=== PATIENT | male | born 1935 | race Caucasian/White ===

== ENCOUNTER → 2018-03-24 14:06 | Outpatient (CLI) | payer MEDICARE, SELFPAY ==
[2018-03-24 14:18] LABS: Bacteria 0 SEEN /hpf (None Seen); Red Blood Cells-Urine 0 SEEN /hpf (0-5); Squamous Epithelial Cells - UA 0 SEEN /hpf (0-5)
[2018-03-24 15:37] LABS: Hematocrit 42.3 % (40-54); Hemoglobin 13.9 g/dl (13.0-16.5); Mean Corp Hgb Conc 32.9 g/gl (32-36); Mean Corpuscular Hgb 31.2 pg (27.0-32.0); Mean Corpuscular Volume 94.8 fL (80-94); Mean Platelet Vol. 9.6 fl (6.2-12.0); Platelet Count 256 K/mm3 (150-450); RBC Distribution Width CV 13.7 % (11.6-14.6); RBC Distribution Width SD 47.1 fl (35.1-43.9); Red Blood Count 4.46 M/mm3 (4.6-6.2)
[2018-03-24 15:53] LABS: Scan Indicated on CBC? Y/N NO
[2018-03-24 16:08] LABS: Albumin, Serum 3.7 g/dL (3.2-5.0); BUN 32 mg/dL (7-18); BUN/Creat Ratio 21.9 RATIO (10-20); Calcium,Total 8.7 mg/dL (8.5-10.1); Chloride 107 mmol/L (98-107); Creatinine, Serum 1.46 mg/dL (0.70-1.30); EST Glomerular Filtration Rate 49 mL/min (>60); Est Glom Filt Rate - Afr Amer 60 mL/min (>60); Glucose 63 mg/dL (74-106); Phosphorus 3.5 mg/dL (2.5-4.9); Potassium 4.3 mmol/L (3.5-5.1); Sodium Level 141 mmol/L (136-145)
[2018-03-24 16:13] LABS: PTHIN 41.2 pg/mL (18.4-80.1); Vitamin D,25 Hydroxy 50.3 ng/mL (29.95-100.01)
[2018-03-24 16:14] LABS: Color, Urine Yellow (Yellow); Glucose, Dipstick Normal (Normal); Ketone-Dipstick 5 mg/dl (Negative); Leukocyte Esterase-Dipstick 100 /ul (Negative); Nitrite-Dipstick Negative (Negative); Occult Blood-Urine 10 /ul (Negative); Protein-Dipstick Negative (Negative); Urine Bilirubin Dipstick Negative (Negative); Urine Clarity Clear (Clear); Urine Urobilinogen Normal (Normal)
[2018-03-24 16:36] LABS: Microalbumin,Random Urine 10.1 mg/L (NO RANGE EST.); Microalbumin:Creatinine Ratio 5.7 mg/g CRE (<30 mg/g CRE); Protein, Urine (Random) 14.3 mg/dL (<11.9); Protein:Creat Ratio 81 mg/g CRE (0-200)
[2018-03-24 16:42] LABS: Mucous, Urine 2+ /hpf (<or=2+); White Blood Cells 0-5 SEEN /hpf (0-5)
== END ==
PROVIDERS: Family Provider Internal Medicine; PCP Family Medicine; Visit Provider Internal Medicine Nephrology
DX: N18.3 Chronic kidney disease, stage 3 (moderate) (principal)
CPT/HCPCS: 36415; 80069; 81001; 82043; 82306; 82570; 83970; 84156; 85027

== ENCOUNTER → 2018-04-02 10:07 | Outpatient (CLI) | payer MEDICARE, SELFPAY ==
--- NOTE | 2018-04-02 10:11 | US_ITS ---
STUDY: RENAL ULTRASOUND - COMPLETE REASON FOR EXAM: Male, 82 years old. Stage III chronic kidney disease. TECHNIQUE: Ultrasound evaluation of the kidneys was performed with real-time and static jaeger-scale imaging. COMPARISON: None. FINDINGS: RIGHT KIDNEY: Normal location of the right kidney, which is normal in size. The right kidney measures 9.6 cm. There is a normal cortex of the right kidney. The renal cortex measures 1.0 cm. There is no right renal mass or cyst. There are no right renal calculi. There is no right hydronephrosis. DISTAL RIGHT URETER: There is non-visualization of the distal right ureter. There is no demonstrated right ureterovesical junction calculus. There is a visualized right ureteral jet. LEFT KIDNEY: Normal location of the left kidney, which is normal in size. The left kidney measures 10.6 cm. There is a normal cortex of the left kidney. The renal cortex measures 1.1 cm. There is no left renal mass or cyst. There are no left renal calculi. There is no left hydronephrosis. DISTAL LEFT URETER: There is non-visualization of the distal left ureter. There is no demonstrated left ureterovesical junction calculus. There is a visualized left ureteral jet. BLADDER: The incompletely distended urinary bladder has a volume of 57 ml. There is a normal wall thickness of the distended urinary bladder. There is no demonstrated mass within the urinary bladder. There are no demonstrated bladder calculi. US/Kidney and Bladder IMPRESSION: Normal ultrasound of the kidneys and urinary bladder. Electronically Signed: Jovanny Mahmood DO at 12:49 EDT Tel [phone], Service support ,
== END ==
PROVIDERS: Family Provider Internal Medicine; PCP Family Medicine; Visit Provider Internal Medicine Nephrology
DX: N18.3 Chronic kidney disease, stage 3 (moderate) (principal)
CPT/HCPCS: 76770

== ENCOUNTER → 2018-10-02 09:23 | Outpatient (CLI) | payer MEDICARE, SELFPAY ==
[2018-10-02 09:28] LABS: Bacteria 0 SEEN /hpf (None Seen); Mucous, Urine 0 SEEN /hpf (<or=2+); Red Blood Cells-Urine 0 SEEN /hpf (0-5)
[2018-10-02 12:04] LABS: Color, Urine Yellow (Yellow); Glucose, Dipstick Normal (Normal); Ketone-Dipstick Negative (Negative); Leukocyte Esterase-Dipstick 25 /ul (Negative); Nitrite-Dipstick Negative (Negative); Occult Blood-Urine Negative /ul (Negative); Protein-Dipstick Negative (Negative); Specific Gravity, Urine 1.015 (1.002-1.030); Urine Bilirubin Dipstick Negative (Negative); Urine Clarity Clear (Clear); Urine Urobilinogen Normal (Normal)
[2018-10-02 12:15] LABS: Vitamin D,25 Hydroxy 38.5 ng/mL (29.95-100.01)
[2018-10-02 12:19] LABS: ALB/GLOB Ratio 0.8 RATIO (0.9-2.4); AST(SGOT) 22 U/L (15-37); Alanine Aminotransfer ALT/SGPT 37 U/L (16-61); Albumin, Serum 3.8 g/dL (3.2-5.0); Alkaline Phosphatase 49 U/L (45-117); Anion Gap 9 (5-15); BUN 31 mg/dL (7-18); BUN/Creat Ratio 19.4 RATIO (10-20); Calcium,Total 9.1 mg/dL (8.5-10.1); Chloride 105 mmol/L (98-107); Cholesterol 184 mg/dL (200); EST Glomerular Filtration Rate 44 mL/min (>60); Est Glom Filt Rate - Afr Amer 54 mL/min (>60); Globulin 4.6 g/dL (2.2-4.2); Glucose 74 mg/dL (74-106); High Density Lipoprotein 57 mg/dL; Phosphorus 2.8 mg/dL (2.5-4.9); Potassium 4.4 mmol/L (3.5-5.1); Protein, Total 8.4 g/dL (6.4-8.2); Sodium Level 139 mmol/L (136-145); Triglycerides 133 mg/dL; Very Low Density Lipoprotein 27 mg/dL (5-40)
[2018-10-02 12:22] LABS: Microalbumin,Random Urine 7.4 mg/L (NO RANGE EST.); Microalbumin:Creatinine Ratio 5.9 mg/g CRE (<30 mg/g CRE); Protein, Urine (Random) 6.6 mg/dL (<11.9); Protein:Creat Ratio 52 mg/g CRE (0-200)
[2018-10-02 12:30] LABS: Squamous Epithelial Cells - UA 0-5 SEEN /hpf (0-5); White Blood Cells 0-5 SEEN /hpf (0-5)
[2018-10-02 13:54] LABS: PTHIN 42.3 pg/mL (18.4-80.1)
[2018-10-06 14:07] LABS: Testosterone, Free 9.97 ng/dL (5.00-21.00)
[2018-10-06 15:47] LABS: Testosterone, % Free 2.63 % (1.50-4.20); Testosterone, Total 379 ng/dL (264-916)
== END ==
PROVIDERS: Family Provider Family Medicine; PCP Family Medicine; Visit Provider Family Medicine
DX: I12.9 Hypertensive 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 stage 4 chronic kidney disease, or unspecified chronic kidney disease (principal); N18.3 Chronic kidney disease, stage 3 (moderate); E78.5 Hyperlipidemia, unspecified; N52.9 Male erectile dysfunction, unspecified
CPT/HCPCS: 36415; 80053; 80061; 81001; 82043; 82306; 82570; 83970; 84100; 84156; 84402; 84403

== ENCOUNTER → 2019-03-31 14:21 | Outpatient (CLI) | payer MEDICARE, OTHER, SELFPAY ==
[2019-03-31 14:32] LABS: Bacteria 0 SEEN /hpf (None Seen); Mucous, Urine 0 SEEN /hpf (<or=2+); Red Blood Cells-Urine 0 SEEN /hpf (0-5); Squamous Epithelial Cells - UA 0 SEEN /hpf (0-5)
[2019-03-31 17:31] LABS: Color, Urine Yellow (Yellow); Glucose, Dipstick Normal (Normal); Ketone-Dipstick Negative (Negative); Leukocyte Esterase-Dipstick 25 /ul (Negative); Nitrite-Dipstick Negative (Negative); Occult Blood-Urine Negative /ul (Negative); Protein-Dipstick Negative (Negative); Urine Bilirubin Dipstick Negative (Negative); Urine Clarity Clear (Clear); Urine Urobilinogen Normal (Normal)
[2019-03-31 17:34] LABS: White Blood Cells 0-5 SEEN /hpf (0-5)
[2019-03-31 17:37] LABS: Absolute Lymphocyte Count 3.12 X10^3/ul (0.83-4.51); Absolute Neutrophil Count 5.8 X10^3/uL (2.0-7.7); Basophil# 0.03 X10^3/uL; Basophil% 0.3 % (0-1); Eosinophil# 0.15 X10^3/uL; Eosinophils% 1.6 % (0-5); Hematocrit 41.6 % (40-54); Hemoglobin 13.9 g/dl (13.0-16.5); Lymphocyte # 3.12 X10^3/ul (4.0); Lymphocyte % 32.6 % (19-41); Mean Corp Hgb Conc 33.4 g/gl (32-36); Mean Corpuscular Hgb 31.3 pg (27.0-32.0); Mean Corpuscular Volume 93.7 fL (80-94); Mean Platelet Vol. 9.7 fl (6.2-12.0); Monocyte% 5.2 % (0-10); Neutrophil # 5.75 X10^3/uL (2.7-7.7); Platelet Count 245 K/mm3 (150-450); RBC Distribution Width SD 48.2 fl (35.1-43.9); Red Blood Count 4.44 M/mm3 (4.6-6.2); White Blood Count 9.6 K/mm3 (4.4-11.0)
[2019-03-31 17:38] LABS: ALB/GLOB Ratio 0.9 RATIO (0.9-2.4); AST(SGOT) 22 U/L (15-37); Alanine Aminotransfer ALT/SGPT 33 U/L (16-61); Albumin, Serum 3.9 g/dL (3.2-5.0); Alkaline Phosphatase 49 U/L (45-117); Anion Gap 5 (5-15); BUN 32 mg/dL (7-18); BUN/Creat Ratio 21.1 RATIO (10-20); Calcium,Total 8.7 mg/dL (8.5-10.1); Chloride 107 mmol/L (98-107); Creatinine, Serum 1.52 mg/dL (0.70-1.30); EST Glomerular Filtration Rate 47 mL/min (>60); Est Glom Filt Rate - Afr Amer 57 mL/min (>60); Globulin 4.2 g/dL (2.2-4.2); Glucose 92 mg/dL (74-106); POSITIVE COUNT NO; POSITIVE DIFFERENTIAL NO; POSITIVE MORPHOLOGY NO; Potassium 3.7 mmol/L (3.5-5.1); Protein, Total 8.1 g/dL (6.4-8.2); Sodium Level 141 mmol/L (136-145)
[2019-03-31 17:44] LABS: Vitamin D,25 Hydroxy 28.4 ng/mL (29.95-100.01)
[2019-03-31 17:51] LABS: Microalbumin,Random Urine 7.8 mg/L (NO RANGE EST.); Microalbumin:Creatinine Ratio 6.6 mg/g CRE (<30 mg/g CRE); Protein, Urine (Random) 11.8 mg/dL (<11.9); Protein:Creat Ratio 100 mg/g CRE (0-200)
[2019-03-31 18:09] LABS: PTHIN 49.9 pg/mL (18.4-80.1)
== END ==
PROVIDERS: Family Provider Family Medicine; PCP Family Medicine; Visit Provider Family Medicine
DX: I12.9 Hypertensive 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 stage 4 chronic kidney disease, or unspecified chronic kidney disease (principal); N18.3 Chronic kidney disease, stage 3 (moderate); E78.5 Hyperlipidemia, unspecified
CPT/HCPCS: 36415; 80053; 81001; 82043; 82306; 82570; 83970; 84100; 84156; 85025

== ENCOUNTER → 2019-10-01 09:23 | Outpatient (CLI) | payer MEDICARE, OTHER, SELFPAY ==
[2019-10-01 12:18] LABS: Absolute Lymphocyte Count 3.17 X10^3/uL (0.83-4.51); Absolute Neutrophil Count 5.1 X10^3/uL (2.0-7.7); Basophil# 0.05 X10^3/uL; Basophil% 0.5 % (0-1); Eosinophil# 0.18 X10^3/uL; Hematocrit 46.4 % (40-54); Hemoglobin 15.3 g/dL (13.0-16.5); Lymphocyte # 3.17 X10^3/ul (4.0); Lymphocyte % 34.7 % (19-41); Mean Corpuscular Hgb 31.6 pg (27.0-32.0); Mean Corpuscular Volume 95.9 fL (80-94); Mean Platelet Vol. 10.1 fl (6.2-12.0); Monocyte# 0.63 X10^3/uL; Monocyte% 6.9 % (0-10); NRBC Flagged by Analyzer 0 % (0-5); Neutrophil # 5.05 X10^3/uL (2.7-7.7); Neutrophil % 55.4 % (47-70); Platelet Count 262 K/mm3 (150-450); RBC Distribution Width CV 13.6 % (11.6-14.6); RBC Distribution Width SD 48.4 fl (35.1-43.9); Red Blood Count 4.84 M/mm3 (4.6-6.2); White Blood Count 9.1 K/mm3 (4.4-11.0)
[2019-10-01 12:33] LABS: ALB/GLOB Ratio 0.8 RATIO (0.9-2.4); AST(SGOT) 21 U/L (15-37); Alanine Aminotransfer ALT/SGPT 35 U/L (16-61); Albumin, Serum 3.7 g/dL (3.2-5.0); Alkaline Phosphatase 48 U/L (45-117); Anion Gap 8 (5-15); BUN 29 mg/dL (7-18); BUN/Creat Ratio 17.8 RATIO (10-20); Calcium,Total 9.1 mg/dL (8.5-10.1); Chloride 104 mmol/L (98-107); Cholesterol 200 mg/dL (200); Creatinine, Serum 1.63 mg/dL (0.70-1.30); EST Glomerular Filtration Rate 43 mL/min (>60); Est Glom Filt Rate - Afr Amer 52 mL/min (>60); Globulin 4.4 g/dL (2.2-4.2); Glucose 79 mg/dL (74-106); High Density Lipoprotein 65 mg/dL; Phosphorus 3.2 mg/dL (2.5-4.9); Potassium 4.2 mmol/L (3.5-5.1); Protein, Total 8.1 g/dL (6.4-8.2); Sodium Level 141 mmol/L (136-145); Triglycerides 73 mg/dL; Very Low Density Lipoprotein 15 mg/dL (5-40)
[2019-10-01 12:34] LABS: Vitamin D,25 Hydroxy 38.9 ng/mL (29.95-100.01)
[2019-10-01 12:45] LABS: PTHIN 42.3 pg/mL (18.4-80.1)
[2019-10-01 12:55] LABS: Microalbumin,Random Urine 8.2 mg/L (NO RANGE EST.); Microalbumin:Creatinine Ratio 5.1 mg/g CRE (<30 mg/g CRE)
== END ==
PROVIDERS: Family Provider Family Medicine; PCP Family Medicine; Visit Provider Family Medicine
DX: I12.9 Hypertensive 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 stage 4 chronic kidney disease, or unspecified chronic kidney disease (principal); N18.3 Chronic kidney disease, stage 3 (moderate); E78.5 Hyperlipidemia, unspecified; E55.9 Vitamin D deficiency, unspecified
CPT/HCPCS: 36415; 80053; 80061; 82043; 82306; 82570; 83970; 84100; 85025

== ENCOUNTER → 2021-03-27 09:45 | Outpatient (CLI) | payer MEDICARE, OTHER, SELFPAY ==
[2021-03-27 12:26] LABS: Absolute Lymphocyte Count 3.48 X10^3/uL (0.83-4.51); Absolute Neutrophil Count 5.2 X10^3/uL (2.0-7.7); Basophil# 0.04 X10^3/uL; Basophil% 0.4 % (0-1); Eosinophil# 0.15 X10^3/uL; Eosinophils% 1.6 % (0-5); Hematocrit 43.2 % (40-54); Hemoglobin 14.1 g/dL (13.0-16.5); Lymphocyte # 3.48 X10^3/ul (0.83-4.51); Lymphocyte % 36.6 % (19-41); Mean Corp Hgb Conc 32.6 g/dL (32-36); Mean Corpuscular Hgb 31.2 pg (27.0-32.0); Mean Corpuscular Volume 95.6 fL (80-94); Monocyte# 0.65 X10^3/uL; Monocyte% 6.8 % (0-10); NRBC Flagged by Analyzer 0 % (0-5); Neutrophil # 5.15 X10^3/uL (2.7-7.7); Neutrophil % 54.1 % (47-70); Platelet Count 262 K/mm3 (150-450); RBC Distribution Width CV 13.6 % (11.6-14.6); RBC Distribution Width SD 48.3 fl (35.1-43.9); Red Blood Count 4.52 M/mm3 (4.6-6.2); White Blood Count 9.5 K/mm3 (4.4-11.0)
[2021-03-27 12:44] LABS: PTHIN 48.6 pg/mL (18.4-80.1)
[2021-03-27 12:46] LABS: Vitamin D,25 Hydroxy 43.4 ng/mL
[2021-03-27 13:06] LABS: ALB/GLOB Ratio 0.8 RATIO (0.9-2.4); AST(SGOT) 17 U/L (15-37); Alanine Aminotransfer ALT/SGPT 30 U/L (16-61); Albumin, Serum 3.7 g/dL (3.2-5.0); Alkaline Phosphatase 46 U/L (45-117); Anion Gap 9 (5-15); BUN 36 mg/dL (7-18); BUN/Creat Ratio 23.2 RATIO (10-20); Calcium,Total 9.1 mg/dL (8.5-10.1); Chloride 105 mmol/L (98-107); Cholesterol 196 mg/dL (200); Creatinine, Serum 1.55 mg/dL (0.70-1.30); EST Glomerular Filtration Rate 46 mL/min (>60); Est Glom Filt Rate - Afr Amer 55 mL/min (>60); Globulin 4.4 g/dL (2.2-4.2); Glucose 88 mg/dL (74-106); High Density Lipoprotein 67 mg/dL; Protein, Total 8.1 g/dL (6.4-8.2); Sodium Level 139 mmol/L (136-145); Triglycerides 78 mg/dL; Very Low Density Lipoprotein 16 mg/dL (5-40)
[2021-03-27 13:21] LABS: Microalbumin,Random Urine 11.9 mg/L (NO RANGE EST.); Microalbumin:Creatinine Ratio 12.2 mg/g CRE (<30 mg/g CRE)
== END ==
PROVIDERS: PCP Family Medicine; Referring Provider Family Medicine; Visit Provider Family Medicine
DX: I12.9 Hypertensive 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 stage 4 chronic kidney disease, or unspecified chronic kidney disease (principal); N18.30 Chronic kidney disease, stage 3 unspecified; E78.5 Hyperlipidemia, unspecified; E55.9 Vitamin D deficiency, unspecified; Z12.5 Encounter for screening for malignant neoplasm of prostate
CPT/HCPCS: 36415; 80053; 80061; 82043; 82306; 82570; 83970; 84153; 85025; G0103

== ENCOUNTER → 2021-11-13 | Outpatient (CLI) | payer MEDICARE, OTHER, SELFPAY ==
--- NOTE | 2021-11-13 | IMM_PTH ---
PATIENT: GRANT MCDONNELL V LOC: [facility] U#:[id number] AGE/SX: 86/M ROOM: RE11/13/[address]: Dr. Emil Isabel MD : 1935 BED: DIS: 11/13/2021 SPEC #: [id number] RECD: 11/15/21 11:54 STATUS: YUDI REQ #: [id number] SANDEEP: 11/13/21 00:[address]: Emil Isabel DEPT: IMMUNOHISTOCHEMISTRY RECD BY: Niru Frank ENTERED: 11/15/21 11:55 SP TYPE: IMMUNO OTHR DR: Dr. Johnny Wolff DO Tissues: B - PROSTATE RIGHT C - PROSTATE RIGHT Procedures: 34BE12 (add) P40 (add) 34BE12 (initial) PHYSICIAN & INSTITUTION [place] [address] SPECIMEN INFORMATION: Tissue Source: B - Right prostate, mid, core biopsy, C - Right prostate, base, core biopsy Clinical Info: Elevated PSA Specimen Number: [id number] B & C CPT code: 70618, 33581 x3 METHODOLOGY: Deparaffinized sections of prefer/formalin-fixed tissue or PAP/DQ stained slides are incubated with monoclonal/polyclonal antibodies/oligonucleotide probes. Localization is made via biotin free immunoperoxidase method. Appropriate controls are performed and reacted as expected. Results on target cell population are indicated in the following table: RESULTS: ANTIBODY / CLONE RESULT Block B P40 (BC28) positive 34BE12 (34BE12) positive Block C P40 (BC28) positive 34BE12 (34BE12) positive These tests were developed and their performance characteristics determined by [facility]. They may not have been cleared or approved by the U.S. Food and Drug Administration. The FDA has determined that such clearance or approval is not necessary. The above immunohistochemical/dualISH markers are ordered and reviewed by the Pathologist. INTERPRETATION: B. Right prostate, mid, core biopsy: Benign prostatic tissue. C. Right prostate, base, core biopsy: Benign prostatic tissue. AM:janna 11/16/2021
--- NOTE | 2021-11-13 | PROSBIL_PTH ---
PATIENT: GRANT MCDONNELL V LOC: [facility] U#:[id number] AGE/SX: 86/M ROOM: RE11/13/[address]: Dr. Emil Isabel MD : 1935 BED: DIS: 11/13/2021 SPEC #: [id number] RECD: 11/14/21 10:26 STATUS: YUDI REWilfrid #: [id number] SANDEEP: 11/13/21 00:[address]: Emil Isabel DEPT: SURGICAL PATHOLOGY RECD BY: Ezequiel Denson ENTERED: 11/14/21 10:27 SP TYPE: PROST BX MARRY DR: Dr. Johnny Wolff DO Tissues: A - PROSTATE RIGHT B - PROSTATE RIGHT C - PROSTATE RIGHT D - PROSTATE LEFT E - PROSTATE LEFT F - PROSTATE LEFT Procedures: PROSTATE BX HEADER OPERATION: Prostate biopsy PRE-OP DIAGNOSIS: Elevated PSA R97.20 TISSUE SUBMITTED: A - Right apex, B - Right mid, C - Right base, D - Left apex, E - Left mid, F - Left base MICROSCOPIC DIAGNOSIS A. Right prostate, apex, core biopsy: Chronic prostatitis with focal acute prostatitis. B. Right prostate, mid, core biopsy: Focal high-grade prostatic intraepithelial neoplasia (HGPIN). See comment. C. Right prostate, base, core biopsy: Focal high-grade prostatic intraepithelial neoplasia (HGPIN). See comment. D. Left prostate, apex, core biopsy: Adenocarcinoma. Alfie grade: 7 (3+4) Cores involved: 1 out of 1 core Tissue involved: 25% Greatest tumor length: 2.2 millimeters Other findings: Focal high-grade prostatic intraepithelial neoplasia (HGPIN). E. Left prostate, mid, core biopsy: Adenocarcinoma. Sayre grade: 7 (4+3) Cores involved: 1 out of 1 core Tissue involved: 25% Greatest tumor length: 2.5 millimeters F. Left prostate, base, core biopsy: Adenocarcinoma. Sayre grade: 8 (5+3) Cores involved: 1 out of 2 core Tissue involved: 65% Greatest tumor length: 6.5 millimeters AM:janna 11/15/2021 COMMENT B & C. Immunohistochemistry ([id number]) supports the above diagnosis. MICROSCOPIC DESCRIPTION Slides are reviewed. GROSS DESCRIPTION A - Received is one container designated prostate, right apex. The specimen consists of two elongated fragments of light -white soft tissue each measuring 0.8 cm in length and 0.1 cm in diameter. The specimen is totally submitted in one cassette. B - Received is one container designated prostate, right mid. The specimen consists of two elongated fragments of light -white soft tissue each measuring 0.8 cm in length and 0.1 cm in diameter. The specimen is totally submitted in one cassette. C - Received is one container designated prostate, right base. The specimen consists of two elongated fragments of light -white soft tissue each measuring 0.8 cm in length and 0.1 cm in diameter. The specimen is totally submitted in one cassette. D - Received is one container designated prostate, left apex. The specimen consists of one elongated fragment of light -white soft tissue measuring 1.5 cm in length and 0.1 cm in diameter. The specimen is totally submitted in one cassette. E - Received is one container designated prostate, left mid. The specimen consists of one elongated fragment of light -white soft tissue measuring 1.5 cm in length and 0.1 cm in diameter. The specimen is totally submitted in one cassette. F - Received is one container designated prostate, left base. The specimen consists of two elongated fragments of light -white soft tissue each measuring 0.8 cm in length and 0.1 cm in diameter. The specimen is totally submitted in one cassette. / AM:janna 11/14/21 TC:0 [facility]: [id number]
== END | disposition home or self-care (01) ==
LOC: LABSPEC 16:31
PROVIDERS: PCP Family Medicine; Visit Provider Urology
DX: C61 Malignant neoplasm of prostate (principal); N42.31 Prostatic intraepithelial neoplasia; N41.1 Chronic prostatitis; R97.20 Elevated prostate specific antigen [PSA]
CPT/HCPCS: 88305; 88341; 88342; G0416

== ENCOUNTER → 2021-11-20 | Outpatient (CLI) | payer MEDICARE, OTHER, SELFPAY | END | disposition home or self-care (01) | LOC: LABSPEC 11-21 11:24 | PROVIDERS: PCP Family Medicine; Referring Provider Family Medicine; Visit Provider Family Medicine | DX: Z20.822 Contact with and (suspected) exposure to COVID-19 (principal) | CPT/HCPCS: 87633; 87635; U0005; U0003 ==

== ENCOUNTER → 2021-11-23 08:59 | Outpatient (CLI) | payer MEDICARE, OTHER, SELFPAY ==
--- NOTE | 2021-11-23 09:01 | NM_ITS ---
CLINICAL: 86-year-old male with history of carcinoma of the prostate. WHOLE BODY 99m Tc MDP RADIONUCLIDE BONE SCINTIGRAPHY COMPARISON: None available FINDINGS: Following the intravenous administration of 25.0 mCi of 99m Tc MDP, whole body bone images reveal: 1. Increased radiopharmaceutical concentration is identified in the eighth thoracic vertebra posteriorly on the right, lower cervical spine posteriorly on the left, the acromioclavicular and sternoclavicular compartments of both shoulders, medial tibial compartment of the left knee. 2. The remaining skeletal structures are scintigraphically unremarkable with normal-appearing renal images and urinary bladder activity identified. NM/Bone Scan Whole Body IMPRESSION: 1. The increase in radiopharmaceutical concentration identified in the cervical and thoracic spine, bilateral shoulders and left knee articulation is most consistent with degenerative arthritis. 2. There is no definitive typical scintigraphic evidence of diffuse axial skeletal metastatic disease on the current examination. Electronically Signed: Peter Wiley DO at 22:40 EST Tel , Service support ,
== END ==
PROVIDERS: PCP Family Medicine; Referring Provider Urology; Visit Provider Urology
DX: C61 Malignant neoplasm of prostate (principal)
CPT/HCPCS: 78306; A9503

== ENCOUNTER → 2021-11-28 14:58 | Outpatient (CLI) | payer MEDICARE, OTHER, SELFPAY ==
--- NOTE | 2021-11-28 15:02 | CT_ITS ---
INDICATION: PROSTATE CA EXAMINATION: CT Abdomen And Pelvis W/ Contrast Injection TECHNIQUE: Helically acquired images were obtained of the abdomen and pelvis after IV contrast. A radiation dose optimization technique was used for this scan. IV Contrast dosage and agent: IV 100mL Isovue-370 Oral contrast: None. COMPARISON: None. FINDINGS: Visualized lung bases: Unremarkable Liver: Unremarkable Gallbladder: Unremarkable Spleen: Unremarkable Pancreas: Unremarkable Adrenal Glands: Unremarkable Kidneys: Multiple parapelvic cysts in the left kidney. Vasculature: Moderate aortoiliac atherosclerotic disease. GI Tract: Scattered diverticula throughout the colon without evidence of inflammation. Lymphadenopathy: None Peritoneum: No ascites. Bladder: Unremarkable Reproductive organs: The prostate gland is enlarged and heterogeneous. Bones/Soft tissues: There are diffuse degenerative changes of the spine. CT/Abdomen/Pelvis W IV Cont ONLY IMPRESSION: Enlarged and heterogeneous prostate consistent with known prostate cancer. No evidence of lymphadenopathy. No evidence of local or distant metastatic disease. Diverticulosis. Electronically Signed: Raimundo Olivo MD at 0:11 EST Tel , Service support ,
[2021-11-28 15:21] LABS: EGFR FINGERSTICK > 60.0000 mL/min (>60)
== END ==
PROVIDERS: PCP Family Medicine; Referring Provider Urology; Visit Provider Urology
DX: C61 Malignant neoplasm of prostate (principal)
CPT/HCPCS: 74177; Q9967

== ENCOUNTER 2022-01-03 11:44 | Day surgery (SDC) | payer MEDICARE, OTHER, SELFPAY ==
[2022-01-03 12:14] VITALS: BP 164/90; PULSE 73; RESP 18; TEMP 36; O2SAT 100; BMI 24.1
[2022-01-03] MEDS: Lactated Ringers 1,000 ML 15 ML IV (12:23)
[2022-01-03] MEDS: Cefazolin 2 GM in 0.9% Normal Saline 100 ML IV (14:27)
--- NOTE | 2022-01-03 14:49 | PCM.HP.STD ---
HPI - General HPI Narrative GRANT MCDONNELL, is a 86 M who presents for placement of gold markers and spacer gel matrix PFSH Medical History (Updated 12/29/21 @ 11:[address] Xavier Johnson, DO) Back pain Cancer Depression High cholesterol History of cardiac murmur History of diverticulitis History of stress test Hypertension Injury of back Non-smoker Prostate disease Syncope Wears glasses Wears hearing aid Home Medications cholecalciferol (vitamin D3) 50 mcg (2,000 unit) capsule 50 mcg PO DAILY 12/08/21 [History Last Taken Unknown] amlodipine-benazepril 1 cap PO DAILY 12/27/21 [History Last Taken Unknown] aspirin 81 mg PO DAILY 12/27/21 [History Last Taken 12/21/21] calcium carbonate-vitamin D3 [Calcium 500 With D] 1 tab PO TID 12/27/21 [History Last Taken Unknown] lovastatin 20 mg PO QHS 12/27/21 [History Last Taken Unknown] multivitamin 1 cap PO DAILY 12/27/21 [History Last Taken Unknown] ciprofloxacin HCl [Cipro] 500 mg PO BID #14 tab 01/03/22 [Rx Last Taken Unknown] Allergy/AdvReac Type Severity Reaction Status Date / Time No Known Allergies Allergy Verified 01/03/22 12:23 Family History (Updated 12/08/21 @ 10:13 by Lucia Martinez RN) Brother Cancer PROSTATE Mother Diabetes Surgical History (Updated 12/27/21 @ 09:12 by Dory Wisdom) History of hand surgery Hx of colonoscopy Hx of eye surgery Hx of tonsillectomy Social History (Updated 12/08/21 @ 10:13 by Lucia Martinez RN) adopted: No household members: spouse current occupational exposures/hazards: No Smoking Status: Never smoker second hand exposure: No alcohol intake: never substance use type: does not use Vital Signs Vital Signs Vital Signs: 01/03/22 12:14 Temperature 96.8 F L Temperature Source Temporal Pulse Rate 73 Respiratory Rate 18 Respiratory Pattern Normal Blood Pressure 164/90 H Blood Pressure Mean 114 Blood Pressure Source Monitor Blood Pressure Position Sitting Blood Pressure Location Left Arm Pulse Ox 100 Oxygen Delivery Method Room Air Weight Weight: 72 kg Body Mass Index (BMI) 24.1
--- NOTE | 2022-01-03 14:49 | PCM.DC ---
Discharge Instructions Diet Discharge Diet: No restrictions Activity Discharge Activity: Return to Normal Activity and May Not Drive (while taking narcotic pain medications.) Dressing / Incision Call your doctor if you observe: Fever of 101 or Higher Follow Up Care Please Follow Up With: Emil Isabel MD When: Call [phone] for an appointment Test Results: Test results from this visit will be discussed in further detail at your follow-up appointment, if applicable. Discharge Plan Admission Primary Reason for Your Visit: markers and spacer gel Attending Provider: Emil Isabel Primary Care Provider: Johnny Wolff Discharge Orders/Prescriptions Prescriptions: New ciprofloxacin HCl [Cipro] 500 mg tablet 500 mg PO BID Qty: 14 RF: 0 Continued cholecalciferol (vitamin D3) 50 mcg (2,000 unit) capsule 50 mcg PO DAILY RF: 0 aspirin 81 mg Tablet,Delayed Release (Dr/Ec) 81 mg PO DAILY RF: 0 amlodipine-benazepril 5-10 mg Capsule 1 cap PO DAILY RF: 0 multivitamin Capsule 1 cap PO DAILY RF: 0 lovastatin 20 mg Tablet Extended Release 24 Hr 20 mg PO QHS RF: 0 calcium carbonate-vitamin D3 [Calcium 500 With D] 500 mg-10 mcg (400 unit) Tablet 1 tab PO TID RF: 0 Referrals / Follow Up: Johnny Wolff DO [Primary Care Provider] - Disposition Disposition (needs filled in before D/C Order can be placed): Home, Self Care
--- NOTE | 2022-01-03 14:49 | PCM.OPRPT ---
Report of Operation Date of Procedure: 01/03/22 Pre-Operative Diagnosis: prostate cancer Post-Operative Diagnosis: same Surgery/Procedure Performed:: Placement of gold markers and placement of spacer organ at risk gel matrix Description of Surgical Findings:: Patient was taken back to the operating room after smooth induction of anesthesia he was placed supine on the table. The genitals and perineum were prepped and draped in usual sterile fashion The penis and testicles were prepped and draped in usual sterile fashion, ultrasound probe was placed into the rectum and biplanar ultrasound was performed on the prostate. Identified the base mid and apex of the prostate identified the transition zone prostate. Then using a needle the first marker machine was placed into the right base of the prostate, the second marker machine was placed in the left base of the prostate, and the third core marker was placed in the right apex of the prostate after all 3 markers were placed the placement of the markers were confirmed by ultrasonography. I then introduced a biplanar ultrasound probe into the rectum and performed ultrasonography and identified the Denonvilliers' fascia the prostate mid base and apex and seminal vesicles. The spacer gel mix was then prepared on the back table per manufactures instruction. Under ultrasound guidance in the midline perineum a bevel needle down we advanced through the perineum below the prostate into the space of Denonvilliers' fascia. This space which could be identified by ultrasound with a bright white layer between the prostate and the rectum. I then injected a puff of normal saline to identify the space further. After I confirmed that the needle was in the correct space in the mid prostate and the space of Denonvilliers' fascia between the rectum and the prostate. Then over the course of 15 seconds the gel matrix was injected slowly there was nice separation between the prostate and the rectum at the gel matrix was injected. The position of the gel matrix was confirmed by ultrasound. Then the injection needle was removed intact. Patient's perineum was cleaned patient was taken out of stirrups and then taken back to the PACU in good condition. Surgeon: pastora Type of Anesthesia: General Admit VTE Documentation VTE Present on Admission: No VTE Mechan Device Prophylaxis: SCD's VTE Pharm Prophylaxis ordered?: No
[2022-01-03 14:54] VITALS: BP 104/78; BP 164/90; PULSE 62; RESP 16; TEMP 36.3; O2SAT 93
[2022-01-03 15:00] VITALS: BP 113/71; BP 164/90; PULSE 61; RESP 16; O2SAT 95
[2022-01-03 15:15] VITALS: BP 114/79; BP 164/90; PULSE 59; RESP 16; TEMP 36.1; O2SAT 97
[2022-01-03 15:52] VITALS: BP 128/92; BP 164/90; PULSE 52; RESP 16; TEMP 36.2; O2SAT 100
== END 2022-01-03 23:59 | disposition home or self-care (01) ==
LOC: SDC 11:46 → AC 11:48
PROVIDERS: PCP Family Medicine; Referring Provider Urology; Visit Provider Urology
PROC: (CPT 55874; principal; 2022-01-03 13:45)
DX: C61 Malignant neoplasm of prostate (principal); I10 Essential (primary) hypertension; E78.00 Pure hypercholesterolemia, unspecified; Z79.82 Long term (current) use of aspirin; Z79.899 Other long term (current) drug therapy
CPT/HCPCS: 55876; 55874; 00400; J2405

== ENCOUNTER 2022-01-09 11:01 | Outpatient (CLI) | payer MEDICARE, OTHER, SELFPAY | END 2022-01-09 23:59 | disposition home or self-care (01) | LOC: MRI 11:03 | PROVIDERS: PCP Family Medicine; Referring Provider Student in an Organized Health Care Education/Training Program; Visit Provider Student in an Organized Health Care Education/Training Program | DX: R69 Illness, unspecified (principal) ==

== ENCOUNTER → 2022-06-12 | Outpatient (CLI) | payer MEDICARE, OTHER, SELFPAY ==
[2022-06-12 12:00] LABS: PSA,Total- Diagnostic < 0.01 ng/mL (0.0-4.0)
== END | disposition home or self-care (01) ==
PROVIDERS: PCP Family Medicine; Visit Provider Urology
DX: C61 Malignant neoplasm of prostate (principal)
CPT/HCPCS: 36415; 84153

== ENCOUNTER → 2022-08-07 | Outpatient (CLI) | payer MEDICARE, OTHER, SELFPAY ==
--- NOTE | 2022-08-07 16:20 | RAD_ITS ---
STUDY: X-RAY - PELVIS REASON FOR EXAM: Male, 87 years old. Pelvic pain TECHNIQUE: One view of the pelvis was obtained. COMPARISON: None. FINDINGS: Moderate amount of fecal material is seen in the colon. Surgical clips are seen in the prostate bed. There is narrowing with cortical sclerosis and osteophyte formation of the sacroiliac joint consistent with degenerative osteoarthritic changes. Normal visualized bilateral superior and inferior pubic rami. There are degenerative changes of the pubic symphysis with articular narrowing and sclerosis. Normal ischial tuberosities. Normal visualized right femoral head. Normal right acetabulum. There is mild articular joint space narrowing of the right hip. Normal visualized left femoral head. Normal left acetabulum. There is mild articular joint space narrowing of the left hip. RAD/Pelvis 1 or 2 Views IMPRESSION: Degenerative changes of the bony pelvis. Moderate amount of fecal material is seen in the colon. Electronically Signed: Gasper Navarrete MD at 12:30 EDT ,
== END | disposition home or self-care (01) ==
LOC: RAD 16:15
PROVIDERS: PCP Family Medicine; Referring Provider Radiology Radiation Oncology; Visit Provider Radiology Radiation Oncology
DX: R10.2 Pelvic and perineal pain (principal)
CPT/HCPCS: 72170

== ENCOUNTER → 2022-09-10 | Outpatient (CLI) | payer MEDICARE, OTHER, SELFPAY ==
[2022-09-10 12:09] LABS: Absolute Neutrophil Count 5.3 X10^3/uL (2.0-7.7); Basophil# 0.03 X10^3/uL; Basophil% 0.4 % (0-1); Eosinophil# 0.12 X10^3/uL; Eosinophils% 1.5 % (0-5); Hematocrit 36.5 % (40-54); Hemoglobin 12.1 g/dL (13.0-16.5); Lymphocyte % 21.3 % (19-41); Mean Corp Hgb Conc 33.2 g/dL (32-36); Mean Corpuscular Hgb 31.8 pg (27.0-32.0); Mean Corpuscular Volume 95.8 fL (80-94); Mean Platelet Vol. 9.4 fl (6.2-12.0); Monocyte# 0.75 X10^3/uL; Monocyte% 9.4 % (0-10); NRBC Flagged by Analyzer 0 % (0-5); Neutrophil # 5.31 X10^3/uL (2.7-7.7); Neutrophil % 66.6 % (47-70); Platelet Count 293 K/mm3 (150-450); RBC Distribution Width CV 13.7 % (11.6-14.6); RBC Distribution Width SD 48.3 fl (35.1-43.9); Red Blood Count 3.81 M/mm3 (4.6-6.2)
[2022-09-10 12:24] LABS: ALB/GLOB Ratio 0.7 RATIO (0.9-2.4); AST(SGOT) 19 U/L (15-37); Alanine Aminotransfer ALT/SGPT 23 U/L (16-61); Albumin, Serum 3.3 g/dL (3.2-5.0); Alkaline Phosphatase 57 U/L (45-117); Anion Gap 8 (5-15); BUN 25 mg/dL (7-18); BUN/Creat Ratio 17.1 RATIO (10-20); Calcium,Total 9.3 mg/dL (8.5-10.1); Chloride 105 mmol/L (98-107); Cholesterol 192 mg/dL (200); Creatinine, Serum 1.46 mg/dL (0.70-1.30); EST Glomerular Filtration Rate 49 mL/min (>60); Est Glom Filt Rate - Afr Amer 59 mL/min (>60); Globulin 4.7 g/dL (2.2-4.2); Glucose 70 mg/dL (74-106); High Density Lipoprotein 62 mg/dL; Potassium 4.3 mmol/L (3.5-5.1); Sodium Level 140 mmol/L (136-145); Triglycerides 126 mg/dL; Very Low Density Lipoprotein 25 mg/dL (5-40)
== END | disposition home or self-care (01) ==
LOC: BFHLAB 09:53
PROVIDERS: PCP Family Medicine; Visit Provider Family Medicine
DX: I12.9 Hypertensive 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 stage 4 chronic kidney disease, or unspecified chronic kidney disease (principal); N18.31 Chronic kidney disease, stage 3a; E78.5 Hyperlipidemia, unspecified
CPT/HCPCS: 36415; 80053; 80061; 85025

== ENCOUNTER → 2022-09-29 | Outpatient (CLI) | payer MEDICARE, OTHER, SELFPAY ==
[2022-09-29 16:16] LABS: Anion Gap 6 (5-15); BUN 33 mg/dL (7-18); BUN/Creat Ratio 22.1 RATIO (10-20); Calcium,Total 8.6 mg/dL (8.5-10.1); Chloride 108 mmol/L (98-107); Creatinine, Serum 1.49 mg/dL (0.70-1.30); EST Glomerular Filtration Rate 48 mL/min (>60); Est Glom Filt Rate - Afr Amer 58 mL/min (>60); Glucose 81 mg/dL (74-106); Potassium 4.3 mmol/L (3.5-5.1); Sodium Level 138 mmol/L (136-145)
== END | disposition home or self-care (01) ==
LOC: LAB 10:09
PROVIDERS: PCP Family Medicine
DX: N17.9 Acute kidney failure, unspecified (principal)
CPT/HCPCS: 36415; 80048

== ENCOUNTER → 2023-04-08 | Outpatient (CLI) | payer MEDICARE, OTHER, SELFPAY ==
[2023-04-08 12:01] LABS: Absolute Lymphocyte Count 1.68 X10^3/uL (0.83-4.51); Absolute Neutrophil Count 4.7 X10^3/uL (2.0-7.7); Basophil# 0.04 X10^3/uL; Basophil% 0.5 % (0-1); Eosinophil# 0.19 X10^3/uL; Eosinophils% 2.6 % (0-5); Hematocrit 35.7 % (40-54); Hemoglobin 11.8 g/dL (13.0-16.5); Lymphocyte # 1.68 X10^3/ul (0.83-4.51); Lymphocyte % 22.9 % (19-41); Mean Corp Hgb Conc 33.1 g/dL (32-36); Mean Corpuscular Hgb 31.3 pg (27.0-32.0); Mean Corpuscular Volume 94.7 fL (80-94); Mean Platelet Vol. 9.5 fl (6.2-12.0); Monocyte# 0.65 X10^3/uL; Monocyte% 8.9 % (0-10); NRBC Flagged by Analyzer 0 % (0-5); Neutrophil # 4.72 X10^3/uL (2.7-7.7); Neutrophil % 64.3 % (47-70); Platelet Count 247 K/mm3 (150-450); RBC Distribution Width CV 14.1 % (11.6-14.6); RBC Distribution Width SD 48.9 fl (35.1-43.9); Red Blood Count 3.77 M/mm3 (4.6-6.2); White Blood Count 7.3 K/mm3 (4.4-11.0)
[2023-04-08 12:20] LABS: ALB/GLOB Ratio 0.9 RATIO (0.9-2.4); AST(SGOT) 25 U/L (15-37); Alanine Aminotransfer ALT/SGPT 29 U/L (16-61); Albumin, Serum 3.5 g/dL (3.2-5.0); Alkaline Phosphatase 53 U/L (45-117); Anion Gap 4 (5-15); BUN 36 mg/dL (7-18); BUN/Creat Ratio 23.7 RATIO (10-20); Calcium,Total 8.9 mg/dL (8.5-10.1); Chloride 109 mmol/L (98-107); Creatinine, Serum 1.52 mg/dL (0.70-1.30); EST Glomerular Filtration Rate 46 mL/min (>60); Est Glom Filt Rate - Afr Amer 56 mL/min (>60); Globulin 4.1 g/dL (2.2-4.2); Glucose 87 mg/dL (74-106); Potassium 4.1 mmol/L (3.5-5.1); Protein, Total 7.6 g/dL (6.4-8.2); Sodium Level 139 mmol/L (136-145)
== END | disposition home or self-care (01) ==
LOC: BFHLAB 09:52
PROVIDERS: PCP Family Medicine; Referring Provider Family Medicine; Visit Provider Family Medicine
DX: I12.9 Hypertensive 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 stage 4 chronic kidney disease, or unspecified chronic kidney disease (principal); N18.31 Chronic kidney disease, stage 3a
CPT/HCPCS: 36415; 80053; 85025

== ENCOUNTER 2023-08-30 10:30 | Outpatient (RCR) | payer MEDICARE, OTHER, SELFPAY ==
--- NOTE | 2023-07-08 16:17 | HP.SP.EVAL ---
History History Date of Eval: 07/08/23 Attending Doctor: Referring Doctor: Reason for Referral: MEMORY Medical Diagnosis (from RX): Cognitive impairment Previous speech therapy: No Other Relevant Medical History/Diagnoses/Surgery: Patient has significant hearing impairment which is impacting his ability to communicate. He has a hearing aid through an object oriented developer and the other was through [employer]. Recommend a current hearing evaluation to determine how much of this is impacting his ability to communicate and understand oral information. Back pain Cancer Depression High cholesterol History of cardiac murmur History of diverticulitis History of stress test Hypertension Injury of back Prostate disease Syncope Wears glasses Wears hearing aid Medications related to this diagnosis: cholecalciferol (vitamin D3) 50 mcg (2,000 unit) capsule 50 mcg PO DAILY 12/08/21 [History Confirmed 07/01/23] amlodipine 5 mg-benazepril 10 mg capsule 1 cap PO DAILY 12/27/21 [History Confirmed 07/01/23] aspirin 81 mg tablet,delayed release 81 mg PO DAILY 12/27/21 [History Confirmed 07/01/23] calcium carbonate 500 mg-vitamin D3 10 mcg (400 unit) tablet (Calcium 500 With D) 1 tab PO TID 12/27/21 [History Confirmed 07/01/23] lovastatin 20 mg tablet,extended release 24 hr 20 mg PO QHS 12/27/21 [History Confirmed 07/01/23] multivitamin 1 cap PO DAILY 12/27/21 [History Confirmed 07/01/23] ciprofloxacin HCl 500 mg tablet (Cipro) 500 mg PO BID #14 tabs 01/03/22 [Rx Confirmed 12/31/22] hydrocortisone acetate 25 mg rectal suppository 25 mg CO BID #24 ea 08/21/22 [Rx Confirmed 07/01/23] Smoking Status: Never smoker Hx Tobacco Use: No Pain Is pain an issue with your current prescribed condition?: No Personal Preferred language: [place] Patient Allergies Allergies Allergies: Allergies No Known Allergies Allergy (Verified 07/01/23 09:05) * Pediatric & Adult patients Adult CLQT CLQT CLQT Administered: Yes CLQT: Cognitive Linguistic Quick Test (CLQT) is a criterion - referenced assessment designed for adults between the ages of 18 and 89 with known or suspected neurological dysfuntions. The CLQT is to assess strength and weaknesses in five cognitive domains. Severity ratings are within normal limits, mild, moderate, severe deficits. The subtests are as follows: Date: 07/08/23 Attention Attention: Severe Memory Memory: Mild Executive Functions Executive Functions: Moderate Language Language: WNL Visuospatial Skills Visuospatial Skills: Severe CLQT Comments Comments: -: Patient did well with language tasks of personal facts, confrontational naming, story retelling as well as generative naming. He had a difficult time wiht symbol cancellation as he crossed off anything that was of similar shape even when the correct one was present. As a non scoring task he was asked to complete it a second time with the model shown again and he would have gotten a score of 6 rather than 0. He appeared to forget the directions or lost attention as the second half of the paper had many more errors. He was unable to complete the symbol trail with the divided attention. He did complete the trial of alternating [place] to triangle but not able to follow increasing size of circles. He only got 3/6 design memory items. The mazes were completed correctly but he did not follow the directions to not cross lines. Reference: Neuro-QoL instrument In past 7 days I had to read something several times to understand it: Sometimes (2-3 times) My thinking was slow: Sometimes (2-3 times) I had to work really hard to pay attention or i would make a mistake: Sometimes (2-3 times) I had trouble concentrating: Sometimes (2-3 times) How much DIFFICULTY do you currently reading & following complex instructions (e.g. directions for new medication: A lot planning for & keeping appts that are not part of weekly routine: Somewhat managing your time to do most of your daily activities: Somewhat learning new tasks or instructions: A lot Neuro-QOL Score Raw Score: 22 T - Score: 37.0 Radiation Oncology Patient Plan Plan Plan: Speech therapy is recommended for recall and cognitive skills as the patient is demonstrating errors on both aspects. Recommendations Treatment Warranted: Yes Treatment Warranted: Cognition Progress Prognosis: Good Frequency Frequency: 1x/Week Duration: 2 Months Visits in this POC: 8 Patient/Family Goal Patient/Family Goal: Patient stated that he would like to address his memory skills. Goals that are Established Determination:: Goals will be added/modified as deemed necessary and appropriate. Therapy will be discontinued when results of re-evaluation indicate therapy is no longer needed or lack of progress has been documented. Goal #1-5 Goal #1: Willie will complete recall tasks of simple information provided either oral or in written form on 4/5 trials on 2/3 consecutive sessions. Goal #2: Willie will complete problem solving, logic, judgement and reasoning tasks for safety awareness, home activities such as medication and driving on 4/5 trials on 2/3 consecutive sessions. Education Patient has Indicated that the Following Identified Educational Needs: Cognitively Impaired and Hearing/Vision/Speech Impaired Patient Instruction Patient Education: Diagnosis, Treatment Plan and Goals Person Taught: Patient and Family Teaching Method: Discussion Response to teaching: Verbalize understanding
--- NOTE | 2023-10-22 10:39 | HP.SP.DC ---
ST Discharge Summary Discharged: Discharge: Willie Fernandez is discharged from [facility] as of October 22, 2023 as he did not attend his last session and did not reschedule it. His initial evaluation was on 07/08/23 and his last attended session was 08/30/23. His therapy sessions were one time per week. Goals focused on recalling information provided either oral or in written form as well as complete problem solving, logic, judgement and reasoning tasks for safety awareness, home activities such as medication and driving. During his last therapy session his recall of information in short stories was 80% with minimal cues. Word deduction was 98% and he was able to answer all driving safety scenarios without difficulty. During the sessions he was able to problem solve medication questions, household problems as well as safety awareness questions. No further therapy is necessary at this time. Thank you for allowing me to participate in the care of this patient.
== END 2023-08-30 19:00 | disposition home or self-care (01) ==
LOC: SP 10:30
PROVIDERS: PCP Family Medicine; Referring Provider Student in an Organized Health Care Education/Training Program; Visit Provider Student in an Organized Health Care Education/Training Program
DX: R41.3 Other amnesia (principal)
CPT/HCPCS: 92507

== ENCOUNTER → 2024-04-23 | Outpatient (CLI) | payer MEDICARE, OTHER, SELFPAY ==
[2024-04-23 17:12] LABS: PSA,Total- Diagnostic < 0.01 ng/mL (0.0-4.0)
== END | disposition home or self-care (01) ==
PROVIDERS: PCP Family Medicine; Referring Provider Urology; Visit Provider Urology
DX: R97.20 Elevated prostate specific antigen [PSA] (principal)
CPT/HCPCS: 36415; 84153

== ENCOUNTER → 2024-07-15 | Outpatient (CLI) | payer MEDICARE, OTHER, SELFPAY ==
[2024-07-15 15:28] LABS: PSA,Total- Diagnostic < 0.01 ng/mL (0.0-4.0)
== END | disposition home or self-care (01) ==
LOC: MTLAB 12:39
PROVIDERS: PCP Family Medicine; Referring Provider Urology; Visit Provider Urology
DX: C61 Malignant neoplasm of prostate (principal)
CPT/HCPCS: 36415; 84153

== ENCOUNTER → 2024-08-14 | Outpatient (CLI) | payer MEDICARE, OTHER, SELFPAY ==
[2024-08-14 12:45] LABS: Absolute Lymphocyte Count 2.08 X10^3/uL (0.83-4.51); Absolute Neutrophil Count 7.6 X10^3/uL (2.0-7.7); Basophil# 0.04 X10^3/uL; Basophil% 0.4 % (0-1); Eosinophil# 0.12 X10^3/uL; Eosinophils% 1.1 % (0-5); Hematocrit 38.6 % (40-54); Hemoglobin 12.5 g/dL (13.0-16.5); Lymphocyte # 2.08 X10^3/ul (0.83-4.51); Lymphocyte % 19.4 % (19-41); Mean Corp Hgb Conc 32.4 g/dL (32-36); Mean Corpuscular Volume 95.8 fL (80-94); Mean Platelet Vol. 9.6 fl (6.2-12.0); Monocyte# 0.85 X10^3/uL; Monocyte% 7.9 % (0-10); NRBC Flagged by Analyzer 0 % (0-5); Neutrophil # 7.56 X10^3/uL (2.7-7.7); Neutrophil % 70.4 % (47-70); Platelet Count 254 K/mm3 (150-450); RBC Distribution Width CV 13.8 % (11.6-14.6); Red Blood Count 4.03 M/mm3 (4.6-6.2); White Blood Count 10.7 K/mm3 (4.4-11.0)
[2024-08-14 13:06] LABS: ALB/GLOB Ratio 0.8 RATIO (0.9-2.4); AST(SGOT) 20 U/L (15-37); Alanine Aminotransfer ALT/SGPT 22 U/L (16-61); Albumin, Serum 3.5 g/dL (3.2-5.0); Alkaline Phosphatase 61 U/L (45-117); Anion Gap 6 (5-15); BUN 35 mg/dL (7-18); BUN/Creat Ratio 23.3 RATIO (10-20); Calcium,Total 9.3 mg/dL (8.5-10.1); Chloride 107 mmol/L (98-107); Cholesterol 245 mg/dL (200); EST Glomerular Filtration Rate 47 mL/min (>60); Est Glom Filt Rate - Afr Amer 57 mL/min (>60); Ferritin 106 ng/mL (26-388); Globulin 4.2 g/dL (2.2-4.2); Glucose 94 mg/dL (74-106); High Density Lipoprotein 66 mg/dL; Potassium 3.7 mmol/L (3.5-5.1); Protein, Total 7.7 g/dL (6.4-8.2); Sodium Level 139 mmol/L (136-145); Triglycerides 110 mg/dL; Very Low Density Lipoprotein 22 mg/dL (5-40)
[2024-08-14 15:22] LABS: Vitamin B12 614 pg/mL (211-911)
== END | disposition home or self-care (01) ==
LOC: BFHLAB 10:53
PROVIDERS: PCP Family Medicine; Referring Provider Family Medicine; Visit Provider Family Medicine
DX: I12.9 Hypertensive 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 stage 4 chronic kidney disease, or unspecified chronic kidney disease (principal); N18.31 Chronic kidney disease, stage 3a; D63.1 Anemia in chronic kidney disease
CPT/HCPCS: 36415; 80053; 80061; 82607; 82728; 85025

== ENCOUNTER → 2024-11-11 | Outpatient (CLI) | payer MEDICARE, OTHER, SELFPAY ==
[2024-11-11 15:26] LABS: Absolute Lymphocyte Count 2.35 X10^3/uL (0.83-4.51); Absolute Neutrophil Count 5.8 X10^3/uL (2.0-7.7); Basophil# 0.04 X10^3/uL; Basophil% 0.4 % (0-1); Eosinophil# 0.17 X10^3/uL; Eosinophils% 1.8 % (0-5); Hematocrit 39.6 % (40-54); Hemoglobin 12.5 g/dL (13.0-16.5); Lymphocyte # 2.35 X10^3/ul (0.83-4.51); Lymphocyte % 25.3 % (19-41); Mean Corp Hgb Conc 31.6 g/dL (32-36); Mean Corpuscular Hgb 30.1 pg (27.0-32.0); Mean Corpuscular Volume 95.4 fL (80-94); Mean Platelet Vol. 9.6 fl (6.2-12.0); Monocyte# 0.82 X10^3/uL; Monocyte% 8.8 % (0-10); NRBC Flagged by Analyzer 0 % (0-5); Neutrophil # 5.83 X10^3/uL (2.7-7.7); Neutrophil % 62.8 % (47-70); Platelet Count 249 K/mm3 (150-450); RBC Distribution Width CV 14.2 % (11.6-14.6); RBC Distribution Width SD 49.8 fl (35.1-43.9); Red Blood Count 4.15 M/mm3 (4.6-6.2); White Blood Count 9.3 K/mm3 (4.4-11.0)
[2024-11-11 15:47] LABS: Anion Gap 4 (5-15); BUN 33 mg/dL (7-18); BUN/Creat Ratio 22.4 RATIO (10-20); Calcium,Total 9.6 mg/dL (8.5-10.1); Chloride 106 mmol/L (98-107); Creatinine, Serum 1.47 mg/dL (0.70-1.30); EST Glomerular Filtration Rate 48 mL/min (>60); Est Glom Filt Rate - Afr Amer 58 mL/min (>60); Glucose 72 mg/dL (74-106); Potassium 4.4 mmol/L (3.5-5.1); Sodium Level 138 mmol/L (136-145)
== END | disposition home or self-care (01) ==
LOC: BFHLAB 11:54
PROVIDERS: PCP Family Medicine; Visit Provider Family Medicine
DX: R42 Dizziness and giddiness (principal)
CPT/HCPCS: 36415; 80048; 85025

== ENCOUNTER → 2025-03-25 | Outpatient (CLI) | payer MEDICARE, OTHER, SELFPAY ==
--- NOTE | 2025-03-25 13:50 | CT_ITS ---
PROCEDURE: BRAIN/HEAD W/WO CONTRAST 03/25/2025 REASON FOR EXAM: HEADACHES, DIZINESS, UNDERLYING DEMENTIA TECHNIQUE: Head CT before and following intravenous contrast. Coronal and Sagittal reconstruction series were provided. CONTRAST: Isovue 300 VOLUME: 48 mL One or more dose reduction techniques were used (e.g., Automated exposure control, adjustment of the mA and/or kV according to patient size, use of iterative reconstruction technique). RADIATION DOSE SUMMARY: CTDlvol: 44.99 mGy DLP: 1648.46 mGycm COMPARISON: None FINDINGS: Acute findings: None Brain: Low density in the periventricular white matter suggests mild chronic small vessel ischemic changes. Atherosclerotic calcification of the cavernous portions of the internal carotid arteries bilaterally. Mild cerebellar atrophy. Postcontrast images: Unchanged CSF Spaces: Moderate generalized cerebral atrophy Sinuses/Mastoids: Mucosal thickening at the base of the left maxillary sinus. Bones: Unremarkable CT/Brain/Head W/WO Contrast IMPRESSION: CHRONIC CHANGES. NO ACUTE FINDINGS. Reading Location: [place] [id number]
== END | disposition home or self-care (01) ==
PROVIDERS: PCP Family Medicine; Referring Provider Family Medicine; Visit Provider Family Medicine
DX: R51.9 Headache, unspecified (principal); R42 Dizziness and giddiness
CPT/HCPCS: 70470; Q9967

== ENCOUNTER 2025-06-28 13:37 | Emergency (ER) | payer MEDICARE, OTHER, SELFPAY ==
[2025-06-28 13:38] VITALS: BP 159/104; PULSE 59; RESP 18; TEMP 36.6; O2SAT 99
--- OUTSIDE RECORDS SUMMARY | 2025-06-28 23:07 | XMS RPT_ITS | CCD ---
Author Organization [facility] CliniSyil Care Team Providers Care Devops Name Role Phone Dr. Shayy Wolff Primary Care Provider Dr. Shayy Wolff Referring Provider Dr. Xavier Johnson Attending Provider Dr. Jhon Santos Attending Provider Dr. Xavier Johnson Referring Provider Dr. Jhon Santos Attending Provider Shayy Wolff Unavailable Primo Navarro Unavailable EDE, DO CORTEZ NEGRON Admitting Hyacinth vailable DO CORTEZ GIBSON Referring Hyacinth vailable Dr. Shayy Wolff Primary Care Dr. Primo Perez Attending Dr. Shayy Boykin Primary Care Provider Dr. Shayy Wolff Referring Provider Dr. Xavier Johnson Attending Provider Dr. Shayy Wolff Primary Care Provider Dr. Shayy Wolff Referring Provider Dr. Xavier Johnson Attending Provider [phone] SHAYY WOLFF Primary Care Unavailable Dr. Shayy Wolff DO Primary Care Provider Dr. Shayy Wolff DO Attending Provider Dr. Shayy Wolff DO Referring Provider Dr. Xavier Johnson DO Attending Provider Shayy Wolff Attending Unavailable Igor, Shayy Referring Unavailable Igor, Shayy Primary Care Unavailable Igor, Shayy Attending Unavailable Igor, Shayy Primary Care Unavailable Igor, Shayy Attending Unavailable Igor, Shayy Referring Unavailable Igor, Shayy Primary Care Unavailable Igor, Shayy Primary Care Unavailable MaameEmil soler Referring Unavailable Xavier Johnson Attending Unavailable Xavier Johnson Attending Unavailable Igor, Shayy Referring Unavailable Igor, Shayy Primary Care Unavailable Igor, Shayy Primary Care Unavailable Xavier Johnson Attending Unavailable Igor, Shayy Referring Unavailable Igor, Shayy Primary Care Unavailable Emil Isabel Attending Unavailable MaameEmil Referring Unavailable Provider, Ed Physician Emergency Provider Tushar abebe Allergies Allergy Classification Reported Allergen(s) Allergy Type Date of Onset Reaction(s) Facility (1 source) traZODone; Translations: [TRAZODONE] Drug Allergy 08-28-2016 [facility] Medications Current Medications Medication Drug Class(es) Dates Sig (Normalized) Sig (Original) amLODIPine 5 mg oral tablet (1 source) Dihydropyridine Calcium Channel Margareth Start: 09-22-2022 End: 10-21-2022 take 1 tablet by mouth once daily amLODIPine 5 mg oral tablet ; 1 tab(s) orally once a day Quantity: 30 Refills: 0 Ordered: 22-Sep-2022 Primo Navarro Start: 22-Sep-2022 End: 21-Oct-2022 Generic Substitution Allowed amLODIPine 5 mg / benazepril hydrochloride 10 mg oral capsule (8 sources) Dihydropyridine Calcium Channel Margareth, Angiotensin Converting Enzyme Inhibitor Start: 12-27-2021 Amlodipine-Benaze pril 5-10 mg Capsule Active 1 NMA PO DAILY December 27, 2021 1:00am Start: 12-27-2021 take 1 capsule by [facility] once daily Amlodipine-Benazepril Active 1 CAP PO DAILY December 27, 2021 12:00am aspirin 81 mg delayed release oral tablet (8 sources) Platelet Aggregation Inhibitor, Nonsteroidal Anti-inflammatory Drug Start: 12-27-2021 take 1 tablet by mouth once daily Aspirin 81 mg Tablet,Delayed Release (Dr/Ec) Active 81 mg PO DAILY December 27, 2021 1:00am aspirin 162 mg o ral delayed release tablet Quantity: 0 Refills: 0 Ordered: 19-Sep-2022 Loan Monteiro Generic Substitution Allowed calcium carbonate 1250 mg / cholecalciferol 0.01 mg oral tablet (7 sources) Vitamin D Start: 12-27-2021 Calcium Carbonate-Vitamin D3 (Calcium 500 With D) 500 mg-10 mcg (400 unit) Tablet Active 1 {tbl} PO THREE TIMES A DAY December 27, 2021 1:00am cholecalciferol 0.05 mg oral capsule (7 sources) Vitamin D Start: 12-08-2021 take 1 capsule by mouth once daily Cholecalciferol (Vitamin D3) 50 mcg (2,000 unit) capsule Active 50 ug PO DAILY December 08, 2021 1:00am donepezil hydrochloride 5 mg oral tablet (2 sources) Start: 12-31-2023 take 1 tablet by mouth once daily Donepezil 5 mg tablet Active 5 mg PO DAILY December 31, 2023 1:00am levoFLOXacin 750 mg oral tablet (1 source) Quinolone Antimicrobial Start: 09-22-2022 End: 09-29-2022 levoFLOXacin 750 mg oral tablet ; 1 tab(s) orally every 48 hours Quantity: 4 Refills: 0 Ordered: 22-Sep-2022 Primo Navarro Start: 22-Sep-2022 End: 29-Sep-2022 Generic Substitution Allowed Comments: Avoid prolonged or excessive exposure to direct and/or artificial sunlight while taking this medication.Do not take dairy products, antacids, or iron preparations within one hour of this medication.Finish all this medication unless otherwise directed by prescriber.May cause drowsiness or dizziness.Medication should be taken with plenty of water. Comment on above: Avoid prolonged or e xcessive exposure to direct and/or artificial sunlight while taking this medication.Do not take dairy products, antacids, or iron preparations within one hour of this medication.Finish all this medication unless otherwise directed by prescriber.May cause drowsiness or dizziness.Medication should be taken with plenty of water. 24 hr lovastatin 20 mg extended release oral tablet (8 sources) HMG-CoA Reductase Inhibitor Start: 12-27-2021 take 1 tablet by mouth every twenty-four hours at bedtime Lovastatin 20 mg Tablet Extended Release 24 Hr Active 20 mg PO AT BEDTIME December 27, 2021 1:00am take 1 tablet by mouth once [place] lovastatin 20 mg oral tablet ; 1 tab(s) orally once a day Quantity: 0 Refills: 0 Ordered: 19-Sep-2022 Juan Monteiroaine Generic Substitution Allowed Multivitamin Capsule (2 sources) Start: 12-27-2021 Multivitamin C apsule Active 1 NMA PO DAILY December 27, 2021 1:00am Multivitamin preparation (5 sources) Start: 12-27-2021 take 1 capsule by mouth once daily Multivitamin Active 1 CAP PO DAILY December 27, 2021 12:00am Start: 12-27-2021 take 1 capsule by mo uth once daily Multivitamin Active 1 CAP PO DAILY December 27, 2021 1:00am sertraline 100 mg oral tablet (2 sources) Serotonin Reuptake Inhibitor Start: 12-31-2023 take 1 tablet by mouth once daily Sertraline 100 mg tablet Active 100 mg PO DAILY December 31, 2023 1:00am Completed/Discontinued Medications Medication Drug Class(es) Dates Sig (Normalized) Sig (Original) ciprofloxacin 500 mg oral tablet (7 sources) Quinolone Antimicrobial Start: 01-03-2022 End: 12-31-2023 take 1 tablet by mouth twice daily Ciprofloxacin Hcl (Cipro) 500 mg tablet Discontinued 500 mg PO TWICE A DAY 14 0 January 03, 2022 1:00am December 31, 2023 11:04am hydrocortisone acetate 25 mg rectal suppository (6 sources) Corticosteroid Start: 08-21-2022 End: 12-31-2023 Hydrocortisone Acetate 25 mg suppository Discontinued 25 mg RC TWICE A DAY 24 0 August 21, 2022 12:00am December 31, 2023 11:07am Proctitis Other specified diseases of anus and rectum take one suppository as directed twice daily for one week Problems Active Problems Problem Classification Problem Date Documented Da te Episodic/Chronic Anal and rectal conditions (13 sources) Proctitis; Translations: [Other specified diseases of anus and rectum] Onset: 05-18-2025 Episodic Cancer of prostate (16 sources) Primary malignant neoplasm of prostate; Translations: [Malignant neoplasm of prostate] Onset: 11-27-2023 Chronic Chronic kidney disease (1 source) Chronic kidney disease, unspecified; Translations: [Chronic kidney disease, unspecified] Onset: 09-22-2022 Chronic Disorders of lipid metabolism (1 source) Pure hypercholesterolemi a, unspecified; Translations: [Pure hypercholesterolemi a, unspecified] Onset: 09-22-2022 Chronic E Codes: Fall (1 source) Fall in home; Translations: [Unspecified fall] 09-20-2022 Episodic E Codes: Fall (1 source) Fall in home 09-20-2022 Headache; including migraine (1 source) Headache; including migraine; Translations: [Headache, unspecified] Onset: 03-29-2025 Hypertension with complications and secondary hypertension (2 sources) Hypertensive 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 stage 4 chronic kidney disease, or unspecified chronic kidney disease; Translations: [Hypertensive chronic kidney disease w stg 1-4/unsp chr kdny] Onset: 09-22-2022 Chronic Malaise and fatigue (3 sources) Asthenia; Translations: [Other malaise and fatigue] 09-19-2022 Episodic Comment on above: WEAKNESS Other upper respiratory infections (1 source) Acute upper respiratory infections of unspecified site 09-20-2022 Episodic Pneumonia (except that caused by tuberculosis or sexually transmitted disease) (1 source) Pneumonia due to other virus not elsewhere classified 09-20-2022 Episodic Pneumonia (except that caused by tuberculosis or sexually transmitted disease) (2 sources) Pneumonia (except that caused by tuberculosis or sexually transmitted disease); Translations: [Pneumonia due to coronavirus disease 2018] Onset: 09-22-2022 09-20-2022 Residual codes; unclassified (3 sources) Memory impairment; Translations: [Other amnesia] 07-01-2023 Episodic Unclassified (2 sources) Primary hypertension 09-20-2022 Unclassified (1 source) Acute respiratory disease due to COVID-19 virus 09-20-2022 Unclassified (1 source) Weakness generalized 09-20-2022 Viral infection (3 sources) COVID-19; Translations: [COVID-19] Onset: 09-20-2022 Past or Other Problems Problem Classification Problem Date Documented Da te Episodic/Chronic Cancer of prostate (1 source) Personal history of malignant neoplasm of prostate; Translations: [Personal history of malignant neoplasm of prostate] Onset: 09-22-2022 Episodic Conditions associated with dizziness or vertigo (1 source) Dizziness and giddiness; Translations: [Dizziness and giddiness] Onset: 12-13-2024 Episodic Fluid and electrolyte disorders (1 source) Dehydration; Translations: [Dehydration] Onset: 09-22-2022 Episodic Other aftercare (1 source) prison (current) use of aspirin; Translations: [prison (current) use of aspirin] Onset: 09-22-2022 Episodic Other injuries and conditions due to external causes (1 source) History of falling; Translations: [History of falling] Onset: 09-22-2022 Episodic Residual codes; unclassified (1 source) Personal history of irradiation; Translations: [Personal history of irradiation] Onset: 09-22-2022 Episodic Residual codes; unclassified (1 source) Do not resuscitate; Translations: [Do not resuscitate] Onset: 09-22-2022 Episodic Screening and history of mental health and substance abuse codes (1 source) Personal history of nicotine dependence; Translations: [Personal history of nicotine dependence] Onset: 09-22-2022 Episodic Results Test Name Value Interpretation Reference Range Facility Radiation Oncology Visiton 0 05-18-2025 Radiation Oncology Visit [facility] [address] [place] [address] OFFICE VISIT Date of Service: 05/18/25 1302 MR#: [id number] Acct: [id number] Name: MANJULAMONSEGRANT Fransico Rep #: [id number] : 1935 From: Xavier Elizabeth SALMERON Age/Sex: 89/M Location[place] [facility] [place] Status: Signed Intake Vital Signs 07/28/24 11:04 05/18/25 13:06 Height 5 ft 8 in 5 ft 8 in Weight: 150 lb BMI 22.8 BP 165/90 H Blood Pressure Location Lt brachial Position Sitting Respiration 18 Pulse 65 Pulse Source Monitor Temp 97.0 F L Temperature Source Temporal Artery Pulse Oximetry (%) 97 Oxygen Delivery Method room air Intake Visit Reasons: 10 MONTH F/U PROSTATE Is patient in pain?: No Allergies No Known Allergies Allergy (Verified 05/18/25 13:06) Medications ???Medication ???Instructions ???Recorded ???Confirmed ???Type cholecalciferol (vitamin D3) 50 50 mcg PO DAILY 12/08/21 05/18/25 History mcg (2,000 unit) capsule amlodipine 5 mg-benazepril 10 mg 1 cap PO DAILY 12/27/21 05/18/25 H istory capsule aspirin 81 mg tablet,delayed 81 mg PO DAILY 12/27/21 05/18/25 H istory release calcium 500 mg (as 1 tab PO TID 12/27/21 05/18/25 His tory carbonate)-vitamin D3 10 mcg (400 unit) tablet (Calcium 500 With D) lovastatin 20 mg tablet,extended 20 mg PO QHS 12/27/21 05/18/25 His tory release 24 hr multivitamin 1 cap PO DAILY 12/27/21 05/18/25 H istory donepezil 5 mg tablet 5 mg PO DAILY 12/31/23 05/18/25 Hi story sertraline 100 mg tablet 100 mg PO DAILY 12/31/23 05/18/25 History Have you fallen in the past year?: No PFSH PFSH Medical History Wears hearing aid Wears glasses Depression Cancer Prostate disease High cholesterol Injury of back Back pain Syncope History of diverticulitis Non-smoker History of stress test History of cardiac murmur Hypertension Home Medications ???Medication ???Instructions ???Recorded ???Last Taken ???Type cholecalciferol (vitamin D3) 50 50 mcg PO DAILY 12/08/21 Unknown H istory mcg (2,000 unit) capsule amlodipine 5 mg-benazepril 10 mg 1 cap PO DAILY 12/27/21 Unknown Hi story capsule aspirin 81 mg tablet,delayed 81 mg PO DAILY 12/27/21 12/21/21 H istory release calcium 500 mg (as 1 tab PO TID 12/27/21 Unknown Hist ory carbonate)-vitamin D3 10 mcg (400 unit) tablet (Calcium 500 With D) lovastatin 20 mg tablet,extended 20 mg PO QHS 12/27/21 Unknown Hist ory release 24 hr multivitamin 1 cap PO DAILY 12/27/21 Unknown Hi story donepezil 5 mg tablet 5 mg PO DAILY 12/31/23 Unknown His tory sertraline 100 mg tablet 100 mg PO DAILY 12/31/23 Unknown H istory Allergy/AdvReac Type Severity Reaction Status Date / Time No Known Allergies Allergy Verified 05/18/25 13:06 Family History Brother Cancer PROSTATE Mother Diabetes Surgical History Hx of colonoscopy History of hand surgery Hx of tonsillectomy Hx of eye surgery Social History adopted: No household members: spouse current occupational exposures/hazards: No Smoking Status: Never smoker second hand exposure: No alcohol intake: never substance use type: does not use Diagnosis:??? 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 From 01/22/2022 ??? 02/28/2022 he received definitive radiation therapy concurrent with ADT. History of Present Illness:??? 11/14/2021: Patient underwent TRUS guided prostate biopsy.??? Pathology demonstrated [place] score 5+3 adenocarcinoma involving 65% of 1/2 cores at the left prostate base, [place] score 4+3 adenocarc inoma involving 1/1 core of the left prostate mid, and Alfie score 3+4 adenocarcinoma involving 25% of 1/1 core of the left prostate apex.??? There was focal high-grade prostatic intraepithelial neoplasia demonstrated in the right prostate base and right prostate mid. 11/23/2021: Bone scan was performed.??? This demonstrated increase in radiopharmaceutical concentration identified in the cervical and thoracic spine, bilateral shoulders and knee articulation most consistent with degenerative arthritis.??? There is no evidence of metastatic disease. 11/28/2021: CT abdomen/pelvis with contrast was performed.??? This demonstrated an enlarged and heterogeneous prostate consistent with known prostate cancer.??? No evidence of lymphadenopathy and no evidence of distant metastatic disease. (more content not included)... Normal [facility] Brain/Head W/WO Contraston 0 03-25-2025 Brain/Head W/WO Contrast [facility] Imaging Services [address] [place], [place] [address] Brain/Head W/WO Contrast MR#: [id number] Acct: [id number] Name: GRANT ISLAS V Rep #: [id number] : 1935 M 89 From: Gasper naylor MD PCP: Dr. Shayy Wolff DO Status: REG CLI Study: Brain/Head W/WO Contrast Date of Exam: 5 Exam# [id number] Ordering Dr: Shayy Wolff DO PROCEDURE: BRAIN/HEAD W/WO CONTRAST 03/25/2025 REASON FOR EXAM: HEADACHES, DIZINESS, UNDERLYING DEMENTIA TECHNIQUE: Head CT before and following intravenous contrast. Coronal and Sagittal reconstruction series were provided. CONTRAST: Isovue 300 VOLUME: 48 mL One or more dose reduction techniques were used (e.g., Automated exposure control, adjustment of the mA and/or kV according to patient size, use of iterative reconstruction technique). RADIATION DOSE SUMMARY: CTDlvol: 44.99 mGy DLP: 1648.46 mGycm COMPARISON: None FINDINGS: Acute findings: None Brain: Low density in the periventricular white matter suggests mild chronic small vessel ischemic changes. Atherosclerotic calcification of the cavernous portions of the internal carotid arteries bilaterally. Mild cerebellar atrophy. Postcontrast images: Unchanged CSF Spaces: Moderate generalized cerebral atrophy Sinuses/Mastoids: Mucosal thickening at the base of the left maxillary sinus. Bones: Unremarkable CT/Brain/Head W/WO Contrast IMPRESSION: CHRONIC CHANGES. NO ACUTE FINDINGS. Reading Location: [place] [address] CC: Dr. Shayy Wolff DO Vegetable Thinner: Signed Normal [facility] Basic Metabolic Profile (BMP )on 11-11-2024 BUN/CRE 22.4 RATIO High 10-20 [facility] Comment on above: Performed By: #### L 500.2500, L100.0100 ####[facility] [address] [place], [place], [id number] CA,Total 9.6 mg/dL Normal 8.5-10.1 [facility] Comment on above: Performed By: #### L 500.2500, L100.0100 ####[facility] [address] [place], [address] Chloride [Moles/Vol] 106 mmol/L Normal 98-107 [facility] Comment on above: Performed By: #### L 500.2500, L100.0100 ####[facility] [address] [place], [address] CO2 [Moles/Vol] 28.0 mmol/L Normal 21.0-32.0 [facility] Comment on above: Performed By: #### L 500.2500, L100.0100 ####[facility] [address] [place], [address] Creatinine [Mass/Vol] 1.47 mg/dL High 0.70-1.30 [facility] Comment on above: Result Comment: The validity of the calculated GFR GFRAA in patients over 70 years has not been determined. Clinical correlation is essential. Performed By: #### L 500.2500, L100.0100 ####[facility] [address] [place], [address] EST GFR - AA 58 mL/min Low >60 [facility] Comment on above: Result Comment: Afri can [facility] GFR Calc Performed By: #### L 500.2500, L100.0100 ####[facility] [address] [place], [address] GAP 4 Low 5-15 [facility] Comment on above: Performed By: #### L 500.2500, L100.0100 ####[facility] [address] [place], [address] GFR/1.73 sq M.predicted among non-blacks MDRD (S/P/Bld) [Vol rate/Area] 48 mL/min/{1.73_m2} Low >60 [facility] Comment on above: Result Comment: Non- GFR Calc Performed By: #### L 500.2500, L100.0100 ####[facility] [address] [place], [address] Glucose [Mass/Vol] 72 mg/dL Low 74-106 [facility] Comment on above: Performed By: #### L 500.2500, L100.0100 ####[facility] [address] [place], [address] Potassium [Moles/Vol] 4.4 mmol/L Normal 3.5-5.1 [facility] Comment on above: Performed By: #### L 500.2500, L100.0100 ####[facility] [address] [place], [address] Sodium [Moles/Vol] 138 mmol/L Normal 136-145 [facility] Comment on above: Performed By: #### L 500.2500, L100.0100 ####[facility] [address] [place], [address] Urea nitrogen [Mass/Vol] 33 mg/dL High 7-18 [facility] Comment on above: Performed By: #### L 500.2500, L100.0100 ####[facility] [address] [place], [address] CBC W/Diff, Automatedon 12- Absolute Lymph 2.35 X10 3/uL Normal 0.83-4.51 [facility] Comment on above: Performed By: #### L 500.2500, L100.0100 #### [facility] [address] [place], [address] Absolute Neut 5.8 X10 3/uL Normal 2.0-7.7 [facility] Comment on above: Performed By: #### L 500.2500, L100.0100 #### [facility] [address] [place], [address] Basophils/100 WBC (Bld) 0.4 % Normal 0-1 [facility] Comment on above: Performed By: #### L 500.2500, L100.0100 #### [facility] [address] [place], [address] Eosinophils/100 WBC (Bld) 1.8 % Normal 0-5 [facility] Comment on above: Performed By: #### L 500.2500, L100.0100 #### [facility] [address] [place], [address] Erythrocyte distribution width (RBC) [Ratio] 14.2 % Normal 11.6-14.6 [facility] Comment on above: Performed By: #### L 500.2500, L100.0100 #### [facility] [address] [place], [address] Hematocrit (Bld) [Volume fraction] 39.6 % Low 40-54 [facility] Comment on above: Performed By: #### L 500.2500, L100.0100 #### [facility] [address] [place], [address] Hemoglobin (Bld) [Mass/Vol] 12.5 g/dL Low 13.0-16.5 [facility] Comment on above: Performed By: #### L 500.2500, L100.0100 #### [facility] [address] [place], [address] IG% 0.900 Normal 0.0-0.9 [facility] Comment on above: Result Comment: IG% - Immature Granulocytes (promyelocytes, myelocytes and metamyelocytes) > 1% indicates that a LEFT SHIFT is Present. Performed By: #### L 500.2500, L100.0100 #### [facility] [address] [place], [address] Lymphocytes/100 WBC (Bld) 25.3 % Normal 19-41 [facility] Comment on above: Performed By: #### L 500.2500, L100.0100 #### [facility] [address] [place], [address] MCH (RBC) [Entitic mass] 30.1 pg Normal 27.0-32.0 [facility] Comment on above: Performed By: #### L 500.2500, L100.0100 #### [facility] [address] [place], [address] MCHC (RBC) [Mass/Vol] 31.6 g/dL Low 32-36 [facility] Comment on above: Performed By: #### L 500.2500, L100.0100 #### [facility] [address] [place], [address] MCV (RBC) [Entitic vol] 95.4 fL High 80-94 [facility] Comment on above: Performed By: #### L 500.2500, L100.0100 #### [facility] [address] [place], [address] Monocytes/100 WBC (Bld) 8.8 % Normal 0-10 [facility] Comment on above: Performed By: #### L 500.2500, L100.0100 #### [facility] [address] [place], [address] Neutrophils/100 WBC (Bld) 62.8 % Normal 47-70 [facility] Comment on above: Performed By: #### L 500.2500, L100.0100 #### [facility] [address] [place], [address] Nucleated RBC (Bld) [#/Vol] 0 10*3/uL Normal 0-5 [facility] Comment on above: Performed By: #### L 500.2500, L100.0100 #### [facility] [address] [place], [address] Platelet mean volume (Bld) [Entitic vol] 9.6 fL Normal 6.2-12.0 [facility] Comment on above: Performed By: #### L 500.2500, L100.0100 #### [facility] [address] [place], [address] Platelets (Bld) [#/Vol] 249 10*3/uL Normal 150-450 [facility] Comment on above: Performed By: #### L 500.2500, L100.0100 #### [facility] [address] [place], [address] RBC (Bld) [#/Vol] 4.15 10*6/uL Low 4.6-6.2 [facility] Comment on above: Performed By: #### L 500.2500, L100.0100 #### [facility] [address] [place], [address] RDW SD 49.8 fl High 35.1-43.9 [facility] Comment on above: Performed By: #### L 500.2500, L100.0100 #### [facility] [address] [place], [address] WBC (Bld) [#/Vol] 9.3 10*3/uL Normal 4.4-11.0 [facility] Comment on above: Performed By: #### L 500.2500, L100.0100 #### [facility] [address] [place], [address] CBC W/Diff, Automatedon -12 04-2023 Absolute Lymph 2.08 X10 3/uL Normal 0.83-4.51 [facility] Comment on above: Performed By: #### L 100.0100, L503.0105, L500.4050, L500.4100, L503.6550 #### [facility] [address] [place], [address] Absolute Neut 7.6 X10 3/uL Normal 2.0-7.7 [facility] Comment on above: Performed By: #### L 100.0100, L503.0105, L500.4050, L500.4100, L503.6550 #### [facility] [address] [place], [address] Basophils/100 WBC (Bld) 0.4 % Normal 0-1 [facility] Comment on above: Performed By: #### L 100.0100, L503.0105, L500.4050, L500.4100, L503.6550 #### [facility] [address] [place], [address] Eosinophils/100 WBC (Bld) 1.1 % Normal 0-5 [facility] Comment on above: Performed By: #### L 100.0100, L503.0105, L500.4050, L500.4100, L503.6550 #### [facility] [address] [place], [address] Erythrocyte distribution width (RBC) [Ratio] 13.8 % Normal 11.6-14.6 [facility] Comment on above: Performed By: #### L 100.0100, L503.0105, L500.4050, L500.4100, L503.6550 #### [facility] [address] [place], [address] Hematocrit (Bld) [Volume fraction] 38.6 % Low 40-54 [facility] Comment on above: Performed By: #### L 100.0100, L503.0105, L500.4050, L500.4100, L503.6550 #### [facility] [address] [place], [address] Hemoglobin (Bld) [Mass/Vol] 12.5 g/dL Low 13.0-16.5 [facility] Comment on above: Performed By: #### L 100.0100, L503.0105, L500.4050, L500.4100, L503.6550 #### [facility] [address] [place], [address] IG% 0.800 Normal 0.0-0.9 [facility] Comment on above: Result Comment: IG% - Immature Granulocytes (promyelocytes, myelocytes and metamyelocytes) > 1% indicates that a LEFT SHIFT is Present. Performed By: #### L 100.0100, L503.0105, L500.4050, L500.4100, L503.6550 #### [facility] [address] [place], [address] Lymphocytes/100 WBC (Bld) 19.4 % Normal 19-41 [facility] Comment on above: Performed By: #### L 100.0100, L503.0105, L500.4050, L500.4100, L503.6550 #### [facility] [address] [place], [address] MCH (RBC) [Entitic mass] 31.0 pg Normal 27.0-32.0 [facility] Comment on above: Performed By: #### L 100.0100, L503.0105, L500.4050, L500.4100, L503.6550 #### [facility] [address] [place], [address] MCHC (RBC) [Mass/Vol] 32.4 g/dL Normal 32-36 [facility] Comment on above: Performed By: #### L 100.0100, L503.0105, L500.4050, L500.4100, L503.6550 #### [facility] [address] [place], [address] MCV (RBC) [Entitic vol] 95.8 fL High 80-94 [facility] Comment on above: Performed By: #### L 100.0100, L503.0105, L500.4050, L500.4100, L503.6550 #### [facility] [address] [place], [address] Monocytes/100 WBC (Bld) 7.9 % Normal 0-10 [facility] Comment on above: Performed By: #### L 100.0100, L503.0105, L500.4050, L500.4100, L503.6550 #### [facility] [address] [place], [address] Neutrophils/100 WBC (Bld) 70.4 % High 47-70 [facility] Comment on above: Performed By: #### L 100.0100, L503.0105, L500.4050, L500.4100, L503.6550 #### [facility] [address] [place], [address] Nucleated RBC (Bld) [#/Vol] 0 10*3/uL Normal 0-5 [facility] Comment on above: Performed By: #### L 100.0100, L503.0105, L500.4050, L500.4100, L503.6550 #### [facility] [address] [place], [address] Platelet mean volume (Bld) [Entitic vol] 9.6 fL Normal 6.2-12.0 [facility] Comment on above: Performed By: #### L 100.0100, L503.0105, L500.4050, L500.4100, L503.6550 #### [facility] [address] [place], [address] Platelets (Bld) [#/Vol] 254 10*3/uL Normal 150-450 [facility] Comment on above: Performed By: #### L 100.0100, L503.0105, L500.4050, L500.4100, L503.6550 #### [facility] [address] [place], [address] RBC (Bld) [#/Vol] 4.03 10*6/uL Low 4.6-6.2 [facility] Comment on above: Performed By: #### L 100.0100, L503.0105, L500.4050, L500.4100, L503.6550 #### [facility] [address] [place], [address] RDW SD 49.0 fl High 35.1-43.9 [facility] Comment on above: Performed By: #### L 100.0100, L503.0105, L500.4050, L500.4100, L503.6550 #### [facility] [address] [place], [address] WBC (Bld) [#/Vol] 10.7 10*3/uL Normal 4.4-11.0 [facility] Comment on above: Performed By: #### L 100.0100, L503.0105, L500.4050, L500.4100, L503.6550 #### [facility] [address] [place], [address] Comprehensive Metabolic Prof [facility] 08-14-2024 Albumin [Mass/Vol] 3.5 g/dL Normal 3.2-5.0 [facility] Comment on above: Performed By: #### L 100.0100, L503.0105, L500.4050, L500.4100, L503.6550 #### [facility] [address] [place], [address] Albumin/Globulin [Mass ratio] 0.8 {ratio} Low 0.9-2.4 [facility] Comment on above: Performed By: #### L 100.0100, L503.0105, L500.4050, L500.4100, L503.6550 #### [facility] [address] [place], [address] ALK P 61 U/L Normal 45-117 [facility] Comment on above: Performed By: #### L 100.0100, L503.0105, L500.4050, L500.4100, L503.6550 #### [facility] [address] [place], [address] ALT [Catalytic activity/Vol] 22 U/L Normal 16-61 [facility] Comment on above: Performed By: #### L 100.0100, L503.0105, L500.4050, L500.4100, L503.6550 #### [facility] [address] [place], [address] AST [Catalytic activity/Vol] 20 U/L Normal 15-37 [facility] Comment on above: Performed By: #### L 100.0100, L503.0105, L500.4050, L500.4100, L503.6550 #### [facility] [address] [place], [address] Bilirubin [Mass/Vol] 0.40 mg/dL Normal 0.20-1.00 [facility] Comment on above: Result Comment: For patients on eltrombopag therapy, use of Dimension [place] TBIL is not recommended. Performed By: #### L 100.0100, L503.0105, L500.4050, L500.4100, L503.6550 #### [facility] [address] [place], [address] BUN/CRE 23.3 RATIO High 10-20 [facility] Comment on above: Performed By: #### L 100.0100, L503.0105, L500.4050, L500.4100, L503.6550 #### [facility] [address] [place], [address] CA,Total 9.3 mg/dL Normal 8.5-10.1 [facility] Comment on above: Performed By: #### L 100.0100, L503.0105, L500.4050, L500.4100, L503.6550 #### [facility] [address] [place], [address] Chloride [Moles/Vol] 107 mmol/L Normal 98-107 [facility] Comment on above: Performed By: #### L 100.0100, L503.0105, L500.4050, L500.4100, L503.6550 #### [facility] [address] [place], [address] CO2 [Moles/Vol] 26.0 mmol/L Normal 21.0-32.0 [facility] Comment on above: Performed By: #### L 100.0100, L503.0105, L500.4050, L500.4100, L503.6550 #### [facility] [address] [place], [address] Creatinine [Mass/Vol] 1.50 mg/dL High 0.70-1.30 [facility] Comment on above: Result Comment: The validity of the calculated GFR GFRAA in patients over 70 years has not been determined. Clinical correlation is essential. Performed By: #### L 100.0100, L503.0105, L500.4050, L500.4100, L503.6550 #### [facility] [address] [place], [address] EST GFR - AA 57 mL/min Low >60 [facility] Comment on above: Result Comment: Afri can [facility] GFR Calc Performed By: #### L 100.0100, L503.0105, L500.4050, L500.4100, L503.6550 #### [facility] [address] [place], [address] GAP 6 Normal 5-15 [facility] Comment on above: Performed By: #### L 100.0100, L503.0105, L500.4050, L500.4100, L503.6550 #### [facility] [address] [place], [address] GFR/1.73 sq M.predicted among non-blacks MDRD (S/P/Bld) [Vol rate/Area] 47 mL/min/{1.73_m2} Low >60 [facility] Comment on above: Result Comment: Non- GFR Calc Performed By: #### L 100.0100, L503.0105, L500.4050, L500.4100, L503.6550 #### [facility] [address] [place], [address] Globulin (S) [Mass/Vol] 4.2 g/dL Normal 2.2-4.2 [facility] Comment on above: Performed By: #### L 100.0100, L503.0105, L500.4050, L500.4100, L503.6550 #### [facility] [address] [place], [address] Glucose [Mass/Vol] 94 mg/dL Normal 74-106 [facility] Comment on above: Performed By: #### L 100.0100, L503.0105, L500.4050, L500.4100, L503.6550 #### [facility] [address] [place], [address] Potassium [Moles/Vol] 3.7 mmol/L Normal 3.5-5.1 [facility] Comment on above: Performed By: #### L 100.0100, L503.0105, L500.4050, L500.4100, L503.6550 #### [facility] [address] [place], [address] Sodium [Moles/Vol] 139 mmol/L Normal 136-145 [facility] Comment on above: Performed By: #### L 100.0100, L503.0105, L500.4050, L500.4100, L503.6550 #### [facility] [address] [place], [address] T PROT 7.7 g/dL Normal 6.4-8.2 [facility] Comment on above: Performed By: #### L 100.0100, L503.0105, L500.4050, L500.4100, L503.6550 #### [facility] [address] [place], [address] Urea nitrogen [Mass/Vol] 35 mg/dL High 7-18 [facility] Comment on above: Performed By: #### L 100.0100, L503.0105, L500.4050, L500.4100, L503.6550 #### [facility] [address] [place], [address] Ferritinon 08-14-2024 Ferritin [Mass/Vol] 106 ng/mL Normal 26-388 [facility] Comment on above: Performed By: #### L 100.0100, L503.0105, L500.4050, L500.4100, L503.6550 #### [facility] [address] [place], [address] Lipid Profileon 08-14-2024 Cholesterol [Mass/Vol] 245 mg/dL High 200 [facility] Comment on above: Result Comment: <200 mg/dL Desirable 200-240 mg/dL Borderline >240 mg/dL High Risk Performed By: #### L 100.0100, L503.0105, L500.4050, L500.4100, L503.6550 #### [facility] [address] [place], [address] Cholesterol in HDL [Mass/Vol] 66 mg/dL Normal [facility] Comment on above: Result Comment: The drugs N-Acetylcysteine and Metamizole may falsely depress this assay. Reference Range HDL <40 mg/dL Low HDL Cholesterol HDL >or= 60 mg/dL High HDL Cholesterol Performed By: #### L 100.0100, L503.0105, L500.4050, L500.4100, L503.6550 #### [facility] [address] [place], [address] Cholesterol in LDL [Mass/Vol] 157 mg/dL High 0-130 [facility] Comment on above: Performed By: #### L 100.0100, L503.0105, L500.4050, L500.4100, L503.6550 #### [facility] [address] [place], [address] Cholesterol in VLDL [Mass/Vol] 22 mg/dL Normal 5-40 [facility] Comment on above: Performed By: #### L 100.0100, L503.0105, L500.4050, L500.4100, L503.6550 #### [facility] [address] [place], [address] Triglyceride [Mass/Vol] 110 mg/dL Normal [facility] Comment on above: Result Comment: The drugs N-Acetylcysteine and Metamizole may falsely depress this assay. Serum Triglycerides Reference Interval Normal <150 mg/dL Borderline high 150 - 199 mg/dL High 200 - 499 mg/dL Very High > or = 500 mg/dL Performed By: #### L 100.0100, L503.0105, L500.4050, L500.4100, L503.6550 #### [facility] [address] [place], [address] Vitamin B12on 08-14-2024 Cobalamin (Vitamin B12) [Mass/Vol] 614 pg/mL Normal 211-911 [facility] Comment on above: Performed By: #### L 100.0100, L503.0105, L500.4050, L500.4100, L503.6550 #### [facility] [address] [place], [place], [address] PSA,Total- Diagnosticon 07-03 PSA, DIAGNOSTIC < 0.01 Normal 0.0-4.0 [facility] Comment on above: Result Comment: This test was performed using the TPSA assay method for the [employer] chemistry system. Values obtained with different assay methods cannot be used interchangably. When changing PSA assays in the course of monitoring a patient, additional sequential testing should be carried out to confirm baseline values. Performed By: #### L 501.9940 #### [facility] [address] [place], [address] Radiation Oncology Visiton 0 07-28-2024 Radiation Oncology Visit [facility] [address] [place] [address] OFFICE VISIT Date of Service: 07/28/24 1057 MR#: [id number] Acct: [id number] Name: GRANT ISLAS V Rep #: [id number] : 1935 From: Xavier Johnson DO Age/Sex: 89/M Location: [facility] Status: Signed Intake Vital Signs 12/31/23 10:07 07/28/24 11:04 Height 5 ft 8 in 5 ft 8 in Weight: 154 lb 9 oz BMI 23.5 BP 167/90 H Blood Pressure Location Rt brachial Position Sitting Respiration 18 Pulse 55 L Pulse Source Monitor Temp 97.1 F L Temperature Source Temporal Artery Pulse Oximetry (%) 97 Oxygen Delivery Method room air Intake Visit Reasons: 6 month follow up-Prostate Is patient in pain?: No Allergies No Known Allergies Allergy (Verified 07/28/24 11:02) Medications ???Medication ???Instructions ???Recorded ???Confirmed ???Type cholecalciferol (vitamin D3) 50 50 mcg PO DAILY 12/08/21 07/28/24 History mcg (2,000 unit) capsule amlodipine 5 mg-benazepril 10 mg 1 cap PO DAILY 12/27/21 07/28/24 History capsule aspirin 81 mg tablet,delayed 81 mg PO DAILY 12/27/21 07/28/24 History release calcium carbonate 500 mg-vitamin 1 tab PO TID 12/27/21 07/28/24 History D3 10 mcg (400 unit) tablet (Calcium 500 With D) lovastatin 20 mg tablet,extended 20 mg PO QHS 12/27/21 07/28/24 History release 24 hr multivitamin 1 cap PO DAILY 12/27/21 07/28/24 History donepezil 5 mg tablet 5 mg PO DAILY 12/31/23 07/28/24 History sertraline 100 mg tablet 100 mg PO DAILY 12/31/23 07/28/24 History Have you fallen in the past year?: No PFSH PFSH Medical History Wears hearing aid Wears glasses Depression Cancer Prostate disease High cholesterol Injury of back Back pain Syncope History of diverticulitis Non-smoker History of stress test History of cardiac murmur Hypertension Home Medications ???Medication ???Instructions ???Recorded ???Last Taken ???Type cholecalciferol (vitamin D3) 50 50 mcg PO DAILY 12/08/21 Unknown History mcg (2,000 unit) capsule amlodipine 5 mg-benazepril 10 mg 1 cap PO DAILY 12/27/21 Unknown History capsule aspirin 81 mg tablet,delayed 81 mg PO DAILY 12/27/21 12/21/21 History release calcium carbonate 500 mg-vitamin 1 tab PO TID 12/27/21 Unknown History D3 10 mcg (400 unit) tablet (Calcium 500 With D) lovastatin 20 mg tablet,extended 20 mg PO QHS 12/27/21 Unknown History release 24 hr multivitamin 1 cap PO DAILY 12/27/21 Unknown History donepezil 5 mg tablet 5 mg PO DAILY 12/31/23 Unknown History sertraline 100 mg tablet 100 mg PO DAILY 12/31/23 Unknown History Allergy/AdvReac Type Severity Reaction Status Date / Time No Known Allergies Allergy Verified 07/28/24 11:02 Family History Brother Cancer PROSTATE Mother Diabetes Surgical History Hx of colonoscopy History of hand surgery Hx of tonsillectomy Hx of eye surgery Social History adopted: No household members: spouse current occupational exposures/hazards: No Smoking Status: Never smoker second hand exposure: No alcohol intake: never substance use type: does not use Diagnosis:??? 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 From 01/22/2022 ??? 02/28/2022 he received definitive radiation therapy concurrent with ADT. History of Present Illness:??? 11/14/2021: Patient underwent TRUS guided prostate biopsy.??? Pathology demonstrated Alfie score 5+3 adenocarcinoma involving 65% of 1/2 cores at the left prostate base, Alfie score 4+3 adenocarcinoma involving 1/1 core of the left prostate mid, and [place] score 3+4 adenocarcinoma involving 25% of 1/1 core of the left prostate apex.??? There was focal high-grade prostatic intraepithelial neoplasia demonstrated in the right prostate base and right prostate mid. 11/23/2021: Bone scan was performed.??? This demonstrated increase in radiopharmaceutical concentration identified in the cervical and thoracic spine, bilateral shoulders and knee articulation most consistent with degenerative arthritis.??? There is no evidence of metastatic disease. 11/28/2021: CT abdomen/pelvis with contrast was performed.??? This demonstrated an enlarged and heterogeneous prostate consistent with known prostate cancer.??? No evidence of lymphadenopathy and no evidence of distant metastatic disease. 12/04/2021: Patient was evaluated by urology i (more content not included)... Normal [facility] PSA,Total- Diagnosticon 07-02 PSA, DIAGNOSTIC < 0.01 Normal 0.0-4.0 [facility] Comment on above: Result Comment: This test was performed using the TPSA assay method for the [employer] [facility] chemistry system. Values obtained with different assay methods cannot be used interchangably. When changing PSA assays in the course of monitoring a patient, additional sequential testing should be carried out to confirm baseline values. Performed By: #### L 501.9940 ####[facility] [id number] [place], [address] [facility] Prostate specific Ag [Mass/Vol] ng/mL Normal <2.60 [facility] Comment on above: Order Comment: Speci men Type: BLOOD SPECIMEN Ordering Facility: [facility] Address: [address] [place] [address], [place] [address] Result Comment: Tota l PSA test methodology used is the Electrochemiluminescence Immunoassay by [employer]. Total PSA values by differing methodologies cannot be interchanged. Performed By: #### 2 857-1 #### [facility] CLIA [id number] [address] [place] [address] [place] No Panel InformationOrdered By: Xavier Johnson on 07-01-2023 Prostate Specific Antigen Total < 0.01 ng/mL 0.0-4.0 [facility] Comment on above: This test was perfor med using the TPSA assay method for the[facility] chemistry system. Values obtained with differentassay methods cannot be used interchangably.When changing PSA assays in the course of monitoring apatient, additional sequential testing should be carriedout to confirm baseline values. Absolute lymphocyte countOrd ered By: Dr. Wolff on 04-08-2023 Lymphocytes Auto (Unsp spec) [#/Vol] 1.68 10*3/uL 0.83-4.51 [facility] Basophil percentageOrdered B y: Dr. Wolff on 04-08-2023 Basophils/100 WBC (Bld) 0.5 % 0-1 [facility] Bilirubin [Mass/Vol] 0.40 mg/dL 0.20-1.00 [facility] Comment on above: For patients on eltr ombopag therapy, use of Dimension [place] TBIL is not recommended. Chloride [Moles/Vol] 109 mmol/L 98-107 [facility] Eosinophils/100 WBC (Bld) 2.6 % 0-5 [facility] Glucose [Mass/Vol] 87 mg/dL 74-106 [facility] Neutrophils (Bld) [#/Vol] 4.7 10*3/uL 2.0-7.7 [facility] Neutrophils/100 WBC (Bld) 64.3 % 47-70 [facility] Potassium [Moles/Vol] 4.1 mmol/L 3.5-5.1 [facility] Protein [Mass/Vol] 7.6 g/dL 6.4-8.2 [facility] Sodium [Moles/Vol] 139 mmol/L 136-145 [facility] WBC (Bld) [#/Vol] 7.3 10*3/uL 4.4-11.0 [facility] Blood erythrocytes count (nu mber/volume)Ordered By: Dr. Wolff on 04-08-2023 RBC (Bld) [#/Vol] 3.77 10*6/uL 4.6-6.2 [facility] Blood hemoglobin measurement (mass/volume)Ordered By: Dr. Wolff on 04-08-2023 Hemoglobin (Bld) [Mass/Vol] 11.8 g/dL 13.0-16.5 [facility] Blood lymphocytes/100 leukoc ytesOrdered By: Dr. Wolff on 04-08-2023 Lymphocytes/100 WBC (Bld) 22.9 % 19-41 [facility] Blood monocytes/100 leukocyt esOrdered By: Dr. Wolff on 04-08-2023 Monocytes/100 WBC (Bld) 8.9 % 0-10 [facility] Blood platelet mean volumeOr dered By: Dr. Wolff on 04-08-2023 Platelet mean volume (Bld) [Entitic vol] 9.5 fL 6.2-12.0 [facility] Determination of erythrocyte mean corpuscular volume (MCV)Ordered By: Dr. Wolff on 04-08-2023 MCV (RBC) [Entitic vol] 94.7 fL 80-94 [facility] Hematocrit Auto (Bld) [Volum e fraction]Ordered By: Dr. Wolff on 04-08-2023 Hematocrit (Bld) [Volume fraction] 35.7 % 40-54 [facility] - Chemistry and C hemistry - challengeOrdered By: Dr. Wolff on 04-08-2023 ALP [Catalytic activity/Vol] 53 U/L 45-117 [facility] ALT [Catalytic activity/Vol] 29 U/L 16-61 [facility] CO2 [Moles/Vol] 26.0 mmol/L 21.0-32.0 [facility] Globulin (S) [Mass/Vol] 4.1 g/dL 2.2-4.2 [facility] Urea nitrogen/Creatinine [Mass ratio] 23.7 mg/mg 10-20 [facility] - Hematology and Cell countsOrdered By: Dr. Wolff on 04-08-2023 Erythrocyte distribution width (RBC) [Entitic vol] 48.9 fL 35.1-43.9 [facility] Erythrocyte distribution width (RBC) [Ratio] 14.1 % 11.6-14.6 [facility] Immature granulocytes/100 WBC (Bld) 0.800 % 0.0-0.9 [facility] Comment on above: IG% - Immature Granu locytes (promyelocytes, myelocytes and metamyelocytes) > 1% indicates that a LEFT SHIFT is Present. MCH (RBC) [Entitic mass] 31.3 pg 27.0-32.0 [facility] Nucleated RBC/100 WBC (Bld) [Ratio] 0 % 0-5 [facility] MCHC Auto (RBC) [Mass/Vol]Or dered By: Dr. Wolff on 04-08-2023 MCHC (RBC) [Mass/Vol] 33.1 g/dL 32-36 [facility] No Panel InformationOrdered By: Dr. Wolff on 04-08-2023 Estimated GFR (MDRD) Amer 56 mL/min >60 [facility] Comment on above: GFR Calc Estimated GFR (MDRD) Non-Af Amer 46 mL/min >60 [facility] Comment on above: Non- GFR Calc Platelets bldOrdered By: Dr. Wolff on 04-08-2023 Platelets (Bld) [#/Vol] 247 10*3/uL 150-450 [facility] Serum or plasma albumin kaylah urement (mass/volume)Ordered By: Dr. Wolff on 04-08-2023 Albumin [Mass/Vol] 3.5 g/dL 3.2-5.0 [facility] Serum or plasma albumin/glob ulin mass ratioOrdered By: Dr. Wolff on 04-08-2023 Albumin/Globulin [Mass ratio] 0.9 {ratio} 0.9-2.4 [facility] Serum or plasma calcium kaylah urement (mass/volume)Ordered By: Dr. Wolff on 04-08-2023 Calcium [Mass/Vol] 8.9 mg/dL 8.5-10.1 [facility] Serum or plasma creatinine m easurement (mass/volume)Ordered By: Dr. Wolff on 04-08-2023 Creatinine [Mass/Vol] 1.52 mg/dL 0.70-1.30 [facility] [facility] Comment on above: The validity of the calculated GFR & GFRAA in patients over 70 years has not been determined. Clinical correlation is essential. Serum or plasma urea nitroge n measurement (mass/volume)Ordered By: Dr. Wolff on 04-08-2023 Urea nitrogen [Mass/Vol] 36 mg/dL 7-18 [facility] Thin prep Papanicolaou smear with manual screeningOrdered By: Dr. Wolff on 04-08-2023 Thin prep Papanicolaou smear with manual screening 25 U/L 15-37 [facility] Thin prep Papanicolaou smear with manual screening 4 5-15 [facility] No Panel InformationOrdered By: Dr. Johnson on 12-31-2022 Prostate Specific Antigen Total < 0.01 ng/mL 0.0-4.0 [facility] Comment on above: This test was perfor med using the TPSA assay method [facility]. Values obtained with differentassay methods cannot be used interchangably.When changing PSA assays in the course of monitoring apatient, additional sequential testing should be carriedout to confirm baseline values. Basophil percentageon 2021 Chloride [Moles/Vol] 108 mmol/L 98-107 [facility] Work Phone: [phone] Glucose [Mass/Vol] 81 mg/dL 74-106 [facility] Work Phone: Potassium [Moles/Vol] 4.3 mmol/L 3.5-5.1 [facility] Work Phone: Sodium [Moles/Vol] 138 mmol/L 136-145 [facility] Work Phone: Laboratory - Chemistry and C hemistry - challengeon 09-29-2022 CO2 [Moles/Vol] 24.0 mmol/L 21.0-32.0 [facility] Work Phone: Urea nitrogen/Creatinine [Mass ratio] 22.1 mg/mg 09-20 [facility] Work Phone: No Panel Informationon 09-29 Estimated GFR (MDRD) Amer 58 mL/min >60 [facility] Work Phone: Comment on above: GFR Calc Estimated GFR (MDRD) Non-Af Amer 48 mL/min >60 [facility] Work Phone: Comment on above: Non- GFR Calc Serum or plasma calcium kaylah urement (mass/volume)on 09-29-2022 Calcium [Mass/Vol] 8.6 mg/dL 8.5-10.1 [facility] Work Phone: Serum or plasma creatinine m easurement (mass/volume)on 09-29-2022 Creatinine [Mass/Vol] 1.49 mg/dL 0.70-1.30 [facility] Work Phone: Comment on above: The validity of the calculated GFR & GFRAA in patients over 70 years has not been determined. Clinical correlation is essential. Serum or plasma urea nitroge n measurement (mass/volume)on 09-29-2022 Urea nitrogen [Mass/Vol] 33 mg/dL 7-18 [facility] Work Phone: Thin prep Papanicolaou smear with manual screeningon 09-29-2022 Thin prep Papanicolaou smear with manual screening 6 5-15 [facility] Work Phone: BASIC METABOLIC PANELon 09-02 Anion gap [Moles/Vol] 16 mmol/L Normal [facility] Comment on above: Performed By: #### B MP #### [place] [address] Calcium [Mass/Vol] 9.0 mg/dL Normal 8.6 - 10.3 [facility] Comment on above: Performed By: #### B MP #### [address] [address] Chloride [Moles/Vol] 99 mmol/L Normal 98 - 107 [facility] Comment on above: Performed By: #### B MP #### [address] [address] Creatinine [Mass/Vol] 1.99 mg/dL High 0.50 - 1.30 [facility] Comment on above: Performed By: #### B MP #### [address] [address] GFR/1.73 sq M.predicted among non-blacks MDRD (S/P/Bld) [Vol rate/Area] 32 mL/min/{1.73_m2} Abnormal >90 [facility] Comment on above: Result Comment: CALC ULATIONS OF ESTIMATED GFR ARE PERFORMED USING THE 2020 CKD-EPI STUDY REFIT EQUATION WITHOUT THE RACE VARIABLE FOR THE IDMS-TRACEABLE CREATININE METHODS. https://jasn.asnjournals.org/content/early//ASN.096019 9488 Performed By: #### B MP #### [address] [address] Glucose [Mass/Vol] 124 mg/dL High 74 - 99 [facility] Comment on above: Performed By: #### B MP #### [address] [address] HCO3 (Bld) [Moles/Vol] 21 mmol/L Normal 21 - 32 [facility] Comment on above: Performed By: #### B MP #### [address] [address] Potassium [Moles/Vol] 3.5 mmol/L Normal 3.5 - 5.3 [facility] Comment on above: Performed By: #### B MP #### [address] [address] Sodium [Moles/Vol] 132 mmol/L Low 136 - 145 [facility] Comment on above: Performed By: #### B MP #### [address] [address] Urea nitrogen [Mass/Vol] 76 mg/dL High 6 - 23 [facility] Comment on above: Performed By: #### B MP #### [address] [address] CBCon 09-22-2022 Erythrocyte distribution width (RBC) [Ratio] 14.5 % Normal 11.5 - 14.5 [facility] Comment on above: Performed By: #### C BC ####[address] [address] Hematocrit (Bld) [Volume fraction] 32.6 % Low 41.0 - 52.0 [facility] Comment on above: Performed By: #### C BC ####[address] [address] Hemoglobin (Bld) [Mass/Vol] 10.9 g/dL Low 13.5 - 17.5 [facility] Comment on above: Performed By: #### C BC ####[address] [address] MCHC (RBC) [Mass/Vol] 33.5 g/dL Normal 32.0 - 36.0 [facility] Comment on above: Performed By: #### C BC ####[address] [address] MCV (RBC) [Entitic vol] 93 fL Normal 80 - 100 [facility] Comment on above: Performed By: #### C BC ####[address] [address] Platelets (Bld) [#/Vol] 233 10*3/uL Normal 150 - 450 [facility] Comment on above: Performed By: #### C BC ####[address] [address] RBC 3.53 x10E12/L Low 4.50 - 5.90 [facility] Comment on above: Performed By: #### C BC ####[address] [address] WBC (Bld) [#/Vol] 14.8 10*3/uL High 4.4 - 11.3 [facility] Comment on above: Performed By: #### C ####[address] [place] [address] Discharge [id number] Discharge Profile2 Discharge Orders: Anticipated Discharge Date: Anticipated Discharge [id number] DNAR: Code Status at Discharge: DNAR Was Extending the DNAR Status Following Discharge Discussed w/ Patient/Family: n/a- patient already has a completed DNR State Form [place] DNR State Form Status: DNR Comfort Care Arrest Activity: activity as tolerated. May shower. Diet: Dietresume normal diet Additional Orders: Additional Instructions Please observe quarantine till September 29 Repeat BMP on September 24 prescription provided Lisinopril stopped due to low blood pressure and elevated creatinine Provider FINAL REVIEW of Orders: Final Review: Final Review of Medication Reconciliation and Orders Completedby Physician Reviewing ProviderPrimo Navarro MD at 22-Sep-2022 12:23:38 Appointments: Follow-Up Appointment 01: Physician/Dept/[facility] Reason for ReferralHospital Follow-up Call to Schedule in2 weeks [place] [address] Phone [phone] CommentsPlease call and schedule a follow-up appointment within 2 weeks of your Hospital Discharge Electronic Signatures: Debbie Iraheta (UNIT SECT) (Signed 22-Sep-2022 13:01) Authored: Discharge Orders, Appointments Primo Navarro) (Signed 22-Sep-2022 12:23) Authored: Discharge Orders, Provider FINAL REVIEW of Orders, Appointments, Gold Form - Television Installer Summary Last Updated: 22-Sep-2022 13:01 by Debbie Iraheta (UNIT SECT) [facility] Order Reconciliationon 09-22 Order Reconciliation Page 1 Discharge Reconciliation Document Reconciliation Type: Discharge requested on behalf of Primo Navarro (Physician) done by Primo Navarro) Discharge - Reconciliation: 22-Sep-2022 12:21 by: Primo Navarro) Home Medications EnteredHOME MEDICATIONS AT DISCHARGE DateReconciliation Comment/ Additional Information amlodipine-benazepril 5 mg-10 mg oral capsule 1 cap(s) orally once a day 19-Sep-2022 20:43 Discontinued; Discontinue from ORM amlodipine-benazepril 5 mg-10 mg oral capsule is not required aspirin 162 mg oral delayed release tablet 19-Sep-2022 20:44 aspirin 162 mg oral delayed release tablet 19-Sep-2022 20:44 aspirin 162 mg oral delayed release tablet is continued as aspirin 162 mg oral delayed release tablet lovastatin 20 mg oral tablet 1 tab(s) orally once a day 19-Sep-2022 20:43 lovastatin 20 mg oral tablet 1 tab(s) orally once a day 19-Sep-2022 20:43 lovastatin 20 mg oral tablet is continued as lovastatin 20 mg oral tablet Paxlovid 300 mg-100 mg Dose Pack oral tablet 19-Sep-2022 20:45 Paxlovid 300 mg-100 mg Dose Pack oral tablet 19-Sep-2022 20:45 Paxlovid 300 mg-100 mg Dose Pack oral tablet is continued as Paxlovid 300 mg-100 mg Dose Pack oral tablet Current OrdersDateRIDGELAND MEDICATIONS AT DISCHARGE DateReconciliation Comment/ Additional Information Acetaminophen Tablet (TYLENOL)DOSE = 650 mg Oral Every 4 Hours, PRN Pain - Mild (1-3) 20-Sep-2022 01:27 Acetaminophen is not required Acetaminophen Tablet (TYLENOL)DOSE = 650 mg Oral Every 4 Hours, PRN Temp Greater Than or Equal to 38.0 C 20-Sep-2022 01:27 Acetaminophen is not required Albuterol 2.5 mg - Ipratropium 0.5 mg/ 3 mL Neb Soln (DUONEB)DOSE = 3 mL Inhalation Every 6 Hours via Nebulizer 20-Sep-2022 01:27 Albuterol 2.5 mg - Ipratropium 0.5 mg/ 3 mL Neb Soln is not required amLODIPine (NORVASC) TabletDOSE = 5 mg Oral Daily 20-Sep-2022 01:27 amLODIPine 5 mg oral tablet 1 tab(s) orally once a day 22-Sep-2022 12:20 Prescription is created for amLODIPine 5 mg oral tablet Ascorbic Acid Tablet (VITAMIN C)DOSE = 500 mg Oral 2 Times a Day 20-Sep-2022 01:27 Ascorbic Acid is not required Aspirin Enteric Coated Enteric Coated Tablet (ECOTRIN)DOSE = 162 mg Oral Daily 20-Sep-2022 01:16 Aspirin Enteric Coated is not required Budesonide 0.5 mg/ 2 mL Nebulizer Soln (PULMICORT)DOSE = 2 mL Inhalation Every 12 Hours via Nebulizer 20-Sep-2022 01:27 Budesonide 0.5 mg/ 2 mL Nebulizer Soln is not required Cholecalciferol (Vitamin D3) TabletDOSE = 1,000 International Unit(s Oral DailyNotes from Pharmacy: 1,000 units equivalent to 25 micrograms 20-Sep-2022 01:27 Cholecalciferol (Vitamin D3) is not required Docusate Capsule (COLACE)DOSE = 100 mg Oral 2 Times a Day, PRN Constipation 20-Sep-2022 01:27 Docusate is not required Enoxaparin SubCutaneous (LOVENOX)DOSE = 30 mg SubCutaneous Every 24 Hours 22-Sep-2022 10:49 Enoxaparin SubCutaneous is not required guaiFENesin Extended Release Tablet, Extended Release (MUCINEX)DOSE = 600 mg Oral Every 12 Hours, PRN Congestion 20-Sep-2022 01:27 guaiFENesin Extended Release is not required levoFLOXacin (LEVAQUIN) 750 mg IVPB/ Premix 150 mL Every 48 HoursRecommended Infusion Time: 90 minute(s) 21-Sep-2022 13:26 levoFLOXacin (LEVAQUIN) 750 mg IVPB/ Premix 150 mL is not required Lisinopril Tablet (PRINIVIL, ZESTRIL)DOSE = 10 mg Oral DailyNotes from Pharmacy: Substitution for Benazepril 10 mg Tab Once Daily 20-Sep-2022 01:27 Lisinopril is not required Magnesium Hydroxide -Al Hydrox -Simethicone Oral Liquid (MAALOX)DOSE = 30 mL Oral Every 6 Hours, PRN Dyspepsia 20-Sep-2022 01:27 Magnesium Hydroxide -Al Hydrox -Simethicone Oral Liquid is not required Ondansetron Injectable (ZOFRAN)DOSE = 4 mg IntraVenous Push Every 4 Hours, PRN Nausea and/or Vomiting 20-Sep-2022 01:27 Ondansetron Injectable is not required Pravastatin Tablet (PRAVACHOL)DOSE = 20 mg Oral DailyNotes from Pharmacy: Substitution for Lovastatin (MEVACOR) 20mg Oral At Bedtime 20-Sep-2022 01:16 Pravastatin is not required traMADol Tablet (ULTRAM)DOSE = 50 mg Oral Every 6 Hours, PRN Pain - Mod (4-6) 20-Sep-2022 01:27 traMADol is not required Zinc Sulfate CapsuleDOSE = 220 mg Oral Daily 20-Sep-2022 01:27 Zinc Sulfate is not required Home Medications Added During Discharge Reconciliation levoFLOXacin 750 mg oral tablet 1 tab(s) orally every 48 hours All Active Home Medications at time of Discharge Reconciliation: 22-Sep-2022 12:21 amLODIPine 5 mg oral tablet 1 tab(s) orally once a day aspirin 162 mg oral delayed release tablet levoFLOXacin 750 mg oral tablet 1 tab(s) orally every 48 hours lovastatin 20 mg oral tablet 1 tab(s) orally once a day Paxlovid 300 mg-100 mg Dose Pack oral tablet Normal [facility] Rehab Note-individual therap yon 09-22-2022 Rehab Note-individual therapy Rehab: Info: Disciplinephysical licensed occupational therapy assistant Mode of Treatmentindividual therapy; physical therapy Time IN10:40 Time OUT09:10 Total Treatment Minutes-90 Patient in ... at end of sessionchair; alarm on Patient Effortexcellent Symptoms Noted During/After Treatmentnone Pre Treatment Patient Positionsitting Pre Treatment Heart Rate (beats/min)75 Pre Treatment SpO2 (%)96 % Pre Treatment Oxygen Deliveryroom air Vision/Cognition: Affect/Mental Status (Cognitive)WNL Orientation Status (Cognition)oriented x 3 Mobility/Tone: Comment, Bed MobilityNo bed mobility performed Comment, TransfersPatient performed sit to stand transfer with CGA. Good tech/safety. Comment, Gait/Stairs TrainingPatient ambulating with no AD, CGA, equal step length, good posture, with good hip/knee flexion. 130 ft x 1. Motor: Lower Extremity (Therapeutic Exercise)Patient performed B LE standing ther-ex x 15 reps each with B UE support. Heel Raises, squats, hip flexion/extension, hip abd/add. Sensory: Pre-Treatment Pain Rating0/10 - no pain Post-Treatment Pain Rating0/10 - no pain Outcomes Tools: Turning from your back to your side while in a flat bed without using bedrails none Moving from lying on your back to sitting on the side of a flat bed without using bedrailsnone Moving to and from bed to chair (including a wheelchair)none Standing up from a chair using your arms (e.g. wheelchair or bedside chair) none To walk in hospital roomnone Climbing 3-5 steps with raricki herrera AM-PAC (PT) Total Score23 Outcome Summary: Progress: Physical Therapyprogress toward functional goals as expected Outcome Summary: Physical TherapyPatient tolerated treatment without pain/difficulty. Skilled therapy needed for ambulation, standing balance, ther-ex to build strength, improve balance and ambulation to decrease fall risk and improve ADL. Electronic Signatures: Justine Carmen (PT) (Signed 25-Sep-2022 11:19) Co-Signer: Info, Vision/Cognition, Mobility/Tone, Motor, Sensory, Outcomes Tools, Outcome Summary Ara Rose (PATTERN DESIGNER) (Signed 22-Sep-2022 10:48) Authored: Info, Vision/Cognition, Mobility/Tone, Motor, Sensory, Outcomes Tools, Outcome Summary Last Updated: 25-Sep-2022 11:19 by Justine Carmen (PT) [facility] CBC AND DIFFERENTIALon 09-21 DIFFERENTIAL SEE MANUAL DIFF Normal [facility] Comment on above: Performed By: #### C BCDF ####[place] [address] Erythrocyte distribution width (RBC) [Ratio] 14.4 % Normal 11.5 - 14.5 [facility] Comment on above: Performed By: #### C BCDF ####[place] [id number] Hematocrit (Bld) [Volume fraction] 35.0 % Low 41.0 - 52.0 [facility] Comment on above: Performed By: #### C BCDF ####[address] [address] Hemoglobin (Bld) [Mass/Vol] 11.7 g/dL Low 13.5 - 17.5 [facility] Comment on above: Performed By: #### C BCDF ####[place] [id number] MCHC (RBC) [Mass/Vol] 33.5 g/dL Normal 32.0 - 36.0 [facility] Comment on above: Performed By: #### C BCDF ####[address] [address] MCV (RBC) [Entitic vol] 93 fL Normal 80 - 100 [facility] Comment on above: Performed By: #### C BCDF ####[place] [id number] Platelets (Bld) [#/Vol] 221 10*3/uL Normal 150 - 450 [facility] Comment on above: Performed By: #### C BCDF ####[place] [id number] RBC 3.78 x10E12/L Low 4.50 - 5.90 [facility] Comment on above: Performed By: #### C BCDF ####[place] [id number] WBC (Bld) [#/Vol] 13.4 10*3/uL High 4.4 - 11.3 [facility] Comment on above: Performed By: #### C BCDF ####[place] [address] COMPREHENSIVE PANELon 2021 Albumin [Mass/Vol] 3.5 g/dL Normal 3.4 - 5.0 [facility] Comment on above: Performed By: #### B MP #### [address] [address] ALP [Catalytic activity/Vol] 42 U/L Normal 33 - 136 [facility] Comment on above: Performed By: #### B MP #### [address] [address] ALT [Catalytic activity/Vol] 33 U/L Normal 10 - 52 [facility] Comment on above: Result Comment: Julia ents treated with Sulfasalazine may generate falsely decreased results for ALT. Performed By: #### B MP #### [place] [address] Anion gap [Moles/Vol] 15 mmol/L Normal 10 - 20 [facility] Comment on above: Performed By: #### B MP #### [address] [address] AST [Catalytic activity/Vol] 63 U/L High 9 - 39 [facility] Comment on above: Performed By: #### B MP #### [address] [address] Bilirubin [Mass/Vol] 0.6 mg/dL Normal 0.0 - 1.2 [facility] Comment on above: Performed By: #### B MP #### [address] [address] Calcium [Mass/Vol] 9.2 mg/dL Normal 8.6 - 10.3 [facility] Comment on above: Performed By: #### B MP #### [address] [address] Chloride [Moles/Vol] 102 mmol/L Normal 98 - 107 [facility] Comment on above: Performed By: #### B MP #### [address] [address] Creatinine [Mass/Vol] 1.60 mg/dL High 0.50 - 1.30 [facility] Comment on above: Performed By: #### B MP #### [address] [address] GFR/1.73 sq M.predicted among non-blacks MDRD (S/P/Bld) [Vol rate/Area] 42 mL/min/{1.73_m2} Abnormal >90 [facility] Comment on above: Result Comment: CALC ULATIONS OF ESTIMATED GFR ARE PERFORMED USING THE 2020 CKD-EPI STUDY REFIT EQUATION WITHOUT THE RACE VARIABLE FOR THE IDMS-TRACEABLE CREATININE METHODS. https://jasn.asnjournals.org/content//ASN.635108 1892 Performed By: #### B MP #### [address] [address] Glucose [Mass/Vol] 132 mg/dL High 74 - 99 [facility] Comment on above: Performed By: #### B MP #### [address] [address] HCO3 (Bld) [Moles/Vol] 23 mmol/L Normal 21 - 32 [facility] Comment on above: Performed By: #### B MP #### [address] [address] Potassium [Moles/Vol] 3.5 mmol/L Normal 3.5 - 5.3 [facility] Comment on above: Performed By: #### B MP #### [address] [address] Protein [Mass/Vol] 7.0 g/dL Normal 6.4 - 8.2 [facility] Comment on above: Performed By: #### B MP #### [address] [address] Sodium [Moles/Vol] 136 mmol/L Normal 136 - 145 [facility] Comment on above: Performed By: #### B MP #### [address] [address] Urea nitrogen [Mass/Vol] 47 mg/dL High 6 - 23 [facility] Comment on above: Performed By: #### B MP #### [address] [address] Daily Progress Note-General Internal Medicineon 09-21-2022 Daily Progress Note-General Internal Medicine Service: General Internal Medicine Subjective Data: GRANT ISLAS V. is a 87 year old Male who is Hospital Day # 3. Patient seen and examined. He denies any shortness of breath, cough, nausea, vomiting, chest pain, diarrhea does complain of some weakness. Objective Data: Objective Information: T PRBPMAPSpO2 [id number]% Date/Time09/21 7: 7: 7: 7: 7: 7:33 Range(36C - 36.9C ) (65 - 99 ) (16 - 27 ) (88 - 140 )/ (54 - 77 ) (62 - 85 ) (90% - 94% ) As of 20-Sep-2022 09:00:00, patient is on 2 L/min of oxygen via nasal cannula. Highest temp of 36.9 C was recorded at 09/20 8:00 Pain reported at 09/21 4:00: sleeping Physical Exam Narrative: Physical Exam: Eyes: PERRL, EOMI, clear sclera ENMT: mucous membranes moist, oropharynx clear Head/Neck: Normocephalic with bitemporal wasting; neck supple, no apparent injury, thyroid without mass or tenderness, No JVD, trachea midline, no bruits Respiratory/Thorax: Coarse scattered rhonchi bilaterally with no wheezes Cardiovascular: Distant heart sounds; regular rate and rhythm; normal S1-S2 with no murmur appreciated; no edema and 1+ pulses bilaterally Gastrointestinal: Soft, nontender, nondistended, positive bowel sounds Neurological: Nonfocal, intact Medication: Medications: Continuous Medications ----- 1. Sodium Chloride 0.9% Infusion: 1000 mL IntraVenous Scheduled Medications ----- 1. Albuterol 2.5 mg - Ipratropium 0.5 mg/ 3 mL Neb Soln: 3 mL Inhalation Every 6 Hours 2. amLODIPine (NORVASC): 5 mg Oral Daily 3. Ascorbic Acid: 500 mg Oral 2 Times a Day 4. Aspirin Enteric Coated: 162 mg Oral Daily 5. Budesonide 0.5 mg/ 2 mL Nebulizer Soln: 2 mL Inhalation Every 12 Hours 6. Cholecalciferol (Vitamin D3): 1000 International Unit(s) Oral Daily 7. dexAMETHasone: 6 mg Oral Every 24 Hours 8. Enoxaparin SubCutaneous: 40 mg SubCutaneous Every 24 Hours 9. Pneumococcal 23-Valent (PNEUMOVAX) Vaccine: 0.5 mL IntraMuscular Once 10. Pravastatin: 20 mg Oral Daily 11. Zinc Sulfate: 220 mg Oral Daily PRN Medications ----- 1. Acetaminophen: 650 mg Oral Every 4 Hours 2. Acetaminophen: 650 mg Oral Every 4 Hours 3. Docusate: 100 mg Oral 2 Times a Day 4. guaiFENesin Extended Release: 600 mg Oral Every 12 Hours 5. Magnesium Hydroxide -Al Hydrox -Simethicone Oral Liquid: 30 mL Oral Every 6 Hours 6. Ondansetron Injectable: 4 mg IntraVenous Push Every 4 Hours 7. traMADol: 50 mg Oral Every 6 Hours Currently Suspended Medications ----- 1. Lisinopril: 10 mg Oral Daily Recent Lab Results: Results: CBC: 09/21/2022 05:47 \ Hgb / \ 11.7 L / WBC Plt 13.4 H 221 / Hct \ / 35.0 L \ RBC: 3.78 L MCV: 93 CMP: 09/21/2022 05:47 NA+ Cl- BUN / 136 102 47 H / ----- Glucose 132 H K+ HCO3- Creat \ 3.5 23 1.60 H \ \ T Bili / \ 0.6 / AST x ---- x ALT 63 Hx ---- x 33 / Alk P \ / 42 \ Calcium : 9.2 Anion Gap : 15 Albumin : 3.5 T Protein : 7.0 Assessment and Plan: Comorbidities: ComorbidityOther Code Status: Code StatusDNAR Assessment: 87-year-old male admitted for acute respiratory disease secondary to COVID-19. He tested positive either on the or 19 September and was started on Paxlovid yesterday September 19. He has generalized weakness and had a fall at home. He has a leukocytosis with a left shift and a mild bandemia and elevated D-dimer but CT of the chest is unremarkable except for mild opacity left lower lobe and bibasilar atelectasis. Comorbidities include hypertension and hypercholesterolemia. He reports being vaccinated twice against COVID-19. Procalcitonin came back elevated, he most likely has underlying bacterial infection, will start him on Levaquin renally dosed Leukocytosis most likely secondary to steroids but could be due to infection patient is on room air, will DC Decadron His creatinine went up slightly Will give gentle IV fluids till tomorrow Not a candidate for antiretroviral therapy Continue duo nebs, budesonide Supportive care, symptomatic treatment, incentive spirometry Started on vitamin C D and zinc supplementation I will continue Will suspend lisinopril for now due to elevated creatinine, continue rest of his regular home meds Lovenox per protocol CODE STATUS is full Planning to discharge to a rehab facility when ready PT on board Electronic Signatures: Primo Navarro) (Signed 21-Sep-2022 13:27) Authored: Service, Subjective Data, Objective Data, Assessment and Plan, Note Completion Last Updated: 21-Sep-2022 13:27 by Primo Navarro) Normal [facility] MANUAL DIFFERENTIALon 2021 % BAND NEUTROPHIL 13.0 % Abnormal 0.0 - 5.0 [facility] Comment on above: Performed By: #### B MP #### [address] [address] % BASOPHIL 0.0 % Normal 0.0 - 2.0 [facility] Comment on above: Performed By: #### B MP #### [address] [address] % EOSINOPHIL 0.0 % Normal 0.0 - 6.0 [facility] Comment on above: Performed By: #### B MP #### [address] [address] % LYMPHOCYTE 8.0 % Normal 13.0 - 44.0 [facility] Comment on above: Performed By: #### B MP #### [address] [address] % MONOCYTE 5.0 % Normal 2.0 - 10.0 [facility] Comment on above: Performed By: #### B MP #### [address] [address] % SEG NEUTROPHIL 74.0 % Normal 40.0 - 80.0 [facility] Comment on above: Result Comment: Perc ent differential counts (%) should be interpreted in the context of the absolute cell counts (cells/L). Performed By: #### B MP #### [place] [address] ANC 11.66 x10E9/L High 1.60 - 5.50 [facility] Comment on above: Performed By: #### B MP #### [place] [address] BAND NEUTROPHIL 1.74 x10E9/L High 0.00 - 0.50 [facility] Comment on above: Performed By: #### B MP #### [place] [address] BASOPHIL 0.00 x10E9/L Normal 0.00 - 0.10 [facility] Comment on above: Performed By: #### B MP #### [place] [address] EOSINOPHIL 0.00 x10E9/L Normal 0.00 - 0.40 [facility] Comment on above: Performed By: #### B MP #### [place] [address] LYMPHOCYTE 1.07 x10E9/L Normal 0.80 - 3.00 [facility] Comment on above: Performed By: #### B MP #### [place] [address] MONOCYTE 0.67 x10E9/L Normal 0.05 - 0.80 [facility] Comment on above: Performed By: #### B MP #### [place] [address] SEG NEUTROPHIL 9.92 x10E9/L High 1.60 - 5.00 [facility] Comment on above: Performed By: #### B MP #### [place] [address] Nutrition Therapy-Assessment on 09-21-2022 Nutrition Therapy-Assessment Assessment Subjective/Objective: Note Type: Assessment Note Authored by: Registered Dietitian Erector Operator Pager Number: [phone] Nutrition Note: The patient is a 87 year old Male admitted with COVID 19. MST weight loss and decreased by mouth score 2 Called patient room and spoke to patient's . Obtained minimal nutritional information as was difficult to communicate with her via phone . Medical Surgical History: Hypertension 2. Hypercholesterolemia Objective Information: T PRBPMAPSpO2 [id number]% Date/Time09/21 7: 7: 7: 7: 7: 7:33 Range(36C - 36.9C ) (65 - 99 ) (16 - 27 ) (88 - 140 )/ (54 - 77 ) (62 - 85 ) (90% - 94% ) As of 20-Sep-2022 09:00:00, patient is on 2 L/min of oxygen via nasal cannula. Highest temp of 36.9 C was recorded at 09/20 8:00 Pain reported at 09/21 4:00: sleeping Height/Weight: Height in cm: 170.1 centimeter(s) Weight (kg): 67.7 BMI (kg/m2): 23.398 square meter DBW (kg): 67.3 %DBW: 101 Weight history/ % weight change: unsure of usual weight Recent Lab Results: Results: I have reviewed these laboratory results: Complete Blood Count + Differential 21-Sep-2022 05:47:00 ResultValue White Blood Cell Count 13.4 H Red Blood Cell Count 3.78 L HGB 11.7 L HCT 35.0 L MCV 93 MCHC 33.5 PLT 221 RDW-CV 14.4 Differential Comment SEE MANUAL DIFF Comprehensive Metabolic Panel 21-Sep-2022 05:47:00 ResultValue Glucose, Serum 132 H NA 136 K 3.5 CL 102 Bicarbonate, Serum 23 Anion Gap, Serum 15 BUN 47 H CREAT 1.60 H GFR Male 42 A Calcium, Serum 9.2 ALB 3.5 ALKP 42 T Pro 7.0 T Bili 0.6 Alanine Aminotransferase, Serum 33 Aspartate Transaminase, Serum 63 H Current Active Medications/PN: Pravastatin, Tablet (PRAVACHOL) DOSE = 20 mg Oral Daily Notes from Pharmacy: Substitution for Lovastatin (MEVACOR) 20mg Oral At Bedtime, 20-Sep-2022 amLODIPine (NORVASC), Tablet DOSE = 5 mg Oral Daily, 20-Sep-2022 Lisinopril, Tablet (PRINIVIL, ZESTRIL) DOSE = 10 mg Oral Daily Notes from Pharmacy: Substitution for Benazepril 10 mg Tab Once Daily, 20-Sep-2022 Budesonide 0.5 mg/ 2 mL Nebulizer Soln, (PULMICORT) DOSE = 2 mL Inhalation Every 12 Hours via Nebulizer, 20-Sep-2022 dexAMETHasone, Tablet (DECADRON, HEXADROL) DOSE = 6 mg Oral Every 24 Hours, 20-Sep-2022 Ascorbic Acid, Tablet (VITAMIN C) DOSE = 500 mg Oral 2 Times a Day, 20-Sep-2022 Cholecalciferol (Vitamin D3), Tablet DOSE = 1,000 International Unit(s Oral Daily Notes from Pharmacy: 1,000 units equivalent to 25 micrograms, 20-Sep-2022 Zinc Sulfate, Capsule DOSE = 220 mg Oral Daily, 20-Sep-2022 Sodium Chloride 0.9% Infusion, IV Bag Volume = 1,000 mL Run at: 75 mL/hr IntraVenous , 21-Sep-2022 Nutrition Orders: Diet, Cardiac, 20-Sep-2022 Food/Nutrition Related History: Energy Intake: fair 50-75% Food/Nutrition Related History: stated patient ate well for lunch, was eating well at home prior to illness GI Symptoms: none Time Frame for GI Symptoms Greater Than 2 Weeks: not applicable Oral Problems: denies Mobility: normal activity Food Allergies Comment: NKFA Nutrition Focused Physical Findings: Physical Findings: COVID19 Estimated Needs: kcals/day: 8512-8182 Predictive Equation Used: kcals/kg; 25-30 gms protein/day: 54-68 Weight Used: actual body wt; 0.8-1 mL fluid/day: 1693 Nutrition Diagnosis: No Nutritional Diagnosis at this time. Nutrition Interventions: Individualized Nutrition Prescription Provided for: diet Coordination of Care with: Nutrition Education: Diet Education: not applicable Nutrition Goals: Goals: Nutrition Therapy: oral intake greater than 75%, maintain stable weight NUTRITION RECOMMENDATIONS: Recommendation: Currently, no nutrition interventions are indicated at this time. Please, re-consult if there is a change in patients status. Recommendations: Reassess 5-7 days Nutrition Therapy Recommendations: Nutrition Therapy Recommendations: No nutrition interventions Dietitian Monitoring and Evaluation Plan: Monitoring and Evaluation Plan: po intake and tolerance Time Spent (minutes): 30 Nutrition Support: no Electronic Signatures: Simran Larsen (LISA) (Signed 21-Sep-2022 13:16) Authored: Assessment Subjective/Objective, Nutrition Focused Physical Findings, Estimated Needs, Nutrition Diagnosis, Nutrition Interventions, Nutrition Goals, Nutrition Recommendations, Dietitian Monitoring and Evaluation Plan, Time Spent/Nutrition Support Last Updated: 21-Sep-2022 13:16 by Simran Larsen (RD) Normal [facility] RED CELL MORPHOLOGYon 2021 RBC morphology finding Nom (Bld) NORMAL Normal [facility] Comment on above: Performed By: #### B MP #### [place] [id number] [place] [id number] Rehab Note-individual therap yon 09-21-2022 Rehab Note-individual therapy Rehab: Info: Disciplinephysical licensed occupational therapy assistant Mode of Treatmentindividual therapy Time IN14:35 Time OUT14:51 Total Treatment [id number] Patient in ... at end of sessionbed, 3 railings up; alarm on Communicated with ... at end of sessionbedside nurse Patient Effortgood Symptoms Noted During/After Treatmentfatigue Patient Response to TreatmentPatient demo's fatigue at end of session. Line and Tubestelemetry Pre Treatment Patient Positionsupine Pre Treatment Heart Rate (beats/min)76 Pre Treatment SpO2 (%)95 % Pre Treatment Oxygen Deliveryroom air Vision/Cognition: Affect/Mental Status (Cognitive)WFL Orientation Status (Cognition)oriented x 3 Mobility/Tone: Bed Mobility Assessment/Interventionssup ine to sit Krzvih-xy-Nuw Leon (Bed Mobility)contact guard Assistive Device (Bed Mobility)bed rails Comment, Bed MobilityHOB elevated Transfer Assessment/Interventionssit to stand transfer Sit-Stand Leon (Transfers)contact guard Sit-Stand Assistive Device (Transfers)gait belt Comment, Gait/Stairs TrainingPatient ambulated 40' with no AD and gait belt. Patient demo's ER of toes during ambulation, and good foot clearance during ambulation. Safety Issues Impacting Function (Mobility)ability to follow commands Motor: Lower Extremity (Therapeutic Exercise)Patient performed seated Bilat LE exercises x15: ankle pumps, LAQ's, marches, hip abduction Sensory: Pre-Treatment Pain Rating0/10 - no pain Post-Treatment Pain Rating0/10 - no pain Comment, Pre/Post Treatment PainPatient reports feeling better than he has been. Outcomes Tools: Turning from your back to your side while in a flat bed without using bedrails a little Moving from lying on your back to sitting on the side of a flat bed without using bedrailsa little Moving to and from bed to chair (including a wheelchair)a little Standing up from a chair using your arms (e.g. wheelchair or bedside chair)a little To walk in hospital rooma little Climbing 3-5 steps with railinga little AM-PAC (PT) Total Score18 Outcome Summary: Progress: Physical Therapyprogress toward functional goals as expected Outcome Summary: Physical TherapyPatient ANVIK. Patient pat's unsteadiness on feet during first initial stand. Performed seated exercises and patient was able to improve in standing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 of Evaluation (PT Eval)CGa sit to stand, ambulation with FWW 26' Patient/Family Goals Statement (PT Eval)improve mobility and strength, return home System Pathology/Pathophysiology Noted (PT Eval)musculoskeletal Impairments Found (PT Eval)aerobic capacity/endurance; gait, locomotion, and balance; muscle performance; ventilation and respiration/gas exchange Functional Limitations in Following Categoriesself-care; home management; mobility/gait Assessment (PT Eval)Skilled PT intervention is indicated due to patient presents with deficits in bed mobility, transfers, gait, stair negotiation, strength, activity tolerance, and safety awareness. Patient would benefit from skilled PT to improve strength, moblity and activity tolerance. He is weakened from his acute illness. Recommend continued use of FWW for moblity Rehab Potential (PT Eval)good, to achieve stated thera (more content not included)... Normal [facility] Patient Profile - Adult v2on 09-20-2022 Patient Profile - Adult v2 Profile: Initial Info: How to be AddressedJohn Spoken Language PreferredEnglish Source of Informationpatient; family Stated Reason for Admissioncovid Primary Contact Name and NumberSteve: [phone] Wants Family/Rep Notified of Admissionyes, primary contact Notify PCPnotify PCP Informed of Patient Visiting Rightsyes [place] Patient Belongingsremains with patient Patient Belongings Remaining with Patientclothing; hearing aids; vision aids Medications Brought to Hospitalno History of MDROno General Health: Weight in kg67.7 kilogram(s) Weight in qzb598.2 pound(s) Weight Methodactual (measured) Scale Typebed Height in cm170.1 centimeter(s) Height in feet5 feet Height in inches6.97 inch(es) Height Methodstated BMI (kg/m2)23.398 square meter RSP Based Care: How would you like to participate in your carebe informed What is the number one concern for you during this hospitalizationbe stronger What is the most important thing we can do to support you during this hospitalizationtell me what is going on Is there anything we need to know to best care for youno Substance: Smoking Statusformer smoker Alcohol Usedenies Health Mgmt: Symptoms/Conditions Managed at Homecardiovascular Cardiovascular Symptoms/Conditionshyperten marge Cardiovascular Managementmanaged Relationship/Environ: Resource/Environmental Concernsnone Primary Source of Support/Comfortchild(nick); spouse Lives Withspouse Living Arrangementshouse Services [facility]tic[facility] Significant IndicatorsComplete Information Review: Allergies, Home Meds and Significant Events have been Reviewed and Verified with Patient/Familyyes ALLERGY, INTOLERANCE, ADVERSE EVENT: Allergies: No Known Allergies: Active Electronic Signatures: Alyssa Melendez (NASEEM) (Signed 20-Sep-2022 00:51) Authored: Initial Info, General Health, RSP Based Care, Substance, Health Mgmt, Relationship/Environ, Additional Information Reji Spangler) (Signed 22-Sep-2022 11:34) Authored: Initial Info Last Updated: 22-Sep-2022 11:34 by Reji Spangler (NASEEM) [facility] RED CELL MORPHOLOGYon 2021 GIANT PLATELETS FEW [facility] Comment on above: Performed By: #### M ORP2 #### [place] [address] HYPOCHROMASIA MILD Normal [facility] Comment on above: Performed By: #### M ORP2 #### [place] [address] RBC morphology finding Nom (Bld) SEE BELOW Normal [facility] Comment on above: Performed By: #### M ORP2 #### [address] [address] CBC AND DIFFERENTIALon 09-19 DIFFERENTIAL SEE MANUAL DIFF Normal [facility] Comment on above: Performed By: #### C BCDF ####[address] [address] Erythrocyte distribution width (RBC) [Ratio] 14.3 % Normal 11.5 - 14.5 [facility] Comment on above: Performed By: #### C BCDF ####[address] [address] Hematocrit (Bld) [Volume fraction] 39.1 % Low 41.0 - 52.0 [facility] Comment on above: Performed By: #### C BCDF ####[address] [address] Hemoglobin (Bld) [Mass/Vol] 12.6 g/dL Low 13.5 - 17.5 [facility] Comment on above: Performed By: #### C BCDF ####[address] [address] MCHC (RBC) [Mass/Vol] 32.4 g/dL Normal 32.0 - 36.0 [facility] Comment on above: Performed By: #### C BCDF ####[address] [address] MCV (RBC) [Entitic vol] 93 fL Normal 80 - 100 [facility] Comment on above: Performed By: #### C BCDF ####[address] [address] Platelets (Bld) [#/Vol] 246 10*3/uL Normal 150 - 450 [facility] Comment on above: Performed By: #### C BCDF ####[address] [address] RBC 4.18 x10E12/L Low 4.50 - 5.90 [facility] Comment on above: Performed By: #### C BCDF ####[address] [address] WBC (Bld) [#/Vol] 14.1 10*3/uL High 4.4 - 11.3 [facility] Comment on above: Performed By: #### C BCDF ####[address] [address] CHEST 1 VIEWon 09-19-2022 CHEST 1 VIEW Patient Name: GRANT ISLAS STUDY: CHEST 1 VIEW; 09/19/2022 8:19 pm INDICATION: weakness . COMPARISON: None. ACCESSION NUMBER(S): [id number] ORDERING CLINICIAN: CHELA WONG FINDINGS: The cardiac silhouette is normal in size. Atherosclerotic calcification of the thoracic aorta. Mild left basilar atelectasis. Otherwise no airspace consolidation or pleural effusion. No pneumothorax. IMPRESSION: No airspace consolidation or pleural effusion. Electronically signed by: [place] CRAWLEY MD Normal [facility] COMPREHENSIVE PANELon 2021 Albumin [Mass/Vol] 4.1 g/dL Normal 3.4 - 5.0 [facility] Comment on above: Performed By: #### C MP #### [address] [address] ALP [Catalytic activity/Vol] 54 U/L Normal 33 - 136 [facility] Comment on above: Performed By: #### C MP #### [address] [address] ALT [Catalytic activity/Vol] 22 U/L Normal 10 - 52 [facility] Comment on above: Result Comment: Julia ents treated with Sulfasalazine may generate falsely decreased results for ALT. Performed By: #### C MP #### [address] [address] Anion gap [Moles/Vol] 14 mmol/L Normal 10 - 20 [facility] Comment on above: Performed By: #### C MP #### [address] [address] AST [Catalytic activity/Vol] 40 U/L High 9 - 39 [facility] Comment on above: Performed By: #### C MP #### [address] [address] Bilirubin [Mass/Vol] 0.5 mg/dL Normal 0.0 - 1.2 [facility] Comment on above: Performed By: #### C MP #### [address] [address] Calcium [Mass/Vol] 9.5 mg/dL Normal 8.6 - 10.3 [facility] Comment on above: Performed By: #### C MP #### [address] [address] Chloride [Moles/Vol] 99 mmol/L Normal 98 - 107 [facility] Comment on above: Performed By: #### C MP #### [address] [address] Creatinine [Mass/Vol] 1.51 mg/dL High 0.50 - 1.30 [facility] Comment on above: Performed By: #### C MP #### [address] [address] GFR/1.73 sq M.predicted among non-blacks MDRD (S/P/Bld) [Vol rate/Area] 45 mL/min/{1.73_m2} Abnormal >90 [facility] Comment on above: Result Comment: CALC ULATIONS OF ESTIMATED GFR ARE PERFORMED USING THE 2020 CKD-EPI STUDY REFIT EQUATION WITHOUT THE RACE VARIABLE FOR THE IDMS-TRACEABLE CREATININE METHODS. https://jasn.asnjournals.org/content//ASN.663777 0909 Performed By: #### C MP #### [address] [address] Glucose [Mass/Vol] 117 mg/dL High 74 - 99 [facility] Comment on above: Performed By: #### C MP #### [address] [address] HCO3 (Bld) [Moles/Vol] 25 mmol/L Normal 21 - 32 [facility] Comment on above: Performed By: #### C MP #### [address] [address] Potassium [Moles/Vol] 4.4 mmol/L Normal 3.5 - 5.3 [facility] Comment on above: Performed By: #### C MP #### [address] [address] Protein [Mass/Vol] 7.9 g/dL Normal 6.4 - 8.2 [facility] Comment on above: Performed By: #### C MP #### [address] [address] Sodium [Moles/Vol] 134 mmol/L Low 136 - 145 [facility] Comment on above: Performed By: #### C MP #### [address] [address] Urea nitrogen [Mass/Vol] 32 mg/dL High 6 - 23 [facility] Comment on above: Performed By: #### C MP #### [address] [address] CT C-SPINE WO CONTRASTon CT C-SPINE WO CONTRAST Patient Name: GRANT ISLAS STUDY: CT C-SPINE WO CONTRAST; 09/19/2022 8:04 pm INDICATION: weakness, fall . COMPARISON: None. ACCESSION NUMBER(S): [id number] ORDERING CLINICIAN: CHELA WONG TECHNIQUE: Contiguous axial images of the cervical spine were obtained without intravenous contrast. Coronal and sagittal reformatted images were obtained from the axial images. FINDINGS: No evidence acute fracture of the cervical spine. There is multilevel degenerative change of the cervical spine. There is mild grade 1 retrolisthesis of C4 on C5. There is multilevel intervertebral disc space narrowing and degenerative disc disease. There is multilevel anterior osseous spurring. There is limited evaluation of the soft tissues of the spinal canal. There is multilevel posterior osseous spurring resulting in multilevel spinal canal stenosis. There is mild degenerative facet and uncovertebral arthropathy resulting in multilevel neural foramina stenosis. No significant prevertebral soft tissue edema. IMPRESSION: No evidence of acute fracture of the cervical spine. Multilevel degenerative change of the cervical spine. Electronically signed by: [place] CRAWLEY MD Normal [facility] CT HEAD WO CONTRASTon 2021 CT HEAD WO CONTRAST Patient Name: GRANT ISLAS STUDY: CT HEAD WO CONTRAST; 09/19/2022 8:04 pm INDICATION: weakness, fall . COMPARISON: None ACCESSION NUMBER(S): [id number] ORDERING CLINICIAN: CHELA WONG TECHNIQUE: Contiguous axial images of the head were obtained without intravenous contrast. FINDINGS: BRAIN PARENCHYMA: There is cerebral atrophy and chronic periventricular white matter small vessel ischemic change. The booth white matter differentiation is preserved. No mass effect or midline shift. HEMORRHAGE: No evidence of acute intracranial hemorrhage. VENTRICLES AND EXTRA-AXIAL SPACES: The ventricles are within normal limits in size for brain volume. No evidence of abnormal extraaxial fluid collection. EXTRACRANIAL SOFT TISSUES: Within normal limits. PARANASAL SINUSES/MASTOIDS: Mild mucosal thickening of partially imaged left maxillary sinus. CALVARIUM: No evidence of depressed calvarial fracture. OTHER FINDINGS: None IMPRESSION: No evidence of acute intracranial hemorrhage or depressed calvarial fracture. Cerebral atrophy and chronic periventricular white matter small vessel ischemic change. Electronically signed by: [place] CRAWLEY MD [facility] Covid 19 Resultson 2 SARS-CoV-2 (COVID-19) RNA TREVON+probe Ql (Unsp spec) POSITIVE COVID-19 Test Coronaviruses are common world-wide and are the cause of many common colds. SARS-COV2 is a new coronavirus that began circulating worldwide in 2019 so we are calling it COVID-19. It has been estimated that four out of five patients with COVID-19 will recover at home without the need for medical attention. Symptoms of COVID-19 may include cough, fever, shortness of breath, loss of taste or smell and other flu-like symptoms including chills, sore muscles, sore throat, and headache. Severe illness is more common in older people and people with other health problems such as high blood pressure, obesity, and immune system problems. If the test is positive, you have COVID-19. You will be contacted by the ordering physicians office and instructed to remain on home isolation, in accordance with CDC guidelines. You may also be contacted by the [facility] to see if any of your close contacts may have been exposed to the virus and need to quarantine. If the test is negative, you likely do not have COVID-19 at this time, but you still may have a different illness that can spread to other people (like Influenza, or the Flu) and could still be at risk for getting COVID-19. We recommend that you stay away from other people to limit the spread of illness until your symptoms are improving and you are fever-free for 24 hours without the use of fever lowering medications such as acetaminophen or ibuprofen. No test is 100% accurate so if you are still concerned you may have COVID-19, talk to your doctor about the need to continue to stay away from others. Medicines Unless your provider told you not to use the following: Acetaminophen (Tylenol and others) is generally safe. Anti-inflammatory medications, such as Ibuprofen (Advil or Motrin) or Naproxen (Aleve) can also be used. Zgwt-kyi-eptilrh cough and cold medicines can be used according to the instructions on the package. Some unob-rhi-zaeajxv medicines also contain acetaminophen. Make sure you are not taking more than your recommended dose. For those not hospitalized, there is no specific treatment available for this illness. Antibiotics do not treat Coronaviruses. Follow-Up Follow up with your doctor by scheduling a virtual visit or consider follow-up at one of our urgent care fever clinics. If you are having difficulty breathing, or are very weak and having difficulty standing, this is a medical emergency. Call 911 or have someone take you to the nearest emergency room immediately. If possible, wear a facemask. Additional guidance from the CDC for patients who tested POSITIVE for COVID-19 How to isolate: Isolate yourself in a specific room at home and limit your contact with others. Use a separate bathroom from other members of the household, when possible. Leave home only to get essential medical care. Do not go to work, school or public areas. Avoid using public transportation, ride-sharing, or taxis. Restrict contact with pets and other animals. If you must care for your pet or be around animals while you are sick, wash your hands before and after your interaction and wear a facemask. Make sure that shared spaces in the home have good airflow, such as by an air conditioner or an opened window, weather permitting. Personal Hygiene Procedures: Wear a face mask when in the same room as other people or pets. If a face mask interferes with your breathing, others should wear a mask when sharing space with you. Frequent hand-washing: wash your hands with soap and water for at least 20 seconds. If soap and water are not available, use alcohol-based hand palliative senior np. Avoid touching your eyes, nose, and mouth with unwashed hands. Household Hygiene Procedures: Avoid sharing personal household items such as dishes, glassware, cups, eating utensils, towels or bedding with other people or pets in your home. After use, these items should be washed with soap and hot water. Disinfect all high-touch surfaces every day with antibacterial cleaning solutions such as Lysol wipes, bleach, cleansers, etc. High-touch surfaces include tabletops, doorknobs, bathroom fixtures, toilets, phones, keyboards, tablets and bedside tables. Immediately clean any surfaces that may have blood, poop or body fluids on them, using antibacterial cleaning solutions such as Lysol wipes, bleach, cleansers, etc. If clothing or bedding come into contact with blood, poop or body fluids, they should be washed immediately. Follow the directions on the laundry detergent and clothing labels but hot water is recommended when possible. Stopping home isolation precautions: If possible, consult your doctor before stopping home isolation precautions. According to the CDC, you can discontinue home isolation precautions when you have met both of these criteria: Your fever and respiratory symptoms have been gone for 24 ruth (more content not included)... Normal [facility] D-DIMER, NON VTEon D-DIMER, NON VTE 1712 ng/mL FEU Abnormal = 500 [facility] Comment on above: Result Comment: THE D-DIMER ASSAY IS REPORTED IN NG/ML FIBRINOGEN EQUIVALENT UNITS (FEU). THE RESULTS OF THIS ASSAY SHOULD NOT BE USED FOR THE EXCLUSION OF DEEP VEIN THROMBOSIS AND/OR PULMONARY EMBOLISM. Performed By: #### D JAVIER #### [address] [place] [address] HIP, UNILATERAL W/PELVIS WHE N PERFORMED 2-3 VIEWSon 09-19-2022 HIP, UNILATERAL W/PELVIS WHEN PERFORMED 2-3 VIEWS Patient Name: GRANT ISLAS STUDY: HIP, UNILATERAL W/PELVIS WHEN PERFORMED 2-3 VIEWS; Right; 09/19/2022 8:19 pm INDICATION: pain . COMPARISON: None. ACCESSION NUMBER(S): [id number] ORDERING CLINICIAN: CHELA WONG FINDINGS: No evidence of acute displaced pelvic or right hip fracture the sacroiliac joints are symmetric. Mild degenerative change of the imaged lower lumbar spine. There is osteopenia. IMPRESSION: No evidence of acute displaced pelvic or right hip fracture. If the patient is acutely unable to bear weight or pain increases, cross-sectional imaging is recommended to exclude radiographically occult fracture. Electronically signed by: OH CRAWLEY MD Normal [facility] INFLUENZA A/B, COVID 2019 PC R,SYMPTOMATICon 09-19-2022 INFLUENZA A, PCR Not detected Normal Not Detected [facility] Comment on above: Result Comment: Resp iratory virus testing is performed routinely by PCR for Influenza A/B and RSV. Not Detected results do not preclude Influenza A/B or RSV infections since the adequacy of sample collection or low viral burden may impact the clinical sensitivity of this test method. Performed By: #### C OINP #### [place] [address] INFLUENZA B, PCR Not detected Normal Not Detected [facility] Comment on above: Result Comment: Resp iratory virus testing is performed routinely by PCR for Influenza A/B and RSV. Not Detected results do not preclude Influenza A/B or RSV infections since the adequacy of sample collection or low viral burden may impact the clinical sensitivity of this test method. Performed By: #### C OINP #### [place] [address] SARS-CoV-2 (COVID-19) RNA TREVON+probe Ql (Unsp spec) Detected Abnormal Not Detected [facility] Comment on above: Result Comment: . This test has received FDA Emergency Use Authorization (EUA) and has been verified by [facility]. This test is only authorized for the duration of time that circumstances exist to justify the authorization of the emergency use of in vitro diagnostic tests for the detection of SARS-CoV-2 virus and/or diagnosis of COVID-19 infection under section 564(b)(1) of the Act, 21 U.S.C. 360bbb-3(b)(1), unless the authorization is terminated or revoked sooner. [facility] is certified under CLIA-88 as qualified to perform high complexity testing. Testing is performed in the [facility] laboratory located at [address] [place] [address]. SARS-CoV-2/Flu/RSV Multiplex Test: Fact sheet for providers: https://www.fda.gov/media/304112/download Fact sheet for patients: https://www.fda.gov/media/813427/download Performed By: #### C OINP #### [place] [address] Lab Specimen Source Nasal, Nasopharyngeal Normal [facility] Comment on above: Performed By: #### C OINP #### [place] [address] LACTATEon 09-19-2022 Lactate [Moles/Vol] 1.0 mmol/L Normal 0.4 - 2.0 [facility] Comment on above: Result Comment: Tracie puncture immediately after or during the administration of Metamizole may lead to falsely low results. Testing should be performed immediately prior to Metamizole dosing. Performed By: #### L ACT ####[place] [address] MANUAL DIFFERENTIALon 2021 % BAND NEUTROPHIL 3.0 % Normal 0.0 - 5.0 [facility] Comment on above: Performed By: #### M DIFF ####[address] [address] % BASOPHIL 0.0 % Normal 0.0 - 2.0 [facility] Comment on above: Performed By: #### M DIFF ####[address] [address] % EOSINOPHIL 0.0 % Normal 0.0 - 6.0 [facility] Comment on above: Performed By: #### M DIFF ####[address] [address] % LYMPHOCYTE 5.0 % Normal 13.0 - 44.0 [facility] Comment on above: Performed By: #### M DIFF ####[address] [address] % MONOCYTE 4.0 % Normal 2.0 - 10.0 [facility] Comment on above: Performed By: #### M DIFF ####[id number] % SEG NEUTROPHIL 88.0 % Normal 40.0 - 80.0 [facility] Comment on above: Result Comment: Perc ent differential counts (%) should be interpreted in the context of the absolute cell counts (cells/L). Performed By: #### M DIFF ####[place] [address] ANC 12.83 x10E9/L High 1.60 - 5.50 [facility] Comment on above: Performed By: #### M DIFF ####[place] [address] BAND NEUTROPHIL 0.42 x10E9/L Normal 0.00 - 0.50 [facility] Comment on above: Performed By: #### M DIFF ####[place] [address] BASOPHIL 0.00 x10E9/L Normal 0.00 - 0.10 [facility] Comment on above: Performed By: #### M DIFF ####[id number] EOSINOPHIL 0.00 x10E9/L Normal 0.00 - 0.40 [facility] Comment on above: Performed By: #### M DIFF ####[place] [address] LYMPHOCYTE 0.71 x10E9/L Low 0.80 - 3.00 [facility] Comment on above: Performed By: #### M DIFF ####[id number] MONOCYTE 0.56 x10E9/L Normal 0.05 - 0.80 [facility] Comment on above: Performed By: #### M DIFF ####[place] [address] SEG NEUTROPHIL 12.41 x10E9/L High 1.60 - 5.00 [facility] Comment on above: Performed By: #### M DIFF ####[facility] [place] [address] Provider Note - ED v3on 09-01 Provider Note - ED v3 Provider Note: Chart Review: HISTORY OF PRESENTING ILLNESS GRANT is a 87 year old Male and was seen by me at 19-Sep-2022 18:44 for a chief complaint of weakness (To ED per wheelchair after helping pt out of car. Pt was diagnosed with COVID-19 yesterday. He had a fall early this am. heard the fall and found him sitting in BR. She did not think he hit his head. Denies LOC. Son reports that started PO Paxlovid today and seems somewhat dehydrated. Pt denies any injuries from the fall. C/o R hip pain because he has been laying around a lot. Pt denies any SOB or CP.)(1). Triage Information: Most recent Vital Sign Value Date Temp (F): 98.2 09-19-2022 18:21 Temp (C): 36.7 09-19-2022 18:21 Heart Rate (beats/min): 92 09-19-2022 18:21 Respirations (breaths/min): 18 09-19-2022 18:21 SpO2 (%): 95 09-19-2022 18:21 BP Systolic (mm Hg): 160 09-19-2022 18:21 BP Diastolic (mm Hg): 92 09-19-2022 18:21 PAST MEDICAL HISTORY ALLERGIES/INTOLERANCES: No Known Allergies HEALTH HISTORY: No documented data. OUTPATIENT MEDICATIONS: Home Medications Review Status for Reconciliation: Complete Med Status: Patient Currently Takes Medications Drug Name: lovastatin 20 mg oral tablet Instructions: 1 tab(s) orally once a day Drug Name: amlodipine-benazepril 5 mg-10 mg oral capsule Instructions: 1 cap(s) orally once a day Drug Name: aspirin 162 mg oral delayed release tablet Instructions: null Drug Name: Paxlovid 300 mg-100 mg Dose Pack oral tablet Instructions: null SIGNIFICANT EVENTS: No documented data. CRITICAL CARE RESULTS: Recent Lab Results: I have reviewed these laboratory results: Urinalysis with Culture if Indicated 19-Sep-2022 20:50:00 ResultValue Color, Urine Yellow Reference Range: STRAW,YELLOW Appearance, Urine HAZY Specific [place], Urine 1.019 pH, Urine 5.0 Protein, Urine 100(2+) A Glucose, Urine NEGATIVE Blood, Urine LARGE(3+) A Ketones, Urine 5(TRACE) A Bilirubin, Urine NEGATIVE Urobilinogen, Urine <2.0 Nitrite, Urine Negative Leukocyte Esterase, Urine NEGATIVE Urinalysis, Microscopic 19-Sep-2022 20:50:00 ResultValue White Cells 1 Red Blood Cells 5 Epithelial Cells, Squamous <1 Mucous 1+ Influenza A/B,Covid 2019 PCR,Symptomatic 19-Sep-2022 19:47:00 ResultValue Fluid Source Nasal, Nasopharyngeal Influenza A PCR NOT DETECTED Reference Range: Not Detected Respiratory virus testing is performed routinely by PCR for Influenza A/B and RSV. Not Detected results do not preclude Influenza A/B or RSV infections since the adequacy of sample collection or lo Influenza B PCR NOT DETECTED Reference Range: Not Detected Respiratory virus testing is performed routinely by PCR for Influenza A/B and RSV. Not Detected results do not preclude Influenza A/B or RSV infections since the adequacy of sample collection or lo Coronavirus 2019,PCR DETECTED Reference Range: Not Detected .This test has received FDA Emergency Use Authorization (EUA) and has been verified by [facility]. This test is only authorized for the duration of time that circumstan A Complete Blood Count + Differential 19-Sep-2022 19:30:00 ResultValue White Blood Cell Count 14.1 H Red Blood Cell Count 4.18 L HGB 12.6 L HCT 39.1 L MCV 93 MCHC 32.4 PLT 246 RDW-CV 14.3 Differential Comment SEE MANUAL DIFF Comprehensive Metabolic Panel 19-Sep-2022 19:30:00 ResultValue Glucose, Serum 117 H NA 134 L K 4.4 CL 99 Bicarbonate, Serum 25 Anion Gap, Serum 14 BUN 32 H CREAT 1.51 H GFR Male 45 A Calcium, Serum 9.5 ALB 4.1 ALKP 54 T Pro 7.9 T Bili 0.5 Alanine Aminotransferase, Serum 22 Aspartate Transaminase, Serum 40 H RBC Morphology 19-Sep-2022 19:30:00 ResultValue Red Blood Cell Morphology NORMAL Manual Differential Panel 19-Sep-2022 19:30:00 ResultValue % Seg Neutrophil 88.0 % Band Neutrophil 3.0 % Lymphocyte 5.0 % Monocyte 4.0 % Eosinophil 0.0 % Basophil 0.0 Absolute Neutrophil Count (ANC) 12.83 H Seg Neutrophil Count 12.41 H Band Neutrophil Count 0.42 Lymphocyte, Count 0.71 L Monocyte, Count 0.56 Eosinophil, Count 0.00 Basophil, Count 0.00 Lactate, Level 19-Sep-2022 19:30:00 ResultValue Lactate, Level 1.0 Troponin I, High Sensitivity 19-Sep-2022 19:30:00 ResultValue Troponin I, High Sensitivity 30 H D-Dimer, Non VTE 19-Sep-2022 19:30:00 ResultValue D-Dimer, Non VTE 1712 A Radiology Results: Impression: No evidence of acute pulmonary embolism. Mild opacity in left lower lobe bronchi may relate to secretions and/or mild aspiration. Mild bibasilar subsegmental atelectasis. CT Angio Chest for PE [Sep 19 2022 11:24PM] Impression: No evidence of acute displaced pelvic or right hip fracture. If the patient is acutely unable to bear weight or pain increases, cross-sectional imaging is recomm (more content not included)... Normal [facility] RED CELL MORPHOLOGYon 2021 RBC morphology finding Nom (Bld) NORMAL Normal [facility] Comment on above: Performed By: #### M ORP2 #### [address] [place] [address] TROPONIN I, HIGH SENSITIVITY on 09-19-2022 TROPONIN I, HIGH SENSITIVITY 33 ng/L High 0 - 20 [facility] Comment on above: Result Comment: . Less than 99th percentile of normal range cutoff- Female and children under 18 years old <14 ng/L; Male <21 ng/L: Negative Repeat testing should be performed if clinically indicated. . Female and children under 18 years old 14-50 ng/L; Male 21-50 ng/L: Consistent with possible cardiac damage and possible increased clinical risk. Serial measurements may help to assess extent of myocardial damage. . >50 ng/L: Consistent with cardiac damage, increased clinical risk and myocardial infarction. Serial measurements may help assess extent of myocardial damage. . NOTE: Children less than 1 year old may have higher baseline troponin levels and results should be interpreted in conjunction with the overall clinical context. . NOTE: Troponin I testing is performed using a different testing methodology at [facility] than at other [facility]. Direct result comparisons should only be made within the same method. Performed By: #### B #### [address] [address] TROPONIN I, HIGH SENSITIVITY 30 ng/L High 0 - 20 [facility] Comment on above: Result Comment: . Less than 99th percentile of normal range cutoff- Female and children under 18 years old <14 ng/L; Male <21 ng/L: Negative Repeat testing should be performed if clinically indicated. . Female and children under 18 years old 14-50 ng/L; Male 21-50 ng/L: Consistent with possible cardiac damage and possible increased clinical risk. Serial measurements may help to assess extent of myocardial damage. . >50 ng/L: Consistent with cardiac damage, increased clinical risk and myocardial infarction. Serial measurements may help assess extent of myocardial damage. . NOTE: Children less than 1 year old may have higher baseline troponin levels and results should be interpreted in conjunction with the overall clinical context. . NOTE: Troponin I testing is performed using a different testing methodology at [facility] than at other [facility]. Direct result comparisons should only be made within the same method. Performed By: #### T [facility] #### [address] [address] Triage - EDon 09-19-2022 Triage - ED Quick Triage: The patient and/or guardian verbally acknowledges placement for services into the following (when Urgent Care Service hours are operating):emergency department Chart Review: ARRIVAL INFORMATION Mode of Arrival: private vehicle CHIEF COMPLAINT GRANT ISLAS is a Male patient with a chief complaint of weakness (To ED per wheelchair after helping pt out of car. Pt was diagnosed with COVID-19 yesterday. He had a fall early this am. heard the fall and found him sitting in BR. She did not think he hit his head. Denies LOC. Son reports that started PO Paxlovid today and seems somewhat dehydrated. Pt denies any injuries from the fall. C/o R hip pain because he has been laying around a lot. Pt denies any SOB or CP.). Triage Date/Time: 19-Sep-2022 18:03 WILL: 3 Pain Rating (0-10): 1 = Mild Pain location: R hip Vital Signs: Temperature: 98.2F ( 36.7C) taken temporal Blood Pressure: 160/92 Mean: Heart Rate: 92 Respiratory Rate: 18 Pulse Oximetry: 95% on room air, no respiratory support. Weight: 158.7 pounds. Calculated 72.0 kg. Aurelio Coma Scale: Best Eye Response: (E4) spontaneous Best Motor Response: (M6) obeys commands Best Verbal Response: (V5) oriented Aurelio Score: 15 Cough lasting greater than 3 weeks: no Allergies: no Mask applied: yes Patient has homicidal thoughts: no Symptom Notes: . Symptoms Are POSITIVE For: weakness. Symptoms Are Negative For: blurred vision, chills, confusion, dehydration, diaphoresis, headache, loss of consciousness and nausea. Last Known Well: unknown Risk Screens Suicide Risk Screen In the Past Month: Have you wished you were or wished you could go to sleep and not wake up no In the Past Month: Have you had any actual thoughts of killing yourself no In Your Lifetime: Have you ever done anything, started to do anything, or prepared to do anything to end your life no Ogden Fall Scale Screening Has the patient fallen before (or is the patient in the ED as a result of a fall) has had a fall Does the patient have an impaired gait has impaired gait Is the patient cognitively impaired not cognitively impaired Ogden Fall Scale History of falling (immediate or previous) no (0) Secondary Diagnosis yes (15) Intravenous Therapy/ Heparin/Saline Lock no (0) Gait/Transferring normal/bedrest/wheelchair (0) Ambulatory Aids none/bedrest/nurse assist (0) Mental Status oriented to own ability (0) Ogden Fall Risk Score: 15 Interventions: Ogden Fall Interventions: LOW INTERVENTIONS: *patient oriented to surroundings and call system, * patient/family falls education completed and documented, *patients fall status communicated during bedside handoff, *whiteboard updated, *mode of toileting discussed with patient, *bed in low position with brakes locked, *call light in reach, * non-skid footwear TRAVEL HISTORY Travel History Coronavirus Screening: no exposure or symptoms Travel Exposure History: NO travel to International locations in the past 30 days PAIN Pain Scale Used: YAZAN Pain Rating (0-10): 1 = Mild Past Medical History: Past Medical History Reviewedyes Electronic Signatures: Mandy Diaz) (Signed 19-Sep-2022 18:26) Authored: Quick Triage, Risk Screens, Pain, Travel History, Chart Review, Scores, Past Medical History Last Updated: 19-Sep-2022 18:26 by Mandy Diaz (RN) Normal [facility] UA MICROSCOPICon 09-19-2022 Mucus Ql (Urine sed) 1+ /LPF Normal [facility] Comment on above: Performed By: #### U AMIC ####[place] [address] RBC 5 /HPF Normal 0-5 [facility] Comment on above: Performed By: #### U AMIC ####[place] [address] SQUAMOUS EPITH. CELLS <1 Normal [facility] Comment on above: Performed By: #### U AMIC ####[place] [address] WBC 1 /HPF Normal 0-5 [facility] Comment on above: Performed By: #### U AMIC ####[place] [address] URINALYSIS WITH CULTURE IF I NDICATEDon 09-19-2022 Appearance (U) HAZY Normal CLEAR [facility] Comment on above: Performed By: #### B MP #### [place] [address] Bilirubin Ql (U) Negative Normal NEGATIVE [facility] Comment on above: Performed By: #### B MP #### [address] [address] Color (U) Yellow Normal STRAW,YELLO W [facility] Comment on above: Performed By: #### B MP #### [address] [address] Glucose Ql (U) Negative Normal NEGATIVE [facility] Comment on above: Performed By: #### B MP #### [address] [address] Hemoglobin Ql (U) LARGE(3+) Abnormal NEGATIVE [facility] Comment on above: Performed By: #### B MP #### [address] [id number] Ketones Ql (U) 5(TRACE) Abnormal NEGATIVE [facility] Comment on above: Performed By: #### B MP #### [address] [id number] Leukocyte esterase Test strip Ql (U) Negative Normal NEGATIVE [facility] Comment on above: Performed By: #### B MP #### [address] [address] Nitrite Ql (U) Negative Normal NEGATIVE [facility] Comment on above: Performed By: #### B MP #### [place] [id number] pH (U) 5.0 [pH] Normal 5.0 - 8.0 [facility] Comment on above: Performed By: #### B MP #### [place] [id number] Protein Ql (U) 100(2+) Abnormal NEGATIVE [facility] Comment on above: Performed By: #### B MP #### [address] [id number] Specific gravity (U) [Rel density] 1.019 Normal 1.005 - 1.035 [facility] Comment on above: Performed By: #### B MP #### [address] [id number] Urobilinogen (U) [Mass/Vol] mg/dL Normal 0.0 - 1.9 [facility] Comment on above: Performed By: #### B MP #### [place] [id number] Absolute lymphocyte counton 09-10-2022 Lymphocytes Auto (Unsp spec) [#/Vol] 1.70 10*3/uL 0.83-4.51 [facility] Work Phone: Basophil percentageon 2021 Basophils/100 WBC (Bld) 0.4 % 0-1 [facility] Work Phone: Bilirubin [Mass/Vol] 0.30 mg/dL 0.20-1.00 [facility] Work Phone: Comment on above: For patients on eltr ombopag therapy, use of Dimension [place] TBIL is not recommended. Chloride [Moles/Vol] 105 mmol/L 98-107 [facility] Work Phone: [phone] Cholesterol [Mass/Vol] 192 mg/dL <200 [facility] Work Phone: Comment on above: <200 mg/dL Desirable 200-240 mg/dL Borderline >240 mg/dL High Risk Eosinophils/100 WBC (Bld) 1.5 % 0-5 [facility] Work Phone: Glucose [Mass/Vol] 70 mg/dL 74-106 [facility] Work Phone: Neutrophils (Bld) [#/Vol] 5.3 10*3/uL 2.0-7.7 [facility] Work Phone: Neutrophils/100 WBC (Bld) 66.6 % 47-70 [facility] Work Phone: Potassium [Moles/Vol] 4.3 mmol/L 3.5-5.1 [facility] Work Phone: Protein [Mass/Vol] 8.0 g/dL 6.4-8.2 [facility] Work Phone: Sodium [Moles/Vol] 140 mmol/L 136-145 [facility] Work Phone: Triglyceride [Mass/Vol] 126 mg/dL <199 [facility] Work Phone: Comment on above: The drugs N-Acetylcy steine and Metamizole may falsely depress this assay.Serum Triglycerides Reference Interval Normal <150 mg/dL Borderline high 150 - 199 mg/dL High 200 - 499 mg/dL Very High > or = 500 mg/dL WBC (Bld) [#/Vol] 8.0 10*3/uL 4.4-11.0 [facility] Work Phone: Blood erythrocytes count (nu mber/volume)on 09-10-2022 RBC (Bld) [#/Vol] 3.81 10*6/uL 4.6-6.2 [facility] Work Phone: Blood hemoglobin measurement (mass/volume)on 09-10-2022 Hemoglobin (Bld) [Mass/Vol] 12.1 g/dL 13.0-16.5 [facility] Work Phone: Blood lymphocytes/100 leukoc yteson 09-10-2022 Lymphocytes/100 WBC (Bld) 21.3 % 19-41 [facility] Work Phone: Blood monocytes/100 leukocyt eson 09-10-2022 Monocytes/100 WBC (Bld) 9.4 % 0-10 [facility] Work Phone: Blood platelet mean volumeon 09-10-2022 Platelet mean volume (Bld) [Entitic vol] 9.4 fL 6.2-12.0 [facility] Work Phone: Determination of erythrocyte mean corpuscular volume (MCV)on 09-10-2022 MCV (RBC) [Entitic vol] 95.8 fL 80-94 [facility] Work Phone: Hematocrit Auto (Bld) [Volum e fraction]on 09-10-2022 Hematocrit (Bld) [Volume fraction] 36.5 % 40-54 [facility] Work Phone: Laboratory - Chemistry and C hemistry - challengeon 09-10-2022 ALP [Catalytic activity/Vol] 57 U/L 45-117 [facility] Work Phone: ALT [Catalytic activity/Vol] 23 U/L 16-61 [facility] Work Phone: CO2 [Moles/Vol] 27.0 mmol/L 21.0-32.0 [facility] Work Phone: Globulin (S) [Mass/Vol] 4.7 g/dL 2.2-4.2 [facility] Work Phone: Urea nitrogen/Creatinine [Mass ratio] 17.1 mg/mg 10-20 [facility] Work Phone: Laboratory - Hematology and Cell countson 09-10-2022 Erythrocyte distribution width (RBC) [Entitic vol] 48.3 fL 35.1-43.9 [facility] Work Phone: Erythrocyte distribution width (RBC) [Ratio] 13.7 % 11.6-14.6 [facility] Work Phone: Immature granulocytes/100 WBC (Bld) 0.800 % 0.0-0.9 [facility] Work Phone: Comment on above: IG% - Immature Granu locytes (promyelocytes, myelocytes and metamyelocytes) > 1% indicates that a LEFT SHIFT is Present. MCH (RBC) [Entitic mass] 31.8 pg 27.0-32.0 [facility] Work Phone: Nucleated RBC/100 WBC (Bld) [Ratio] 0 % 0-5 [facility] Work Phone: MCHC Auto (RBC) [Mass/Vol]on 09-10-2022 MCHC (RBC) [Mass/Vol] 33.2 g/dL 32-36 [facility] Work Phone: No Panel Informationon 09-10 Estimated GFR (MDRD) Amer 59 mL/min >60 [facility] Work Phone: Comment on above: GFR Calc Estimated GFR (MDRD) Non-Af Amer 49 mL/min >60 [facility] Work Phone: Comment on above: Non- GFR Calc Platelets bldon 09-10-2022 Platelets (Bld) [#/Vol] 293 10*3/uL 150-450 [facility] Work Phone: Serum or plasma albumin kaylah urement (mass/volume)on 09-10-2022 Albumin [Mass/Vol] 3.3 g/dL 3.2-5.0 [facility] Work Phone: Serum or plasma albumin/glob ulin mass ratioon 09-10-2022 Albumin/Globulin [Mass ratio] 0.7 {ratio} 0.9-2.4 [facility] Work Phone: Serum or plasma calcium kaylah urement (mass/volume)on 09-10-2022 Calcium [Mass/Vol] 9.3 mg/dL 8.5-10.1 [facility] Work Phone: Serum or plasma cholesterol in HDL measurement (mass/volume)on 09-10-2022 Cholesterol in HDL [Mass/Vol] 62 mg/dL >40 [facility] Work Phone: Comment on above: The drugs N-Acetylcy steine and Metamizole may falsely depress this assay. Reference Range HDL <40 mg/dL Low HDL Cholesterol HDL >or= 60 mg/dL High HDL Cholesterol Serum or plasma cholesterol in VLDL measurement (mass/volume)on 09-10-2022 Cholesterol in VLDL [Mass/Vol] 25 mg/dL 5-40 [facility] Work Phone: Serum or plasma creatinine m easurement (mass/volume)on 09-10-2022 Creatinine [Mass/Vol] 1.46 mg/dL 0.70-1.30 [facility] Work Phone: Comment on above: The validity of the calculated GFR & GFRAA in patients over 70 years has not been determined. Clinical correlation is essential. Serum or plasma low density lipoprotein (LDL) cholesterol measurement (mass/volume)on 09-10-2022 Cholesterol in LDL [Mass/Vol] 105 mg/dL 0-130 [facility] Work Phone: Serum or plasma urea nitroge n measurement (mass/volume)on 09-10-2022 Urea nitrogen [Mass/Vol] 25 mg/dL 7-18 [facility] Work Phone: Thin prep Papanicolaou smear with manual screeningon 09-10-2022 Thin prep Papanicolaou smear with manual screening 19 U/L 15-37 [facility] Work Phone: Thin prep Papanicolaou smear with manual screening 8 5-15 [facility] Work Phone: No Panel Informationon 06-12 Prostate Specific Antigen Total < 0.01 ng/mL 0.0-4.0 [facility] Work Phone: Comment on above: This test was perfor med using the TPSA assay method for [employer] chemistry system. Values obtained with differentassay methods cannot be used interchangably.When changing PSA assays in the course of monitoring apatient, additional sequential testing should be carriedout to confirm baseline values. No Panel Informationon 01-09 Estimated GFR (MDRD) Amer 58 mL/min >60 [facility] Comment on above: GFR Calc Estimated GFR (MDRD) Non-Af Amer 48 mL/min >60 [facility] Comment on above: Non- GFR Calc Serum or plasma creatinine m easurement (mass/volume)on 01-09-2022 Creatinine [Mass/Vol] 1.48 mg/dL 0.70-1.30 [facility] Comment on above: The validity of the calculated GFR & GFRAA in patients over 70 years has not been determined. Clinical correlation is essential. Vital Signs Date Time Vital Sign Value Performing Clinician Facility 06-28-2025 13:38-0400 Body height 172.[address] Shayy Wolff DO Work Phone: [facility] 06-28-2025 13:38-0400 Body temperature 97.9 [degF] Dr. Shayy Wolff DO Work Phone: [facility] 06-28-2025 13:38-0400 Diastolic blood pressure 104 mm[Hg] Dr. Shayy Wolff DO Work Phone: [facility] 06-28-2025 13:38-0400 Heart rate 59 /min Dr. Shayy Wolff DO Work Phone: [facility] 06-28-2025 13:38-0400 Respiratory rate 18 /min Dr. Shayy Wolff DO Work Phone: [facility] 06-28-2025 13:38-0400 SaO2% (BldA) [Mass fraction] 99 % Dr. Shayy Wolff DO Work Phone: [facility] 06-28-2025 13:38-0400 Systolic blood pressure 159 mm[Hg] Dr. Shayy Wolff DO Work Phone: [facility] 05-18-2025 13:06-0400 Body height 172.[address] Shayy Wolff DO Work Phone: [facility] 05-18-2025 13:06-0400 Body mass index (BMI) [Ratio] 22.8 kg/m2 Dr. Shayy Wolff DO Work Phone: [facility] 05-18-2025 13:06-0400 Body temperature 97 [degF] Dr. Shayy Wolff DO Work Phone: [facility] 05-18-2025 13:06-0400 Body weight 68.[address] Shayy Wolff DO Work Phone: [facility] 05-18-2025 13:06-0400 Diastolic blood pressure 90 mm[Hg] Dr. Shayy Wolff DO Work Phone: [facility] 05-18-2025 13:06-0400 Heart rate 65 /min Dr. Shayy Wolff DO Work Phone: [facility] 05-18-2025 13:06-0400 Respiratory rate 18 /min Dr. Shayy Wolff DO Work Phone: [facility] 05-18-2025 13:06-0400 SaO2% (BldA) [Mass fraction] 97 % Dr. Shayy Wolff DO Work Phone: [facility] 05-18-2025 13:06-0400 Systolic blood pressure 165 mm[Hg] Dr. Shayy Wolff DO Work Phone: [facility] 07-01-2023 09:05-0400 Body height 172.[address] Shayy Wolff Work Phone: [facility] 07-01-2023 09:05-0400 Body mass index (BMI) [Ratio] 24.5 kg/m2 Dr. Shayy Wolff Work Phone: [facility] 07-01-2023 09:05-0400 Body temperature 97.2 [degF] Dr. Shayy Wolff Work Phone: [facility] 07-01-2023 09:05-0400 Body weight 73.[address] Shayy Wolff Work Phone: [facility] 07-01-2023 09:05-0400 Diastolic blood pressure 79 mm[Hg] Dr. Shayy Wolff Work Phone: [facility] 07-01-2023 09:05-0400 Heart rate 62 /min Dr. Shayy Wolff Work Phone: [facility] 07-01-2023 09:05-0400 Respiratory rate 16 /min Dr. Shayy Wolff Work Phone: [facility] 07-01-2023 09:05-0400 SaO2% (BldA) [Mass fraction] 96 % Dr. Shayy Wolff Work Phone: [facility] 07-01-2023 09:05-0400 Systolic blood pressure 155 mm[Hg] Dr. Shayy Wolff Work Phone: [facility] 12-31-2022 09:07-0500 Body height 172.[address] Shayy Wolff Work Phone: [facility] 12-31-2022 09:04-0500 Body mass index (BMI) [Ratio] 25.1 kg/m2 Dr. Shayy Wolff Work Phone: [facility] 12-31-2022 09:04-0500 Body temperature 97.3 [degF] Dr. Shayy Wolff Work Phone: [facility] 12-31-2022 09:04-0500 Body weight 74.[address] Shayy Wolff Work Phone: [facility] 12-31-2022 09:04-0500 Diastolic blood pressure 83 mm[Hg] Dr. Shayy Wolff Work Phone: [facility] 12-31-2022 09:04-0500 Heart rate 75 /min Dr. Shayy Wolff Work Phone: [facility] 12-31-2022 09:04-0500 Respiratory rate 18 /min Dr. Shayy Wolff Work Phone: [facility] 12-31-2022 09:04-0500 SaO2% (BldA) [Mass fraction] 96 % Dr. Shayy Wolff Work Phone: [facility] 12-31-2022 09:04-0500 Systolic blood pressure 150 mm[Hg] Dr. Shayy Wolff Work Phone: [facility] 09-22-2022 09:56-0400 Body temperature 97.88 [degF] Shayy Wolff Other Phone: [facility] 09-22-2022 09:56-0400 Diastolic blood pressure 67 mm[Hg] Shayy Wolff Other Phone: [facility] 09-22-2022 09:56-0400 Heart rate 72 /min Shayy Wolff Other Phone: [facility] 09-22-2022 09:56-0400 Respiratory rate 22 /min Shayy Wolff Other Phone: [facility] 09-22-2022 09:56-0400 SaO2% (BldA) [Mass fraction] 93 % Shayy Wolff Other Phone: [facility] 09-22-2022 09:56-0400 Systolic blood pressure 114 mm[Hg] Shayy Wolff Other Phone: [facility] 08-21-2022 11:42-0400 Body height 172.[address] Shayy Wolff Work Phone: [facility] Work Phone: 08-21-2022 11:38-0400 Body mass index (BMI) [Ratio] 23.1 kg/m2 Dr. Shayy Wolff Work Phone: [facility] Work Phone: 08-21-2022 11:38-0400 Body temperature 97.5 [degF] Dr. Shayy Wolff Work Phone: [facility] Work Phone: 08-21-2022 11:38-0400 Body weight 69.[address] Shayy Wolff Work Phone: [facility] Work Phone: 08-21-2022 11:38-0400 Diastolic blood pressure 70 mm[Hg] Dr. Shayy Wolff Work Phone: [facility] Work Phone: 08-21-2022 11:38-0400 Heart rate 57 /min Dr. Shayy Wolff Work Phone: [facility] Work Phone: 08-21-2022 11:38-0400 Respiratory rate 16 /min Dr. Shayy Wolff Work Phone: [facility] Work Phone: 08-21-2022 11:38-0400 SaO2% (BldA) [Mass fraction] 99 % Dr. Shayy Wolff Work Phone: [facility] Work Phone: 08-21-2022 11:38-0400 Systolic blood pressure 140 mm[Hg] Dr. Shayy Wolff Work Phone: [facility] Work Phone: 08-09-2022 13:28-0400 Body height 172.[address] Shayy Wolff Work Phone: [facility] Work Phone: 08-07-2022 15:13-0400 Body mass index (BMI) [Ratio] 23.6 kg/m2 Dr. Shayy Wolff Work Phone: [facility] Work Phone: 08-07-2022 15:13-0400 Body temperature 97.2 [degF] Dr. Shayy Wolff Work Phone: [facility] Work Phone: 08-07-2022 15:13-0400 Body weight 70.[address] Shayy Wolff Work Phone: [facility] Work Phone: 08-07-2022 15:13-0400 Diastolic blood pressure 86 mm[Hg] Dr. Shayy Wolff Work Phone: [facility] Work Phone: 08-07-2022 15:13-0400 Heart rate 66 /min Dr. Shayy Wolff Work Phone: [facility] Work Phone: 08-07-2022 15:13-0400 Respiratory rate 16 /min Dr. Shayy Wolff Work Phone: [facility] Work Phone: 08-07-2022 15:13-0400 SaO2% (BldA) [Mass fraction] 97 % Dr. Shayy Wolff Work Phone: [facility] Work Phone: 08-07-2022 15:13-0400 Systolic blood pressure 144 mm[Hg] Dr. Shayy Wolff Work Phone: [facility] Work Phone: 06-26-2022 09:00-0400 Body mass index (BMI) [Ratio] 23.7 kg/m2 Dr. Shayy Wolff Work Phone: [facility] Work Phone: 06-26-2022 09:00-0400 Body temperature 98.2 [degF] Dr. Shayy Wolff Work Phone: [facility] Work Phone: 07-26-2022 09:00-0400 Body weight 70.[address] Shayy Wolff Work Phone: [facility] Work Phone: 06-26-2022 09:00-0400 Diastolic blood pressure 76 mm[Hg] Dr. Shayy Wolff Work Phone: [facility] Work Phone: 06-26-2022 09:00-0400 Heart rate 61 /min Dr. Shayy Wolff Work Phone: [facility] Work Phone: 06-26-2022 09:00-0400 Respiratory rate 16 /min Dr. Shayy Wolff Work Phone: [facility] Work Phone: 06-26-2022 09:00-0400 SaO2% (BldA) [Mass fraction] 99 % Dr. Shayy Wolff Work Phone: [facility] Work Phone: 06-26-2022 09:00-0400 Systolic blood pressure 141 mm[Hg] Dr. Shayy Wolff Work Phone: [facility] Work Phone: Encounters Encounter Date Encounter Type Care Provider Facility Start: 06-28-2025 End: 06-28-2025 Emergency department patient visit Dr. Shayy Wolff DO Work Phone: -Emergency Department Work Phone: Start: 05-18-2025 End: 05-18-[address] Xavier Johnson DO -[facility] Work Phone: Start: 05-18-2025 End: 05-18-[address] Shayy Wolff DO Work Phone: [facility] Work Phone: Start: 03-25-2025 End: 03-25-[address] Shayy Wolff DO -[facility] Work Phone: Start: 03-25-2025 End: 03-25-2025 ambulatory Shayy Wolff Facility:[facility] Start: 11-11-2024 End: 11-11-2024 ambulatory Shayy Coffeyman Facility:[facility] Start: 08-14-2024 End: 08-14-2024 ambulatory Shayy Coffeyman Facility:[facility] Start: 07-28-2024 End: 07-28-2024 ambulatory Shayy Wolff Facility:[facility] Start: 07-15-2024 End: 07-15-2024 ambulatory Shayy Coffeyman Facility:[facility] Start: 11-27-2023 End: 11-28-2023 ambulatory SHAYY Farrell IGOR Facility:[facility] Start: 08-30-2023 End: 08-30-[address] Shayy Wolff Work Phone: [facility] Work Phone: Start: 08-30-2023 End: 08-30-[address] Shayy Wolff Work Phone: [facility]-Speech Therapy Work Phone: Start: 07-01-[address] Shayy Wolff Work Phone: [facility] Start: 07-01-2023 End: 07-01-[address] Shayy Wolff Work Phone: [facility] Work Phone: Start: 04-08-2023 End: 04-08-[address] Shayy Wolff Work Phone: [facility] Work Phone: Start: 04-08-2023 End: 04-08-[address] Shayy Wolff Work Phone: [facility] [facility] Start: 12-31-[address] Shayy Wolff Work Phone: [facility]-Radiation Oncology Start: 12-31-2022 End: 12-31-[address] Shayy Wolff Work Phone: [facility] Start: 09-29-2022 End: 09-29-[address] Shayy Wolff Work Phone: [facility] Work Phone: Start: 09-29-2022 End: 09-29-[address] Shayy Wolff Work Phone: [facility]-Laboratory Start: 09-20-2022 End: 09-22-2022 Evaluation and management of inpatient DO CORTEZ GIBSON Facility:[id number] Start: 09-19-2022 End: 09-22-2022 Evaluation and management of inpatient Primo Navarro [facility] Med Surg ICU [id number] Start: 09-10-2022 End: 09-10-[address] Shayy Wolff Work Phone: [facility] Work Phone: Start: 09-10-2022 End: 09-10-[address] Shayy Wolff Work Phone: [facility] Start: 08-21-2022 End: 08-21-[address] Shayy Wolff Work Phone: [facility] Start: 08-08-2022 End: 08-08-[address] Shayy Wolff Work Phone: [facility] Start: 08-07-2022 End: 08-07-[address] Shayy Wolff Work Phone: [facility] Work Phone: Start: 08-07-2022 End: 08-07-[address] Shayy Wolff Work Phone: [facility] Start: 08-07-2022 End: 08-07-[address] Shayy Wolff Work Phone: [facility] Start: 06-26-2022 End: 06-26-[address] Shayy Wolff Work Phone: [facility] Start: 06-12-2022 End: 06-12-[address] Shayy Wolff Work Phone: [facility]-Laboratory Start: 12-29-[address] Shayy Wolff Work Phone: [facility] Procedures Date Procedure Procedure Detail Performing Clinician Start: 03-25-2025 CT of head without contrast Dr. Shayy Wolff DO Work Phone: Start: 09-19-2022 End: 09-19-2022 EKG impression Chela Irene Start: 08-07-2022 Pelvis X-ray Dr. Shayy fletcher Work Phone: Start: 01-09-2022 MRI of pelvis with contrast Dr. Shayy Wolff Work Phone: Plan of Treatment Date Care Activity Detail Author Start: 07-01-2023 Patient referral [facility] Work Phone: Start: 09-22-2022 End: 09-23-2023 Enoxaparin SubCutaneous 30 mg Every 12 Hours ; (LOVENOX)DOSE = 30 mg SubCutaneous Every 24 Hours Start: 22-Sep-2022 End: 22-Sep-2023 Ordered: 22-Sep-2022 Cortez Gibson [facility] Start: 09-22-2022 Compression Device, Sequential Compression Device, Sequential Start: [id number] Request [facility] Start: 09-22-2022 DVT Risk Assessment Complete DVT Risk Assessment Complete Start: [id number] Request [facility] Start: 09-20-2022 End: 09-21-2023 [facility] Patient referral [facility] Work Phone: Prostate specific antigen measurement [facility] Immunizations Immunization Date Immunization Notes Care Provider Fa daisy 09-22-2022 pneumococcal polysaccharide vaccine, 23 valent Shayy Wolff Other Phone: [facility] Payers Date Payer Category Payer Self-pay [id number] 2021 Private Health Insurance [id number] 2002 Medicare [id number] 2002 Unknown 1935 Unknown [id number] [id number] [id number] Unknown [id number] 2.16.8 [id number] Unknown [id number] 2.16.8 [id number] Unknown [id number] 2.16.8 [id number] Unknown [id number] 2.16.8 [id number] Unknown [id number] 2.16.8 [id number] Unknown [id number] 2.16.8 [id number] Unknown [id number] 2.16.8 [id number] Social History Date Type Detail Facility Start: 12-27-2021 End: 07-08-2023 Tobacco smoking status NHIS Unknown if ever smoked [facility] Start: 1935 Sex Assigned At Male [facility] Start: 07-08-2023 Tobacco smoking stat us NHIS Never smoked tobacco (finding) [facility] Medical Equipment Procedure Code Equipment Code Equipment Origin al Text Equipment Identifier Dates MARKERS, FIDUCIAL GOLD FDA St art: 01-03-2022 Radiotherapy protection spacer [id number] FDA Start: 01-03-2022 MARKERS, FIDUCIAL GOLD FDA St art: 01-03-2022 MARKERS, FIDUCIAL GOLD FDA St art: 01-03-2022 MARKERS, FIDUCIAL GOLD FDA St art: 01-03-2022 MARKERS, FIDUCIAL GOLD FDA St art: 01-03-2022 MARKERS, FIDUCIAL GOLD FDA St art: 01-03-2022 MARKERS, FIDUCIAL GOLD FDA St art: 01-03-2022 Functional Status Date Assessment Result Facility Functional observable [facility] Mental Status Date Assessment Result Facility 09-22-2022 Cognitive functi ons [id number] [facility] Clinical Notes 09-20-2022 to 05-18-2025 Note Date & Type Note Facility 05-18-2025 Evaluation note Diagnosis Onset Date Resolution Rectal pain noneactive May 18 12:50pm [facility] Work Phone: 1(318) 892-701306-17-2025 Progress [facility] [address] [place] [address] OFFICE VISIT Date of Service: 05/18/25 1302 MR#: [id number] Acct: [id number] Name: GRANT ISLAS V Rep #: [id number] : 1935 From: Xavier green DO Age/Sex: 89/M Location[place] [facility] Status: Signed Intake Vital Signs 07/28/24 11:04 05/18/25 13:06 Height 5 ft 8 in 5 ft 8 in Weight: 150 lb BMI 22.8 BP 165/90 H Blood Pressure Location Lt brachial Position Sitting Respiration 18 Pulse 65 Pulse Source Monitor Temp 97.0 F L Temperature Source Temporal Artery Pulse Oximetry (%) 97 Oxygen Delivery Method room air Intake Visit Reasons: 10 MONTH F/U PROSTATE Is patient in pain?: No Allergies No Known Allergies Allergy (Verified 05/18/25 13:06) Medications ?Medication ?Instructions ?Recorded ?Confirmed ?Type cholecalciferol (vitamin D3) 50 50 mcg PO DAILY 05/18/25 History mcg (2,000 unit) capsule amlodipine 5 mg-benazepril 10 mg 1 cap PO DAILY 05/18/25 History capsule aspirin 81 mg tablet,delayed 81 mg PO DAILY 12/27/21 0 05/18/25 History release calcium 500 mg (as 1 tab PO TID 12/27/21 History carbonate)-vitamin D3 10 mcg (400 unit) tablet (Calcium 500 With D) lovastatin 20 mg tablet,extended 20 mg PO QHS 12/27/21 05/18/25 History release 24 hr multivitamin 1 cap PO DAILY 12/27/2105/02 History donepezil 5 mg tablet 5 mg PO DAILY 12/31/2305/18 History sertraline 100 mg tablet 100 mg PO DAILY 12/31/23 History Have you fallen in the past year?: No PFSH PFSH Medical History Wears hearing aid Wears glasses Depression Cancer Prostate disease High cholesterol Injury of back Back pain Syncope History of diverticulitis Non-smoker History of stress test History of cardiac murmur Hypertension Home Medications ?Medication ?Instructions ?Recorded ?Last Taken ?Type cholecalciferol (vitamin D3) 50 50 mcg PO DAILY Unknown History mcg (2,000 unit) capsule amlodipine 5 mg-benazepril 10 mg 1 cap PO DAILY Unknown History capsule aspirin 81 mg tablet,delayed 81 mg PO DAILY 12/27/21 0 12/21/21 History release calcium 500 mg (as 1 tab PO TID 12/27/21 Unknow n History carbonate)-vitamin D3 10 mcg (400 unit) tablet (Calcium 500 With D) lovastatin 20 mg tablet,extended 20 mg PO QHS 12/27/21 Unknown History release 24 hr multivitamin 1 cap PO DAILY 12/27/21 Unkn own History donepezil 5 mg tablet 5 mg PO DAILY 12/31/23 Unkno wn History sertraline 100 mg tablet 100 mg PO DAILY 12/31/23 Unk nown History Allergy/AdvReac Type Severity Reaction Status Date / Time No Known Allergies Allergy Verified 05/18/25 13:06 Family History Brother Cancer PROSTATE Mother Diabetes Surgical History Hx of colonoscopy History of hand surgery Hx of tonsillectomy Hx of eye surgery Social History adopted: No household members: spouse current occupational exposures/hazards: No Smoking Status: Never smoker second hand exposure: No alcohol intake: never substance use type: does not use Diagnosis:? 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 From 01/22/2022 ? 02/28/2022 he received defin itive radiation therapy concurrent with ADT. History of Present Illness:? 11/14/2021: Patient underwent TRUS guided prostate biopsy.? Pathology demonstrated Alfie score 5+3 adenocarcinoma involving 65% of 1/2 cores at the left prostate base, [place] score 4+3 adenocarcinoma involving 1/1 core of the left prostate mid, and [place] score 3+4 adenocarcinoma involving 25% of 1/1 core of the left prostate apex.? There was focal high-grade prostatic intraepithelial neoplasia demonstrated in the right prostate base and right prostate mid. 11/23/2021: Bone scan was performed.? This demonstrated increase in radiopharmaceutical concentration identified in the cervical and thoracic spine,bilateral shoulders and knee articulation most consistent with degenerative arthritis.? There is no evidence of metastatic disease. 11/28/2021: CT abdomen/pelvis with contrast was performed.? This demonstrated anenlarged and heterogeneous prostate consistent with known prostate cancer.? No evidence of lymphadenopathy and no evidence of distant metastatic disease. 12/04/2021: Patient was evaluated by urology in follow-up.? Discussed treatment options for high riskprostate adenocarcinoma.? Recommended radiation therapy concurrent with ADT. 12/11/2021: initiating ADT 01/22/2022 ? 02/28/2022: received 7000 cGy delivered to the prostate and SVs and 5040 cGy delivered to the pelvic LNs in 28 total fractions with concurrent ADT. Radiation Treatment History:? 1) 01/22/2022 ? 02/28/2022: received 7000 cGy delivered to the prostate and SVs and 5040 cGy delivered to the pelvic LNs in 28 total fractions with concurrent ADT. Interval History:? Patient presents for follow-up approximately 39 months after completing definitive radiation therapy.? He reports doing well overall. He has been having regular bowel movements without diarrhea or constipation and has not had any rectal discomfort or bleeding. Urinary symptoms have remained completely stable and very minor. He has denies having frequency, incomplete emptying, intermittency, urgency, weak stream, straining. He has nocturia about 0 per night and is very pleased with his current urinary symptoms. He denies dysuria or hematuria. He has had chronic erectile dysfunction. He does have some worsening memory/dementia but is still active and completes ADLs. He denies cough, shortnessof breath, chest pain, bone pain.? He completed ADT in November2023.? He completes all ADLs withoutany difficulty and he denies having other problems or concerns at this time. Review of Systems: A 12-point review of systems was completed and was negative except for what is noted in the HPI/Interval History and by the nurse. Physical Exam: Weight: 161 lbs 2 oz ECO KARNOFSKY SCORE: 80% CONSTITUTIONAL: Well-developed, well-nourished, and in no apparent distress. CARDIAC: Regular rate and rhythm. Normal S1, S2. No murmurs, rubs, or gallops. PULMONARY/CHEST: Lungs are clear to auscultation and percussion bilaterally. No wheezes, rhonchi, or crackles noted. No increased work of breathing. EXTREMITIES: Full range of motion in all four extremities. No evidence of edema. NOLA: deferred PSYCHIATRIC: Appropriate mood and affect for the clinical situation. Imaging:? 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 From 01/22/2022 ? 02/28/2022 he received defin itive radiation therapy concurrent with ADT. Plan: Patient presents for follow-up approximately 39 months after completing definitive radiation therapy to the prostate.? He has no concerning symptoms fordisease progression or development of metastatic disease. PSA last week was < 0.01. He has no apparent toxicities from radiation therapy. He does have subjective worsening in his cognitive function and memory, also has chronic hearing loss bilaterally. I will plan to have him return for routine follow-up 6 months later with a PSA prior. He was instructed to call with any further questions or concerns in the interim. Thank you for allowing me to participate in the management and care of your patient. If I may answer any questions in the interim, please do not hesitate tocontact me at any time. Xavier Johnson DO, MS Marine Scientist, Department of Radiation Oncology [facility] Coding Level of Care Code Off vis,est,level 3 Diagnoses Rectal pain K62.89 05/18/25 1338 DO> Date _ Xavier Johnson DO Cosigner Signature: Date (if applicable) CC: ~ [facility]06-17-2025 Progress note Author Xavier Johnson [facility] Note Date/Time May 18, 2025 1:38 pm [facility] [address] [place] [address] OFFICE VISIT Date of Service: 05/18/25 1302 MR#: [id number] Acct: [id number] Name: GRANT ISLAS V Rep #: [id number] : 1935 From: Xavier Ellis norma DO Age/Sex: 89/M Location[place] [facility] [place] Status: Signed Intake Vital Signs 07/28/24 11:04 05/18/25 13:06 Height 5 ft 8 in 5 ft 8 in Weight: 150 lb BMI 22.8 BP 165/90 H Blood Pressure Location Lt brachial Position Sitting Respiration 18 Pulse 65 Pulse Source Monitor Temp 97.0 F L Temperature Source Temporal Artery Pulse Oximetry (%) 97 Oxygen Delivery Method room air Intake Visit Reasons: 10 MONTH F/U PROSTATE Is patient in pain?: No Allergies No Known Allergies Allergy (Verified 05/18/25 13:06) Medications ?Medication ?Instructions ?Recorded ?Confirmed ?Type cholecalciferol (vitamin D3) 50 50 mcg PO DAILY 05/18/25 History mcg (2,000 unit) capsule amlodipine 5 mg-benazepril 10 mg 1 cap PO DAILY 05/18/25 History capsule aspirin 81 mg tablet,delayed 81 mg PO DAILY 12/27/21 0 05/18/25 History release calcium 500 mg (as 1 tab PO TID 12/27/21 History carbonate)-vitamin D3 10 mcg (400 unit) tablet (Calcium 500 With D) lovastatin 20 mg tablet,extended 20 mg PO QHS 12/27/21 05/18/25 History release 24 hr multivitamin 1 cap PO DAILY 12/27/2105/02 History donepezil 5 mg tablet 5 mg PO DAILY 12/31/2305/18 History sertraline 100 mg tablet 100 mg PO DAILY 12/31/23 History Have you fallen in the past year?: No PFSH PFSH Medical History Wears hearing aid Wears glasses Depression Cancer Prostate disease High cholesterol Injury of back Back pain Syncope History of diverticulitis Non-smoker History of stress test History of cardiac murmur Hypertension Home Medications ?Medication ?Instructions ?Recorded ?Last Taken ?Type cholecalciferol (vitamin D3) 50 50 mcg PO DAILY Unknown History mcg (2,000 unit) capsule amlodipine 5 mg-benazepril 10 mg 1 cap PO DAILY Unknown History capsule aspirin 81 mg tablet,delayed 81 mg PO DAILY 12/27/21 0 12/21/21 History release calcium 500 mg (as 1 tab PO TID 12/27/21 Unknow n History carbonate)-vitamin D3 10 mcg (400 unit) tablet (Calcium 500 With D) lovastatin 20 mg tablet,extended 20 mg PO QHS 12/27/21 Unknown History release 24 hr multivitamin 1 cap PO DAILY 12/27/21 Unkn own History donepezil 5 mg tablet 5 mg PO DAILY 12/31/23 Unkno wn History sertraline 100 mg tablet 100 mg PO DAILY 12/31/23 Unk nown History Allergy/AdvReac Type Severity Reaction Status Date / Time No Known Allergies Allergy Verified 05/18/25 13:06 Family History Brother Cancer PROSTATE Mother Diabetes Surgical History Hx of colonoscopy History of hand surgery Hx of tonsillectomy Hx of eye surgery Social History adopted: No household members: spouse current occupational exposures/hazards: No Smoking Status: Never smoker second hand exposure: No alcohol intake: never substance use type: does not use Diagnosis:? 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 From 01/22/2022 ? 02/28/2022 he received definitive radiation therapy concurrent with ADT. History of Present Illness:? 11/14/2021: Patient underwent TRUS guided prostate biopsy.? Pathology demonstrated Alfie score 5+3 adenocarcinoma involving 65% of 1/2 cores at the left prostate base, Alfie score 4+3 adenocarcinoma involving 1/1 core of the left prostate mid, and [place] score 3+4 adenocarcinoma involving 25% of 1/1 core of the left prostate apex.? There was focal high-grade prostatic intraepithelial neoplasia demonstrated in the right prostate base and right prostate mid. 11/23/2021: Bone scan was performed.? This demonstrated increase in radiopharmaceutical concentration identified in the cervical and thoracic spine,bilateral shoulders and knee articulation most consistent with degenerative arthritis.? There is no evidence of metastatic disease. 11/28/2021: CT abdomen/pelvis with contrast was performed.? This demonstrated anenlarged and heterogeneous prostate consistent with known prostate cancer.? No evidence of lymphadenopathy and no evidence of distant metastatic disease. 12/04/2021: Patient was evaluated by urology in follow-up.? Discussed treatment options for high risk prostate adenocarcinoma.? Recommended radiation therapy concurrent with ADT. 12/11/2021: initiating ADT 01/22/2022 ? 02/28/2022: received 7000 cGy delivered to the prostate and SVs and 5040 cGy delivered to the pelvic LNs in 28 total fractions with concurrent ADT. Radiation Treatment History:? 1) 01/22/2022 ? 02/28/2022: received 7000 cGy delivered to the prostate and SVs and 5040 cGy delivered to the pelvic LNs in 28 total fractions with concurrent ADT. Interval History:? Patient presents for follow-up approximately 39 months after completing definitive radiation therapy.? He reports doing well overall. He has been having regular bowel movements without diarrhea or constipation and has not had any rectal discomfort or bleeding. Urinary symptoms have remained completely stable and very minor. He has denies having frequency, incomplete emptying, intermittency, urgency, weak stream, straining. He has nocturia about 0 per night and is very pleased with his current urinary symptoms. He denies dysuria or hematuria. He has had chronic erectile dysfunction. He does have some worsening memory/dementia but is still active and completes ADLs. He denies cough, shortness of breath, chest pain, bone pain.? He completed ADT in November2023.? He completes all ADLs without any difficulty and he denies having other problems or concerns at this time. Review of Systems: A 12-point review of systems was completed and was negative except for what is noted in the HPI/Interval History and by the nurse. Physical Exam: Weight: 161 lbs 2 oz ECO KARNOFSKY SCORE: 80% CONSTITUTIONAL: Well-developed, well-nourished, and in no apparent distress. CARDIAC: Regular rate and rhythm. Normal S1, S2. No murmurs, rubs, or gallops. PULMONARY/CHEST: Lungs are clear to auscultation and percussion bilaterally. No wheezes, rhonchi, or crackles noted. No increased work of breathing. EXTREMITIES: Full range of motion in all four extremities. No evidence of edema. NOLA: deferred PSYCHIATRIC: Appropriate mood and affect for the clinical situation. Imaging:? 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 From 01/22/2022 ? 02/28/2022 he received definitive radiation therapy concurrent with ADT. Plan: Patient presents for follow-up approximately 39 months after completing definitive radiation therapy to the prostate.? He has no concerning symptoms fordisease progression or development of metastatic disease. PSA last week was < 0.01. He has no apparent toxicities from radiation therapy. He does have subjective worsening in his cognitive function and memory, also has chronic hearing loss bilaterally. I will plan to have him return for routine follow-up 6 months later with a PSA prior. He was instructed to call with any further questions or concerns in the interim. Thank you for allowing me to participate in the management and care of your patient. If I may answer any questions in the interim, please do not hesitate tocontact me at any time. Xavier Johnson DO, MS Marine Scientist, Department of Radiation Oncology [facility] Coding Level of Care Code Off vis,est,level 3 Diagnoses Rectal pain K62.89 05/18/25 1338 <Electronically signed by Xavier Johnson DO> Date _ Xavier Johnson DO Cosigner Signature: Date (if applicable) CC: ~ [facility] Work Phone: [phone] NoteSend Summary: Discharge Summary Providers: Provider RoleProvider Name Cortez Freedman Fahad B PrimaryStutzman, Mark A Discharge: Summary: Admission Date: .19-Sep-2022 18:03:00 Discharge Date: 22-Sep-2022 Attending Physician at Discharge: Primo Navarro Admission Reason: Weakness(1) Final Discharge Diagnoses: Pneumonia, COVID-19 viremia Procedures: none Condition at Discharge: Satisfactory Disposition at Discharge: .Home Vital Signs: T PRBPMAPSpO2 [id number]/[id number]% Date/Time09/22 7: 7: 7: 7: 7: 7:56 Range(35.9C - 36.6C ) (69 - 84 ) (16 - 23 ) (95 - 126 )/ (50 - 69 ) (61 - 80 ) (92% - 94% ) Date: Weight/Scale Type:Height: 20-Sep-2022 00:4667.7 kg / ihu956.1 cm Physical Exam: Eyes: PERRL, EOMI, clear sclera ENMT: mucous membranes moist, oropharynx clear Head/Neck: Normocephalic with bitemporal wasting; neck supple, no apparent injury, thyroid without mass or tenderness, No JVD, trachea midline, no bruits Respiratory/Thorax: Coarse scattered rhonchi bilaterally with no wheezes Cardiovascular: Distant heart sounds; regular rate and rhythm; normal S1-S2 with no murmur appreciated; no edema and 1+ pulses bilaterally Gastrointestinal: Soft, nontender, nondistended, positive bowel sounds Neurological: Nonfocal, intact Hospital Course: This is an 87-year-old white male whose past medical history is significant for:1. Hypertension2. HypercholesterolemiaPatient is somewhat of a difficult historian and he is hard of hearing despite having hearing aids. Anyway he presented to the emergency room yesterday evening because of generalized weakness. When he presented to the ER he is hypertensive at 160/92 with a pulse of 92 and a respiratory rate of 18. He is 95% on room air and he is afebrile. His white count is 14.1 with 80% segmented neutrophils and 3% bands. H&H stable at 12.6 and 39.1 with normal indices and his platelets are 246,000. He is COVID-positive. His D-dimer is 1712. CMP is remarkable for glucose 117, sodium 134, BUN 32, creatinine 1.5 and an AST of 40. Troponin initially is 30 with a repeat of 33. Urinalysis shows 2+ protein with 3+ blood and trace ketones. Influenza A and influenza B are negative. Chest x-ray is nonacute. X-ray of his hip shows no evidence of acute displaced pelvic or right hip fracture and CT cervical spine without contrast and CT head without contrast are nonacute. CTA of the chest shows no PE but mild opacity in the left lower lobe bronchi which may be secretions and/or mild aspiration and bibasilar subsegmental atelectasis. He was admitted with a working diagnosis of COVID-19 viremia and pneumonia, initially he was treated with Decadron, duo nebs, vitamin C D and zinc supplementation, he remained at his baseline oxygen needs, procalcitonin was ordered which came back greater than 2 so he was started on Levaquin, his Decadron was stopped yesterday, white cell count is still elevated but expected to come down over the next 24 to 48 hours. He did have elevated creatinine at baseline, it seems like he has underlying CKD, started on IV fluids yesterday with creatinine did not improve. Could be slightly worse due to underlying infection. He is feeling good, does not report weakness, shortness of breath or chest pain. I will discharge him on oral Levaquin for 4 more doses to cover for 8 days. We will give him a prescription to get a repeat creatinine in 2 days to make sure it is trending down. Sodium is slightly low but stable, expected to improve over time. We will also provide a prescription for physical therapy due to generalized weakness, falls and deconditioning. We will discontinue lisinopril due to elevated creatinine also his blood pressure has been running on the lower side. Medically ready to be discharged. Immunizations: Immunizations: 22-Sep-2022 Pneumonia- Pneumococcal polysaccharide vaccine: Immunizations, 22-Sep-2022 Discharge Information: and Continuing Care: Lab Results - Pending: Culture, Blood Drawn at 19-Sep-2022 23:57:00 Culture, Blood Drawn at 19-Sep-2022 23:57:00 Radiology Results - Pending: None Discharge Instructions: Activity: activity as tolerated. May shower.. Nutrition/Diet: resume normal diet Additional Orders: Additional Instructions: Please observe quarantine till September 29 Repeat BMP on September 24 prescription provided Lisinopril stopped due to low blood pressure and elevated creatinine Follow Up Appointments: Follow-Up Appointment 01: Physician/Dept/Service: PCP Call to Schedule in: 2 weeks Discharge Medications: Home Medication lovastatin 20 mg oral tablet - 1 tab(s) orally once a day aspirin 162 mg oral delayed release tablet - null Paxlovid 300 mg-100 mg Dose Pack oral tablet - null amLODIPine 5 mg oral tablet - 1 tab(s) orally once a day levoFLOXacin 750 mg oral (more content not included)...[facility] 09-20-2022 NoteClinical Note - Pharmacy v2: Education: Additional NotesED Post Discharge Result Follow Up: Complete: COVID-19 PCR: Positive Patient was admitted to [facility] for inpatient treatment. Inpatient team is aware of patient's COVID status. No further follow up needed. If there are any other questions for the ED Post-Discharge Culture Follow Up Team, please contact [phone]. . Joshua Gleason PharmD, [facility] PGY-1 Property Preservation Specialist Med Electronic Signatures: Noelle Hernández (KeaganD) (Signed 21-Sep-2022 08:38) Co-Signer: Education Joshua Gleason (PHARM STUD) (Signed 20-Sep-2022 09:41) Authored: Education Last Updated: 21-Sep-2022 08:38 by Noelle Hernández (PharmD)[facility]10-20-2022 NoteHistory of Present Illness: Admission Reason: Weakness HPI: GRANT ISLAS V. is a 87 year old Male Please note, patient is hard of hearing. This is an 87-year-old white male whose past medical history is significant for: 1. Hypertension 2. Hypercholesterolemia Patient is somewhat of a difficult historian and he is hard of hearing despite having hearing aids. Anyway he presented to the emergency room yesterday evening because of generalized weakness. He reportedly fell at home as well his heard the fall and found him sitting in the bathroom. She told ER she did not think he hit his head and there is no loss of consciousness. Patient was diagnosed with COVID-19 on the or the and was started on Paxlovid yesterday the . There is also report in triage that he may be somewhat dehydrated. He was complaining of right hip pain because he had been laying around a lot. He does have a harsh moist sounding cough similar productive of phlegm. He denies any fevers, chills or sweats and no significant shortness of breath. No sick contacts that he is aware of. Yesterday he was vaccinated against COVID-19 and he said yes. I asked if he received 2 vaccines and he nodded yes. When he presented to the ER he is hypertensive at 160/92 with a pulse of 92 and a respiratory rate of 18. He is 95% on room air and he is afebrile. His white count is 14.1 with 80% segmented neutrophils and 3% bands. H&H stable at 12.6 and 39.1 with normal indices and his platelets are 246,000. He is COVID-positive. His D-dimer is 1712. CMP is remarkable for glucose 117, sodium 134, BUN 32, creatinine 1.5 and an AST of 40. Troponin initially is 30 with a repeat of 33. Urinalysis shows 2+ protein with 3+ blood and trace ketones. Influenza A and influenza B are negative. Chest x-ray is nonacute. X-ray of his hip shows no evidence of acute displaced pelvic or right hip fracture and CT cervical spine without contrast and CT head without contrast are nonacute. CTA of the chest shows no PE but mild opacity in the left lower lobe bronchi which may be secretions and/or mild aspiration and bibasilar subsegmental atelectasis. In the emergency room 2 blood cultures were ordered and sent. He was then given a 500 mL bolus of sodium chloride and then 1 DuoNeb. He was then given IV Levaquin 750 mg. Patient is admitted to the medical service with working diagnosis of pneumonia due to COVID-19 virus. PAST MEDICAL HISTORY see above PAST SURGICAL HISTORY denies FAMILY HISTORY Mother and father both and he cannot recall her medical history He reports having quite a few siblings and they are alive and well 4 children alive and well SOCIAL HISTORY Patient is living with his He is to work at [employer] No tobacco, alcohol or drug abuse history Comorbidities: Comorbidites: Comorbid Conditionshypertension Social History: Social History: Smoking Statusformer smoker (1) Alcohol Usedenies(1) Allergies: No Known Allergies: Medications Prior to Admission: lovastatin 20 mg oral tablet: 1 tab(s) orally once a day amlodipine-benazepril 5 mg-10 mg oral capsule: 1 cap(s) orally once a day aspirin 162 mg oral delayed release tablet: null Paxlovid 300 mg-100 mg Dose Pack oral tablet: null. Review of Systems: Constitutional: NEGATIVE: Fever, Chills Eyes: NEGATIVE: Blurry Vision, Drainage, Diploplia, Redness, Vision Loss/ Change ENMT: NEGATIVE: Nasal Discharge, Nasal Congestion, Ear Pain, Mouth Pain, Throat Pain Respiratory: POSITIVE: Productive Cough; NEGATIVE: Dry Cough, Hemoptysis, Wheezing, Shortness of Breath Cardiac: NEGATIVE: Chest Pain, Dyspnea on Exertion, Orthopnea, Palpitations, Syncope Gastrointestinal: NEGATIVE: Nausea, Vomiting, Diarrhea, Constipation, Abdominal Pain Genitourinary: NEGATIVE: Discharge, Dysuria, Flank Pain, Frequency, Hematuria Musculoskeletal: POSITIVE: Weakness; NEGATIVE: Decreased ROM, Pain, Swelling, Stiffness Neurological: NEGATIVE: Dizziness, Confusion, Headache, Seizures, Syncope Psychiatric: NEGATIVE: Mood Changes, Anxiety Objective: Objective Information: T PRBPMAPSpO2 Value36.32034103/7793% Date/Time09/19 18:0310/20 0:111 0:111 0: 0:11 Range(36.7C - 36.7C ) (76 - 92 ) (18 - 18 ) (134 - 160 )/ (77 - 102 ) (92% - 95% ) Pain reported at 09/19 19:41: unable to assess Physical Exam by System: Constitutional: Somnolent but arousable; awake and alert; oriented x3 with no apparent distress or respiratory distress Eyes: PERRL, EOMI, clear sclera ENMT: mucous membranes moist, oropharynx clear Head/Neck: Normocephalic with bitemporal wasting; neck supple, no apparent injury, thyroid without mass or tenderness, No JVD, trachea midline, no bruits Respiratory/Thorax: Coarse scattered rhonchi bilaterally with no wheezes Cardiovascular: Distant (more content not included)...[facility] note* Diagnosis Onset Date Resolution Status [id number] acute [id number] acute [facility] Work Phone: Evaluation note* Diagnosis Onset Date Resolution Status [id number] acute [id number] acute Rectal pain noneactive [facility] Work Phone: Evaluation note* Constitutional: Somnolent but arousable; awake and alert; oriented x3 with no apparent distress or r espiratory distressEyes: PERRL, EOMI, clear scleraENMT: mucous membranes moist, oropharynx clearHead/Neck: Normocephalic with bitemporal wasting; neck supple, no apparent injury, thyroid without massor tenderness, No JVD, trachea midline, no bruitsRespiratory/Thorax: Coarse scattered rhonchi bilaterally with no wheezesCardiovascular: Distant heart sounds; regular rate and rhythm; normal S1-S2 with no murmur appreciated; no edema and 1+ pulses bilaterallyGastrointestinal: Soft, nontender, nondistended, positive bowel soundsNeurological: Nonfocal, intact senses, motor, response and reflexes, no rmal strength; cranial nerves II through XII appear intactPsychological: Pleasant but flat affect [facility]* Diagnosis Onset Date Resolution Status Rectal pain noneactive [facility] Work Phone: Evaluation note* Diagnosis Onset Date Resolution Status Admit Date Rectal pain noneactive May 18 12:50pm [facility] Work Phone: Hospital Discharge instructions* Activity:activity as tolerated. May shower. * Additional Orders:Additional Instructions: Please observe quarantine till September 29Repeat BMP on September 24 prescription providedLisinopril stopped due to low blood pressure and elevated creatinine * Follow Up Appointment 1:Physician/Dept/Service: Shayy Lord for Referral: Hospital Follow-upCall to Schedule in: 2 weeksLocation: [address] [place], [place] [address] Number: [phone]: Please call and schedule a follow-up appointment within 2 weeks of your Hospital Discharge [facility] for referral (narrative)* Reason for Referral: impaired mobility [facility] for referral (narrative)No reason for referral information availableMattel [facility] Work Phone: Chief Complaint and Reason for Visit Chief Complaint E ORDER followup prostate prostate pain, bowel issues, body aches PELVIC PAIN review xray - rectal pain Reason for Visit [id number] Chief Complaint E ORDER followup prostate prostate pain, bowel issues, body aches PELVIC PAIN review xray - rectal pain Rectal pain Reason for Visit [id number] Rectal pain Chief Complaint 6 month f/u PROSTATE CA PROSTATE CA Reason for Visit Rectal pain Chief Complaint 6 month f/u prostate PROSTATE CA MEMORY/AMNESIA RX HERE Reason for Visit Rectal pain Chief Complaint Admit Date HEADACHES, DIZZINESS, UNDERLYING DEMENTI A March 25, 2025 1:42pm 10 MONTH F/U PROSTATE May 18, 2025 12 :50pm Reason for Visit Admit Date Rectal pain May 18, 2025 12:5 0pm Chief Complaint Admit Date HEADACHES, DIZZINESS, UNDERLYING DEMENTI A March 25, 2025 1:42pm 10 MONTH F/U PROSTATE May 18, 2025 12 :50pm gen ill June 28, 2025 1:37 pm Family History Relationship Condition Age at Onset Recorded Date/T thiago brother Malignant neoplasm Unknown mother Diabetes mellitus Unknown Advance Directives Advance Directive Response Recorded Date/ Time Living Will Yes December 27 10:01am Power of Commissary Helper Yes December 27, 2021 10:01am Advance Directive Response Recorded Date/ Time Living Will Yes December 27 9:01am Power of Commissary Helper Yes December 27, 2021 9:01am Advance Directive Response Recorded Date/ Time Living Will Yes December 27 10:01am Do you have a Healthcare Power of Commissary Helper? Yes December 27, 2021 10:01am Summary Purpose Additional Source Comments Goals (unrecognized section and content) Goals may be documented in a n alternate sectionGoals may be documented in an alternate sectionGoals may be documented in an alternate sectionGoals may be documented in an alternate sectionGoals may be documented in an alternate sectionGoals may be documented in an alternate sectionGoals may be documented in an alternate section <item> Privacy Markings (unrecogniz ed section and content) Section Author: Luann Ortiz PROHIBITION ON REDISCLOSURE OF CONFIDENTIAL INFORMATION This notice accompanies a disclosure of information concerning a client made to you with the consent of such client. (unrecognized sect ion and content) No Status Records FoundNo Status Records FoundNo Status Records Found INFORMATION SOURCE (unrecogn ized section and content) DATE CREATED AUTHOR 03/14/2023 [facility] DATE CREATED AUTHOR AUTHOR'S ORGANIZ ATION 11/29/2023 [facility] DATE CREATED AUTHOR AUTHOR'S ORGANIZ ATION 05/21/2025 [facility] Care Teams (unrecognized sec tion and content) Team Status: Active Member Role Status Dates Dr. Shayy Wolff , DO Family Provider Active Dr. Shayy Wolff , DO Primary Care Provider Active Team Status: Inactive Member Role Status Dates Dr. Shayy Wolff DO Primary Care Provider, Referrin g Provider Active Dr. Xavier Johnson DO Attending Provider Active Team Status: Active Member Role Status Dates Dr. Shayy Wolff DO Primary Care Provider Active Dr. Xavier Johnson DO Attending Provider Active Dr. Emil Isabel MD Referring Provider Active Team Status: Inactive Member Role Status Dates Dr. Shayy Wolff DO Primary Care Prov ider, Attending Provider, Referring Provider Active Team Status: Inactive Member Role Status Dates Dr. Shayy Wolff DO Primary Care Provider Active Dr. Xavier Johnson DO Attending Provider, Referring P rovider Active Team Status: Active Member Role Status Dates Dr. Shayy Wolff DO Primary Care Provider Active Team Status: Inactive Member Role Status Dates Dr. Shayy Wolff DO Primary Care Provider Active Start: March 25, 2025 End: March 25, 2025 Dr. Shayy Wolff DO Attending Provider Active Start: March 25, 2025 End: March 25, 2025 Dr. Shayy Wolff DO Referring Provider Active Start: March 25, 2025 End: March 25, 2025 Team Status: Inactive Member Role Status Dates Dr. Shayy Wolff DO Primary Care Provider Active Start: May 18, 2025 End: May 18, 2025 Dr. Shayy Wolff DO Referring Provider Active Start: May 18, 2025 End: May 18, 2025 Dr. Xavier Johnson DO Attending Provider Active Start: May 18, 2025 End: May 18, 2025 Team Status: Active Member Role/Relationship Status Dates Dr. Shayy Wolff DO Primary Care Provider Active Team Status: Inactive Member Role/Relationship Status Dates Dr. Shayy Wolff DO Primary Care Provider Active Start: March 25, 2025 End: March 25, 2025 Dr. Shayy Wolff DO Attending Provider Active Start: March 25, 2025 End: March 25, 2025 Dr. Shayy Wolff DO Referring Provider Active Start: March 25, 2025 End: March 25, 2025 Team Status: Inactive Member Role/Relationship Status Dates Dr. Shayy Wolff DO Primary Care Provider Active Start: May 18, 2025 End: May 18, 2025 Dr. Shayy Wolff DO Referring Provider Active Start: May 18, 2025 End: May 18, 2025 Dr. Xavier Johnson DO Attending Provider Active Start: May 18, 2025 End: May 18, 2025 Team Status: Inactive Member Role/Relationship Status Dates Dr. Shayy Wolff DO Primary Care Provider Active Start: June 28, 2025 End: June 28, 2025 Ed Physician Provider Emergency Provider Active Start: June 28, 2025 End: June 28, 2025 FOR RECORDS PERTAINING TO PATIENTS WHO ARE OR HAVE BEEN ENROLLED IN A CHEMICAL DEPENDENCY/SUBSTANCEABUSE PROGRAM, SOME INFORMATION MAY BE OMITTED. This clinical summary was aggregated from multiple sources. Caution should be exercised in using it in the provision of clinical care. This summary normalizes information from multiple sources, and as a consequence, information in this document may materially change the coding, format and clinical context of patient data. In addition, data may be omitted in some cases. CLINICAL DECISIONS SHOULD BE BASED ON THE PRIMARY CLINICAL RECORDS. [facility] [employer] provides no warranty or guarantee of the accuracy or completeness of information in this document.
== END 2025-06-28 14:58 | disposition left against medical advice (07) ==
LOC: ED 15:00
PROVIDERS: PCP Family Medicine
DX: Z00.00 Encounter for general adult medical examination without abnormal findings (principal)

== ENCOUNTER → 2025-07-01 | Outpatient (CLI) | payer MEDICARE, OTHER, SELFPAY ==
[2025-07-01 15:33] LABS: Hematocrit 40.0 % (40-54); Hemoglobin 13.5 g/dL (13.0-16.5); Immature Granulocytes Count 0.060 X10^3/uL (0.0-0.0); Mean Corp Hgb Conc 33.8 g/dL (32-36); Mean Corpuscular Volume 93.2 fL (80-94); Mean Platelet Vol. 9.6 fl (6.2-12.0); NRBC Flagged by Analyzer 0 % (0-5); Platelet Count 227 K/mm3 (150-450); RBC Distribution Width CV 13.6 % (11.6-14.6); RBC Distribution Width SD 46.3 fl (35.1-43.9); Red Blood Count 4.29 M/mm3 (4.6-6.2); White Blood Count 8.9 K/mm3 (4.4-11.0)
[2025-07-01 17:53] LABS: PTHIN 55 pg/mL (11-61)
[2025-07-01 18:14] LABS: AST(SGOT) 21 U/L (<=37); Alanine Aminotransfer ALT/SGPT 19 U/L (<=46); Albumin, Serum 4.2 g/dL (3.4-4.8); Alkaline Phosphatase 69 U/L (40-129); Anion Gap 12 (5-15); BUN 33 mg/dL (4-19); BUN/Creat Ratio 23.4 RATIO (10-20); Calcium,Total 9.5 mg/dL (7.6-11.0); Carbon Dioxide 22.4 mmol/L (21.0-32.0); Chloride 103 mmol/L (98-108); Globulin 3.4 g/dL (2.2-4.2); Glucose 100 mg/dL (70-99); Potassium 4.5 mmol/L (3.3-5.1); Vitamin B12 749 pg/mL (180-914)
== END | disposition home or self-care (01) ==
LOC: BFHLAB 13:45
PROVIDERS: PCP Family Medicine; Visit Provider Family Medicine
DX: N18.31 Chronic kidney disease, stage 3a (principal); D63.1 Anemia in chronic kidney disease; R53.83 Other fatigue
CPT/HCPCS: 36415; 80053; 82607; 83970; 84443; 85025

== ENCOUNTER 2025-07-09 19:51 | Emergency (ER) | payer MEDICARE, OTHER, SELFPAY ==
[2025-07-09] VITALS (8 sets, daily range): BP systolic 126–177; BP diastolic 76–116; PULSE 59–69; RESP 18–22; TEMP 36.4; O2SAT 92–100; BMI 21.5
--- NOTE | 2025-07-09 20:27 | EKG12_ITS ---
Test Reason : HYPERTENSION Blood Pressure : */* mmHG Vent. Rate : 58 BPM Atrial Rate : 58 BPM P-R Int : 180 ms QRS Dur : 82 ms QT Int : 458 ms P-R-T Axes : 58 43 30 degrees QTcB Int : 449 ms Sinus bradycardia Otherwise normal ECG No previous ECGs available Confirmed by ASHA CLAIRE, JENNIFER ([id number]), scientific editor ORAL LIZARRAGA ([id number]) on 07/12/2025 1:07:31 PM Referred By: LAI Confirmed By: JENNIFER BARRY MD
--- NOTE | 2025-07-09 20:31 | EX.ED.DYSGE1 ---
HPI <CLAUDIO Sanabria - Last Filed: 07/09/25 21:48> History of Present Illness Chief Complaint: Hypertension Narrative Narrative: 89-year-old male with PMH of HTN, HLD, prostate cancer, dementia was brought in by his son because family was concerned his blood pressures are running high. They have been in the systolic 170s. He is on amlodipine benazepril. Last night he felt weak and this afternoon while lying in bed around 1 PM he developed pounding pain that lasted a couple hours and has resolved prior to arrival. He denies shortness of breath. He has had nausea and dry heaving but no abdominal pain. He denies diarrhea or black or bloody stools. No urinary symptoms. He lives at home with his and his son states he has been declining over the last year and not eating and drinking as much. He is on sertraline for depression and saw his doctor 2 days ago and was started on Wellbutrin for depression. PFS <CLAUDIO Sanabria - Last Filed: 07/09/25 21:48> [facility] Medical History Wears hearing aid Wears glasses Depression Cancer Prostate disease High cholesterol Injury of back Back pain Syncope History of diverticulitis Non-smoker History of stress test History of cardiac murmur Hypertension Home Medications ?Medication ?Instructions ?Recorded ?Last Taken ?Type cholecalciferol (vitamin D3) 50 50 mcg PO DAILY 12/08/21 Unknown History mcg (2,000 unit) capsule amlodipine 5 mg-benazepril 10 mg 1 cap PO DAILY 12/27/21 Unknown History capsule aspirin 81 mg tablet,delayed 81 mg PO DAILY 12/27/21 12/21/21 History release calcium 500 mg (as 1 tab PO TID 12/27/21 Unknown History carbonate)-vitamin D3 10 mcg (400 unit) tablet (Calcium 500 With D) lovastatin 20 mg tablet,extended 20 mg PO QHS 12/27/21 Unknown History release 24 hr multivitamin 1 cap PO DAILY 12/27/21 Unknown History donepezil 5 mg tablet 5 mg PO DAILY 12/31/23 Unknown History sertraline 100 mg tablet 100 mg PO DAILY 12/31/23 Unknown History Allergy/AdvReac Type Severity Reaction Status Date / Time No Known Allergies Allergy Verified 07/09/25 19:55 Family History Brother Cancer PROSTATE Mother Diabetes Surgical History Hx of colonoscopy History of hand surgery Hx of tonsillectomy Hx of eye surgery Social History adopted: No household members: spouse current occupational exposures/hazards: No Smoking Status: Never smoker second hand exposure: No alcohol intake: never substance use type: does not use ROS <CLAUDIO Sanabria - Last Filed: 07/09/25 21:48> ROS ED ROS Narrative Constitutional: Negative for fever, chills. CVS: Positive for chest pain. No syncope. Respiratory: Negative for shortness of breath, cough. GI: Positive for nausea and dry heaving. No abdominal pain, diarrhea. : Negative for dysuria. EXAM <CLAUDIO Sanabria - Last Filed: 07/09/25 21:48> Physical Exam Narrative Exam Narrative: CONST: Patient sitting in no acute distress. EYES: Normal inspection. NECK: Normal inspection. RESP: No respiratory distress, CTAB. CVS: Regular rate and rhythm, no murmur, no gallop. ABD: Soft and nontender, no guarding or rebound, nondistended. SKIN: Color normal, no rash, warm, dry, intact. EXTREMITIES: Normal appearance, no pedal edema. NEURO: Alert and answering questions appropriately. Hard of hearing. Follows commands, moving all extremities. PSYCH: Normal affect. Const Vital Signs: 07/09/25 19:52 07/09/25 20:25 07/09/25 20:32 Temperature 97.6 F L Temperature Source Temporal Pulse Rate 64 59 L Respiratory Rate 18 22 H Respiratory Effort Normal Non-Labored Respiratory Pattern Normal Blood Pressure 177/95 H 151/116 H Blood Pressure Mean 122 127 Pulse Ox 100 100 Oxygen Delivery Method Room Air Room Air 07/09/25 20:42 07/09/25 21:00 07/09/25 21:01 Temperature Temperature Source Pulse Rate 62 Respiratory Rate 20 H Respiratory Effort Respiratory Pattern Blood Pressure 172/107 H 134/89 H Blood Pressure Mean 128 101 Pulse Ox 98 Oxygen Delivery Method 07/09/25 21:15 07/09/25 23:00 Temperature Temperature Source Pulse Rate 62 69 Respiratory Rate 21 H 18 Respiratory Effort Respiratory Pattern Blood Pressure 136/78 H 126/76 H Blood Pressure Mean 97 92 Pulse Ox 92 100 Oxygen Delivery Method Room Air <Dr. Michael Mejia DO - Last Filed: 07/09/25 23:28> Physical Exam Const Vital Signs: 07/09/25 19:52 07/09/25 20:25 07/09/25 20:32 Temperature 97.6 F L Temperature Source Temporal Pulse Rate 64 59 L Respiratory Rate 18 22 H Respiratory Effort Normal Non-Labored Respiratory Pattern Normal Blood Pressure 177/95 H 151/116 H Blood Pressure Mean 122 127 Pulse Ox 100 100 Oxygen Delivery Method Room Air Room Air 07/09/25 20:42 07/09/25 21:00 07/09/25 21:01 Temperature Temperature Source Pulse Rate 62 Respiratory Rate 20 H Respiratory Effort Respiratory Pattern Blood Pressure 172/107 H 134/89 H Blood Pressure Mean 128 101 Pulse Ox 98 Oxygen Delivery Method 07/09/25 21:15 07/09/25 23:00 Temperature Temperature Source Pulse Rate 62 69 Respiratory Rate 21 H 18 Respiratory Effort Respiratory Pattern Blood Pressure 136/78 H 126/76 H Blood Pressure Mean 97 92 Pulse Ox 92 100 Oxygen Delivery Method Room Air MDM <CLAUDIO Sanabria - Last Filed: 07/09/25 21:48> [facility] MDM Narrative Medical decision making narrative: History gathered from: Patient and his son 82-year-old male brought in for several concerns including recently elevated high blood pressure, intermittent headache, nausea, and complaint of chest pain earlier today at rest that has not resolved. He is awake and alert in no distress. BP is 177/95 the rest of his vitals are normal. He is hard of hearing but has no focal neurological deficits. Normal cardiopulmonary exam. Abdomen soft and nontender. He was given IV Zofran and hydralazine 10 mg and BP improved to 136/78. Labs will be checked to rule out endorgan damage. CBC is unremarkable. BMP shows normal electrolytes and baseline renal function at 27/1.50. Troponin is 29 with delta pending. EKG nonischemic. Chest x-ray shows no acute findings. If repeat troponin is negative plan will be for discharge with outpatient follow-up. History & Record Review Discussion w/independent historian: Patient and Family Additional record(s) reviewed:: Prior ED visit and Prior labs Lab Data Attestation: I reviewed the patient's lab results. Labs: Laboratory Results - last 24 hr 07/09/25 07/09/25 07/09/25 20:27 21:30 22:30 WBC 9.6 RBC 4.19 L Hgb 13.1 Hct 38.8 L MCV 92.6 MCH 31.3 MCHC 33.8 RDW Std Deviation 44.8 H RDW Coeff of Cherrie 13.2 Plt Count TNP MPV TNP Immature Gran % (Auto) 0.500 Neut % (Auto) 71.0 H Lymph % (Auto) 21.2 [place] % (Auto) 6.7 Eos % (Auto) 0.3 Baso % (Auto) 0.3 Absolute Neuts (auto) 6.8 Absolute Lymphs (auto) 2.04 Nucleated RBC % 0 Platelet Estimate SLT INC [place] Cells 1+ Sodium 138 Potassium 4.4 Chloride 100 Carbon Dioxide 22.4 Anion Gap 15 BUN 27 H Creatinine 1.50 H Estim Creat Clear Calc 30.90 L Est GFR (MDRD) Non-Af 45 L BUN/Creatinine Ratio 17.9 Glucose 116 H Calcium 9.7 Troponin T High Sens 29 H Troponin T Hi Sens 2 Hr 28 H Urine Color Yellow Urine Clarity Clear Urine pH 6.5 Ur Specific [place] 1.015 Urine Protein 30 H Urine Glucose (UA) Normal Urine Ketones 5 H Urine Occult Blood Negative Urine Nitrite Negative Urine Bilirubin Negative Urine Urobilinogen Normal Ur Leukocyte Esterase Negative Urine RBC 0-5 SEEN Urine WBC 0-5 SEEN Ur Squamous Epith Cells 0-5 SEEN Urine Bacteria 0 SEEN Urine Mucus 0 SEEN Radiography Diagnostic Testing: Clinical Impression(s) from Imaging Studies Chest X-Ray 07/09/25 20:50 IMPRESSION: No acute chest findings Reading Location: [place] [address] ED attending interpretation of 1 view chest x-ray shows normal heart size, no acute infiltrate. EKG Initial EKG: Attestation: I personally reviewed and interpreted this EKG as follows: Interpretation: No Acute Injury Pattern and Sinus Bradycardia Comments: Sinus bradycardia 58 bpm Normal intervals, no acute ischemic changes <Dr. Michael Mejia, DO - Last Filed: 07/09/25 23:28> MDM MDM Narrative Medical decision making narrative: History gathered from: Patient and his son 82-year-old male brought in for several concerns including recently elevated high blood pressure, intermittent headache, nausea, and complaint of chest pain earlier today at rest that has not resolved. He is awake and alert in no distress. BP is 177/95 the rest of his vitals are normal. He is hard of hearing but has no focal neurological deficits. Normal cardiopulmonary exam. Abdomen soft and nontender. He was given IV Zofran and hydralazine 10 mg and BP improved to 136/78. Labs will be checked to rule out endorgan damage. CBC is unremarkable. BMP shows normal electrolytes and baseline renal function at 27/1.50. Troponin is 29 with delta pending. EKG nonischemic. Chest x-ray shows no acute findings. If repeat troponin is negative plan will be for discharge with outpatient follow-up. Supervisory Physician Note Patient was seen and examined with the Advanced Practice Provider. Nursing notes and vital signs have been reviewed. Pertinent old records have been reviewed. I agree with the essential elements of the SUSAN's history, physical exam, assessment, and plan. The differential diagnosis and management options were discussed with the SUSAN. I participated in determining and agree with the management, procedures, final impression and disposition as documented. See changes noted by me. Please see addendum or separate note for any additional details. 89-year-old male with past medical history of HTN, HLD, prostate cancer, dementia presents for evaluation of HTN. Patient presents with his son. Patient's SBP has been in the 170s. Has been taking his medication. Patient states he developed weakness last night and around 1 PM developed some chest pain that resolved. Denies fever, chills, URI symptoms, cough, shortness of breath, abdominal pain, dysuria, diarrhea, constipation. Endorses some nausea. Was recently started on Wellbutrin. Son states that the patient has been progressively declining. Gen: A&, NAD Head: Normocephalic, atraumatic Eyes: No sclera icterus, conjunctiva clear, PERRL, EOMI ENT: Moist mucous membranes Neck: Trachea midline, No JVD CV: RRR, no murmurs, no peripheral edema Resp: Lungs CTA BL, no w/r/c GI: Abd soft, non-distended, non-tender, no r/r/g Musc: Full ROM, no deformity Skin: Warm, dry Neuro: Alert, oriented, grossly intact, sensation intact Psych: Cooperative, appropriate mood and affect Differential diagnosis includes but is not limited to hypertension urgency, medication side effect, viral illness, electrolyte abnormality, dehydration, anemia suspect less likely ACS. On arrival, patient in no acute distress. Nontoxic-appearing. Vitals unremarkable except for hypertension 177/95. Hydralazine and Zofran ordered. EKG was sinus bradycardia 58. No acute ischemic changes. Chest x-ray without pneumonia, effusion, cardiomegaly, pneumothorax. I personally reviewed and interpreted the chest x-ray and EKG. CBC without leukocytosis or anemia. BMP shows baseline CKD. UA negative for UTI. Troponin 29 and 28. Patient not having chest pain. States his episode was earlier this morning at 1 PM. Low suspicion for ACS. At this point in time, no clear etiology for patient's symptoms. May be secondary to the new Wellbutrin as well as worsening hypertension. On reevaluation, patient's hypertension has improved. Patient and son updated of all the results and the plan for discharge home. Follow-up with PCP. Return precautions explained. They confirmed understanding plan. Patient stable discharged home. Impression: 1. HTN with history of HTN 2. Chest pain, resolved 3. Generalized weakness Lab Data Labs: Laboratory Results - last 24 hr 07/09/25 07/09/25 07/09/25 20:27 21:30 22:30 WBC 9.6 RBC 4.19 L Hgb 13.1 Hct 38.8 L MCV 92.6 MCH 31.3 MCHC 33.8 RDW Std Deviation 44.8 H RDW Coeff of Cherrie 13.2 Plt Count TNP MPV TNP Immature Gran % (Auto) 0.500 Neut % (Auto) 71.0 H Lymph % (Auto) 21.2 [place] % (Auto) 6.7 Eos % (Auto) 0.3 Baso % (Auto) 0.3 Absolute Neuts (auto) 6.8 Absolute Lymphs (auto) 2.04 Nucleated RBC % 0 Platelet Estimate SLT INC [place] Cells 1+ Sodium 138 Potassium 4.4 Chloride 100 Carbon Dioxide 22.4 Anion Gap 15 BUN 27 H Creatinine 1.50 H Estim Creat Clear Calc 30.90 L Est GFR (MDRD) Non-Af 45 L BUN/Creatinine Ratio 17.9 Glucose 116 H Calcium 9.7 Troponin T High Sens 29 H Troponin T Hi Sens 2 Hr 28 H Urine Color Yellow Urine Clarity Clear Urine pH 6.5 Ur Specific [place] 1.015 Urine Protein 30 H Urine Glucose (UA) Normal Urine Ketones 5 H Urine Occult Blood Negative Urine Nitrite Negative Urine Bilirubin Negative Urine Urobilinogen Normal Ur Leukocyte Esterase Negative Urine RBC 0-5 SEEN Urine WBC 0-5 SEEN Ur Squamous Epith Cells 0-5 SEEN Urine Bacteria 0 SEEN Urine Mucus 0 SEEN Radiography Diagnostic Testing: Clinical Impression(s) from Imaging Studies Chest X-Ray 07/09/25 20:50 IMPRESSION: No acute chest findings Reading Location: [place] [address] Discharge Plan Triage Chief Complaint: Hypertension ED Midlevel Provider: Lindy Velasco ED Provider: Michael Mejia Dx/Rx/DC Orders Clinical Impression: Chronic hypertension, Chest pain Instructions: ED Hypertension, Established Prescriptions: No Action cholecalciferol (vitamin D3) 50 mcg (2,000 unit) capsule 50 mcg PO DAILY donepezil 5 mg tablet 5 mg PO DAILY sertraline 100 mg tablet 100 mg PO DAILY aspirin 81 mg Tablet,Delayed Release (Dr/Ec) 81 mg PO DAILY amlodipine-benazepril 5-10 mg Capsule 1 cap PO DAILY multivitamin Capsule 1 cap PO DAILY lovastatin 20 mg Tablet Extended Release 24 Hr 20 mg PO QHS calcium carbonate-vitamin D3 [Calcium 500 With D] 500 mg-10 mcg (400 unit) Tablet 1 tab PO TID Primary Care Provider: Johnny Wolff Referrals: Johnny Wolff, [Primary Care Provider] - 3-5 Days Activity Restrictions/Additional Instructions: Monitor blood pressure at home. Return back to ED as symptoms change or work worsen. Follow-up with your primary care physician. Print Language: Sami Disposition Disposition: Home, Self Care
[2025-07-09 20:48] LABS: Hematocrit 38.8 % (40-54); Hemoglobin 13.1 g/dL (13.0-16.5); Immature Granulocytes Count 0.050 X10^3/uL (0.0-0.0); Mean Corp Hgb Conc 33.8 g/dL (32-36); Mean Corpuscular Volume 92.6 fL (80-94); NRBC Flagged by Analyzer 0 % (0-5); POSITIVE COUNT YES; RBC Distribution Width CV 13.2 % (11.6-14.6); RBC Distribution Width SD 44.8 fl (35.1-43.9); Red Blood Count 4.19 M/mm3 (4.6-6.2); White Blood Count 9.6 K/mm3 (4.4-11.0)
--- NOTE | 2025-07-09 20:50 | RAD_ITS ---
PROCEDURE: CHEST 1 VIEW (PORTABLE) 07/09/2025 REASON FOR EXAM: WEAKNESS TECHNIQUE: Frontal view of the chest. COMPARISON: No FINDINGS: Normal heart size. Tortuous and calcified aorta. Well inflated lungs. No consolidation, effusion, or pneumothorax. RAD/Chest 1 View (Portable) IMPRESSION: No acute chest findings Reading Location: [place] [address]
[2025-07-09 20:54] LABS: Differential Indicated SCAN CRITERIA MET
--- OUTSIDE RECORDS SUMMARY | 2025-07-09 21:16 | XMS RPT_ITS | CCD ---
Author Organization [facility] Care Team Providers Care Sports Nutritionist Name Role Phone Dr. Shayy Wolff Primary Care Provider Dr. Shayy Wolff Referring Provider Dr. Xavier Johnson Attending Provider [phone] Dr. Jhon Santos Attending Provider Dr. Xavier Johnson Referring Provider Dr. Jhon Santos Attending Provider Shayy Wolff Unavailable Primo Navarro Unavailable EDE, DO CORTEZ NEGRON Admitting Hyacinth vailable DO CORTEZ GIBSON Referring Hyacinth vailable Dr. Shayy Wolff Primary Care Dr. Primo Perez Attending Dr. Shayy Boykin Primary Care Provider Dr. Shayy Wolff Referring Provider Dr. Xavier Johnson Attending Provider [phone] Dr. Shayy Wolff Primary Care Provider Dr. Shayy Wolff Referring Provider Dr. Xavier Johnson Attending Provider [phone] SHAYY WOLFF Primary Care Unavailable Dr. Shayy Wolff DO Primary Care Provider [phone] Dr. Shayy Wolff DO Attending Provider Dr. Shayy Wolff DO Referring Provider Dr. Xavier Johnson DO Attending Provider [phone] Provider, Ed Physician Emergency Provider Unavai lable New, Shayy Referring Unavailable NewShayy mejia Primary Care Unavailable Xavier Johnson Attending Unavailable NewShayy mejia Referring Unavailable New, Shayy Primary Care Unavailable Xavier Johnson Attending Unavailable New, Shayy Attending Unavailable New, Shayy Primary Care Unavailable New, Shayy Attending Unavailable New, Shayy Referring Unavailable New, Shayy Primary Care Unavailable New, Shayy Attending Unavailable New, Shayy Primary Care Unavailable Xavier Johnson Attending Unavailable Emil Isabel Referring Unavailable New, Shayy Primary Care Unavailable Provider, Ed Physician Attending Unavailab le Shayy Wolff Primary Care Unavailable Emil Isabel Attending Unavailable Emil Isabel Referring Unavailable New, Shayy Primary Care Unavailable NewShayy mejia Attending Unavailable New, Shayy Referring Unavailable New, Shayy Primary Care Unavailable Provider, Ed Physician Attending Provider Tushar abebe Allergies Allergy Classification Reported Allergen(s) Allergy Type Date of Onset Reaction(s) Facility (1 source) traZODone; Translations: [TRAZODONE] Drug Allergy 08-28-2016 [facility] Repository Medications Current Medications Medication Drug [...] / benazepril hydrochloride 10 mg oral capsule (9 sources) Dihydropyridine Calcium Channel Margareth, Angiotensin Converting Enzyme Inhibitor Start: 12-27-2021 Amlodipine-Benaze pril 5-10 mg Capsule Active 1 NMA PO DAILY December 27, 2021 1:00am Start: 12-27-2021 take 1 capsule by [facility] once daily Amlodipine-Benazepril Active 1 CAP PO DAILY December 27, 2021 12:00am aspirin 81 mg delayed release oral tablet (9 sources) Platelet Aggregation Inhibitor, Nonsteroidal Anti-inflammatory Drug Start: 12-27-2021 take 1 tablet by mouth once daily Aspirin 81 mg Tablet,Delayed Release (Dr/Ec) Active 81 mg PO DAILY December 27, 2021 1:00am aspirin 162 mg o ral delayed release tablet Quantity: 0 Refills: 0 Ordered: 19-Sep-2022 Loan Monteiro Generic Substitution Allowed calcium carbonate 1250 mg / cholecalciferol 0.01 mg oral tablet (8 sources) Vitamin D Start: 12-27-2021 Calcium Carbonate-Vitamin D3 (Calcium 500 With D) 500 mg-10 mcg (400 unit) Tablet Active 1 {tbl} PO THREE TIMES A DAY December 27, 2021 1:00am cholecalciferol 0.05 mg oral capsule (8 sources) Vitamin D Start: 12-08-2021 take 1 capsule by mouth once daily Cholecalciferol (Vitamin D3) 50 mcg (2,000 unit) capsule Active 50 ug PO DAILY December 08, 2021 1:00am donepezil hydrochloride 5 mg oral tablet (3 sources) Start: 12-31-2023 take 1 tablet by [...] lovastatin 20 mg extended release oral tablet (9 sources) HMG-CoA Reductase Inhibitor Start: 12-27-2021 take 1 tablet by mouth every twenty-four hours at bedtime Lovastatin 20 mg Tablet Extended Release 24 Hr Active 20 mg PO AT BEDTIME December 27, 2021 1:00am take 1 tablet by mouth once [place] lovastatin 20 mg oral tablet ; 1 tab(s) orally once a day Quantity: 0 Refills: 0 Ordered: 19-Sep-2022 Loan Monteiro Generic Substitution Allowed Multivitamin Capsule (3 sources) Start: 12-27-2021 Multivitamin C apsule Active 1 NMA PO DAILY December 27, 2021 1:00am Multivitamin preparation (5 sources) Start: 12-27-2021 take 1 capsule by mouth once daily Multivitamin Active 1 CAP PO DAILY December 27, 2021 12:00am Start: 12-27-2021 take 1 capsule by mo uth once daily Multivitamin Active 1 CAP PO DAILY December 27, 2021 1:00am sertraline 100 mg oral tablet (3 sources) Serotonin Reuptake Inhibitor Start: 12-31-2023 take 1 tablet by mouth once daily Sertraline 100 mg tablet Active 100 mg PO DAILY December 31, 2023 1:00am Completed/Discontinued Medications Medication Drug Class(es) Dates Sig (Normalized) Sig (Original) ciprofloxacin 500 mg oral tablet (8 sources) Quinolone Antimicrobial Start: 01-03-2022 End: 12-31-2023 take 1 tablet by mouth twice daily Ciprofloxacin Hcl (Cipro) 500 mg tablet Discontinued 500 mg PO TWICE A DAY 14 0 January 03, 2022 1:00am December 31, 2023 11:04am hydrocortisone acetate 25 mg rectal suppository (7 sources) Corticosteroid Start: 08-21-2022 End: 12-31-2023 Hydrocortisone Acetate 25 mg suppository Discontinued 25 mg RC TWICE A DAY 24 0 August 21, 2022 12:00am December 31, 2023 11:07am Proctitis Other specified diseases of anus and rectum take one suppository as directed twice daily for one week Problems Active Problems Problem Classification Problem Date Documented Da te Episodic/Chronic Anal and rectal conditions (15 sources) Proctitis; Translations: [Other specified diseases of anus and rectum] Onset: 05-18-2025 Episodic Cancer of prostate (17 sources) Primary malignant neoplasm of prostate; Translations: [...] 2018] Onset: 09-22-2022 09-20-2022 Residual codes; unclassified (4 sources) Memory impairment; Translations: [Other amnesia] 07-01-2023 [...] Onset: 09-22-2022 Episodic Other aftercare (1 source) [facility] (current) use of aspirin; Translations: [[facility] (current) use of aspirin] Onset: 09-22-2022 Episodic [...] Test Name Value Interpretation Reference Range Facility Absolute lymphocyte countOrd ered By: Shayy Wolff on 07-01-2025 Lymphocytes Auto (Unsp spec) [#/Vol] 1.78 10*3/uL 0.83-4.51 [facility] Absolute neutrophil countOrd ered By: Shayy Wolff on 07-01-2025 Neutrophils (Bld) [#/Vol] 6.4 10*3/uL 2.0-7.7 [facility] Anion gap in Serum or Plasma Ordered By: Shayy Wolff on 07-01-2025 Anion gap [Moles/Vol] 12 mmol/L 5-[address] [facility] Automated lymphocyte count a s percentage of total leukocytesOrdered By: Shayy Wolff on 07-01-2025 Lymphocytes/100 WBC Auto (Unsp spec) 20.1 % - [facility] BUN/creatinine ratioOrdered By: Shayy Wolff on 07-01-2025 Urea nitrogen/Creatinine [Mass ratio] 23.4 mg/mg High 10- [facility] Basophil percentageOrdered B y: Shayy Wolff on 07-01-2025 Basophils/100 WBC (Bld) 0.5 % 0-1 [facility] Bilirubin, totalOrdered By: Shayy Wolff on 07-01-2025 Bilirubin [Mass/Vol] 0.47 mg/dL 0.00-1.30 [facility] CBC W/Diff, Automatedon 06-03 Absolute Lymph 1.78 X10 3/uL Normal 0.83-4.51 [facility] Comment on above: Performed By: #### L 501.9520, L500.4050, L100.0100, L509.1000, L503.0106 ####[facility] [address] [place], [address] Absolute Neut 6.4 X10 3/uL Normal 2.0-7.7 [facility] Comment on above: Performed By: #### L 501.9520, L500.4050, L100.0100, L509.1000, L503.0106 ####[facility] [address] [place], [address] Basophils/100 WBC (Bld) 0.5 % Normal 0-1 [facility] Comment on above: Performed By: #### L 501.9520, L500.4050, L100.0100, L509.1000, L503.0106 ####[facility] [address] [place], [address] Eosinophils/100 WBC (Bld) 0.9 % Normal 0-5 [facility] Comment on above: Performed By: #### L 501.9520, L500.4050, L100.0100, L509.1000, L503.0106 ####[facility] [address] [place], [address] Erythrocyte distribution width (RBC) [Ratio] 13.6 % Normal 11.6-14.6 [facility] Comment on above: Performed By: #### L 501.9520, L500.4050, L100.0100, L509.1000, L503.0106 ####[facility] [address] [place], [address] Hematocrit (Bld) [Volume fraction] 40.0 % Normal 40-54 [facility] Comment on above: Performed By: #### L 501.9520, L500.4050, L100.0100, L509.1000, L503.0106 ####[facility] [address] [place], [address] Hemoglobin (Bld) [Mass/Vol] 13.5 g/dL Normal 13.0-16.5 [facility] Comment on above: Performed By: #### L 501.9520, L500.4050, L100.0100, L509.1000, L503.0106 ####[facility] [address] [place], [address] IG% 0.700 Normal 0.0-0.9 [facility] Comment on above: Result Comment: IG% - Immature Granulocytes (promyelocytes, myelocytes and metamyelocytes) > 1% indicates that a LEFT SHIFT is Present. Performed By: #### L 501.9520, L500.4050, L100.0100, L509.1000, L503.0106 ####[facility] [address] [place], [address] Lymphocytes/100 WBC (Bld) 20.1 % Normal 19-41 [facility] Comment on above: Performed By: #### L 501.9520, L500.4050, L100.0100, L509.1000, L503.0106 ####[facility] [address] [place], [address] MCH (RBC) [Entitic mass] 31.5 pg Normal 27.0-32.0 [facility] Comment on above: Performed By: #### L 501.9520, L500.4050, L100.0100, L509.1000, L503.0106 ####[facility] [address] [place], [address] MCHC (RBC) [Mass/Vol] 33.8 g/dL Normal 32-[address] [facility] Comment on above: Performed By: #### L 501.9520, L500.4050, L100.0100, L509.1000, L503.0106 ####[facility] [address] [place], [address] MCV (RBC) [Entitic vol] 93.2 fL Normal 80-94 [facility] Comment on above: Performed By: #### L 501.9520, L500.4050, L100.0100, L509.1000, L503.0106 ####[facility] [address] [place], [address] Monocytes/100 WBC (Bld) 6.1 % Normal 0-10 [facility] Comment on above: Performed By: #### L 501.9520, L500.4050, L100.0100, L509.1000, L503.0106 ####[facility] [address] [place], [address] Neutrophils/100 WBC (Bld) 71.7 % High 47-70 [facility] Comment on above: Performed By: #### L 501.9520, L500.4050, L100.0100, L509.1000, L503.0106 ####[facility] [address] [place], [address] Nucleated RBC (Bld) [#/Vol] 0 10*3/uL Normal 0-5 [facility] Comment on above: Performed By: #### L 501.9520, L500.4050, L100.0100, L509.1000, L503.0106 ####[facility] [address] [place], [address] Platelet mean volume (Bld) [Entitic vol] 9.6 fL Normal 6.2-12.0 [facility] Comment on above: Performed By: #### L 501.9520, L500.4050, L100.0100, L509.1000, L503.0106 ####[facility] [address] [place], [address] Platelets (Bld) [#/Vol] 227 10*3/uL Normal 150-450 [facility] Comment on above: Performed By: #### L 501.9520, L500.4050, L100.0100, L509.1000, L503.0106 ####[facility] [address] [place], [address] RBC (Bld) [#/Vol] 4.29 10*6/uL Low 4.6-6.2 [facility] Comment on above: Performed By: #### L 501.9520, L500.4050, L100.0100, L509.1000, L503.0106 ####[facility] [address] [place], [address] RDW SD 46.3 fl High 35.1-43.9 [facility] Comment on above: Performed By: #### L 501.9520, L500.4050, L100.0100, L509.1000, L503.0106 ####[facility] [address] [place], [address] WBC (Bld) [#/Vol] 8.9 10*3/uL Normal 4.4-11.0 [facility] Comment on above: Performed By: #### L 501.9520, L500.4050, L100.0100, L509.1000, L503.0106 ####[facility] [address] [place], [address] Carbon dioxide, total [Moles /volume] in Central venous bloodOrdered By: Shayy Wolff on 07-01-2025 CO2 [Moles/Vol] 22.4 mmol/L 21.0-32.0 [facility] Chloride assayOrdered By: Karson Wolff on 07-01-2025 Chloride [Moles/Vol] 103 mmol/L 98-108 [facility] Comprehensive Metabolic Prof ilon 07-01-2025 Albumin [Mass/Vol] 4.2 g/dL Normal 3.4-4.8 [facility] Comment on above: Performed By: #### L 501.9520, L500.4050, L100.0100, L509.1000, L503.0106 ####[facility] [address] [place], [address] Albumin/Globulin [Mass ratio] 1.3 {ratio} Normal 0.9-2.4 [facility] Comment on above: Performed By: #### L 501.9520, L500.4050, L100.0100, L509.1000, L503.0106 ####[facility] [address] [place], [address] ALK PHOS 69 U/L Normal 40-129 [facility] Comment on above: Performed By: #### L 501.9520, L500.4050, L100.0100, L509.1000, L503.0106 ####[facility] [address] [place], [address] ALT [Catalytic activity/Vol] 19 U/L Normal <=46 [facility] Comment on above: Performed By: #### L 501.9520, L500.4050, L100.0100, L509.1000, L503.0106 ####[facility] [address] [place], [address] AST [Catalytic activity/Vol] 21 U/L Normal <=37 [facility] Comment on above: Performed By: #### L 501.9520, L500.4050, L100.0100, L509.1000, L503.0106 ####[facility] [address] [place], [address] Bilirubin [Mass/Vol] 0.47 mg/dL Normal 0.00-1.30 [facility] Comment on above: Performed By: #### L 501.9520, L500.4050, L100.0100, L509.1000, L503.0106 ####[facility] [address] [place], [address] BUN/CRE 23.4 RATIO High 10-20 [facility] Comment on above: Performed By: #### L 501.9520, L500.4050, L100.0100, L509.1000, L503.0106 ####[facility] [address] [place], [address] Calcium [Mass/Vol] 9.5 mg/dL Normal 7.6-11.0 [facility] Comment on above: Performed By: #### L 501.9520, L500.4050, L100.0100, L509.1000, L503.0106 ####[facility] [address] [place], [address] Chloride [Moles/Vol] 103 mmol/L Normal 98-108 [facility] Comment on above: Performed By: #### L 501.9520, L500.4050, L100.0100, L509.1000, L503.0106 ####[facility] [address] [place], [address] CO2 [Moles/Vol] 22.4 mmol/L Normal 21.0-32.0 [facility] Comment on above: Performed By: #### L 501.9520, L500.4050, L100.0100, L509.1000, L503.0106 ####[facility] [address] [place], [address] Creatinine [Mass/Vol] 1.41 mg/dL High 0.70-1.[address] [facility] Comment on above: Performed By: #### L 501.9520, L500.4050, L100.0100, L509.1000, L503.0106 ####[facility] [address] [place], [address] GAP 12 Normal 5-15 [facility] Comment on above: Performed By: #### L 501.9520, L500.4050, L100.0100, L509.1000, L503.0106 ####[facility] [address] [place], [address] GFR/1.73 sq M.predicted among non-blacks MDRD (S/P/Bld) [Vol rate/Area] 48 mL/min/{1.73_m2} Low >60 [facility] Comment on above: Result Comment: mL/m in/1.73m2 CKD-EPI Creatinine Equation (2020) Performed By: #### L 501.9520, L500.4050, L100.0100, L509.1000, L503.0106 ####[facility] [address] [place], [address] Globulin (S) [Mass/Vol] 3.4 g/dL Normal 2.2-4.2 [facility] Comment on above: Performed By: #### L 501.9520, L500.4050, L100.0100, L509.1000, L503.0106 ####[facility] [address] [place], [address] Glucose [Mass/Vol] 100 mg/dL High 70-99 [facility] Comment on above: Performed By: #### L 501.9520, L500.4050, L100.0100, L509.1000, L503.0106 ####[facility] [address] [place], [address] Potassium [Moles/Vol] 4.5 mmol/L Normal 3.3-5.[address] [facility] Comment on above: Performed By: #### L 501.9520, L500.4050, L100.0100, L509.1000, L503.0106 ####[facility] [address] [place], [address] Sodium [Moles/Vol] 138 mmol/L Normal 133-145 [facility] Comment on above: Performed By: #### L 501.9520, L500.4050, L100.0100, L509.1000, L503.0106 ####[facility] [address] [place], [address] T PROT 7.6 g/dL Normal 5.9-8.4 [facility] Comment on above: Performed By: #### L 501.9520, L500.4050, L100.0100, L509.1000, L503.0106 ####[facility] [address] [place], [address] Urea nitrogen [Mass/Vol] 33 mg/dL High 4-19 [facility] Comment on above: Performed By: #### L 501.9520, L500.4050, L100.0100, L509.1000, L503.0106 ####[facility] [address] [place], [address] Eosinophil percentageOrdered By: Shayy Wolff on 07-01-2025 Eosinophils/100 WBC (Bld) 0.9 % 0-5 [facility] Erythrocyte distribution wid th ratioOrdered By: Shayy Wolff on 07-01-2025 Erythrocyte distribution width (RBC) [Ratio] 13.6 % 11.6-14.6 [facility] Erythrocyte distribution wid th standard deviationOrdered By: Shayy Wolff on 07-01-2025 Erythrocyte distribution width (RBC) [Ratio] 46.3 fl High 35.1-43.9 [facility] Glomerular filtration rate ( GFR) estimation/1.73 sq m using serum, plasma, or whole bOrdered By: Shayy Wolff on 07-01-2025 GFR/1.73 sq M.predicted among non-blacks MDRD (S/P/Bld) [Vol rate/Area] 48 mL/min/{1.73_m2} Low >60 [facility] Comment on above: mL/min/1.73m2 CKD-EP I Creatinine Equation (2020) Hematocrit Auto (Bld) [Volum e fraction]Ordered By: Shayy Wolff on 07-01-2025 Hematocrit (Bld) [Volume fraction] 40.0 % 40-54 [facility] Hemoglobin measurementOrdere d By: Shayy Wolff on 07-01-2025 Hemoglobin (Bld) [Mass/Vol] 13.5 g/dL 13.0-16.5 [facility] Immature granulocytes/100 WB C Auto (Bld)Ordered By: Shayy Wolff on 07-01-2025 Immature granulocytes/100 WBC (Bld) 0.700 % 0.0-0.9 [facility] Comment on above: IG% - Immature Granu locytes (promyelocytes, myelocytes and metamyelocytes) > 1% indicates that a LEFT SHIFT is Present. Laboratory - Chemistry and C hemistry - challengeOrdered By: Shayy Wolff on 07-01-2025 AST [Catalytic activity/Vol] 21 U/L <38 [facility] MCV (mean corpuscular volume ) determinationOrdered By: Shayy Wolff on 07-01-2025 MCV (RBC) [Entitic vol] 93.2 fL 80-94 [facility] Mean corpuscular hemoglobin (MCH) determinationOrdered By: Shayy Wolff on 07-01-2025 MCH (RBC) [Entitic mass] 31.5 pg 27.0-32.0 [facility] Mean corpuscular hemoglobin concentration (MCHC) determinationOrdered By: Shayy Wolff on 07-01-2025 MCHC (RBC) [Mass/Vol] 33.8 g/dL 32-[address] [facility] Mean platelet volume determi nationOrdered By: Shayy Wolff on 07-01-2025 Platelet mean volume (Bld) [Entitic vol] 9.6 fL 6.2-12.0 [facility] Monocyte percentageOrdered B y: Shayy Wolff on 07-01-2025 Monocytes/100 WBC (Bld) 6.1 % 0-10 [facility] Neutrophil percentageOrdered By: Shayy Wolff on 07-01-2025 Neutrophils/100 WBC (Bld) 71.7 % High 47-70 [facility] Nucleated red blood cell per centageOrdered By: Shayy Wolff on 07-01-2025 Nucleated RBC/100 WBC (Bld) [Ratio] 0 % 0-5 [facility] PTHINon 07-01-2025 PTH 55 pg/mL Normal 11-61 [facility] Comment on above: Performed By: #### L 501.9520, L500.4050, L100.0100, L509.1000, L503.0106 ####[facility] [address] [place], [address] Platelet countOrdered By: Karson Wolff on 07-01-2025 Platelets (Bld) [#/Vol] 227 10*3/uL 150-450 [facility] Potassium measurement (mass/ volume)Ordered By: Shayy Wolff on 07-01-2025 Potassium (Unsp spec) [Mass/Vol] 4.5 mmol/L 3.3-5.1 [facility] RBC Auto (Bld) [#/Vol]Ordere d By: Shayy Wolff on 07-01-2025 RBC (Bld) [#/Vol] 4.29 10*6/uL Low 4.6-6.2 [facility] Serum creatinine measurement (mass/volume)Ordered By: Shayy Wolff on 07-01-2025 Creatinine [Mass/Vol] 1.41 mg/dL High 0.70-1.[address] [facility] Serum globulin measurementOr dered By: Shayy Wolff on 07-01-2025 Globulin (S) [Mass/Vol] 3.4 g/dL 2.2-4.2 [facility] Serum glucose measurement (m ass/volume)Ordered By: Shayy Wolff on 07-01-2025 Glucose [Mass/Vol] 100 mg/dL High 70-99 [facility] Serum or plasma alanine sanchez otransferase (ALT) measurementOrdered By: Shayy Wolff on 07-01-2025 ALT [Catalytic activity/Vol] 19 U/L <47 [facility] Serum or plasma albumin kaylah urement (mass/volume)Ordered By: Shayy Wolff on 07-01-2025 Albumin [Mass/Vol] 4.2 g/dL 3.4-4.8 [facility] Serum or plasma albumin/glob ulin mass ratioOrdered By: Shayy Wolff on 07-01-2025 Albumin/Globulin [Mass ratio] 1.3 {ratio} 0.9-2.4 [facility] Serum or plasma alkaline aleena sphatase measurementOrdered By: Shayy Wolff on 07-01-2025 ALP [Catalytic activity/Vol] 69 U/L 40-129 [facility] Serum or plasma calcium kaylah urement (mass/volume)Ordered By: Shayy Wolff on 07-01-2025 Calcium [Mass/Vol] 9.5 mg/dL 7.6-11.0 [facility] Serum or plasma urea nitroge n measurement (mass/volume)Ordered By: Shayy Wolff on 07-01-2025 Urea nitrogen [Mass/Vol] 33 mg/dL High 4-19 [facility] Sodium levelOrdered By: Shayy Wolff on 07-01-2025 Sodium [Moles/Vol] 138 mmol/L 133-145 [facility] TSH DL <= 0.005 mIU/L QnOrde red By: Shayy Wolff on 07-01-2025 TSH Qn 0.850 uIU/mL 0.300-4.200 [facility] Thyroid Stim Hormone (TSH)on 07-01-2025 TSH 0.850 uIU/mL Normal 0.300-4.200 [facility] Comment on above: Performed By: #### L 501.9520, L500.4050, L100.0100, L509.1000, L503.0106 ####[facility] [address] [place], [address] Total proteinOrdered By: Kinza Wolff on 07-01-2025 Protein [Mass/Vol] 7.6 g/dL 5.9-8.4 [facility] Vitamin B12on 07-01-2025 Cobalamin (Vitamin B12) [Mass/Vol] 749 pg/mL Normal 180-914 [facility] Comment on above: Performed By: #### L 501.9520, L500.4050, L100.0100, L509.1000, L503.0106 ####[facility] [address] [place], [address] Vitamin B12 ser/plasOrdered By: Shayy Wolff on 07-01-2025 Cobalamin (Vitamin B12) [Mass/Vol] 749 pg/mL 180-914 [facility] White blood cell (WBC) count Ordered By: Shayy Wolff on 07-01-2025 WBC (Bld) [#/Vol] 8.9 10*3/uL 4.4-11.0 [facility] Radiation Oncology Visiton 0 05-18-2025 Radiation Oncology Visit [facility] [address] [place] [address] OFFICE VISIT Date of Service: 05/18/25 1302 MR#: [id number] Acct: [id number] Name: GRANT ISLAS Fransico Rep #: [id number] : 1935 From: Xavier Johnson DO Age/Sex: 89/M [place] [facility] [place]: [place] Intake Vital Signs 07/28/24 11:04 [...] you fallen in the past year?: No [facility] Medical History Wears hearing aid Wears glasses [...] underwent TRUS guided prostate biopsy.??? 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 (more content not included)... Normal [facility] Brain/Head W/WO Contraston 0 03-25-2025 Brain/Head W/WO Contrast [facility] Imaging Services [address] [place] [address] [id number] Brain/Head W/WO Contrast MR#: [id number] Acct: [id number] Name: GRANT ISLAS V Rep #: [id number] : 1935 M [id number] From: Gasper naylor MD PCP: Dr. Shayy Wolff DO Status: REG CLI Study: Brain/Head W/WO Contrast Date of Exam: 5 Exam# [id number] Ordering Dr: Shayy Wolff DO PROCEDURE: BRAIN/HEAD [...] CHRONIC CHANGES. NO ACUTE FINDINGS. Reading Location: [place] [address] CC: Dr. Shayy Wolff DO Rn Spine: Signed Normal [facility] Basic Metabolic Profile (BMP )on 11-11-2024 BUN/CRE 22.4 RATIO High 10-20 [facility] Comment on above: Performed By: #### L 500.2500, L100.0100 ####[facility] [address] [place], [address] CA,Total 9.6 mg/dL Normal 8.5-10.1 [facility] Comment on above: Performed By: #### L 500.2500, L100.0100 ####[facility] [address] [place], [address] Chloride [Moles/Vol] 106 mmol/L Normal 98-107 [facility] Comment on above: Performed By: #### L 500.2500, L100.0100 ####[facility] [address] [place], [address] CO2 [Moles/Vol] 28.0 mmol/L Normal 21.0-32.0 [facility] Comment on above: Performed By: #### L 500.2500, L100.0100 ####[facility] [address] [place], [address] Creatinine [Mass/Vol] 1.47 mg/dL High 0.70-1.[address] [facility] Comment on above: Result Comment: The validity of the calculated GFR GFRAA in patients over 70 years has not been determined. Clinical correlation is essential. Performed By: #### L 500.2500, L100.0100 ####[facility] [address] [place], [address] EST GFR - AA 58 mL/min Low >60 [facility] Comment on above: Result Comment: Afri can Wallis[place] GFR Calc Performed By: #### L 500.2500, L100.0100 ####[facility] [address] [place], [address] GAP 4 Low 5-15 [facility] Comment on above: Performed By: #### L 500.2500, L100.0100 ####[facility] [address] [place], [address] GFR/1.73 sq M.predicted among non-blacks MDRD (S/P/Bld) [Vol rate/Area] 48 mL/min/{1.73_m2} Low >60 [facility] Comment on above: Result Comment: Non- GFR Calc Performed By: #### L 500.2500, L100.0100 ####[facility] [address] [place], [address] Glucose [Mass/Vol] 72 mg/dL Low 74-106 [facility] Comment on above: Performed By: #### L 500.2500, L100.0100 ####[facility] [address] [place], [address] Potassium [Moles/Vol] 4.4 mmol/L Normal 3.5-5.[address] [facility] Comment on above: Performed By: #### L 500.2500, L100.0100 ####[facility] [address] [place], [address] Sodium [Moles/Vol] 138 mmol/L Normal 136-145 [facility] Comment on above: Performed By: #### L 500.2500, L100.0100 ####[facility] [address] [place], [address] Urea nitrogen [Mass/Vol] 33 mg/dL High 7-18 [facility] Comment on above: Performed By: #### L 500.2500, L100.0100 ####[facility] [address] [place], [address] CBC W/Diff, Automatedon 12- Absolute Lymph 2.35 X10 3/uL Normal 0.83-4.51 [facility] Comment on above: Performed By: #### L 500.2500, L100.0100 #### [facility] [address] [place], [address] Absolute Neut 5.8 X10 3/uL Normal 2.0-7.7 [facility] Comment on above: Performed By: #### L 500.2500, L100.0100 #### [facility] [address] [place], [address] Basophils/100 WBC (Bld) 0.4 % Normal 0-1 [facility] Comment on above: Performed By: #### L 500.2500, L100.0100 #### [facility] [address] [place], [address] Eosinophils/100 WBC (Bld) 1.8 % Normal 0-5 [facility] Comment on above: Performed By: #### L 500.2500, L100.0100 #### [facility] [address] [place], [address] Erythrocyte distribution width (RBC) [Ratio] 14.2 % Normal 11.6-14.6 [facility] Comment on above: Performed By: #### L 500.2500, L100.0100 #### [facility] [address] [place], [address] Hematocrit (Bld) [Volume fraction] 39.6 % Low 40-54 [facility] Comment on above: Performed By: #### L 500.2500, L100.0100 #### [facility] [address] [place], [address] Hemoglobin (Bld) [Mass/Vol] 12.5 g/dL Low 13.0-16.5 [facility] Comment on above: Performed By: #### L 500.2500, L100.0100 #### [facility] [address] [place], [address] IG% 0.900 Normal 0.0-0.9 [facility] Comment on above: Result Comment: IG% - Immature Granulocytes (promyelocytes, myelocytes and metamyelocytes) > 1% indicates that a LEFT SHIFT is Present. Performed By: #### L 500.2500, L100.0100 #### [facility] [address] [place], [address] Lymphocytes/100 WBC (Bld) 25.3 % Normal 19-41 [facility] Comment on above: Performed By: #### L 500.2500, L100.0100 #### [facility] [address] [place], [address] MCH (RBC) [Entitic mass] 30.1 pg Normal 27.0-32.0 [facility] Comment on above: Performed By: #### L 500.2500, L100.0100 #### [facility] [address] [place], [address] MCHC (RBC) [Mass/Vol] 31.6 g/dL Low 32-[address] [facility] Comment on above: Performed By: #### L 500.2500, L100.0100 #### [facility] [address] [place], [address] MCV (RBC) [Entitic vol] 95.4 fL High 80-94 [facility] Comment on above: Performed By: #### L 500.2500, L100.0100 #### [facility] [address] [place], [address] Monocytes/100 WBC (Bld) 8.8 % Normal 0-10 [facility] Comment on above: Performed By: #### L 500.2500, L100.0100 #### [facility] [address] [place], [address] Neutrophils/100 WBC (Bld) 62.8 % Normal 47-70 [facility] Comment on above: Performed By: #### L 500.2500, L100.0100 #### [facility] [address] [place], [address] Nucleated RBC (Bld) [#/Vol] 0 10*3/uL Normal 0-5 [facility] Comment on above: Performed By: #### L 500.2500, L100.0100 #### [facility] [address] [place], [address] Platelet mean volume (Bld) [Entitic vol] 9.6 fL Normal 6.2-12.0 [facility] Comment on above: Performed By: #### L 500.2500, L100.0100 #### [facility] [address] [place], [address] Platelets (Bld) [#/Vol] 249 10*3/uL Normal 150-450 [facility] Comment on above: Performed By: #### L 500.2500, L100.0100 #### [facility] [address] [place], [address] RBC (Bld) [#/Vol] 4.15 10*6/uL Low 4.6-6.2 [facility] Comment on above: Performed By: #### L 500.2500, L100.0100 #### [facility] [address] [place], [address] RDW SD 49.8 fl High 35.1-43.9 [facility] Comment on above: Performed By: #### L 500.2500, L100.0100 #### [facility] [address] [place], [address] WBC (Bld) [#/Vol] 9.3 10*3/uL Normal 4.4-11.0 [facility] Comment on above: Performed By: #### L 500.2500, L100.0100 #### [facility] [address] [place], [address] CBC W/Diff, Automatedon 09-12 04-2023 Absolute Lymph 2.08 X10 3/uL Normal 0.83-4.51 [facility] Comment on above: Performed By: #### L 500.4100, L503.6550, L100.0100, L503.0105, L500.4050 #### [facility] [address] [place], [address] Absolute Neut 7.6 X10 3/uL Normal 2.0-7.7 [facility] Comment on above: Performed By: #### L 500.4100, L503.6550, L100.0100, L503.0105, L500.4050 #### [facility] [address] [place], [address] Basophils/100 WBC (Bld) 0.4 % Normal 0-1 [facility] Comment on above: Performed By: #### L 500.4100, L503.6550, L100.0100, L503.0105, L500.4050 #### [facility] [address] [place], [address] Eosinophils/100 WBC (Bld) 1.1 % Normal 0-5 [facility] Comment on above: Performed By: #### L 500.4100, L503.6550, L100.0100, L503.0105, L500.4050 #### [facility] [address] [place], [address] Erythrocyte distribution width (RBC) [Ratio] 13.8 % Normal 11.6-14.6 [facility] Comment on above: Performed By: #### L 500.4100, L503.6550, L100.0100, L503.0105, L500.4050 #### [facility] [address] [place], [address] Hematocrit (Bld) [Volume fraction] 38.6 % Low 40-54 [facility] Comment on above: Performed By: #### L 500.4100, L503.6550, L100.0100, L503.0105, L500.4050 #### [facility] [address] [place], [address] Hemoglobin (Bld) [Mass/Vol] 12.5 g/dL Low 13.0-16.5 [facility] Comment on above: Performed By: #### L 500.4100, L503.6550, L100.0100, L503.0105, L500.4050 #### [facility] [address] [place], [address] IG% 0.800 Normal 0.0-0.9 [facility] Comment on above: Result Comment: IG% - Immature Granulocytes (promyelocytes, myelocytes and metamyelocytes) > 1% indicates that a LEFT SHIFT is Present. Performed By: #### L 500.4100, L503.6550, L100.0100, L503.0105, L500.4050 #### [facility] [address] [place], [address] Lymphocytes/100 WBC (Bld) 19.4 % Normal 19-41 [facility] Comment on above: Performed By: #### L 500.4100, L503.6550, L100.0100, L503.0105, L500.4050 #### [facility] [address] [place], [address] MCH (RBC) [Entitic mass] 31.0 pg Normal 27.0-32.0 [facility] Comment on above: Performed By: #### L 500.4100, L503.6550, L100.0100, L503.0105, L500.4050 #### [facility] [address] [place], [address] MCHC (RBC) [Mass/Vol] 32.4 g/dL Normal 32-[address] [facility] Comment on above: Performed By: #### L 500.4100, L503.6550, L100.0100, L503.0105, L500.4050 #### [facility] [address] [place], [address] MCV (RBC) [Entitic vol] 95.8 fL High 80-94 [facility] Comment on above: Performed By: #### L 500.4100, L503.6550, L100.0100, L503.0105, L500.4050 #### [facility] [address] [place], [address] Monocytes/100 WBC (Bld) 7.9 % Normal 0-10 [facility] Comment on above: Performed By: #### L 500.4100, L503.6550, L100.0100, L503.0105, L500.4050 #### [facility] [address] [place], [address] Neutrophils/100 WBC (Bld) 70.4 % High 47-70 [facility] Comment on above: Performed By: #### L 500.4100, L503.6550, L100.0100, L503.0105, L500.4050 #### [facility] [address] [place], [address] Nucleated RBC (Bld) [#/Vol] 0 10*3/uL Normal 0-5 [facility] Comment on above: Performed By: #### L 500.4100, L503.6550, L100.0100, L503.0105, L500.4050 #### [facility] [address] [place], [address] Platelet mean volume (Bld) [Entitic vol] 9.6 fL Normal 6.2-12.0 [facility] Comment on above: Performed By: #### L 500.4100, L503.6550, L100.0100, L503.0105, L500.4050 #### [facility] [address] [place], [address] Platelets (Bld) [#/Vol] 254 10*3/uL Normal 150-450 [facility] Comment on above: Performed By: #### L 500.4100, L503.6550, L100.0100, L503.0105, L500.4050 #### [facility] [address] [place], [address] RBC (Bld) [#/Vol] 4.03 10*6/uL Low 4.6-6.2 [facility] Comment on above: Performed By: #### L 500.4100, L503.6550, L100.0100, L503.0105, L500.4050 #### [facility] [address] [place], [address] RDW SD 49.0 fl High 35.1-43.9 [facility] Comment on above: Performed By: #### L 500.4100, L503.6550, L100.0100, L503.0105, L500.4050 #### [facility] [address] [place], [address] WBC (Bld) [#/Vol] 10.7 10*3/uL Normal 4.4-11.0 [facility] Comment on above: Performed By: #### L 500.4100, L503.6550, L100.0100, L503.0105, L500.4050 #### [facility] [address] [place], [address] Comprehensive Metabolic Prof [facility] 08-14-2024 Albumin [Mass/Vol] 3.5 g/dL Normal 3.2-5.0 [facility] Comment on above: Performed By: #### L 500.4100, L503.6550, L100.0100, L503.0105, L500.4050 #### [facility] [address] [place], [address] Albumin/Globulin [Mass ratio] 0.8 {ratio} Low 0.9-2.4 [facility] Comment on above: Performed By: #### L 500.4100, L503.6550, L100.0100, L503.0105, L500.4050 #### [facility] [address] [place], [address] ALK P 61 U/L Normal 45-117 [facility] Comment on above: Performed By: #### L 500.4100, L503.6550, L100.0100, L503.0105, L500.4050 #### [facility] [address] [place], [address] ALT [Catalytic activity/Vol] 22 U/L Normal 16-61 [facility] Comment on above: Performed By: #### L 500.4100, L503.6550, L100.0100, L503.0105, L500.4050 #### [facility] [address] [place], [address] AST [Catalytic activity/Vol] 20 U/L Normal 15-37 [facility] Comment on above: Performed By: #### L 500.4100, L503.6550, L100.0100, L503.0105, L500.4050 #### [facility] [address] [place], [address] Bilirubin [Mass/Vol] 0.40 mg/dL Normal 0.20-1.00 [facility] Comment on above: Result Comment: For patients on eltrombopag therapy, use of Dimension [place] TBIL is not recommended. Performed By: #### L 500.4100, L503.6550, L100.0100, L503.0105, L500.4050 #### [facility] [address] [place], [address] BUN/CRE 23.3 RATIO High 10-20 [facility] Comment on above: Performed By: #### L 500.4100, L503.6550, L100.0100, L503.0105, L500.4050 #### [facility] [address] [place], [address] CA,Total 9.3 mg/dL Normal 8.5-10.1 [facility] Comment on above: Performed By: #### L 500.4100, L503.6550, L100.0100, L503.0105, L500.4050 #### [facility] [address] [place], [address] Chloride [Moles/Vol] 107 mmol/L Normal 98-107 [facility] Comment on above: Performed By: #### L 500.4100, L503.6550, L100.0100, L503.0105, L500.4050 #### [facility] [address] [place], [address] CO2 [Moles/Vol] 26.0 mmol/L Normal 21.0-32.0 [facility] Comment on above: Performed By: #### L 500.4100, L503.6550, L100.0100, L503.0105, L500.4050 #### [facility] [address] [place], [address] Creatinine [Mass/Vol] 1.50 mg/dL High 0.70-1.[address] [facility] Comment on above: Result Comment: The validity of the calculated GFR GFRAA in patients over 70 years has not been determined. Clinical correlation is essential. Performed By: #### L 500.4100, L503.6550, L100.0100, L503.0105, L500.4050 #### [facility] [address] [place], [address] EST GFR - AA 57 mL/min Low >60 [facility] Comment on above: Result Comment: Afri can [place] GFR Calc Performed By: #### L 500.4100, L503.6550, L100.0100, L503.0105, L500.4050 #### [facility] [address] [place], [address] GAP 6 Normal 5-15 [facility] Comment on above: Performed By: #### L 500.4100, L503.6550, L100.0100, L503.0105, L500.4050 #### [facility] [address] [place], [address] GFR/1.73 sq M.predicted among non-blacks MDRD (S/P/Bld) [Vol rate/Area] 47 mL/min/{1.73_m2} Low >60 [facility] Comment on above: Result Comment: Non- GFR Calc Performed By: #### L 500.4100, L503.6550, L100.0100, L503.0105, L500.4050 #### [facility] [address] [place], [address] Globulin (S) [Mass/Vol] 4.2 g/dL Normal 2.2-4.2 [facility] Comment on above: Performed By: #### L 500.4100, L503.6550, L100.0100, L503.0105, L500.4050 #### [facility] [address] [place], [address] Glucose [Mass/Vol] 94 mg/dL Normal 74-106 [facility] Comment on above: Performed By: #### L 500.4100, L503.6550, L100.0100, L503.0105, L500.4050 #### [facility] [address] [place], [address] Potassium [Moles/Vol] 3.7 mmol/L Normal 3.5-5.[address] [facility] Comment on above: Performed By: #### L 500.4100, L503.6550, L100.0100, L503.0105, L500.4050 #### [facility] [address] [place], [address] Sodium [Moles/Vol] 139 mmol/L Normal 136-145 [facility] Comment on above: Performed By: #### L 500.4100, L503.6550, L100.0100, L503.0105, L500.4050 #### [facility] [address] [place], [address] T PROT 7.7 g/dL Normal 6.4-8.2 [facility] Comment on above: Performed By: #### L 500.4100, L503.6550, L100.0100, L503.0105, L500.4050 #### [facility] [address] [place], [address] Urea nitrogen [Mass/Vol] 35 mg/dL High 7-18 [facility] Comment on above: Performed By: #### L 500.4100, L503.6550, L100.0100, L503.0105, L500.4050 #### [facility] [address] [place], [address] Ferritinon 08-14-2024 Ferritin [Mass/Vol] 106 ng/mL Normal 26-388 [facility] Comment on above: Performed By: #### L 500.4100, L503.6550, L100.0100, L503.0105, L500.4050 #### [facility] [address] [place], [address] Lipid Profileon 08-14-2024 Cholesterol [Mass/Vol] 245 mg/dL High 200 [facility] Comment on above: Result Comment: <200 mg/dL Desirable 200-240 mg/dL Borderline >240 mg/dL High Risk Performed By: #### L 500.4100, L503.6550, L100.0100, L503.0105, L500.4050 #### [facility] [address] [place], [address] Cholesterol in HDL [Mass/Vol] 66 mg/dL Normal [facility] Comment on above: Result Comment: The drugs N-Acetylcysteine and Metamizole may falsely depress this assay. Reference Range HDL <40 mg/dL Low HDL Cholesterol HDL >or= 60 mg/dL High HDL Cholesterol Performed By: #### L 500.4100, L503.6550, L100.0100, L503.0105, L500.4050 #### [facility] [address] [place], [address] Cholesterol in LDL [Mass/Vol] 157 mg/dL High 0-130 [facility] Comment on above: Performed By: #### L 500.4100, L503.6550, L100.0100, L503.0105, L500.4050 #### [facility] [address] [place], [address] Cholesterol in VLDL [Mass/Vol] 22 mg/dL Normal 5-40 [facility] Comment on above: Performed By: #### L 500.4100, L503.6550, L100.0100, L503.0105, L500.4050 #### [facility] [address] [place], [address] Triglyceride [Mass/Vol] 110 mg/dL Normal [facility] Comment on above: Result Comment: The drugs N-Acetylcysteine and Metamizole may falsely depress this assay. Serum Triglycerides Reference Interval Normal <150 mg/dL Borderline high 150 - 199 mg/dL High 200 - 499 mg/dL Very High > or = 500 mg/dL Performed By: #### L 500.4100, L503.6550, L100.0100, L503.0105, L500.4050 #### [facility] [address] [place], [address] Vitamin B12on 08-14-2024 Cobalamin (Vitamin B12) [Mass/Vol] 614 pg/mL Normal 211-911 [facility] Comment on above: Performed By: #### L 500.4100, L503.6550, L100.0100, L503.0105, L500.4050 #### [facility] [address] [place], [address] PSA,Total- Diagnosticon 07-03 PSA, DIAGNOSTIC < 0.01 Normal 0.0-4.0 [facility] Comment on above: Result Comment: This test was performed using the TPSA assay method for the [employer] chemistry system. Values obtained with different assay methods cannot be used interchangably. When changing PSA assays in the course of monitoring a patient, additional sequential testing should be carried out to confirm baseline values. Performed By: #### L 501.9940 #### [facility] [address] [place], [address] Radiation Oncology Visiton 0 07-28-2024 Radiation Oncology Visit [facility] [address] [place] [address] OFFICE VISIT Date of Service: 07/28/24 1057 MR#: [id number] Acct: [id number] Name: GRANT ISLAS V Rep #: [id number] : 1935 From: Xavier Johnson DO Age/Sex: 89/M [place] [facility] [place]: Signed Intake Vital Signs 12/31/23 10:07 [...] underwent TRUS guided prostate biopsy.??? 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 Normal [facility] PSA,Total- Diagnosticon 07-02 PSA, DIAGNOSTIC < 0.01 Normal 0.0-4.0 [facility] Comment on above: Result Comment: This test was performed using the TPSA assay method for the [employer] chemistry system. Values obtained with different assay methods cannot be used interchangably. When changing PSA assays in the course of monitoring a patient, additional sequential testing should be carried out to confirm baseline values. Performed By: #### L 501.9900 ####[facility] [address] [place], [address] PSA [facility] 11-27-2023 Prostate specific Ag [Mass/Vol] ng/mL Normal <2.60 [facility] Comment on above: Order Comment: Speci men Type: BLOOD SPECIMEN Ordering Facility: [facility] Address: [address] [place], [place] [id number] Result Comment: Tota l PSA test methodology used is the Electrochemiluminescence Immunoassay by [employer]. Total PSA values by differing methodologies cannot be interchanged. Performed By: #### 2 857-1 #### [facility] CLIA [id number] [address] [place] [address] [place] OF [place] No Panel InformationOrdered By: Xavier Johnson on 07-01-2023 Prostate Specific Antigen Total < 0.01 ng/mL 0.0-4.0 [facility] Comment on above: This test was perfor med using the TPSA assay method for [employer] chemistry system. Values obtained with differentassay methods cannot be used interchangably.When changing PSA assays in the course of monitoring apatient, additional sequential testing should be carriedout to confirm baseline values. Absolute lymphocyte countOrd ered By: Dr. Wolff on 04-08-2023 Lymphocytes Auto (Unsp spec) [#/Vol] 1.68 10*3/uL 0.83-4.51 [facility] Basophil percentageOrdered B y: Dr. Wolff on 04-08-2023 Basophils/100 WBC (Bld) 0.5 % 0-1 [facility] Bilirubin [Mass/Vol] 0.40 mg/dL 0.20-1.00 [facility] Comment on above: For patients on eltr ombopag therapy, use of [employer] [place] TBIL is not recommended. Chloride [Moles/Vol] 109 mmol/L 98-107 [facility] Eosinophils/100 WBC (Bld) 2.6 % 0-5 [facility] Glucose [Mass/Vol] 87 mg/dL 74-106 [facility] Neutrophils (Bld) [#/Vol] 4.7 10*3/uL 2.0-7.7 [facility] Neutrophils/100 WBC (Bld) 64.3 % 47-70 [facility] Potassium [Moles/Vol] 4.1 mmol/L 3.5-5.[address] [facility] Protein [Mass/Vol] 7.6 g/dL 6.4-8.2 [facility] Sodium [Moles/Vol] 139 mmol/L 136-145 [facility] WBC (Bld) [#/Vol] 7.3 10*3/uL 4.4-11.0 [facility] Blood erythrocytes count (nu mber/volume)Ordered By: Dr. Wolff on 04-08-2023 RBC (Bld) [#/Vol] 3.77 10*6/uL 4.6-6.2 [facility] Blood hemoglobin measurement (mass/volume)Ordered By: Dr. Wolff on 04-08-2023 Hemoglobin (Bld) [Mass/Vol] 11.8 g/dL 13.0-16.5 [facility] Blood lymphocytes/100 leukoc ytesOrdered By: Dr. Wolff on 04-08-2023 Lymphocytes/100 WBC (Bld) 22.9 % 19-41 [facility] Blood monocytes/100 leukocyt esOrdered By: Dr. Wolff on 04-08-2023 Monocytes/100 WBC (Bld) 8.9 % 0-10 [facility] Blood platelet mean volumeOr dered By: Dr. Wolff on 04-08-2023 Platelet mean volume (Bld) [Entitic vol] 9.5 fL 6.2-12.0 [facility] Determination of erythrocyte mean corpuscular volume (MCV)Ordered By: Dr. Wolff on 04-08-2023 MCV (RBC) [Entitic vol] 94.7 fL 80-94 [facility] Hematocrit Auto (Bld) [Volum e fraction]Ordered By: Dr. Wolff on 04-08-2023 Hematocrit (Bld) [Volume fraction] 35.7 % 40-54 [facility] Laboratory - Chemistry and C hemistry - challengeOrdered By: Dr. Wolff on 04-08-2023 ALP [Catalytic activity/Vol] 53 U/L 45-117 [facility] ALT [Catalytic activity/Vol] 29 U/L 16-61 [facility] CO2 [Moles/Vol] 26.0 mmol/L 21.0-32.0 [facility] Globulin (S) [Mass/Vol] 4.1 g/dL 2.2-4.2 [facility] Urea nitrogen/Creatinine [Mass ratio] 23.7 mg/mg 10-20 [facility] Laboratory - Hematology and Cell countsOrdered By: Dr. Wolff on 04-08-2023 Erythrocyte distribution width (RBC) [Entitic vol] 48.9 fL 35.1-43.9 [facility] Erythrocyte distribution width (RBC) [Ratio] 14.1 % 11.6-14.6 [facility] Immature granulocytes/100 WBC (Bld) 0.800 % 0.0-0.9 [facility] Comment on above: IG% - Immature Granu locytes (promyelocytes, myelocytes and metamyelocytes) > 1% indicates that a LEFT SHIFT is Present. MCH (RBC) [Entitic mass] 31.3 pg 27.0-32.0 [facility] Nucleated RBC/100 WBC (Bld) [Ratio] 0 % 0-5 [facility] MCHC Auto (RBC) [Mass/Vol]Or dered By: Dr. Wolff on 04-08-2023 MCHC (RBC) [Mass/Vol] 33.1 g/dL 32-[address] [facility] No Panel InformationOrdered By: Dr. Wolff on 04-08-2023 Estimated GFR (MDRD) Amer 56 mL/min >60 [facility] Comment on above: GFR Calc Estimated GFR (MDRD) Non-Af Amer 46 mL/min >60 [facility] Comment on above: Non- GFR Calc Platelets bldOrdered By: Dr. Wolff on 04-08-2023 Platelets (Bld) [#/Vol] 247 10*3/uL 150-450 [facility] Serum or plasma albumin kaylah urement (mass/volume)Ordered By: Dr. Wolff on 04-08-2023 Albumin [Mass/Vol] 3.5 g/dL 3.2-5.0 [facility] Serum or plasma albumin/glob ulin mass ratioOrdered By: Dr. Wolff on 04-08-2023 Albumin/Globulin [Mass ratio] 0.9 {ratio} 0.9-2.4 [facility] Serum or plasma calcium kaylah urement (mass/volume)Ordered By: Dr. Wolff on 04-08-2023 Calcium [Mass/Vol] 8.9 mg/dL 8.5-10.1 [facility] Serum or plasma creatinine m easurement (mass/volume)Ordered By: Dr. Wolff on 04-08-2023 Creatinine [Mass/Vol] 1.52 mg/dL 0.70-1.[address] [facility] Comment on above: The validity of the calculated GFR & GFRAA in patients over 70 years has not been determined. Clinical correlation is essential. Serum or plasma urea nitroge n measurement (mass/volume)Ordered By: Dr. Wolff on 04-08-2023 Urea nitrogen [Mass/Vol] 36 mg/dL 7-18 [facility] Thin prep Papanicolaou smear with manual screeningOrdered By: Dr. Wolff on 04-08-2023 Thin prep Papanicolaou smear with manual screening 25 U/L 15-37 [facility] Thin prep Papanicolaou smear with manual screening 4 5-15 [facility] No Panel InformationOrdered By: Dr. Johnson on 12-31-2022 Prostate Specific Antigen Total < 0.01 ng/mL 0.0-4.0 [facility] Comment on above: This test was perfor med using the TPSA assay method for the[facility] chemistry system. Values obtained with differentassay methods cannot be used interchangably.When changing PSA assays in the course of monitoring apatient, additional sequential testing should be carriedout to confirm baseline values. Basophil percentageon 2021 Chloride [Moles/Vol] 108 mmol/L 98-107 [facility] Work Phone: Glucose [Mass/Vol] 81 mg/dL 74-106 [facility] Work Phone: Potassium [Moles/Vol] 4.3 mmol/L 3.5-5.[address] [facility] Work Phone: Sodium [Moles/Vol] 138 mmol/L 136-145 [facility] Work Phone: Laboratory - Chemistry and C hemistry - challengeon 09-29-2022 CO2 [Moles/Vol] 24.0 mmol/L 21.0-32.0 [facility] Work Phone: Urea nitrogen/Creatinine [Mass ratio] 22.1 mg/mg 09-20 [facility] Work Phone: No Panel Informationon 09-29 Estimated GFR (MDRD) Amer 58 mL/min >60 [facility] Work Phone: Comment on above: GFR Calc Estimated GFR (MDRD) Non-Af Amer 48 mL/min >60 [facility] Work Phone: Comment on above: Non- GFR Calc Serum or plasma calcium kaylah urement (mass/volume)on 09-29-2022 Calcium [Mass/Vol] 8.6 mg/dL 8.5-10.1 [facility] Work Phone: Serum or plasma creatinine m easurement (mass/volume)on 09-29-2022 Creatinine [Mass/Vol] 1.49 mg/dL 0.70-1.[address] [facility] Work Phone: Comment on above: The validity of the calculated GFR & GFRAA in patients over 70 years has not been determined. Clinical correlation is essential. Serum or plasma urea nitroge n measurement (mass/volume)on 09-29-2022 Urea nitrogen [Mass/Vol] 33 mg/dL -18 [facility] Work Phone: Thin prep Papanicolaou smear with manual screeningon 09-29-2022 Thin prep Papanicolaou smear with manual screening 6 5-15 [facility] Work Phone: BASIC METABOLIC PANELon 09-02 Anion gap [Moles/Vol] 16 mmol/L Normal [facility] Comment on above: Performed By: #### B MP #### [address] [address] Calcium [Mass/Vol] 9.0 mg/dL Normal 8.6 - 10.3 [facility] Comment on above: Performed By: #### B MP #### [employer] [address] Chloride [Moles/Vol] 99 mmol/L Normal 98 - 107 [facility] Comment on above: Performed By: #### B MP #### [address] [address] Creatinine [Mass/Vol] 1.99 mg/dL High 0.50 - 1.30 [facility] Comment on above: Performed By: #### B MP #### [address] [address] GFR/1.73 sq M.predicted among non-blacks MDRD (S/P/Bld) [Vol rate/Area] 32 mL/min/{1.73_m2} Abnormal >90 [facility] Comment on above: Result Comment: CALC ULATIONS OF ESTIMATED GFR ARE PERFORMED USING THE 2020 CKD-EPI STUDY REFIT EQUATION WITHOUT THE RACE VARIABLE FOR THE IDMS-TRACEABLE CREATININE METHODS. https://jasn.asnjournals.org/content/early//ASN.84810 92212 Performed By: #### B MP #### [address] [address] Glucose [Mass/Vol] 124 mg/dL High 74 - 99 [facility] Comment on above: Performed By: #### B MP #### [address] [address] HCO3 (Bld) [Moles/Vol] 21 mmol/L Normal 21 - 32 [facility] Comment on above: Performed By: #### B MP #### [address] [address] Potassium [Moles/Vol] 3.5 mmol/L Normal 3.5 - 5.3 [facility] Comment on above: Performed By: #### B MP #### [address] [address] Sodium [Moles/Vol] 132 mmol/L Low 136 - 145 [facility] Comment on above: Performed By: #### B MP #### [address] [address] Urea nitrogen [Mass/Vol] 76 mg/dL High 6 - 23 [facility] Comment on above: Performed By: #### B MP #### [address] [address] CBCon 09-22-2022 Erythrocyte distribution width (RBC) [Ratio] 14.5 % Normal 11.5 - 14.5 [facility] Comment on above: Performed By: #### C BC ####[address] [address] Hematocrit (Bld) [Volume fraction] 32.6 % Low 41.0 - 52.0 [facility] Comment on above: Performed By: #### C BC ####[address] [address] Hemoglobin (Bld) [Mass/Vol] 10.9 g/dL Low 13.5 - 17.5 [facility] Comment on above: Performed By: #### C BC ####[place] [id number] MCHC (RBC) [Mass/Vol] 33.5 g/dL Normal 32.0 - 36.0 [facility] Comment on above: Performed By: #### C BC ####[address] [address] MCV (RBC) [Entitic vol] 93 fL Normal 80 - 100 [facility] Comment on above: Performed By: #### C BC ####[address] [address] Platelets (Bld) [#/Vol] 233 10*3/uL Normal 150 - 450 [facility] Comment on above: Performed By: #### C BC ####[address] [address] RBC 3.53 x10E12/L Low 4.50 - 5.90 [facility] Comment on above: Performed By: #### C BC ####[address] [address] WBC (Bld) [#/Vol] 14.8 10*3/uL High 4.4 - 11.3 [facility] Comment on above: Performed By: #### C ####[address] [id number] [place] [address] Discharge [id number] Discharge Profile2 Discharge Orders: Anticipated Discharge Date: Anticipated Discharge [id number] DNAR: Code Status at Discharge: DNAR Was Extending the DNAR Status Following Discharge Discussed w/ Patient/Family: n/a- patient already has a completed DNR State Form [place] DNR State Form Status: DNR Comfort Care [...] at 22-Sep-2022 12:23:38 Appointments: Follow-Up Appointment 01: Physician/Dept/[facility] Reason for ReferralHospital Follow-up Call to Schedule in2 weeks [place] [address] Phone [phone] CommentsPlease call and schedule a follow-up appointment within 2 weeks of your Hospital Discharge Electronic Signatures: Debbie Iraheta (UNIT SECT) (Signed 22-Sep-2022 13:01) Authored: Discharge Orders, Appointments Primo Navarro) (Signed 22-Sep-2022 12:23) Authored: Discharge Orders, Provider FINAL REVIEW of Orders, Appointments, Gold Form - X Ray Service Technician Summary Last Updated: 22-Sep-2022 13:01 by Debbie Iraheta (UNIT SECT) [facility] Order Reconciliationon 09-22 Order Reconciliation Page 1 [...] mg-100 mg Dose Pack oral tablet Current OrdersDateHOME MEDICATIONS AT DISCHARGE DateReconciliation Comment/ Additional Information [...] mg-100 mg Dose Pack oral tablet Normal [facility] Rehab Note-individual therap yon 09-22-2022 Rehab Note-individual therapy Rehab: Info: Disciplinephysical occupational therapy department chair Mode of Treatmentindividual therapy; physical therapy Time [...] in hospital roomnone Climbing 3-5 steps with susan herrera AM-PAC (PT) Total Score23 Outcome Summary: [...] Sensory, Outcomes Tools, Outcome Summary Ara Rose ([employer]) (Signed 22-Sep-2022 10:48) Authored: Info, Vision/Cognition, Mobility/Tone, Motor, Sensory, Outcomes Tools, Outcome Summary Last Updated: 25-Sep-2022 11:19 by Justine Carmen (PT) [facility] CBC AND DIFFERENTIALon 09-21 DIFFERENTIAL SEE MANUAL DIFF [facility] Comment on above: Performed By: #### C BCDF ####[address] [address] Erythrocyte distribution width (RBC) [Ratio] 14.4 % Normal 11.5 - 14.5 [facility] Comment on above: Performed By: #### C BCDF ####[address] [address] Hematocrit (Bld) [Volume fraction] 35.0 % Low 41.0 - 52.0 [facility] Comment on above: Performed By: #### C BCDF ####[address] [address] Hemoglobin (Bld) [Mass/Vol] 11.7 g/dL Low 13.5 - 17.5 [facility] Comment on above: Performed By: #### C BCDF ####[address] [address] MCHC (RBC) [Mass/Vol] 33.5 g/dL Normal 32.0 - 36.0 [facility] Comment on above: Performed By: #### C BCDF ####[address] [address] MCV (RBC) [Entitic vol] 93 fL Normal 80 - 100 [facility] Comment on above: Performed By: #### C BCDF ####[address] [address] Platelets (Bld) [#/Vol] 221 10*3/uL Normal 150 - 450 [facility] Comment on above: Performed By: #### C BCDF ####[address] [address] RBC 3.78 x10E12/L Low 4.50 - 5.90 [facility] Comment on above: Performed By: #### C BCDF ####[address] [address] WBC (Bld) [#/Vol] 13.4 10*3/uL High 4.4 - 11.3 [facility] Comment on above: Performed By: #### C BCDF ####[address] [address] COMPREHENSIVE PANELon 2021 Albumin [Mass/Vol] 3.5 g/dL Normal 3.4 - 5.0 [facility] Comment on above: Performed By: #### B MP #### [address] [address] ALP [Catalytic activity/Vol] 42 U/L Normal 33 - 136 [facility] Comment on above: Performed By: #### B MP #### [address] [address] ALT [Catalytic activity/Vol] 33 U/L Normal 10 - 52 [facility] Comment on above: Result Comment: Julia ents treated with Sulfasalazine may generate falsely decreased results for ALT. Performed By: #### B MP #### [address] [address] Anion gap [Moles/Vol] 15 mmol/L Normal 10 - 20 [facility] Comment on above: Performed By: #### B MP #### [address] [place] [address] AST [Catalytic activity/Vol] 63 U/L High 9 - 39 [facility] Comment on above: Performed By: #### B MP #### [address] [address] Bilirubin [Mass/Vol] 0.6 mg/dL Normal 0.0 - 1.2 [facility] Comment on above: Performed By: #### B MP #### [address] [address] Calcium [Mass/Vol] 9.2 mg/dL Normal 8.6 - 10.3 [facility] Comment on above: Performed By: #### B MP #### [address] [address] Chloride [Moles/Vol] 102 mmol/L Normal 98 - 107 [facility] Comment on above: Performed By: #### B MP #### [address] [address] Creatinine [Mass/Vol] 1.60 mg/dL High 0.50 - 1.30 [facility] Comment on above: Performed By: #### B MP #### [address] [address] GFR/1.73 sq M.predicted among non-blacks MDRD (S/P/Bld) [Vol rate/Area] 42 mL/min/{1.73_m2} Abnormal >90 [facility] Comment on above: Result Comment: CALC ULATIONS OF ESTIMATED GFR ARE PERFORMED USING THE 2020 CKD-EPI STUDY REFIT EQUATION WITHOUT THE RACE VARIABLE FOR THE IDMS-TRACEABLE CREATININE METHODS. https://jasn.asnjournals.org/content///ASN.25686 [address] Performed By: #### B MP #### [address] [address] Glucose [Mass/Vol] 132 mg/dL High 74 - 99 [facility] Comment on above: Performed By: #### B MP #### [address] [address] HCO3 (Bld) [Moles/Vol] 23 mmol/L Normal 21 - 32 [facility] Comment on above: Performed By: #### B MP #### [address] [address] Potassium [Moles/Vol] 3.5 mmol/L Normal 3.5 - 5.3 [facility] Comment on above: Performed By: #### B MP #### [address] [address] Protein [Mass/Vol] 7.0 g/dL Normal 6.4 - 8.2 [facility] Comment on above: Performed By: #### B MP #### [address] [address] Sodium [Moles/Vol] 136 mmol/L Normal 136 - 145 [facility] Comment on above: Performed By: #### B MP #### [address] [address] Urea nitrogen [Mass/Vol] 47 mg/dL High 6 - 23 [facility] Comment on above: Performed By: #### B MP #### [address] [address] Daily Progress Note-General Internal Medicineon 09-21-2022 Daily Progress Note-General Internal Medicine Service: General Internal Medicine Subjective Data: GRANT ISLAS V. is a 87 year old Male who is Hospital Day # 3. Patient seen and examined. He denies any shortness of breath, cough, nausea, vomiting, chest pain, diarrhea does complain of some weakness. Objective Data: Objective Information: T PRBPMAPSpO2 [id number]% Date/Time09/21 7: 7: 7: 7: 7: 7:33 Range(36C - 36.9C ) (65 - 99 ) (16 - 27 ) (88 - 140 )/ (54 - 77 ) (62 - 85 ) (90% - 94% ) As of 20-Sep-2022 09:00:00, patient is on 2 L/min of oxygen via nasal cannula. Highest temp of 36.9 C was recorded at 09/20 8:00 Pain reported at 10/21 4:00: sleeping Physical Exam Narrative: Physical Exam: [...] Neurological: Nonfocal, intact Medication: Medications: Continuous Medications ------ 1. Sodium Chloride 0.9% Infusion: 1000 mL IntraVenous Scheduled Medications ------ 1. Albuterol 2.5 mg - Ipratropium 0.5 [...] Sulfate: 220 mg Oral Daily PRN Medications ------ 1. Acetaminophen: 650 mg Oral Every 4 [...] Oral Every 6 Hours Currently Suspended Medications ------ 1. Lisinopril: 10 mg Oral Daily Recent Lab Results: Results: CBC: 09/21/2022 05:47 \ Hgb / \ 11.7 L / WBC Plt 13.4 H 221 / Hct \ / 35.0 L \ RBC: 3.78 L MCV: 93 CMP: 09/21/2022 05:47 NA+ Cl- BUN / 136 102 47 H / ------ Glucose - 132 H K+ HCO3- Creat \ 3.5 [...] Updated: 21-Sep-2022 13:27 by Primo Navarro) Normal [facility] MANUAL DIFFERENTIALon 2021 % BAND NEUTROPHIL 13.0 % Abnormal 0.0 - 5.0 [facility] Comment on above: Performed By: #### B MP #### [address] [address] % BASOPHIL 0.0 % Normal 0.0 - 2.0 [facility] Comment on above: Performed By: #### B MP #### [address] [address] % EOSINOPHIL 0.0 % Normal 0.0 - 6.0 [facility] Comment on above: Performed By: #### B MP #### [address] [address] % LYMPHOCYTE 8.0 % Normal 13.0 - 44.0 [facility] Comment on above: Performed By: #### B MP #### [address] [address] % MONOCYTE 5.0 % Normal 2.0 - 10.0 [facility] Comment on above: Performed By: #### B MP #### [address] [address] % SEG NEUTROPHIL 74.0 % Normal 40.0 - 80.0 [facility] Comment on above: Result Comment: Perc ent differential counts (%) should be interpreted in the context of the absolute cell counts (cells/L). Performed By: #### B MP #### [place] [address] ANC 11.66 x10E9/L High 1.60 - 5.50 [facility] Comment on above: Performed By: #### B MP #### [place] [address] BAND NEUTROPHIL 1.74 x10E9/L High 0.00 - 0.50 [facility] Comment on above: Performed By: #### B MP #### [place] [address] BASOPHIL 0.00 x10E9/L Normal 0.00 - 0.10 [facility] Comment on above: Performed By: #### B MP #### [place] [address] EOSINOPHIL 0.00 x10E9/L Normal 0.00 - 0.40 [facility] Comment on above: Performed By: #### B MP #### [place] [address] LYMPHOCYTE 1.07 x10E9/L Normal 0.80 - 3.00 [facility] Comment on above: Performed By: #### B MP #### [place] [address] MONOCYTE 0.67 x10E9/L Normal 0.05 - 0.80 [facility] Comment on above: Performed By: #### B MP #### [place] [address] SEG NEUTROPHIL 9.92 x10E9/L High 1.60 - 5.00 [facility] Comment on above: Performed By: #### B MP #### [place] [address] Nutrition Therapy-Assessment on 09-21-2022 Nutrition Therapy-Assessment Assessment Subjective/Objective: Note Type: Assessment Note Authored by: Registered Dietitian [employer] Process Plant Operator Pager Number: [phone] Nutrition Note: The patient is a 87 year old Male admitted with COVID 19. MST weight loss and decreased by mouth score 2 Called patient room and spoke to patient's . Obtained minimal nutritional information as was difficult to communicate with her via phone . Medical Surgical History: Hypertension 2. Hypercholesterolemia Objective Information: T PRBPMAPSpO2 [id number]% Date/Time09/21 7: 7: 7: 7: 7: 7:33 [...] Findings: Physical Findings: COVID19 Estimated Needs: kcals/day: 1645-4352 Predictive Equation Used: kcals/kg; 25-30 gms protein/day: [...] 30 Nutrition Support: no Electronic Signatures: Simran Larsen) (Signed 21-Sep-2022 13:16) Authored: Assessment Subjective/Objective, Nutrition Focused Physical Findings, Estimated Needs, Nutrition Diagnosis, Nutrition Interventions, Nutrition Goals, Nutrition Recommendations, Dietitian Monitoring and Evaluation Plan, Time Spent/Nutrition Support Last Updated: 21-Sep-2022 13:16 by Simran Larsen (RD) Normal [facility] RED CELL MORPHOLOGYon 2021 RBC morphology finding Nom (Bld) NORMAL Normal [facility] Comment on above: Performed By: #### B MP #### [place] [id number] [place] [address] Rehab Note-individual therap yon 09-21-2022 Rehab Note-individual therapy Rehab: Info: Disciplinephysical occupational therapy department chair Mode of Treatmentindividual therapy Time IN14:35 Time OUT14:51 Total Treatment [id number] Patient in ... at end of sessionbed, [...] Status (Cognition)oriented x 3 Mobility/Tone: Bed Mobility Assessment/Interventionssu pine to sit [id number] Richardson (Bed Mobility)contact guard Assistive Device (Bed Mobility)bed rails Comment, Bed MobilityHOB elevated Transfer Assessment/Interventionssi t to stand transfer Sit-Stand Richardson (Transfers)contact guard Sit-Stand Assistive Device (Transfers)gait belt [...] goals as expected Outcome Summary: Physical TherapyPatient MARY'S IGLOO. Patient pat's unsteadiness on feet during first [...] care as tolerated. Electronic Signatures: Remedios Lin ([employer]) (Signed 21-Sep-2022 15:24) Authored: Info, Vision/Cognition, Mobility/Tone, Motor, Sensory, Outcomes Tools, Short Term Goals, Outcome Summary Justine Carmen (PT) (Signed 25-Sep-2022 11:19) Co-Signer: Info, Vision/Cognition, Mobility/Tone, Motor, Sensory, Outcomes Tools, Short Term Goals, Outcome Summary Last Updated: 25-Sep-2022 11:19 by Justine Carmen (PT) [facility] Admission Risk Screen - Adul ton 09-20-2022 Admission Risk Screen - Adult Allergies: Allergies: No Known Allergies: Patient Verification: New W ID Band Applied in my Departmentno Type of ID Patient is WearingW wristband, but not applied here Patient Transferred from Other Facility ([facility], [facility],etc)no Patient Identity Verified Bypatient; family Family Memberson [...] AlertFor Ebola-like Symptoms: Isolate Patient and Notify Provider/Alarm Mechanism Adjuster For Contact: Notify Provider/Alarm Mechanism Adjuster Advance Directive: Advance Directive/DNRunable to answer [place] Fall Screen: History of falling (immediate or previous)yes (25) Secondary Diagnosisyes (15) Intravenous Therapy/ Heparin/Saline Lockyes (20) Gait/Transferringnormal/be drest/wheelchair (0) Ambulatory Aidsnone/bedrest/nurse assist (0) Mental Statusoriented [...] Learning Preferencesverbal instruction Cultural Considerationsnone Developmental Considerationsnone Orthodoxy Considerationsnone Learning Assessment (Other Learner): Other learner availableyes... Learnerson Factors Influencing Readiness to Learnn/a Factors that Impact Ability to Learnnone Devices/Methods Used to Communicatenone Learning Preferencesverbal instruction Cultural Considerationsnone Developmental Considerationsnone Orthodoxy Considerationsnone Depression Screen: During the past month, have you often been bothered by feeling down, depressed or hopelessyes During the past month, have you often had little interest or pleasure in doing thingsno Have you had any thoughts of harming anyone elseno (1) [place] Suicide: Risk Screen Not Applicable/Able to Answerable to be screened In the Past Month: Have you wished you were or could go to sleep and not wake upno(1) In the Past Month: Have you had any actual thoughts of killing yourself no(1) Lifetime: Have you ever done, started to do, or prepared to do anything to end your lifeno [place] Suicide Risknegative Adult Nutrition Screen: Have you [...] Spiritual Screen: Are there any cultural, spiritual, worship practices/values/needs that are important for us to knowno CAGE: Is this an injured patient at a Trauma Center ([facility]/[place]/Annette/Radha/Jacobo Tapia/Elizabeth): no Vaccinations: Vaccination - Influenza Vaccination Screen: Is it flu season (between and March 01)Yes Screening for identified contraindications to influenza vaccination patient/caregiver refusal Vaccination - Pneumonia Vaccination Screen: Patient has received a previous pneumonia vaccine:no/unknown... Pneumonia vaccine NOT indicated due to:No contraindications to vaccine Pneumonia vaccine indicatedyes Jg: Skin - Jg Scale: Jg: Sensory Perception (response t (more content not included)... Normal [facility] BASIC METABOLIC PANELon 10-2 Anion gap [Moles/Vol] 16 mmol/L Normal 10 - 20 [facility] Comment on above: Performed By: #### B MP #### [address] [address] Calcium [Mass/Vol] 8.7 mg/dL Normal 8.6 - 10.3 [facility] Comment on above: Performed By: #### B MP #### [address] [address] Chloride [Moles/Vol] 101 mmol/L Normal 98 - 107 [facility] Comment on above: Performed By: #### B MP #### [address] [address] Creatinine [Mass/Vol] 1.38 mg/dL High 0.50 - 1.30 [facility] Comment on above: Performed By: #### B MP #### [address] [address] GFR/1.73 sq M.predicted among non-blacks MDRD (S/P/Bld) [Vol rate/Area] 50 mL/min/{1.73_m2} Abnormal >90 [facility] Comment on above: Result Comment: CALC ULATIONS OF ESTIMATED GFR ARE PERFORMED USING THE 2020 CKD-EPI STUDY REFIT EQUATION WITHOUT THE RACE VARIABLE FOR THE IDMS-TRACEABLE CREATININE METHODS. https://jasn.asnjournals.org/content/early//ASN.36099 70682 Performed By: #### B MP #### [address] [address] Glucose [Mass/Vol] 120 mg/dL High 74 - 99 [facility] Comment on above: Performed By: #### B MP #### [address] [address] HCO3 (Bld) [Moles/Vol] 22 mmol/L Normal 21 - 32 [facility] Comment on above: Performed By: #### B MP #### [address] [address] Potassium [Moles/Vol] 3.6 mmol/L Normal 3.5 - 5.3 [facility] Comment on above: Performed By: #### B MP #### [address] [address] Sodium [Moles/Vol] 135 mmol/L Low 136 - 145 [facility] Comment on above: Performed By: #### B MP #### [address] [address] Urea nitrogen [Mass/Vol] 29 mg/dL High 6 - 23 [facility] Comment on above: Performed By: #### B MP #### [address] [address] BLOOD CULTURE, BACTERIALon 1 BLOOD CULTURE, BACTERIAL PATIENT: NOLLETTI, GRANT V. LOCATION: [facility] LUCIO#: [id number] : 39 AGE: SEX: M ORDERED BY: CHELA BONILLA SOURCE: Blood COLLECTED: 09/19/22 23:57 ANTIBIOTICS AT SANDEEP.: RECEIVED : 09/20/22 13:09 SITE: ANTECUBITAL R E S U L T S BLOOD CULTURE, BACTERIAL FINAL 09/24/22 13:42 No Growth at 1 days No Growth at 2 days No Growth at 3 days NO GROWTH at 4 days - FINAL REPORT [facility] Comment on above: Performed By: #### B LDC ####[id number] [place] [address] BLOOD CULTURE, BACTERIAL PATIENT: GRANT ISLAS V. LOCATION: [facility] LUCIO#: [id number] : 39 AGE: SEX: M ORDERED BY: CHELA BONILLA SOURCE: Blood COLLECTED: 09/19/22 23:57 ANTIBIOTICS AT SANDEEP.: RECEIVED : 09/20/22 13:09 SITE: R E S U L T S BLOOD CULTURE, BACTERIAL FINAL 09/24/22 13:42 No Growth at 1 days No Growth at 2 days No Growth at 3 days NO GROWTH at 4 days - FINAL REPORT [facility] Comment on above: Performed By: #### B LDC ####[id number] [place] [address] CBC AND DIFFERENTIALon 09-20 DIFFERENTIAL SEE MANUAL DIFF [facility] Comment on above: Performed By: #### B MP #### [address] [address] Erythrocyte distribution width (RBC) [Ratio] 14.4 % Normal 11.5 - 14.5 [facility] Comment on above: Performed By: #### B MP #### [address] [address] Hematocrit (Bld) [Volume fraction] 36.7 % Low 41.0 - 52.0 [facility] Comment on above: Performed By: #### B MP #### [address] [address] Hemoglobin (Bld) [Mass/Vol] 12.3 g/dL Low 13.5 - 17.5 [facility] Comment on above: Performed By: #### B MP #### [address] [address] MCHC (RBC) [Mass/Vol] 33.6 g/dL Normal 32.0 - 36.0 [facility] Comment on above: Performed By: #### B MP #### [address] [address] MCV (RBC) [Entitic vol] 93 fL Normal 80 - 100 [facility] Comment on above: Performed By: #### B MP #### [address] [address] NUCLEATED RBC 0.1 /100 WBC Normal [facility] Comment on above: Performed By: #### B MP #### [address] [address] Platelets (Bld) [#/Vol] 219 10*3/uL Normal 150 - 450 [facility] Comment on above: Performed By: #### B MP #### [address] [address] RBC 3.96 x10E12/L Low 4.50 - 5.90 [facility] Comment on above: Performed By: #### B MP #### [address] [address] WBC (Bld) [#/Vol] 10.5 10*3/uL Normal 4.4 - 11.3 [facility] Comment on above: Performed By: #### B MP #### [address] [address] [address] ANGIO CHEST FOR PEon 09-02 CT ANGIO CHEST FOR PE Patient Name: GRANT ISLAS STUDY: CT ANGIO CHEST FOR PE; 09/19/2022 10:56 pm INDICATION: elevated ddimer, covid+ . COMPARISON: None. ACCESSION NUMBER(S): [id number] ORDERING CLINICIAN: CHELA BONILLA TECHNIQUE: Contiguous axial images of the chest [...] atelectasis. Electronically signed by: [place] CRAWLEY MD [facility] Discharge Planning [id number] 1 Discharge Planning Note2 Discharge Planning: Discharge Barriersnone Planned Dispositionhome with homecare Discharge DestinationAccepting SNF vs HHC vs Oupt PCP/Next Provider Follow Up Scheduledyes Patient/Physical Therapist Aide Stated [facility] [place] of Choice Explainedyes Anticipated Discharge [id number] Discharge Planning 09-20-22, 0945, Care Transitions/TCC Note: Spoke with patient to verify contact information and insurance. Explained Care Transitions and Nurse Manual Equipment Mechanic role to navigate patient through the discharge planning process and help with any discharge needs. Patient in agreement and is extremely MARY'S IGLOO even with hearing aides. Difficult to have conversation with him. Most information obtained from patient spouse who is GILES, and his son, Rakan ([phone]). Patient lives in one story home with [...] about SNF placement. Call placed to son/Rakan [phone] to discuss the above. Rakan alludes to SNF placement maybe being the best option short term. His preferences are [facility], [facility], and [facility]. Rakan has worked in long-term care and [...] Built and sent new SNF referral to [facility], [place] and [facility], awaiting response. Nilda Rocha Care Navigation Team [phone] 09/22/2022 7639 Care Transitions - Social Work: Per Dr. Tillman, Pt will be medically appropriate for d/c today. Per [employer]scripts, [facility] and [facility] are unable to accept until Pt is COVID-recovered. [facility] has not responded via Allscripts. SW phoned same, and staff is not sure whether or not [facility] takes admissions over the weekend. SW per Pt/family request, SW attempted to phone Pt's son to discuss same. SW needed to leave voicemail and awaits reply. - 8714: SW received a call back from Pt's [...] Per nursing, Pt's son/Xavier is here at [facility] and ready to meet with SW. - 8665: SW met with Pt's son/Xavier ([phone]) at Pt's room. Xavier states that Pt wishes to return home with Pt's , and that family will transport Pt to and from PT appointments in the community. No HHC desired at this time. Pt's son/Xavier confirmed that Pt's is in a very disagreeable frame of mind, but that she continues to demonstrate appropriate care toward Pt, and only 'takes out her david' on her adult children. SW offered support and understanding. SW offered a list of skilled [facility] providers as well as private duty providers, in the event that these should be helpful to Pt/family in future. Pt's son accepted same and expressed appreciation. Plan for Pt to return home with Pt's and adult children's support; Pt to f/u with PT as outpt. No further CT needs foreseen. CT available upon request. NATHAN Valaldares Assessment: Discharge Planning Assessment [id number] Discharge Planning Assessment Completed byGoldie Schmid RN/TCC Primary Contact Name and HwvdteBgglz-[phone] Prior Level of Functioningindependent Lives Withspouse(1) Living Arrangementspatient lives with spouse in a one sto (more content not included)... Normal [facility] MANUAL DIFFERENTIALon 2021 % BAND NEUTROPHIL 12.0 % Abnormal 0.0 - 5.0 [facility] Comment on above: Performed By: #### B MP #### [place] [address] % BASOPHIL 0.0 % Normal 0.0 - 2.0 [facility] Comment on above: Performed By: #### B MP #### [address] [address] % EOSINOPHIL 1.0 % Normal 0.0 - 6.0 [facility] Comment on above: Performed By: #### B MP #### [address] [address] % LYMPHOCYTE 9.0 % Normal 13.0 - 44.0 [facility] Comment on above: Performed By: #### B MP #### [address] [address] % MONOCYTE 4.0 % Normal 2.0 - 10.0 [facility] Comment on above: Performed By: #### B MP #### [address] [address] % SEG NEUTROPHIL 74.0 % Normal 40.0 - 80.0 [facility] Comment on above: Result Comment: Perc ent differential counts (%) should be interpreted in the context of the absolute cell counts (cells/L). Performed By: #### B MP #### [address] [address] ANC 9.03 x10E9/L High 1.60 - 5.50 [facility] Comment on above: Performed By: #### B MP #### [address] [address] BAND NEUTROPHIL 1.26 x10E9/L High 0.00 - 0.50 [facility] Comment on above: Performed By: #### B MP #### [address] [address] BASOPHIL 0.00 x10E9/L Normal 0.00 - 0.10 [facility] Comment on above: Performed By: #### B MP #### [address] [address] EOSINOPHIL 0.11 x10E9/L Normal 0.00 - 0.40 [facility] Comment on above: Performed By: #### B MP #### [address] [address] LYMPHOCYTE 0.95 x10E9/L Normal 0.80 - 3.00 [facility] Comment on above: Performed By: #### B MP #### [address] [address] MONOCYTE 0.42 x10E9/L Normal 0.05 - 0.80 [facility] Comment on above: Performed By: #### B MP #### [place] [id number] SEG NEUTROPHIL 7.77 x10E9/L High 1.60 - 5.00 [facility] Comment on above: Performed By: #### B MP #### [place] [id number] Order Reconciliationon 09-20 Order Reconciliation Page 1 Admission Reconciliation Document Reconciliation Type: ED to Observation requested on behalf of Cortez Gibson (Physician) done by Cortez Gibson (DO) ED to Observation - Reconciliation: 20-Sep-2022 01:16 by: Cortez Gibson (DO) ED to Observation - AutoLinked: 20-Sep-2022 01:16 by: Cortez Gibson (DO) Home MedicationsEnteredLast Dose TakenReconciled with current Order Reconciliation Comment/ Additional Information amlodipine-benazepril 5 mg-10 mg oral capsule 1 cap(s) orally once a day [id number] AM Reviewed and Held aspirin 162 mg oral delayed release tablet [id number] AM Aspirin Enteric Coated Enteric Coated Tablet (ECOTRIN)DOSE = 162 mg Oral Daily aspirin 162 mg oral delayed release tablet continued as the inpatient order Aspirin Enteric Coated lovastatin 20 mg oral tablet 1 tab(s) orally once a [id number] AM Pravastatin Tablet (PRAVACHOL)DOSE = 20 mg Oral DailyNotes from Pharmacy: Substitution for Lovastatin (MEVACOR) 20mg Oral At Bedtimelovastatin 20 mg oral tablet continued as the inpatient order Pravastatin Paxlovid 300 mg-100 mg Dose Pack oral tablet AM Reviewed and Held Normal [facility] PROCALCITONINon 09-20-2022 PROCALCITONIN 2.85 ng/mL Abnormal <=0.07 [facility] Comment on above: Result Comment: Proc alcitonin [...] been evaluated. Performed By: #### P CALC ####[id number] [place] [address] PT Evaluation v2-individual therapyon 09-20-2022 PT Evaluation v2-individual therapy Rehab: Info: Mode of Treatmentindividual therapy; physical therapy Time IN11:34 Time OUT11:54 Total Treatment [id number] Patient in ... at end of sessionchair; alarm on; call light in reach Patient Effortgood Symptoms Noted During/After Treatmentfatigue Patient Profile Reviewedyes Onset of Illness/Injury or Date of [id number] Reason for Referralimpaired mobility Referring Physiciantucker Patient/Family/Caregiver Comments/Observationspatie nt awake in chair on arrival. Patient had slid way down in chair and buttocks were nearly on the foot rests. No chair alarm plugged in. patient very MARY'S IGLOO. Agreeable to PT. States he needed to [...] fall PMH: is COVID+, HTN, hypercholesterolemia Hearing Precautions/LimitationsHOH , wearing aides Precautions/Limitationsfal l precautions; contact/droplet due to COVID+; oxygen therapy device and L/min Limitations/Impairmentsend urance; safety/cognitive Developmental Statusindependent, age appropriate Ambulation Skills - Previous Level of Functionindependent needs device Transfer Skills - Previous Level of Functionindependent; needs device Living Arrangementspatient lives with spouse in a one story home. He has a lot of difficulty understanding questions due to MARY'S IGLOO. It is unclear if he uses a [...] PT. Grossly 3+ to 4-/5 Mobility/Tone: Transfer Assessment/Interventionssi t to stand transfer; stand to sit transfer Comment, Transferscues for hand placement; Sit-Stand Richardson (Transfers)contact guard; 1 person assist Sit-Stand Assistive Device (Transfers)gait belt; walker, front-wheeled Stand-Sit Richardson (Transfers)contact guard; 1 person assist; verbal cues Stand-Sit Assistive Device (Transfers)gait belt; walker, front-wheeled Gait/Stairs Locomotiongait/ambulation independence; gait/ambulation assistive device; distance ambulated Gait Locomotion (Gait)contact guard; 1 person assist; verbal cues Assistive Device (Gait Training)walker, front-wheeled; gait belt Distance in Feet (Gait Training)26' Comment, Gait/Stairs Traininginitially patient ambulating to [facility] and having BM. nurse present to assist with toileting. patient states he normally toilets himself but that since he's in hospital that's a perk of having help; patient steady ambulation with FWw. patient reports fatigue at end of ambulation and did not want to ambulate another lap in room Safety Issues Impacting Function (Mobility)safety precaution awareness Impairments Impacting Function (Mobility)endurance/activi ty tolerance; strength; balance Sensory: Comment, Pre/Post Treatment [...] stated thera (more content not included)... Normal [facility] Patient Profile - Adult v2on 09-20-2022 Patient Profile - Adult v2 Profile: Initial Info: How to be AddressedJohn Spoken Language PreferredEnglish Source of Informationpatient; family Stated Reason for Admissioncovid Primary Contact Name and NumberSteve: [phone] Wants Family/Rep Notified of Admissionyes, primary contact Notify PCPnotify PCP Informed of Patient [place] Patient Belongingsremains with patient Patient Belongings Remaining with Patientclothing; hearing aids; vision aids Medications Brought to Hospitalno History of MDROno General Health: Weight in kg67.7 kilogram(s) Weight in yix218.2 pound(s) Weight Methodactual (measured) Scale Typebed Height [...] Health Mgmt: Symptoms/Conditions Managed at Homecardiovascular Cardiovascular Symptoms/Conditionshyperte nsion Cardiovascular Managementmanaged Relationship/Environ: Resource/Environmental Concernsnone Primary Source of Support/Comfortchild(nick); spouse Lives Withspouse Living Arrangementshouse Services [facility]tic[facility] [place]ticipated [place] Significant IndicatorsComplete Information Review: Allergies, Home Meds and Significant Events have been Reviewed and Verified with Patient/Familyyes ALLERGY, INTOLERANCE, ADVERSE EVENT: Allergies: No Known Allergies: Active Electronic Signatures: Alyssa Melendez) (Signed 20-Sep-2022 00:51) Authored: Initial Info, General Health, RSP Based Care, Substance, Health Mgmt, Relationship/Environ, Additional Information Reji Spangler) (Signed 22-Sep-2022 11:34) Authored: Initial Info Last Updated: 22-Sep-2022 11:34 by Reji Spangler (NASEEM) [facility] RED CELL MORPHOLOGYon 2021 GIANT PLATELETS FEW [facility] Comment on above: Performed By: #### M ORP2 #### [place] [address] HYPOCHROMASIA MILD [facility] Comment on above: Performed By: #### M ORP2 #### [place] [address] RBC morphology finding Nom (Bld) SEE BELOW [facility] Comment on above: Performed By: #### M ORP2 #### [address] [address] CBC AND DIFFERENTIALon 09-19 DIFFERENTIAL SEE MANUAL DIFF Normal [facility] Comment on above: Performed By: #### C BCDF ####[address] [address] Erythrocyte distribution width (RBC) [Ratio] 14.3 % Normal 11.5 - 14.5 [facility] Comment on above: Performed By: #### C BCDF ####[address] [address] Hematocrit (Bld) [Volume fraction] 39.1 % Low 41.0 - 52.0 [facility] Comment on above: Performed By: #### C BCDF ####[address] [address] Hemoglobin (Bld) [Mass/Vol] 12.6 g/dL Low 13.5 - 17.5 [facility] Comment on above: Performed By: #### C BCDF ####[address] [address] MCHC (RBC) [Mass/Vol] 32.4 g/dL Normal 32.0 - 36.0 [facility] Comment on above: Performed By: #### C BCDF ####[address] [address] MCV (RBC) [Entitic vol] 93 fL Normal 80 - 100 [facility] Comment on above: Performed By: #### C BCDF ####[address] [address] Platelets (Bld) [#/Vol] 246 10*3/uL Normal 150 - 450 [facility] Comment on above: Performed By: #### C BCDF ####[address] [address] RBC 4.18 x10E12/L Low 4.50 - 5.90 [facility] Comment on above: Performed By: #### C BCDF ####[address] [address] WBC (Bld) [#/Vol] 14.1 10*3/uL High 4.4 - 11.3 [facility] Comment on above: Performed By: #### C BCDF ####[address] [address] CHEST 1 VIEWon 09-19-2022 CHEST 1 VIEW Patient Name: GRANT ISLAS STUDY: CHEST 1 VIEW; 09/19/2022 8:19 pm INDICATION: weakness . COMPARISON: None. ACCESSION NUMBER(S): [id number] ORDERING CLINICIAN: CHELA BONILLA FINDINGS: The cardiac silhouette is normal in size. Atherosclerotic calcification of the thoracic aorta. Mild left basilar atelectasis. Otherwise no airspace consolidation or pleural effusion. No pneumothorax. IMPRESSION: No airspace consolidation or pleural effusion. Electronically signed by: [place] CRAWLEY MD Normal [facility] COMPREHENSIVE PANELon 2021 Albumin [Mass/Vol] 4.1 g/dL Normal 3.4 - 5.0 [facility] Comment on above: Performed By: #### C MP #### [address] [address] ALP [Catalytic activity/Vol] 54 U/L Normal 33 - 136 [facility] Comment on above: Performed By: #### C MP #### [address] [address] ALT [Catalytic activity/Vol] 22 U/L Normal 10 - 52 [facility] Comment on above: Result Comment: Julia ents treated with Sulfasalazine may generate falsely decreased results for ALT. Performed By: #### C MP #### [address] [address] Anion gap [Moles/Vol] 14 mmol/L Normal 10 - 20 [facility] Comment on above: Performed By: #### C MP #### [address] [address] AST [Catalytic activity/Vol] 40 U/L High 9 - 39 [facility] Comment on above: Performed By: #### C MP #### [address] [address] Bilirubin [Mass/Vol] 0.5 mg/dL Normal 0.0 - 1.2 [facility] Comment on above: Performed By: #### C MP #### [address] [address] Calcium [Mass/Vol] 9.5 mg/dL Normal 8.6 - 10.3 [facility] Comment on above: Performed By: #### C MP #### [address] [address] Chloride [Moles/Vol] 99 mmol/L Normal 98 - 107 [facility] Comment on above: Performed By: #### C MP #### [address] [address] Creatinine [Mass/Vol] 1.51 mg/dL High 0.50 - 1.30 [facility] Comment on above: Performed By: #### C MP #### [address] [address] GFR/1.73 sq M.predicted among non-blacks MDRD (S/P/Bld) [Vol rate/Area] 45 mL/min/{1.73_m2} Abnormal >90 [facility] Comment on above: Result Comment: CALC ULATIONS OF ESTIMATED GFR ARE PERFORMED USING THE 2020 CKD-EPI STUDY REFIT EQUATION WITHOUT THE RACE VARIABLE FOR THE IDMS-TRACEABLE CREATININE METHODS. https://jasn.asnjournals.org/content//ASN.50457 [address]2462 Performed By: #### C MP #### [address] [address] Glucose [Mass/Vol] 117 mg/dL High 74 - 99 [facility] Comment on above: Performed By: #### C MP #### [address] [address] HCO3 (Bld) [Moles/Vol] 25 mmol/L Normal 21 - 32 [facility] Comment on above: Performed By: #### C MP #### [address] [address] Potassium [Moles/Vol] 4.4 mmol/L Normal 3.5 - 5.3 [facility] Comment on above: Performed By: #### C MP #### [address] [address] Protein [Mass/Vol] 7.9 g/dL Normal 6.4 - 8.2 [facility] Comment on above: Performed By: #### C MP #### [address] [address] Sodium [Moles/Vol] 134 mmol/L Low 136 - 145 [facility] Comment on above: Performed By: #### C MP #### [address] [address] Urea nitrogen [Mass/Vol] 32 mg/dL High 6 - 23 [facility] Comment on above: Performed By: #### C MP #### [address] [address] [address] C-SPINE WO CONTRASTon CT C-SPINE WO CONTRAST Patient Name: GRANT ISLAS STUDY: CT C-SPINE WO CONTRAST; 09/19/2022 8:04 pm INDICATION: weakness, fall . COMPARISON: None. ACCESSION NUMBER(S): [id number] ORDERING CLINICIAN: CHELA BONILLA TECHNIQUE: Contiguous axial images of the cervical [...] Electronically signed by: [place] CRAWLEY MD Normal [facility] CT HEAD WO CONTRASTon 2021 CT HEAD WO CONTRAST Patient Name: GRANT ISLAS STUDY: CT HEAD WO CONTRAST; 09/19/2022 8:04 pm INDICATION: weakness, fall . COMPARISON: None ACCESSION NUMBER(S): [id number] ORDERING CLINICIAN: CHELA BONILLA TECHNIQUE: Contiguous axial images of the head [...] change. Electronically signed by: OH CRAWLEY MD [facility] Covid 19 Resultson 2 SARS-CoV-2 (COVID-19) RNA [...] may also be contacted by the [facility] to see if any of your [...] or Naproxen (Aleve) can also be used. Bjgn-qby-iznghmo cough and cold medicines can be used according to the instructions on the package. Some nlew-qtt-udiurrv medicines also contain acetaminophen. Make sure you [...] water are not available, use alcohol-based hand machine installer. Avoid touching your eyes, nose, and mouth [...] 24 ruth (more content not included)... Normal [facility] D-DIMER, NON VTEon 2 D-DIMER, NON VTE 1712 ng/mL FEU Abnormal = 500 [facility] Comment on above: Result Comment: THE D-DIMER ASSAY IS REPORTED IN NG/ML FIBRINOGEN EQUIVALENT UNITS (FEU). THE RESULTS OF THIS ASSAY SHOULD NOT BE USED FOR THE EXCLUSION OF DEEP VEIN THROMBOSIS AND/OR PULMONARY EMBOLISM. Performed By: #### D JAVIER #### [id number] [place] [address] HIP, UNILATERAL W/PELVIS WHE N PERFORMED 2-3 VIEWSon 09-19-2022 HIP, UNILATERAL W/PELVIS WHEN PERFORMED 2-3 VIEWS Patient Name: GRANT ISLAS STUDY: HIP, UNILATERAL W/PELVIS WHEN PERFORMED 2-3 VIEWS; Right; 09/19/2022 8:19 pm INDICATION: pain . COMPARISON: None. ACCESSION NUMBER(S): [id number] ORDERING CLINICIAN: CHELA BONILLA FINDINGS: No evidence of acute displaced pelvic [...] Electronically signed by: [place] CRAWLEY MD Normal [facility] INFLUENZA A/B, COVID 2019 PC R,SYMPTOMATICon 09-19-2022 INFLUENZA A, PCR Not detected Normal Not Detected [facility] Comment on above: Result Comment: Resp iratory virus testing is performed routinely by PCR for Influenza A/B and RSV. Not Detected results do not preclude Influenza A/B or RSV infections since the adequacy of sample collection or low viral burden may impact the clinical sensitivity of this test method. Performed By: #### C OINP #### [place] [address] INFLUENZA B, PCR Not detected Normal Not Detected [facility] Comment on above: Result Comment: Resp iratory virus testing is performed routinely by PCR for Influenza A/B and RSV. Not Detected results do not preclude Influenza A/B or RSV infections since the adequacy of sample collection or low viral burden may impact the clinical sensitivity of this test method. Performed By: #### C OINP #### [id number] SARS-CoV-2 (COVID-19) RNA TREVON+probe Ql (Unsp spec) Detected Abnormal Not Detected [facility] Comment on above: Result Comment: . This test has received FDA Emergency Use Authorization (EUA) and has been verified by [facility]. This test is only authorized for the duration of time that circumstances exist to justify the authorization of the emergency use of in vitro diagnostic tests for the detection of SARS-CoV-2 virus and/or diagnosis of COVID-19 infection under section 564(b)(1) of the Act, 21 U.S.C. 360bbb-3(b)(1), unless the authorization is terminated or revoked sooner. [facility] is certified under CLIA-88 as qualified to perform high complexity testing. Testing is performed in the [facility] laboratory located at [address] [place] [address]. SARS-CoV-2/Flu/RSV Multiplex Test: Fact sheet for providers: https://www.fda.gov/media/317501/download Fact sheet for patients: https://www.fda.gov/media/606031/download Performed By: #### C OINP #### [place] [address] Lab Specimen Source Nasal, Nasopharyngeal Normal [facility] Comment on above: Performed By: #### C OINP #### [place] [address] LACTATEon 09-19-2022 Lactate [Moles/Vol] 1.0 mmol/L Normal 0.4 - 2.0 [facility] Comment on above: Result Comment: Tracie puncture immediately after or during the administration of Metamizole may lead to falsely low results. Testing should be performed immediately prior to Metamizole dosing. Performed By: #### L ACT ####[place] [address] MANUAL DIFFERENTIALon 2021 % BAND NEUTROPHIL 3.0 % Normal 0.0 - 5.0 [facility] Comment on above: Performed By: #### M DIFF ####[address] [address] % BASOPHIL 0.0 % Normal 0.0 - 2.0 [facility] Comment on above: Performed By: #### M DIFF ####[address] [address] % EOSINOPHIL 0.0 % Normal 0.0 - 6.0 [facility] Comment on above: Performed By: #### M DIFF ####[address] [address] % LYMPHOCYTE 5.0 % Normal 13.0 - 44.0 [facility] Comment on above: Performed By: #### M DIFF ####[address] [address] % MONOCYTE 4.0 % Normal 2.0 - 10.0 [facility] Comment on above: Performed By: #### M DIFF ####[address] [address] % SEG NEUTROPHIL 88.0 % Normal 40.0 - 80.0 [facility] Comment on above: Result Comment: Perc ent differential counts (%) should be interpreted in the context of the absolute cell counts (cells/L). Performed By: #### M DIFF ####[place] [address] ANC 12.83 x10E9/L High 1.60 - 5.50 [facility] Comment on above: Performed By: #### M DIFF ####[place] [address] BAND NEUTROPHIL 0.42 x10E9/L Normal 0.00 - 0.50 [facility] Comment on above: Performed By: #### M DIFF ####[place] [address] BASOPHIL 0.00 x10E9/L Normal 0.00 - 0.10 [facility] Comment on above: Performed By: #### M DIFF ####[address] [address] EOSINOPHIL 0.00 x10E9/L Normal 0.00 - 0.40 [facility] Comment on above: Performed By: #### M DIFF ####[place] [address] LYMPHOCYTE 0.71 x10E9/L Low 0.80 - 3.00 [facility] Comment on above: Performed By: #### M DIFF ####[address] [address] MONOCYTE 0.56 x10E9/L Normal 0.05 - 0.80 [facility] Comment on above: Performed By: #### M DIFF ####[id number] SEG NEUTROPHIL 12.41 x10E9/L High 1.60 - 5.00 [facility] Comment on above: Performed By: #### M DIFF ####[address] [place] [address] Provider Note - ED v3on 09-01 Provider [...] Reference Range: STRAW,YELLOW Appearance, Urine HAZY Specific [place], Urine 1.019 pH, Urine 5.0 Protein, Urine [...] Authorization (EUA) and has been verified by [facility]. This test is only authorized for the [...] and/or mild aspiration. Mild bibasilar subsegmental atelectasis. TH CT Angio Chest for PE [Sep 19 2022 11:24PM] Impression: No evidence of acute displaced pelvic or right hip fracture. If the patient is acutely unable to bear weight or pain increases, cross-sectional imaging is recomm (more content not included)... Normal [facility] RED CELL MORPHOLOGYon 2021 RBC morphology finding Nom (Bld) NORMAL Normal [facility] Comment on above: Performed By: #### M ORP2 #### [place] [address] TROPONIN I, HIGH SENSITIVITY on 09-19-2022 TROPONIN I, HIGH SENSITIVITY 33 ng/L High 0 - 20 [facility] Comment on above: Result Comment: . Less [...] performed using a different testing methodology at [facility] than at other [facility]. Direct result comparisons should only be made within the same method. Performed By: #### B MP #### [address] [address] TROPONIN I, HIGH SENSITIVITY 30 ng/L High 0 - 20 [facility] Comment on above: Result Comment: . Less [...] performed using a different testing methodology at [facility] than at other [facility]. Direct result comparisons should only be made within the same method. Performed By: #### T [facility] [[email or web address]] #### [address] [address] Triage - EDon 09-19-2022 Triage - ED [...] obeys commands Best Verbal Response: (V5) oriented [place] Score: 15 Cough lasting greater than 3 [...] 19-Sep-2022 18:26 by Mandy Diaz (RN) Normal [facility] UA MICROSCOPICon 09-19-2022 Mucus Ql (Urine sed) 1+ /LPF Normal [facility] Comment on above: Performed By: #### U AMIC ####[address] [address] RBC 5 /HPF Normal 0-5 [facility] Comment on above: Performed By: #### U AMIC ####[place] [address] SQUAMOUS EPITH. CELLS <1 Normal [facility] Comment on above: Performed By: #### U AMIC ####[place] [address] WBC 1 /HPF Normal 0-5 [facility] Comment on above: Performed By: #### U AMIC ####[id number] URINALYSIS WITH CULTURE IF I NDICATEDon 09-19-2022 Appearance (U) HAZY Normal CLEAR [facility] Comment on above: Performed By: #### B MP #### [address] [address] Bilirubin Ql (U) Negative Normal NEGATIVE [facility] Comment on above: Performed By: #### B MP #### [address] [address] Color (U) Yellow Normal STRAW,YELLO W [facility] Comment on above: Performed By: #### B MP #### [address] [address] Glucose Ql (U) Negative Normal NEGATIVE [facility] Comment on above: Performed By: #### B MP #### [address] [address] Hemoglobin Ql (U) LARGE(3+) Abnormal NEGATIVE [facility] Comment on above: Performed By: #### B MP #### [place] [address] [id number] Ketones Ql (U) 5(TRACE) Abnormal NEGATIVE [facility] Comment on above: Performed By: #### B MP #### [address] [address] Leukocyte esterase Test strip Ql (U) Negative Normal NEGATIVE [facility] Comment on above: Performed By: #### B MP #### [address] [address] Nitrite Ql (U) Negative Normal NEGATIVE [facility] Comment on above: Performed By: #### B MP #### [address] [address] pH (U) 5.0 [pH] Normal 5.0 - 8.0 [facility] Comment on above: Performed By: #### B MP #### [address] [address] Protein Ql (U) 100(2+) Abnormal NEGATIVE [facility] Comment on above: Performed By: #### B MP #### [id number] Specific gravity (U) [Rel density] 1.019 Normal 1.005 - 1.035 [facility] Comment on above: Performed By: #### B MP #### [address] [address] Urobilinogen (U) [Mass/Vol] mg/dL Normal 0.0 - 1.9 [facility] Comment on above: Performed By: #### B MP #### [address] [address] Absolute lymphocyte counton 09-10-2022 Lymphocytes Auto (Unsp spec) [#/Vol] 1.70 10*3/uL 0.83-4.51 [facility] Work Phone: [phone] Basophil percentageon 2021 Basophils/100 WBC (Bld) 0.4 % 0-1 [facility] Work Phone: Bilirubin [Mass/Vol] 0.30 mg/dL 0.20-1.00 [facility] Work Phone: [phone] Comment on above: For patients on eltr ombopag therapy, use of Dimension [place] TBIL is not recommended. Chloride [Moles/Vol] 105 mmol/L 98-107 [facility] Work Phone: Cholesterol [Mass/Vol] 192 mg/dL <200 Wo titi [facility] Work Phone: Comment on above: <200 mg/dL Desirable 200-240 mg/dL Borderline >240 mg/dL High Risk Eosinophils/100 WBC (Bld) 1.5 % 0-5 [facility] Work Phone: Glucose [Mass/Vol] 70 mg/dL 74-106 [facility] Work Phone: Neutrophils (Bld) [#/Vol] 5.3 10*3/uL 2.0-7.7 [facility] Work Phone: Neutrophils/100 WBC (Bld) 66.6 % 47-70 [facility] Work Phone: Potassium [Moles/Vol] 4.3 mmol/L 3.5-5.1 [facility] Work Phone: Protein [Mass/Vol] 8.0 g/dL 6.4-8.2 [facility] Work Phone: Sodium [Moles/Vol] 140 mmol/L 136-145 [facility] Work Phone: Triglyceride [Mass/Vol] 126 mg/dL <199 [facility] Work Phone: Comment on above: The drugs N-Acetylcy steine and Metamizole may falsely depress this assay.Serum Triglycerides Reference Interval Normal <150 mg/dL Borderline high 150 - 199 mg/dL High 200 - 499 mg/dL Very High > or = 500 mg/dL WBC (Bld) [#/Vol] 8.0 10*3/uL 4.4-11.0 [facility] Work Phone: Blood erythrocytes count (nu mber/volume)on 09-10-2022 RBC (Bld) [#/Vol] 3.81 10*6/uL 4.6-6.2 [facility] Work Phone: Blood hemoglobin measurement (mass/volume)on 09-10-2022 Hemoglobin (Bld) [Mass/Vol] 12.1 g/dL 13.0-16.5 [facility] Work Phone: Blood lymphocytes/100 leukoc yteson 09-10-2022 Lymphocytes/100 WBC (Bld) 21.3 % 19-41 [facility] Work Phone: [phone] Blood monocytes/100 leukocyt eson 09-10-2022 Monocytes/100 WBC (Bld) 9.4 % 0-10 [facility] Work Phone: Blood platelet mean volumeon 09-10-2022 Platelet mean volume (Bld) [Entitic vol] 9.4 fL 6.2-12.0 [facility] Work Phone: Determination of erythrocyte mean corpuscular volume (MCV)on 09-10-2022 MCV (RBC) [Entitic vol] 95.8 fL 80-94 [facility] Work Phone: Hematocrit Auto (Bld) [Volum e fraction]on 09-10-2022 Hematocrit (Bld) [Volume fraction] 36.5 % 40-54 [facility] Work Phone: Laboratory - Chemistry and C hemistry - challengeon 09-10-2022 ALP [Catalytic activity/Vol] 57 U/L 45-117 [facility] Work Phone: ALT [Catalytic activity/Vol] 23 U/L 16-61 [facility] Work Phone: CO2 [Moles/Vol] 27.0 mmol/L 21.0-32.0 [facility] Work Phone: Globulin (S) [Mass/Vol] 4.7 g/dL 2.2-4.2 [facility] Work Phone: Urea nitrogen/Creatinine [Mass ratio] 17.1 mg/mg 10-20 [facility] Work Phone: Laboratory - Hematology and Cell countson 09-10-2022 Erythrocyte distribution width (RBC) [Entitic vol] 48.3 fL 35.1-43.9 [facility] Work Phone: Erythrocyte distribution width (RBC) [Ratio] 13.7 % 11.6-14.6 [facility] Work Phone: Immature granulocytes/100 WBC (Bld) 0.800 % 0.0-0.9 [facility] Work Phone: Comment on above: IG% - Immature Granu locytes (promyelocytes, myelocytes and metamyelocytes) > 1% indicates that a LEFT SHIFT is Present. MCH (RBC) [Entitic mass] 31.8 pg 27.0-32.0 [facility] Work Phone: Nucleated RBC/100 WBC (Bld) [Ratio] 0 % 0-5 [facility] Work Phone: MCHC Auto (RBC) [Mass/Vol]on 09-10-2022 MCHC (RBC) [Mass/Vol] 33.2 g/dL 32-[address] [facility] Work Phone: No Panel Informationon 09-10 Estimated GFR (MDRD) Amer 59 mL/min >60 [facility] Work Phone: Comment on above: GFR Calc Estimated GFR (MDRD) Non-Af Amer 49 mL/min >60 [facility] Work Phone: Comment on above: Non- GFR Calc Platelets bldon 09-10-2022 Platelets (Bld) [#/Vol] 293 10*3/uL 150-450 [facility] Work Phone: Serum or plasma albumin kaylah urement (mass/volume)on 09-10-2022 Albumin [Mass/Vol] 3.3 g/dL 3.2-5.0 [facility] Work Phone: Serum or plasma albumin/glob ulin mass ratioon 09-10-2022 Albumin/Globulin [Mass ratio] 0.7 {ratio} 0.9-2.4 [facility] Work Phone: Serum or plasma calcium kaylah urement (mass/volume)on 09-10-2022 Calcium [Mass/Vol] 9.3 mg/dL 8.5-10.1 [facility] Work Phone: Serum or plasma cholesterol in HDL measurement (mass/volume)on 09-10-2022 Cholesterol in HDL [Mass/Vol] 62 mg/dL >40 [facility] Work Phone: Comment on above: The drugs N-Acetylcy steine and Metamizole may falsely depress this assay. Reference Range HDL <40 mg/dL Low HDL Cholesterol HDL >or= 60 mg/dL High HDL Cholesterol Serum or plasma cholesterol in VLDL measurement (mass/volume)on 09-10-2022 Cholesterol in VLDL [Mass/Vol] 25 mg/dL 5-40 [facility] Work Phone: Serum or plasma creatinine m easurement (mass/volume)on 09-10-2022 Creatinine [Mass/Vol] 1.46 mg/dL 0.70-1.[address] [facility] Work Phone: Comment on above: The validity of the calculated GFR & GFRAA in patients over 70 years has not been determined. Clinical correlation is essential. Serum or plasma low density lipoprotein (LDL) cholesterol measurement (mass/volume)on 09-10-2022 Cholesterol in LDL [Mass/Vol] 105 mg/dL 0-130 [facility] Work Phone: Serum or plasma urea nitroge n measurement (mass/volume)on 09-10-2022 Urea nitrogen [Mass/Vol] 25 mg/dL 7-18 [facility] Work Phone: Thin prep Papanicolaou smear with manual screeningon 09-10-2022 Thin prep Papanicolaou smear with manual screening 19 U/L 15-37 [facility] Work Phone: Thin prep Papanicolaou smear with manual screening 8 5-15 [facility] Work Phone: No Panel Informationon 06-12 Prostate Specific Antigen Total < 0.01 ng/mL 0.0-4.0 [facility] Work Phone: Comment on above: This test was perfor med using the TPSA assay method for theDimension chemistry system. Values obtained with differentassay methods cannot be used interchangably.When changing PSA assays in the course of monitoring apatient, additional sequential testing should be carriedout to confirm baseline values. No Panel Informationon 01-09 Estimated GFR (MDRD) Amer 58 mL/min >60 [facility] Comment on above: GFR Calc Estimated GFR (MDRD) Non-Af Amer 48 mL/min >60 [facility] Comment on above: Non- GFR Calc Serum or plasma creatinine m easurement (mass/volume)on 01-09-2022 Creatinine [Mass/Vol] 1.48 mg/dL 0.70-1.[address] [facility] Comment on above: The validity of the calculated GFR & GFRAA in patients over 70 years has not been determined. Clinical correlation is essential. Vital Signs Date Time Vital Sign Value Performing Clinician Facility 06-28-2025 13:38-0400 Body height 172.[address] Shayy Wolff DO Work Phone: [facility] 06-28-2025 13:38-0400 Body temperature 97.9 [degF] Dr. Shayy Wolff DO Work Phone: [facility] 06-28-2025 13:38-0400 Diastolic blood pressure 104 mm[Hg] Dr. Shayy Wolff DO Work Phone: [facility] 06-28-2025 13:38-0400 Heart rate 59 /min Dr. Shayy Wolff DO Work Phone: [facility] 06-28-2025 13:38-0400 Respiratory rate 18 /min Dr. Shayy Wolff DO Work Phone: [facility] 06-28-2025 13:38-0400 SaO2% (BldA) [Mass fraction] 99 % Dr. Shayy Wolff DO Work Phone: [facility] 06-28-2025 13:38-0400 Systolic blood pressure 159 mm[Hg] Dr. Shayy Wolff DO Work Phone: [facility] 05-18-2025 13:06-0400 Body height 172.[address] Shayy Wolff DO Work Phone: [facility] 05-18-2025 13:06-0400 Body mass index (BMI) [Ratio] 22.8 kg/m2 Dr. Shayy Wolff DO Work Phone: [facility] 05-18-2025 13:06-0400 Body temperature 97 [degF] Dr. Shayy Wolff DO Work Phone: [facility] 05-18-2025 13:06-0400 Body weight 68.[address] Shayy Wolff DO Work Phone: [facility] 05-18-2025 13:06-0400 Diastolic blood pressure 90 mm[Hg] Dr. Shayy Wolff DO Work Phone: [facility] 05-18-2025 13:06-0400 Heart rate 65 /min Dr. Shayy Wolff DO Work Phone: [facility] 05-18-2025 13:06-0400 Respiratory rate 18 /min Dr. Shayy Wolff DO Work Phone: [facility] 05-18-2025 13:06-0400 SaO2% (BldA) [Mass fraction] 97 % Dr. Shayy Wolff DO Work Phone: [facility] 05-18-2025 13:06-0400 Systolic blood pressure 165 mm[Hg] Dr. Shayy Wolff DO Work Phone: [facility] 07-01-2023 09:05-0400 Body height 172.[address] Shayy Wolff Work Phone: [facility] 07-01-2023 09:05-0400 Body mass index (BMI) [Ratio] 24.5 kg/m2 Dr. Shayy Wolff Work Phone: [facility] 07-01-2023 09:05-0400 Body temperature 97.2 [degF] Dr. Shayy Wolff Work Phone: [facility] 07-01-2023 09:05-0400 Body weight 73.[address] Shayy Wolff Work Phone: [facility] 07-01-2023 09:05-0400 Diastolic blood pressure 79 mm[Hg] Dr. Shayy Wolff Work Phone: [facility] 07-01-2023 09:05-0400 Heart rate 62 /min Dr. Shayy Wolff Work Phone: [facility] 07-01-2023 09:05-0400 Respiratory rate 16 /min Dr. Shayy Wolff Work Phone: [facility] 07-01-2023 09:05-0400 SaO2% (BldA) [Mass fraction] 96 % Dr. Shayy Wolff Work Phone: [facility] 07-01-2023 09:05-0400 Systolic blood pressure 155 mm[Hg] Dr. Shayy Wolff Work Phone: [facility] 12-31-2022 09:07-0500 Body height 172.[address] Shayy Wolff Work Phone: [facility] 12-31-2022 09:04-0500 Body mass index (BMI) [Ratio] 25.1 kg/m2 Dr. Shayy Wolff Work Phone: [facility] 12-31-2022 09:04-0500 Body temperature 97.3 [degF] Dr. Shayy Wolff Work Phone: [facility] 12-31-2022 09:04-0500 Body weight 74.[address] Shayy Wolff Work Phone: [facility] 12-31-2022 09:04-0500 Diastolic blood pressure 83 mm[Hg] Dr. Shayy Wolff Work Phone: [facility] 12-31-2022 09:04-0500 Heart rate 75 /min Dr. Shayy Wolff Work Phone: [facility] 12-31-2022 09:04-0500 Respiratory rate 18 /min Dr. Shayy Wolff Work Phone: [facility] 12-31-2022 09:04-0500 SaO2% (BldA) [Mass fraction] 96 % Dr. Shayy Wolff Work Phone: [facility] 12-31-2022 09:04-0500 Systolic blood pressure 150 mm[Hg] Dr. Shayy Wolff Work Phone: [facility] 09-22-2022 09:56-0400 Body temperature 97.88 [degF] Shayy Wolff Other Phone: [facility] 09-22-2022 09:56-0400 Diastolic blood pressure 67 mm[Hg] Shayy Wolff Other Phone: [facility] 09-22-2022 09:56-0400 Heart rate 72 /min Shayy Wolff Other Phone: [facility] 09-22-2022 09:56-0400 Respiratory rate 22 /min Shayy Wolff Other Phone: [facility] 09-22-2022 09:56-0400 SaO2% (BldA) [Mass fraction] 93 % Shayy Wolff Other Phone: [facility] 09-22-2022 09:56-0400 Systolic blood pressure 114 mm[Hg] Shayy Wolff Other Phone: [facility] 08-21-2022 11:42-0400 Body height 172.[address] Shayy Wolff Work Phone: [facility] Work Phone: 08-21-2022 11:38-0400 Body mass index (BMI) [Ratio] 23.1 kg/m2 Dr. Shayy Wolff Work Phone: [facility] Work Phone: 08-21-2022 11:38-0400 Body temperature 97.5 [degF] Dr. Shayy Wolff Work Phone: [facility] Work Phone: 08-21-2022 11:38-0400 Body weight 69.[address] Shayy Wolff Work Phone: [facility] Work Phone: 08-21-2022 11:38-0400 Diastolic blood pressure 70 mm[Hg] Dr. Shayy Wolff Work Phone: [facility] Work Phone: 08-21-2022 11:38-0400 Heart rate 57 /min Dr. Shayy Wolff Work Phone: [facility] Work Phone: 08-21-2022 11:38-0400 Respiratory rate 16 /min Dr. Shayy Wolff Work Phone: [facility] Work Phone: 08-21-2022 11:38-0400 SaO2% (BldA) [Mass fraction] 99 % Dr. Shayy Wolff Work Phone: [facility] Work Phone: 08-21-2022 11:38-0400 Systolic blood pressure 140 mm[Hg] Dr. Shayy Wolff Work Phone: [facility] Work Phone: 08-09-2022 13:28-0400 Body height 172.[address] Shayy Wolff Work Phone: [facility] Work Phone: 08-07-2022 15:13-0400 Body mass index (BMI) [Ratio] 23.6 kg/m2 Dr. Shayy Wolff Work Phone: [facility] Work Phone: 08-07-2022 15:13-0400 Body temperature 97.2 [degF] Dr. Shayy Wolff Work Phone: [facility] Work Phone: 08-07-2022 15:13-0400 Body weight 70.[address] Shayy Wolff Work Phone: [facility] Work Phone: 08-07-2022 15:13-0400 Diastolic blood pressure 86 mm[Hg] Dr. Shayy Wolff Work Phone: [facility] Work Phone: 08-07-2022 15:13-0400 Heart rate 66 /min Dr. Shayy Wolff Work Phone: [facility] Work Phone: 08-07-2022 15:13-0400 Respiratory rate 16 /min Dr. Shayy Wolff Work Phone: [facility] Work Phone: 08-07-2022 15:13-0400 SaO2% (BldA) [Mass fraction] 97 % Dr. Shayy Wolff Work Phone: [facility] Work Phone: 08-07-2022 15:13-0400 Systolic blood pressure 144 mm[Hg] Dr. Shayy Wolff Work Phone: [facility] Work Phone: 06-26-2022 09:00-0400 Body mass index (BMI) [Ratio] 23.7 kg/m2 Dr. Shayy Wolff Work Phone: [facility] Work Phone: 06-26-2022 09:00-0400 Body temperature 98.2 [degF] Dr. Shayy Wolff Work Phone: [facility] Work Phone: 06-26-2022 09:00-0400 Body weight 70.[address] Shayy Wolff Work Phone: [facility] Work Phone: 06-26-2022 09:00-0400 Diastolic blood pressure 76 mm[Hg] Dr. Shayy Wolff Work Phone: [facility] Work Phone: 06-26-2022 09:00-0400 Heart rate 61 /min Dr. Shayy Wolff Work Phone: [facility] Work Phone: 06-26-2022 09:00-0400 Respiratory rate 16 /min Dr. Shayy Wolff Work Phone: [facility] Work Phone: 06-26-2022 09:00-0400 SaO2% (BldA) [Mass fraction] 99 % Dr. Shayy Wolff Work Phone: [facility] Work Phone: 06-26-2022 09:00-0400 Systolic blood pressure 141 mm[Hg] Dr. Shayy Wolff Work Phone: [facility] Work Phone: Encounters Encounter Date Encounter Type Care Provider Facility Start: 07-05-2025 Encounter for genera l adult medical examination without abnormal findings Ed Physician Provider [facility] Start: 07-01-2025 End: 07-01-[address] [facility] Start: 07-01-2025 End: 07-01-2025 ambulatory Shayy Wolff Facility:[facility] Start: 06-28-2025 End: 06-28-2025 Emergency department patient visit Dr. Shayy Wolff DO Work Phone: -Emergency Department Work Phone: Start: 05-18-2025 End: 05-18-[address] Xavier Johnson DO -[facility] Work Phone: Start: 05-18-2025 End: 05-18-[address] Shayy Wolff DO Work Phone: [facility] Work Phone: Start: 03-25-2025 End: 03-25-[address] Shayy Wolff DO -[facility] Work Phone: Start: 03-25-2025 End: 03-25-2025 ambulatory Shayy Wolff Facility:[facility] Start: 11-11-2024 End: 11-11-2024 ambulatory Shayy Wolff Facility:[facility] Start: 08-14-2024 End: 08-14-2024 ambulatory Shayy Wolff Facility:[facility] Start: 07-28-2024 End: 07-28-2024 ambulatory Shayy Wolff Facility:[facility] Start: 07-15-2024 End: 07-15-2024 ambulatory Denver Proano Facility:[facility] Start: 11-27-2023 End: 11-28-2023 ambulatory SHAYY WOLFF Facility:[facility] Start: 08-30-2023 End: 08-30-[address] Shayy Wolff Work Phone: [facility] Work Phone: Start: 08-30-2023 End: 08-30-[address] Shayy Wolff Work Phone: [facility] Work Phone: Start: 07-01-[address] Shayy Wolff Work Phone: [facility] Start: 07-01-2023 End: 07-01-[address] Shayy Wolff Work Phone: [facility] Work Phone: Start: 04-08-2023 End: 04-08-[address] Shayy Wolff Work Phone: [facility] Work Phone: Start: 04-08-2023 End: 05-08-[address] Shayy Wolff Work Phone: [facility] Start: 12-31-[address] [facility] Start: 12-31-2022 End: 12-31-[address] Shayy Wolff Work Phone: [facility] Start: 09-29-2022 End: 09-29-[address] Shayy Wolff Work Phone: [facility] Work Phone: Start: 09-29-2022 End: 09-29-[address] Shayy Wolff Work Phone: [facility] Start: 09-20-2022 End: 09-22-2022 Evaluation and management of inpatient [facility] Facility:[id number] Start: 09-19-2022 End: 09-22-2022 Evaluation and management of inpatient Primo Navarro [facility] Med Surg ICU 336 01 Start: 09-10-2022 End: 09-10-[address] Shayy Wolff Work Phone: [facility] Work Phone: Start: 09-10-2022 End: 09-10-[address] Shayy Wolff Work Phone: [facility] Start: 08-21-2022 End: 08-21-[address] Shayy Wolff Work Phone: [facility] Start: 08-08-2022 End: 08-08-[address] Shayy Wolff Work Phone: [facility] Start: 08-07-2022 End: 08-07-[address] Shayy Wolff Work Phone: [facility] Work Phone: Start: 08-07-2022 End: 08-07-[address] Shayy Wolff Work Phone: [facility]-Radiology, [facility] Start: 08-07-2022 End: 08-07-[address] Shayy Wolff Work Phone: [facility] Start: 06-26-2022 End: 06-26-[address] Shayy Wolff Work Phone: [facility] Start: 06-12-2022 End: 06-12-[address] Shayy Wolff Work Phone: [facility]Labor[facility] Start: 12-29-[address] Shayy Wolff Work Phone: [facility] Procedures Date Procedure Procedure Detail Performing Clinician Start: 07-01-[address] Shayy Wolff DO Work Phone: Start: 03-25-2025 CT of head without contrast Dr. Shayy Wolff DO Work Phone: Start: 09-19-2022 End: 09-19-2022 EKG impression Chela Bonilla Start: 08-07-2022 Pelvis X-ray Dr. Shayy fletcher Work Phone: Start: 01-09-2022 MRI of pelvis with contrast Dr. Shayy Wolff Work Phone: Plan of Treatment Date Care Activity Detail Author Start: 07-01-2023 Patient referral [facility] Work Phone: Start: 09-22-2022 End: 09-23-2023 Enoxaparin SubCutaneous 30 mg Every 12 Hours ; (LOVENOX)DOSE = 30 mg SubCutaneous Every 24 Hours Start: 22-Sep-2022 End: 22-Sep-2023 Ordered: 22-Sep-2022 Cortez Gibson [facility] Start: 09-22-2022 Compression Device, Sequential Compression Device, Sequential Start: [id number] Request [facility] Start: 09-22-2022 DVT Risk Assessment Complete DVT Risk Assessment Complete Start: :49 Request [facility] Start: 09-20-2022 End: 09-21-2023 [facility] Patient referral [facility] Work Phone: Prostate specific antigen measurement [facility] Immunizations Immunization Date Immunization Notes Care Provider Fa cility 09-22-2022 pneumococcal polysaccharide vaccine, 23 valent Shayy Wolff Other Phone: [facility] Payers Date Payer Category Payer Self-pay [id number] 2021 Private Health Insurance [id number] 2002 Medicare [id number] 2002 Unknown 1935 Unknown [id number] 2.16.8 [id number] Unknown [id number] 2.16.8 [id number] Unknown [id number] 2.16.8 [id number] Unknown [id number] 2.16.8 [id number] Unknown [id number] 2.16.8 [id number] Unknown [id number] 2.16.8 [id number] Unknown [id number] 2.16.8 [id number] Unknown [id number] 2.16.8 [id number] Unknown [id number] 2.16.8 [id number] Unknown [id number] 2.16.8 [id number] Social History Date Type Detail Facility Start: 12-27-2021 End: 07-08-2023 Tobacco smoking status NEIS Unknown if ever smoked [facility] Start: 1935 Sex Assigned At Male [facility] Start: 07-08-2023 Tobacco smoking stat us NHIS Never smoked tobacco (finding) [facility] Medical Equipment Procedure Code Equipment Code Equipment Origin al Text Equipment Identifier Dates MARKERS, FIDUCIAL GOLD FDA St art: 01-03-2022 Radiotherapy protection spacer [id number] FDA Start: 01-03-2022 MARKERS, FIDUCIAL GOLD FDA St art: 01-03-2022 MARKERS, FIDUCIAL GOLD FDA St art: 01-03-2022 MARKERS, FIDUCIAL GOLD FDA St art: 01-03-2022 MARKERS, FIDUCIAL GOLD FDA St art: 01-03-2022 MARKERS, FIDUCIAL GOLD FDA St art: 01-03-2022 MARKERS, FIDUCIAL GOLD FDA St art: 01-03-2022 MARKERS, FIDUCIAL GOLD FDA St art: 01-03-2022 Functional Status Date Assessment Result Facility Functional observable [facility] Mental Status Date Assessment Result Facility 09-22-2022 Cognitive functi ons [id number] [facility] Clinical Notes 09-20-2022 to 05-18-2025 Note Date & Type Note Facility 05-18-2025 Evaluation note Diagnosis Onset Date Resolution Rectal pain noneactive May 18 12:50pm [facility] Work Phone: 1(463) 162-492606-17-2025 Progress [facility] [address] [place] [address] OFFICE VISIT Date of Service: 05/18/25 1302 MR#: [id number] Acct: [id number] Name: GRANT ISLAS V Rep #: [id number] : 1935 From: Xavier green DO Age/Sex: 89/M Location: [facility] Status: Signed Intake Vital Signs 07/28/24 11:04 [...] underwent TRUS guided prostate biopsy.? 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 Xavier Johnson DO, MS [employer], Department of Radiation Oncology [facility] Coding Level of Care Code Off vis,est,level 3 Diagnoses Rectal pain K62.89 05/18/25 7316 DO> Date _ Xavier Johnson DO Cosigner Signature: Date (if applicable) CC: ~ [facility]06-17-2025 Progress note Author Xavier Elizabeth [facility] Note Date/Time May 18, 2025 1:38 pm [facility] [address] [place] [address] [place] [address] OFFICE VISIT Date of Service: 05/18/25 1302 MR#: [id number] Acct: [id number] Name: GRANT ISLAS V Rep #: [id number] : 1935 From: Xavier green DO Age/Sex: 89/M Location: [facility] Status: Signed Intake Vital Signs 07/28/24 11:04 [...] core of the left prostate mid, and Beaumont score 3+4 adenocarcinoma involving 25% of 1/1 [...] at any time. Xavier Johnson DO, MS Gas Engine Repairer, Department of Radiation Oncology [facility] Coding Level of Care Code Off vis,est,level 3 Diagnoses Rectal pain K62.89 05/18/25 1338 <Electronically signed by Xavier Johnson DO> Date _ Xavier Johnson DO Cosigner Signature: Date (if applicable) CC: ~ [facility] Work Phone: 1(413) 717-454710-22-2022 NoteSend Summary: Discharge Summary Providers: Provider RoleProvider Name Cortez Freedman Fahad B PrimaryStutzman, Mark A Discharge: Summary: Admission Date: .19-Sep-2022 18:03:00 Discharge Date: 22-Sep-2022 Attending Physician at Discharge: Primo Navarro Admission Reason: Weakness(1) Final Discharge Diagnoses: Pneumonia, COVID-19 viremia Procedures: none Condition at Discharge: Satisfactory Disposition at Discharge: .Home Vital Signs: T PRBPMAPSpO2 Value36.90976926/298553% Date/Time09/22 7: 7: 7: 7: 7: 7:56 Range(35.9C - 36.6C ) (69 - 84 ) (16 - 23 ) (95 - 126 )/ (50 - 69 ) (61 - 80 ) (92% - 94% ) Date: Weight/Scale Type:Height: 20-Sep-2022 00:4667.7 kg / wvi341.1 cm Physical Exam: Eyes: PERRL, EOMI, clear [...] levoFLOXacin 750 mg oral (more content not included)...[facility] 09-20-2022 NoteClinical Note - Pharmacy v2: Education: Additional NotesED Post Discharge Result Follow Up: Complete: COVID-19 PCR: Positive Patient was admitted to [facility] for inpatient treatment. Inpatient team is aware of patient's COVID status. No further follow up needed. If there are any other questions for the ED Post-Discharge Culture Follow Up Team, please contact [phone]. . Joshua Gleason PharmD, [facility] PGY-1 Manager Instrumentation Meds Electronic Signatures: Noelle Hernández (PharmD) (Signed 21-Sep-2022 08:38) Co-Signer: Joshua Monsivais (PHARM STUD) (Signed 20-Sep-2022 09:41) Authored: Education Last Updated: 21-Sep-2022 08:38 by Noelle Hernández (PharmD)[facility]10-20-2022 NoteHistory of Present Illness: Admission Reason: Weakness [...] with his He is to work at [employer] No tobacco, alcohol or drug abuse history [...] Changes, Anxiety Objective: Objective Information: T PRBPMAPSpO2 Value36.07509137/7793% Date/Time09/19 18: 0: 0: 0: 0:11 Range(36.7C - 36.7C ) (76 [...] no wheezes Cardiovascular: Distant (more content not included)...[facility] note* Diagnosis Onset Date Resolution Status [id number] acute [id number] acute [facility] Work Phone: Evaluation note* Diagnosis Onset Date Resolution Status [id number] acute [id number] acute Rectal pain noneactive [facility] Work Phone: Evaluation note* Constitutional: Somnolent but [...] XII appear intactPsychological: Pleasant but flat affect [facility] Diagnosis Onset Date Resolution Status Rectal pain noneactive [facility] Work Phone: Evaluation note* Diagnosis Onset Date Resolution Status Admit Date Rectal pain noneactive May 18 12:50pm [facility] Work Phone: Hospital Discharge instructions* Activity:activity as tolerated. May shower. * Additional Orders:Additional Instructions: Please observe quarantine till September 29Repeat BMP on September 24 prescription providedLisinopril stopped due to low blood pressure and elevated creatinine * Follow Up Appointment 1:Physician/Dept/Service: Shayy Lord for Referral: Hospital Follow-upCall to Schedule in: 2 weeksLocation: [address] [place] [id number] Number: [phone]: Please call and schedule a follow-up appointment within 2 weeks of your Hospital Discharge [facility] for referral (narrative)* Reason for Referral: impaired mobility [facility] for referral (narrative)No reason for referral information [facility] Work Phone: Chief Complaint and Reason for Visit Chief Complaint E ORDER followup prostate prostate pain, bowel issues, body aches PELVIC PAIN review xray - rectal pain Reason for Visit [id number] Chief Complaint E ORDER followup prostate prostate pain, bowel issues, body aches PELVIC PAIN review xray - rectal pain Rectal pain Reason for Visit [id number] Rectal pain Chief Complaint 6 month f/u [...] Will Yes December 27 10:01am Power of Cloth Washer Yes December 27, 2021 10:01am Advance Directive Response Recorded Date/ Time Living Will Yes December 27 9:01am Power of Cloth Washer Yes December 27, 2021 9:01am Advance Directive Response Recorded Date/ Time Living Will Yes December 27 10:01am Do you have a Healthcare Power of Cloth Washer? Yes December 27, 2021 10:01am Summary Purpose [...] section and content) DATE CREATED AUTHOR 03/14/[address] [facility] DATE CREATED AUTHOR AUTHOR'S ORGANIZ ATION 11/29/2023 [facility] DATE CREATED AUTHOR AUTHOR'S ORGANIZ ATION 07/07/2025 [facility] Care Teams (unrecognized sec tion and content) Team Status: Active Member Role Status Dates Dr. Shayy Wolff DO Family Provider Active Dr. Shayy Wolff DO Primary Care Provider [...] Xavier Johnson DO Attending Provider, Referring P papo Active Team Status: Active Member Role Status [...] Status: Inactive Member Role/Relationship Status Dates Dr. Sahyy Wolff DO Primary Care Provider Active Start: [...] June 28, 2025 End: June 28, 2025 Team Status: Inactive Member Role/Relationship Status Dates Dr. Shayy Wolff DO Primary Care Provider Active Start: June 28, 2025 End: June 28, 2025 Ed Physician Provider Attending Provider Active Start: June 28, 2025 End: June 28, 2025 Ed Physician Provider Emergency Provider Active Start: June 28, 2025 End: June 28, 2025 Team Status: Inactive Member Role/Relationship Status Dates Dr. Shayy Wolff DO Primary Care Provider Active Start: July 01, 2025 End: July 01, 2025 Dr. Shayy Wolff DO Attending Provider Active Start: July 01, 2025 End: July 01, 2025 FOR RECORDS PERTAINING TO PATIENTS WHO [...] BE BASED ON THE PRIMARY CLINICAL RECORDS. [facility] [employer] [facility]. provides no warranty or guarantee of the accuracy or completeness of information in this document.
[2025-07-09 21:22] LABS: Anion Gap 15 (5-15); BUN 27 mg/dL (4-19); BUN/Creat Ratio 17.9 RATIO (10-20); Calcium,Total 9.7 mg/dL (7.6-11.0); Carbon Dioxide 22.4 mmol/L (21.0-32.0); Chloride 100 mmol/L (98-108); Estimated Creatinine Clearance 30.90 ml/min (50-250); Glucose 116 mg/dL (70-99); Potassium 4.4 mmol/L (3.3-5.1); Troponin T High Sensitivity 29 ng/L (<=22)
[2025-07-09 21:50] LABS: Mucous, Urine 0 SEEN /hpf (<or=2+)
[2025-07-09 21:58] LABS: Burr Cells 1+
[2025-07-09 22:07] LABS: Color, Urine Yellow (Yellow); Glucose, Dipstick Normal (Normal); Ketone-Dipstick 5 mg/dl (Negative); Leukocyte Esterase-Dipstick Negative /ul (Negative); Nitrite-Dipstick Negative (Negative); Occult Blood-Urine Negative /ul (Negative); Protein-Dipstick 30 mg/dl (Negative); Specific Gravity, Urine 1.015 (1.002-1.030); Urine Bilirubin Dipstick Negative (Negative)
[2025-07-09 22:32] LABS: Red Blood Cells-Urine 0-5 SEEN /hpf (0-5); Squamous Epithelial Cells - UA 0-5 SEEN /hpf (0-5)
[2025-07-09 22:58] LABS: Troponin T High Sens 2 HR 28 ng/L (<=22)
== END 2025-07-09 23:31 | disposition home or self-care (01) ==
PROVIDERS: Physician Assistant; Emergency Provider Surgery; PCP Family Medicine; Visit Provider Surgery
DX: I10 Essential (primary) hypertension (principal); R07.9 Chest pain, unspecified
CPT/HCPCS: 71045; 80048; 81001; 84484; 85025; 93005; 96374; 96375; 99283; A4216; J2405

== ENCOUNTER 2025-09-17 19:27 | Emergency (ER) | payer MEDICARE, OTHER, SELFPAY ==
[2025-09-17 19:28] VITALS: BP 161/101; PULSE 62; RESP 16; TEMP 36.8; O2SAT 100; BMI 21.1
--- OUTSIDE RECORDS SUMMARY | 2025-09-17 22:25 | XMS RPT_ITS | CCD ---
Author Organization [facility]iniSyut Care Team Providers Care Landscape Engineer Name Role Phone Dr. Shayy Wolff Primary [...] Referring Provider Dr. Xavier Johnson Attending Provider [phone] SHAYY WOLFF Primary Care Unavailable Dr. Shayy Wolff DO Primary Care Provider Dr. Shayy Wolff DO Attending Provider Dr. Shayy Wolff DO Referring Provider Dr. Xavier Johnson DO Attending Provider [phone] Provider, Ed Physician Emergency Provider Unavai lable Provider, Ed Physician Attending Provider Dr. Michael Moore DO Emergency Provider Shayy Wolff Referring Unavailable New, Shayy Primary Care Unavailable Xavier Johnson Attending Unavailable Xavier Johnson Attending Unavailable Shayy Wolff Referring Unavailable New, Shayy Primary Care Unavailable Michael Mejia Attending Unavailsam Wolff, Shayy Primary Care Unavailable Xavier Johnson Attending Unavailable New, Shayy Primary Care Unavailable Emil Isabel Referring Unavailable Provider, Ed Physician Attending Unavailab nilay Wolff, Shayy Primary Care Unavailable New, Shayy Attending Unavailable New, Shayy Primary Care Unavailable New, Shayy Attending Unavailable New, Shayy Referring Unavailable New, Shayy Primary Care Unavailable New, Shayy Attending Unavailable New, Shayy Primary Care Unavailable New, Shayy Attending Unavailable New, Shayy Referring Unavailable New, Shayy Primary Care Unavailable Allergies Allergy Classification Reported Allergen(s) Allergy Type Date of Onset Reaction(s) Facility (1 source) traZODone; Translations: [TRAZODONE] Drug Allergy 08-28-2016 [facility] Repository Medications Current Medications Medication Drug [...] / benazepril hydrochloride 10 mg oral capsule (10 sources) Dihydropyridine Calcium Channel Margareth, Angiotensin Converting Enzyme Inhibitor Start: 12-27-2021 Amlodipine-Benaze pril 5-10 mg Capsule Active 1 NMA PO DAILY December 27, 2021 1:00am Start: 12-27-2021 take 1 capsule by [facility] once daily Amlodipine-Benazepril Active 1 CAP PO DAILY December 27, 2021 12:00am aspirin 81 mg delayed release oral tablet (10 sources) Platelet Aggregation Inhibitor, Nonsteroidal Anti-inflammatory Drug Start: 12-27-2021 take 1 tablet by mouth once daily Aspirin 81 mg Tablet,Delayed Release (Dr/Ec) Active 81 mg PO DAILY December 27, 2021 1:00am aspirin 162 mg o ral delayed release tablet Quantity: 0 Refills: 0 Ordered: 19-Sep-2022 Loan Monteiro Generic Substitution Allowed calcium carbonate 1250 mg / cholecalciferol 0.01 mg oral tablet (9 sources) Vitamin D Start: 12-27-2021 Calcium Carbonate-Vitamin D3 (Calcium 500 With D) 500 mg-10 mcg (400 unit) Tablet Active 1 {tbl} PO THREE TIMES A DAY December 27, 2021 1:00am cholecalciferol 0.05 mg oral capsule (9 sources) Vitamin D Start: 12-08-2021 take 1 capsule by mouth once daily Cholecalciferol (Vitamin D3) 50 mcg (2,000 unit) capsule Active 50 ug PO DAILY December 08, 2021 1:00am donepezil hydrochloride 5 mg oral tablet (4 sources) Start: 12-31-2023 take 1 tablet by [...] lovastatin 20 mg extended release oral tablet (10 sources) HMG-CoA Reductase Inhibitor Start: 12-27-2021 take [...] Loan Monteiro Generic Substitution Allowed Multivitamin Capsule (4 sources) Start: 12-27-2021 Multivitamin C apsule Active 1 NMA PO DAILY December 27, 2021 1:00am Multivitamin preparation (5 sources) Start: 12-27-2021 take 1 capsule by mouth once daily Multivitamin Active 1 CAP PO DAILY December 27, 2021 12:00am Start: 12-27-2021 take 1 capsule by mo uth once daily Multivitamin Active 1 CAP PO DAILY December 27, 2021 1:00am sertraline 100 mg oral tablet (4 sources) Serotonin Reuptake Inhibitor Start: 12-31-2023 take 1 tablet by mouth once daily Sertraline 100 mg tablet Active 100 mg PO DAILY December 31, 2023 1:00am Completed/Discontinued Medications Medication Drug Class(es) Dates Sig (Normalized) Sig (Original) ciprofloxacin 500 mg oral tablet (9 sources) Quinolone Antimicrobial Start: 01-03-2022 End: 12-31-2023 take 1 tablet by mouth twice daily Ciprofloxacin Hcl (Cipro) 500 mg tablet Discontinued 500 mg PO TWICE A DAY 14 0 January 03, 2022 1:00am December 31, 2023 11:04am hydrocortisone acetate 25 mg rectal suppository (8 sources) Corticosteroid Start: 08-21-2022 End: 12-31-2023 Hydrocortisone Acetate 25 mg suppository Discontinued 25 mg RC TWICE A DAY 24 0 August 21, 2022 12:00am December 31, 2023 11:07am Proctitis Other specified diseases of anus and rectum take one suppository as directed twice daily for one week Problems Active Problems Problem Classification Problem Date Documented Da te Episodic/Chronic Anal and rectal conditions (17 sources) Proctitis; Translations: [Other specified diseases of anus and rectum] Onset: 05-18-2025 Episodic Cancer of prostate (17 sources) Primary malignant neoplasm of prostate; Translations: [Malignant neoplasm of prostate] Onset: 11-27-2023 Chronic Chronic kidney disease (1 source) Chronic kidney disease, unspecified; Translations: [Chronic kidney disease, unspecified] Onset: 09-22-2022 Chronic Chronic kidney disease (1 source) Chronic kidney disease; Translations: [Chronic kidney disease, stage 3a] Onset: 07-07-2025 Disorders of lipid metabolism (1 source) Pure hypercholesterolemi a, unspecified; Translations: [Pure hypercholesterolemi a, unspecified] Onset: 09-22-2022 Chronic E Codes: Fall (1 source) Fall in home; Translations: [Unspecified fall] 09-20-2022 Episodic E Codes: Fall (1 source) Fall in home 09-20-2022 Essential hypertension (2 sources) Hypertensive disorder; Translations: [Essential (primary) hypertension] Onset: 07-13-2025 07-09-2025 Chronic Headache; including migraine (1 source) Headache; including [...] fatigue] 09-19-2022 Episodic Comment on above: WEAKNESS Nonspecific chest pain (1 source) Chest pain; Translations: [Chest pain, unspecified] 07-09-2025 Episodic Other upper respiratory infections (1 source) Acute [...] 2018] Onset: 09-22-2022 09-20-2022 Residual codes; unclassified (5 sources) Memory impairment; Translations: [Other amnesia] 07-31-2023 Episodic Unclassified (2 sources) Primary hypertension 09-20-2022 [...] Onset: 09-22-2022 Episodic Other aftercare (1 source) 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 Cardiovascular Services [address] [place] [address] 12 Lead EKG 07/09/252041 MR#: [id number] Acct: [id number] Name: GRANT ISLAS V Rep #: [id number] : 1935 89 From: Hemal Fabian MD Attending Dr: Status: DEP ER Ordering Dr: Lindy Velasco Date: 07/09/25 Location: ED Sex: M C Admitted: Test Reason : HYPERTENSION Blood Pressure : */* mmHG Vent. Rate : 58 BPM Atrial Rate : 58 BPM P-R Int : 180 ms QRS Dur : 82 ms QT Int : 458 ms P-R-T Axes : 58 43 30 degrees QTcB Int : 449 ms Sinus bradycardia Otherwise normal ECG No previous ECGs available Confirmed by HEMAL FABIAN MD ([id number]), video tape editor ORAL LIZARRAGA ([id number]) on 07/12/2025 1:07:31 PM Referred By: LAI Confirmed By: HEMAL FABIAN MD 07/12/25 1307 Date Hemal Fabian MD CC: Dr. Michael Mejia, DO; Dr. Shayy Wolff, DO; CLAUDIO Sanabria Signed Normal [facility] Absolute lymphocyte countOrd ered By: Lindy Velasco on 07-09-2025 Lymphocytes Auto (Unsp spec) [#/Vol] 2.04 10*3/uL 0.83-4.51 [facility] Absolute neutrophil countOrd ered By: Lindy Velasco on 07-09-2025 Neutrophils (Bld) [#/Vol] 6.8 10*3/uL 2.0-7.7 [facility] Anion gap in Serum or Plasma Ordered By: Lindy Velasco on 07-09-2025 Anion gap [Moles/Vol] 15 mmol/L 5- [facility] Automated lymphocyte count a s percentage of total leukocytesOrdered By: Lindy Velasco on 07-09-2025 Lymphocytes/100 WBC Auto (Unsp spec) 21.2 % - [facility] BUN/creatinine ratioOrdered By: Lindy Velasco on 07-09-2025 Urea nitrogen/Creatinine [Mass ratio] 17.9 mg/mg - [facility] Basic Metabolic Profile (BMP )on 07-09-2025 BUN/CRE 17.9 RATIO Normal 09-20 [facility] Comment on above: Performed By: #### L 501.4021, L100.0100, L500.2500 ####[facility] [address] [place], [address] Calcium [Mass/Vol] 9.7 mg/dL Normal 7.6-11.0 [facility] Comment on above: Performed By: #### L 501.4021, L100.0100, L500.2500 ####[facility] [address] [place], [address] Chloride [Moles/Vol] 100 mmol/L Normal 98-108 [facility] Comment on above: Performed By: #### L 501.4021, L100.0100, L500.2500 ####[facility] [address] [place], [address] CO2 [Moles/Vol] 22.4 mmol/L Normal 21.0-32.0 [facility] Comment on above: Performed By: #### L 501.4021, L100.0100, L500.2500 ####[facility] [address] [place], [address] Creatinine [Mass/Vol] 1.50 mg/dL High 0.70-1.20 [facility] Comment on above: Performed By: #### L 501.4021, L100.0100, L500.2500 ####[facility] [address] [place], [address] ECRCL 30.90 ml/min Low 50-250 [facility] Comment on above: Performed By: #### L 501.4021, L100.0100, L500.2500 ####[facility] [address] [place], [address] GAP 15 Normal 5-15 [facility] Comment on above: Performed By: #### L 501.4021, L100.0100, L500.2500 ####[facility] [address] [place], [address] GFR/1.73 sq M.predicted among non-blacks MDRD (S/P/Bld) [Vol rate/Area] 45 mL/min/{1.73_m2} Low >60 [facility] Comment on above: Result Comment: mL/m in/1.73m2 CKD-EPI Creatinine Equation (2020) Performed By: #### L 501.4021, L100.0100, L500.2500 ####[facility] [address] [place], [address] Glucose [Mass/Vol] 116 mg/dL High 70-99 [facility] Comment on above: Performed By: #### L 501.4021, L100.0100, L500.2500 ####[facility] [address] [place], [address] Potassium [Moles/Vol] 4.4 mmol/L Normal 3.3-5.1 [facility] Comment on above: Performed By: #### L 501.4021, L100.0100, L500.2500 ####[facility] [address] [place], [address] Sodium [Moles/Vol] 138 mmol/L Normal 133-145 [facility] Comment on above: Performed By: #### L 501.4021, L100.0100, L500.2500 ####[facility] [address] [place], [address] Urea nitrogen [Mass/Vol] 27 mg/dL High 4-19 [facility] Comment on above: Performed By: #### L 501.4021, L100.0100, L500.2500 ####[facility] [address] [place], [address] Basophil percentageOrdered B y: Lindy Velasco on 07-09-2025 Basophils/100 WBC (Bld) 0.3 % 0-1 [facility] Bilirubin Test strip Ql (U)O rdered By: Lindy Velasco on 07-09-2025 Bilirubin Ql (U) Negative Negative [facility] CBC W/Diff, Automatedon 08-0 MPV TNP Normal 6.2-12.0 [facility] Comment on above: Performed By: #### L 501.4021, L100.0100, L500.2500 ####[facility] [address] [place], [address] Carbon dioxide, total [Moles /volume] in Central venous bloodOrdered By: Lindy Velasco on 07-09-2025 CO2 [Moles/Vol] 22.4 mmol/L 21.0-32.0 [facility] Chest 1 View (Portable)on Chest 1 View (Portable) [facility] Imaging Services [address] [place], [place] [address] Chest 1 View (Portable) MR#: [id number] Acct: [id number] Name: GRANT ISLAS V Rep #: [id number] : 1935 M 89 From: Polo Ovalles MD PCP: Dr. Shayy Wolff DO Status: REG ER Study: Chest 1 View (Portable) Date of Exam: 07/09/25 Exam# [id number] Ordering Dr: Lindy Velasco PROCEDURE: CHEST 1 VIEW (PORTABLE) 07/09/2025 REASON FOR EXAM: WEAKNESS TECHNIQUE: Frontal view of the chest. COMPARISON: No FINDINGS: Normal heart size. Tortuous and calcified aorta. Well inflated lungs. No consolidation, effusion, or pneumothorax. RAD/Chest 1 View (Portable) IMPRESSION: No acute chest findings Reading Location: RAD-OVALLES-2 CC: Dr. Shayy Wolff DO; CLAUDIO Sanabria Physician Gynecologist: Signed Normal [facility] Chloride assayOrdered By: Amaya Velasco on 07-09-2025 Chloride [Moles/Vol] 100 mmol/L 98-108 [facility] Crenated erythrocyte detecti on by light microscopyOrdered By: Lindy Velasco on 07-09-2025 [place] cells LM Ql (Bld) 1+ [facility] Emergency Department Summary on 07-09-2025 Emergency Department Summary [facility] Medical Records Department [address] [place] [address] Emergency Department Summary 07/09/25 MR#: [id number] Acct: [id number] Name: GRANT ISLAS V Rep #: [id number] : 1935 89 From: Michael Mejia DO PCP: Dr. Shayy Wolff, DO Status:REG ER Location: ED HPI History of Present Illness Chief Complaint: Hypertension Narrative Narrative: 89-year-old male with PMH of HTN, HLD, prostate cancer, dementia was brought in by his son because family was concerned his blood pressures are running high. They have been in the systolic 170s. He is on amlodipine benazepril. Last night he felt weak and this afternoon while lying in bed around 1 PM he developed pounding pain that lasted a couple hours and has resolved prior to arrival. He denies shortness of breath. He has had nausea and dry heaving but no abdominal pain. He denies diarrhea or black or bloody stools. No urinary symptoms. He lives at home with his and his son states he has been declining over the last year and not eating and drinking as much. He is on sertraline for depression and saw his doctor 2 days ago and was started on Wellbutrin for depression. [facility] Medical History Wears hearing aid Wears glasses [...] / Time No Known Allergies Allergy Verified 07/09/25 19:55 Family History Brother Cancer PROSTATE Mother Diabetes Surgical History Hx of colonoscopy History of hand surgery Hx of tonsillectomy Hx of eye surgery Social History adopted: No household members: spouse current occupational exposures/hazards: No Smoking Status: Never smoker second hand exposure: No alcohol intake: never substance use type: does not use ROS ROS ED ROS Narrative Constitutional: Negative for fever, chills. CVS: Positive for chest pain. No syncope. Respiratory: Negative for shortness of breath, cough. GI: Positive for nausea and dry heaving. No abdominal pain, diarrhea. : Negative for dysuria. EXAM Physical Exam Narrative Exam Narrative: CONST: Patient sitting in no acute distress. EYES: Normal inspection. NECK: Normal inspection. RESP: No respiratory distress, CTAB. CVS: Regular rate and rhythm, no murmur, no gallop. ABD: Soft and nontender, no guarding or rebound, nondistended. SKIN: Color normal, no rash, warm, dry, intact. EXTREMITIES: Normal appearance, no pedal edema. NEURO: Alert and answering questions appropriately. Hard of hearing. Follows commands, moving all extremities. PSYCH: Normal affect. Const Vital Signs: 07/09/25 19:52 07/09/25 20:25 07/09/25 20:32 Temperature 97.6 F L Temperature Source Temporal Pulse Rate 64 59 L Respiratory Rate 18 22 H Respiratory Effort Normal Non-Labored Respiratory Pattern Normal Blood Pressure 177/95 H 151/116 H Blood Pressure Mean 122 127 Pulse Ox 100 100 Oxygen Delivery Method Room Air Room Air 07/09/25 20:42 07/09/25 21:00 07/09/25 21:01 Temperature Temperature Source Pulse Rate 62 Respiratory Rate 20 H Respiratory Effort Respiratory Pattern Blood Pressure 172/107 H 134/89 H Blood Pressure Mean 128 101 Pulse Ox 98 Oxygen Delivery Method 07/09/25 21:15 07/09/25 23:00 Temperature Temperature Source Pulse Rate 62 69 Respiratory Rate 21 H 18 Respiratory Effort Respiratory Pattern Blood Pressure 136/78 H 126/76 H Blood Pressure Mean 97 92 Pulse Ox 92 100 Oxygen Delivery Method Room Air Physical Exam Const Vital Signs: 07/09/25 19:52 08/0 (more content not included)... Normal [facility] Eosinophil percentageOrdered By: Lindy Velasco on 07-09-2025 Eosinophils/100 WBC (Bld) 0.3 % 0-5 [facility] Erythrocyte distribution wid th ratioOrdered By: Lindy Velasco on 07-09-2025 Erythrocyte distribution width (RBC) [Ratio] 13.2 % 11.6-14.6 [facility] Erythrocyte distribution wid th standard deviationOrdered By: Lindy Velasco on 07-09-2025 Erythrocyte distribution width (RBC) [Ratio] 44.8 fl High 35.1-43.9 [facility] Glomerular filtration rate ( GFR) estimation/1.73 sq m using serum, plasma, or whole bOrdered By: Lindy Velasco on 07-09-2025 GFR/1.73 sq M.predicted among non-blacks MDRD (S/P/Bld) [Vol rate/Area] 45 mL/min/{1.73_m2} Low >60 [facility] Comment on above: mL/min/1.73m2 CKD-EP I Creatinine Equation (2020) Hematocrit Auto (Bld) [Volum e fraction]Ordered By: Lindy Velasco on 07-09-2025 Hematocrit (Bld) [Volume fraction] 38.8 % Low 40-54 [facility] Hemoglobin measurementOrdere d By: Lindy Velasco on 07-09-2025 Hemoglobin (Bld) [Mass/Vol] 13.1 g/dL 13.0-16.5 [facility] Immature granulocytes/100 WB C Auto (Bld)Ordered By: Lindy Velasco on 07-09-2025 Immature granulocytes/100 WBC (Bld) 0.500 % 0.0-0.9 [facility] Comment on above: IG% - Immature Granu locytes (promyelocytes, myelocytes and metamyelocytes) > 1% indicates that a LEFT SHIFT is Present. Ketones Test strip Ql (U)Ord ered By: Lindy Velasco on 07-09-2025 Ketones Ql (U) 5 mg/dl High Negative [facility] L501.4021on 07-09-2025 Trop T High Sen 29 ng/L High <=22 [facility] Comment on above: Performed By: #### L 501.4021, L100.0100, L500.2500 ####[facility] [address] [place], [address] MCV (mean corpuscular volume ) determinationOrdered By: Lindy Velasco on 07-09-2025 MCV (RBC) [Entitic vol] 92.6 fL 80-94 [facility] Mean corpuscular hemoglobin (MCH) determinationOrdered By: Lindy Velasco on 07-09-2025 MCH (RBC) [Entitic mass] 31.3 pg 27.0-32.0 [facility] Mean corpuscular hemoglobin concentration (MCHC) determinationOrdered By: Lindy Velasco on 07-09-2025 MCHC (RBC) [Mass/Vol] 33.8 g/dL 32-36 [facility] Mean platelet volume determi nationOrdered By: Lindy Velasco on 07-09-2025 Mean platelet volume determination TNP [facility] Comment on above: Test not performed Microscopic analysis of urin e for red blood cells (RBC)Ordered By: Lindy Velasco on 07-09-2025 Microscopic analysis of urine for red blood cells (RBC) 0-5 SEEN /hpf 0-5 [facility] Monocyte percentageOrdered B y: Lindy Velasco on 07-09-2025 Monocytes/100 WBC (Bld) 6.7 % 0-10 [facility] Mucus LM Ql (Urine sed)Order ed By: Lindy Velasco on 07-09-2025 Mucus Ql (Urine sed) 0 SEEN /hpf [facility] Neutrophil percentageOrdered By: Lindy Velasco on 07-09-2025 Neutrophils/100 WBC (Bld) 71.0 % High 47-70 [facility] Nitrite Test strip Ql (U)Ord ered By: Lindy Velasco on 07-09-2025 Nitrite Ql (U) Negative Negative [facility] Nucleated red blood cell per centageOrdered By: Lindy Velasco on 07-09-2025 Nucleated RBC/100 WBC (Bld) [Ratio] 0 % 0-5 [facility] Platelet countOrdered By: Amaya Velasco on 07-09-2025 Platelet count TNP [facility] Comment on above: Test not performedPl ease note: For this sample, a platelet estimate is provided rather than a platelet count due to platelet clumping. Other parameters associated with this sample are not affected by platelet clumping. If a more accurate platelet count is required, a redraw of the patient will be necessary.Previous reported result: [id number] by: DEMAR on 07/09/25:2159 AMENDED REPORT 07/09/252158 PLT previously reported as: K/mm3 Please note: For this sample, a platelet estimate is provided rather than a platelet count due to platelet clumping. Other parameters associated with this sample are not affected by platelet clumping. If a more accurate platelet count is required, a redraw of the patient will be necessary. Platelet estimateOrdered By: Lindy Velasco on 07-09-2025 Platelets LM Ql (Bld) [employer]DE[employer] [facility] Potassium measurement (mass/ volume)Ordered By: Lindy Velasco on 07-09-2025 Potassium (Unsp spec) [Mass/Vol] 4.4 mmol/L 3.3-5.1 [facility] Protein Test strip Ql (U)Ord ered By: Lindy Velasco on 07-09-2025 Protein Ql (U) 30 mg/dl High Negative [facility] RBC Auto (Bld) [#/Vol]Ordere d By: Lindy Velasco on 07-09-2025 RBC (Bld) [#/Vol] 4.19 10*6/uL Low 4.6-6.2 [facility] Serum creatinine measurement (mass/volume)Ordered By: Lindy Velasco on 07-09-2025 Creatinine [Mass/Vol] 1.50 mg/dL High 0.70-1.20 [facility] Serum glucose measurement (m ass/volume)Ordered By: Lindy Velasco on 07-09-2025 Glucose [Mass/Vol] 116 mg/dL High 70-99 [facility] Serum or plasma calcium kaylah urement (mass/volume)Ordered By: Lindy Velasco on 07-09-2025 Calcium [Mass/Vol] 9.7 mg/dL 7.6-11.0 [facility] Serum or plasma urea nitroge n measurement (mass/volume)Ordered By: Lindy Velasco on 07-09-2025 Urea nitrogen [Mass/Vol] 27 mg/dL High 4-19 [facility] Sodium levelOrdered By: Lindy Velasco on 07-09-2025 Sodium [Moles/Vol] 138 mmol/L 133-145 [facility] Squamous epithelial cells de tection in urine sediment by light microscopyOrdered By: Lindy Velasco on 07-09-2025 Epithelial cells.squamous LM Ql (Urine sed) 0-5 SEEN /hpf 0-5 [facility] Troponin T HS 2 HRon 025 Trop T High Sen 28 ng/L High <=22 [facility] Comment on above: Performed By: #### L 499.0042 #### [facility] [address] [place], [address] Troponin T.cardiac [Mass/vol ume] in Serum or Plasma by High sensitivity methodOrdered By: Lindy Velasco on 07-09-2025 Troponin T.cardiac High sensitivity method [Mass/Vol] 28 ng/L High <22 [facility] Troponin T.cardiac High sensitivity method [Mass/Vol] 29 ng/L High <22 [facility] Urinalysis, Completeon 07-09 EPI,SQUAMOUS 0-5 SEEN Normal 0-5 [facility] Comment on above: Order Comment: CLEAN CATCH Performed By: #### L 400.0001 #### [facility] [address] [place], [address] RBC 0-5 SEEN Normal 0-5 [facility] Comment on above: Order Comment: CLEAN CATCH Performed By: #### L 400.0001 #### [facility] [address] [place], [address] WBC 0-5 SEEN Normal 0-5 [facility] Comment on above: Order Comment: CLEAN CATCH Performed By: #### L 400.0001 #### [facility] [address] [place], [address] BACTERIA 0 SEEN Normal None Seen [facility] Comment on above: Order Comment: CLEAN CATCH Performed By: #### L 400.0001 #### [facility] [address] [place], [address] Mucus Ql (Urine sed) 0 SEEN Normal [facility] Comment on above: Order Comment: CLEAN CATCH Performed By: #### L 400.0001 #### [facility] [address] [place], [place], [id number] Urine clarityOrdered By: Lizeth Velasco on 07-09-2025 Clarity (U) Clear Clear [facility] Urine color determinationOrd ered By: Lindy Velasco on 07-09-2025 Color (U) Yellow Yellow [facility] Urine glucose detectionOrder ed By: Lindy Velasco on 07-09-2025 Glucose Ql (U) Normal mg/dl Normal [facility] Urine leukocyte esterase det ection by dipstickOrdered By: Lindy Velasco on 07-09-2025 Leukocyte esterase Test strip Ql (U) Negative Negative [facility] Urine pHOrdered By: Lindy bledsoe on 07-09-2025 pH (U) 6.5 [pH] 5.0 - 8.0 [facility] Urine sediment bacteria coun t by microscopy (number/high power field)Ordered By: Lindy Velasco on 07-09-2025 Bacteria LM.HPF (Urine sed) [#/Area] 0 /[HPF] None Seen [facility] Urine specific gravity measu rementOrdered By: Lindy Velasco on 07-09-2025 Specific gravity (U) [Rel density] 1.015 1.002-1.030 [facility] Urine urobilinogen measureme ntOrdered By: Lindy Velasco on 07-09-2025 Urobilinogen Ql (U) Normal mg/dl Normal [facility] White blood cell (WBC) count Ordered By: Lindy Velasco on 07-09-2025 WBC (Bld) [#/Vol] 9.6 10*3/uL 4.4-11.0 [facility] White blood cell countOrdere d By: Lindy Velasco on 07-09-2025 White blood cell count 0-5 SEEN /hpf 0-5 [facility] Absolute lymphocyte countOrd ered By: Shayy Wolff on 07-01-2025 Lymphocytes Auto (Unsp spec) [#/Vol] 1.78 10*3/uL 0.83-4.51 [facility] Absolute neutrophil countOrd ered By: Shayy Wolff on 07-01-2025 Neutrophils (Bld) [#/Vol] 6.4 10*3/uL 2.0-7.7 [facility] Anion gap in Serum or Plasma Ordered By: Shayy Wolff on 07-01-2025 Anion gap [Moles/Vol] 12 mmol/L 5-15 [facility] Automated lymphocyte count a s percentage of total leukocytesOrdered By: Shayy Wolff on 07-01-2025 Lymphocytes/100 WBC Auto (Unsp spec) 20.1 % 19-41 [facility] BUN/creatinine ratioOrdered By: Shayy Wolff on 07-01-2025 Urea nitrogen/Creatinine [Mass ratio] 23.4 mg/mg High 10-20 [facility] Basophil percentageOrdered B y: Shayy Wolff on 07-01-2025 Basophils/100 WBC (Bld) 0.5 % 0-1 [facility] Bilirubin, totalOrdered By: Shayy Wolff on 07-01-2025 Bilirubin [Mass/Vol] 0.47 mg/dL 0.00-1.30 [facility] CBC W/Diff, Automatedon 06-03 Absolute Lymph 1.78 X10 3/uL Normal 0.83-4.51 [facility] Comment on above: Performed By: #### L 501.9520, L500.4050, L100.0100, L509.1000, L503.0106 ####[facility] [address] [place], [address] Absolute Neut 6.4 X10 3/uL Normal 2.0-7.7 [facility] Comment on above: Performed By: #### L 501.9520, L500.4050, L100.0100, L509.1000, L503.0106 ####[facility] [address] [place], [address] Basophils/100 WBC (Bld) 0.5 % Normal 0-1 [facility] Comment on above: Performed By: #### L 501.9520, L500.4050, L100.0100, L509.1000, L503.0106 ####[facility] [address] [place], [address] Eosinophils/100 WBC (Bld) 0.9 % Normal 0-5 [facility] Comment on above: Performed By: #### L 501.9520, L500.4050, L100.0100, L509.1000, L503.0106 ####[facility] [address] [place], [address] Erythrocyte distribution width (RBC) [Ratio] 13.6 % Normal 11.6-14.6 [facility] Comment on above: Performed By: #### L 501.9520, L500.4050, L100.0100, L509.1000, L503.0106 ####[facility] [address] [place], [address] Hematocrit (Bld) [Volume fraction] 40.0 % Normal 40-54 [facility] Comment on above: Performed By: #### L 501.9520, L500.4050, L100.0100, L509.1000, L503.0106 ####[facility] [address] [place], [address] Hemoglobin (Bld) [Mass/Vol] 13.5 g/dL Normal 13.0-16.5 [facility] Comment on above: Performed By: #### L 501.9520, L500.4050, L100.0100, L509.1000, L503.0106 ####[facility] [address] [place], [address] IG% 0.700 Normal 0.0-0.9 [facility] Comment on above: Result Comment: IG% - Immature Granulocytes (promyelocytes, myelocytes and metamyelocytes) > 1% indicates that a LEFT SHIFT is Present. Performed By: #### L 501.9520, L500.4050, L100.0100, L509.1000, L503.0106 ####[facility] [address] [place], [address] Lymphocytes/100 WBC (Bld) 20.1 % Normal 19-41 [facility] Comment on above: Performed By: #### L 501.9520, L500.4050, L100.0100, L509.1000, L503.0106 ####[facility] [address] [place], [address] MCH (RBC) [Entitic mass] 31.5 pg Normal 27.0-32.0 [facility] Comment on above: Performed By: #### L 501.9520, L500.4050, L100.0100, L509.1000, L503.0106 ####[facility] [address] [place], [address] MCHC (RBC) [Mass/Vol] 33.8 g/dL Normal 32-36 [facility] Comment on above: Performed By: #### L 501.9520, L500.4050, L100.0100, L509.1000, L503.0106 ####[facility] [address] [place], [address] MCV (RBC) [Entitic vol] 93.2 fL Normal 80-94 [facility] Comment on above: Performed By: #### L 501.9520, L500.4050, L100.0100, L509.1000, L503.0106 ####[facility] [address] [place], [address] Monocytes/100 WBC (Bld) 6.1 % Normal 0-10 [facility] Comment on above: Performed By: #### L 501.9520, L500.4050, L100.0100, L509.1000, L503.0106 ####[facility] [address] [place], [address] Neutrophils/100 WBC (Bld) 71.7 % High 47-70 [facility] Comment on above: Performed By: #### L 501.9520, L500.4050, L100.0100, L509.1000, L503.0106 ####[facility] [address] [place], [address] Nucleated RBC (Bld) [#/Vol] 0 10*3/uL Normal 0-5 [facility] Comment on above: Performed By: #### L 501.9520, L500.4050, L100.0100, L509.1000, L503.0106 ####[facility] [address] [place], [address] Platelet mean volume (Bld) [Entitic vol] 9.6 fL Normal 6.2-12.0 [facility] Comment on above: Performed By: #### L 501.9520, L500.4050, L100.0100, L509.1000, L503.0106 ####[facility] [address] [place], [address] Platelets (Bld) [#/Vol] 227 10*3/uL Normal 150-450 [facility] Comment on above: Performed By: #### L 501.9520, L500.4050, L100.0100, L509.1000, L503.0106 ####[facility] [address] [place], [address] RBC (Bld) [#/Vol] 4.29 10*6/uL Low 4.6-6.2 [facility] Comment on above: Performed By: #### L 501.9520, L500.4050, L100.0100, L509.1000, L503.0106 ####[facility] [address] [place], [address] RDW SD 46.3 fl High 35.1-43.9 [facility] Comment on above: Performed By: #### L 501.9520, L500.4050, L100.0100, L509.1000, L503.0106 ####[facility] [address] [place], [address] WBC (Bld) [#/Vol] 8.9 10*3/uL Normal 4.4-11.0 [facility] Comment on above: Performed By: #### L 501.9520, L500.4050, L100.0100, L509.1000, L503.0106 ####[facility] [address] [place], [address] Carbon dioxide, total [Moles /volume] in Central venous bloodOrdered By: Shayy Wolff on 07-01-2025 CO2 [Moles/Vol] 22.4 mmol/L 21.0-32.0 [facility] Chloride assayOrdered By: Karson Wolff on 07-01-2025 Chloride [Moles/Vol] 103 mmol/L 98-108 [facility] Comprehensive Metabolic Prof ilon 07-01-2025 Albumin [Mass/Vol] 4.2 g/dL Normal 3.4-4.8 [facility] Comment on above: Performed By: #### L 501.9520, L500.4050, L100.0100, L509.1000, L503.0106 ####[facility] [address] [place], [address] Albumin/Globulin [Mass ratio] 1.3 {ratio} Normal 0.9-2.4 [facility] Comment on above: Performed By: #### L 501.9520, L500.4050, L100.0100, L509.1000, L503.0106 ####[facility] [address] [place], [address] ALK PHOS 69 U/L Normal 40-129 [facility] Comment on above: Performed By: #### L 501.9520, L500.4050, L100.0100, L509.1000, L503.0106 ####[facility] [address] [place], [address] ALT [Catalytic activity/Vol] 19 U/L Normal <=46 [facility] Comment on above: Performed By: #### L 501.9520, L500.4050, L100.0100, L509.1000, L503.0106 ####[facility] [address] [place], [address] AST [Catalytic activity/Vol] 21 U/L Normal <=37 [facility] Comment on above: Performed By: #### L 501.9520, L500.4050, L100.0100, L509.1000, L503.0106 ####[facility] [address] [place], [address] Bilirubin [Mass/Vol] 0.47 mg/dL Normal 0.00-1.30 [facility] Comment on above: Performed By: #### L 501.9520, L500.4050, L100.0100, L509.1000, L503.0106 ####[facility] [address] [place], [address] BUN/CRE 23.4 RATIO High 10-20 [facility] Comment on above: Performed By: #### L 501.9520, L500.4050, L100.0100, L509.1000, L503.0106 ####[facility] [address] [place], [address] Calcium [Mass/Vol] 9.5 mg/dL Normal 7.6-11.0 [facility] Comment on above: Performed By: #### L 501.9520, L500.4050, L100.0100, L509.1000, L503.0106 ####[facility] [address] [place], [address] Chloride [Moles/Vol] 103 mmol/L Normal 98-108 [facility] Comment on above: Performed By: #### L 501.9520, L500.4050, L100.0100, L509.1000, L503.0106 ####[facility] [address] [place], [address] CO2 [Moles/Vol] 22.4 mmol/L Normal 21.0-32.0 [facility] Comment on above: Performed By: #### L 501.9520, L500.4050, L100.0100, L509.1000, L503.0106 ####[facility] [address] [place], [address] Creatinine [Mass/Vol] 1.41 mg/dL High 0.70-1.20 [facility] Comment on above: Performed By: #### L 501.9520, L500.4050, L100.0100, L509.1000, L503.0106 ####[facility] [address] [place], [address] GAP 12 Normal 5-15 [facility] Comment on above: Performed By: #### L 501.9520, L500.4050, L100.0100, L509.1000, L503.0106 ####[facility] [address] [place], [address] GFR/1.73 sq M.predicted among non-blacks MDRD (S/P/Bld) [Vol rate/Area] 48 mL/min/{1.73_m2} Low >60 [facility] Comment on above: Result Comment: mL/m in/1.73m2 CKD-EPI Creatinine Equation (2020) Performed By: #### L 501.9520, L500.4050, L100.0100, L509.1000, L503.0106 ####[facility] [address] [place], [address] Globulin (S) [Mass/Vol] 3.4 g/dL Normal 2.2-4.2 [facility] Comment on above: Performed By: #### L 501.9520, L500.4050, L100.0100, L509.1000, L503.0106 ####[facility] [address] [place], [address] Glucose [Mass/Vol] 100 mg/dL High 70-99 [facility] Comment on above: Performed By: #### L 501.9520, L500.4050, L100.0100, L509.1000, L503.0106 ####[facility] [address] [place], [address] Potassium [Moles/Vol] 4.5 mmol/L Normal 3.3-5.1 [facility] Comment on above: Performed By: #### L 501.9520, L500.4050, L100.0100, L509.1000, L503.0106 ####[facility] [address] [place], [address] Sodium [Moles/Vol] 138 mmol/L Normal 133-145 [facility] Comment on above: Performed By: #### L 501.9520, L500.4050, L100.0100, L509.1000, L503.0106 ####[facility] [address] [place], [address] T PROT 7.6 g/dL Normal 5.9-8.4 [facility] Comment on above: Performed By: #### L 501.9520, L500.4050, L100.0100, L509.1000, L503.0106 ####[facility] [address] [place], [address] Urea nitrogen [Mass/Vol] 33 mg/dL High 4-19 [facility] Comment on above: Performed By: #### L 501.9520, L500.4050, L100.0100, L509.1000, L503.0106 ####[facility] [address] [place], [address] Eosinophil percentageOrdered By: Shayy Wolff on 07-01-2025 Eosinophils/100 WBC (Bld) 0.9 % 0-5 [facility] Erythrocyte distribution wid th ratioOrdered By: Shayy Wolff on 07-01-2025 Erythrocyte distribution width (RBC) [Ratio] 13.6 % 11.6-14.6 [facility] Erythrocyte distribution wid th standard deviationOrdered By: Shayy Wolff on 07-01-2025 Erythrocyte distribution width (RBC) [Ratio] 46.3 fl High 35.1-43.9 [facility] Glomerular filtration rate ( GFR) estimation/1.73 sq m using serum, plasma, or whole bOrdered By: Shayy Wolff on 07-01-2025 GFR/1.73 sq M.predicted among non-blacks MDRD (S/P/Bld) [Vol rate/Area] 48 mL/min/{1.73_m2} Low >60 [facility] Comment on above: mL/min/1.73m2 CKD-EP I Creatinine Equation (2020) Hematocrit Auto (Bld) [Volum e fraction]Ordered By: Shayy Wolff on 07-01-2025 Hematocrit (Bld) [Volume fraction] 40.0 % 40-54 [facility] Hemoglobin measurementOrdere d By: Shayy Wolff on 07-01-2025 Hemoglobin (Bld) [Mass/Vol] 13.5 g/dL 13.0-16.5 [facility] Immature granulocytes/100 WB C Auto (Bld)Ordered By: Shayy Wolff on 07-01-2025 Immature granulocytes/100 WBC (Bld) 0.700 % 0.0-0.9 [facility] Comment on above: IG% - Immature Granu locytes (promyelocytes, myelocytes and metamyelocytes) > 1% indicates that a LEFT SHIFT is Present. Laboratory - Chemistry and C hemistry - challengeOrdered By: Shayy Wolff on 07-01-2025 AST [Catalytic activity/Vol] 21 U/L <38 [facility] MCV (mean corpuscular volume ) determinationOrdered By: Shayy Wolff on 07-01-2025 MCV (RBC) [Entitic vol] 93.2 fL 80-94 [facility] Mean corpuscular hemoglobin (MCH) determinationOrdered By: Shayy Wolff on 07-01-2025 MCH (RBC) [Entitic mass] 31.5 pg 27.0-32.0 [facility] Mean corpuscular hemoglobin concentration (MCHC) determinationOrdered By: Shayy Wolff on 07-01-2025 MCHC (RBC) [Mass/Vol] 33.8 g/dL 32-36 [facility] Mean platelet volume determi nationOrdered By: Shayy Wolff on 07-01-2025 Platelet mean volume (Bld) [Entitic vol] 9.6 fL 6.2-12.0 [facility] Monocyte percentageOrdered B y: Shayy Wolff on 07-01-2025 Monocytes/100 WBC (Bld) 6.1 % 0-10 [facility] Neutrophil percentageOrdered By: Shayy Wolff on 07-01-2025 Neutrophils/100 WBC (Bld) 71.7 % High 47-70 [facility] Nucleated red blood cell per centageOrdered By: Shayy Wolff on 07-01-2025 Nucleated RBC/100 WBC (Bld) [Ratio] 0 % 0-5 [facility] PTHINon 07-01-2025 PTH 55 pg/mL Normal 11-61 [facility] Comment on above: Performed By: #### L 501.9520, L500.4050, L100.0100, L509.1000, L503.0106 ####[facility] [address] [place], [address] Platelet countOrdered By: Karson Wolff on 07-01-2025 Platelets (Bld) [#/Vol] 227 10*3/uL 150-450 [facility] Potassium measurement (mass/ volume)Ordered By: Shayy Wolff on 07-01-2025 Potassium (Unsp spec) [Mass/Vol] 4.5 mmol/L 3.3-5.1 [facility] RBC Auto (Bld) [#/Vol]Ordere d By: Shayy Wolff on 07-01-2025 RBC (Bld) [#/Vol] 4.29 10*6/uL Low 4.6-6.2 [facility] Serum creatinine measurement (mass/volume)Ordered By: Shayy Wolff on 07-01-2025 Creatinine [Mass/Vol] 1.41 mg/dL High 0.70-1.20 [facility] Serum globulin measurementOr dered By: Shayy Wolff on 07-01-2025 Globulin (S) [Mass/Vol] 3.4 g/dL 2.2-4.2 [facility] Serum glucose measurement (m ass/volume)Ordered By: Shayy Wolff on 07-01-2025 Glucose [Mass/Vol] 100 mg/dL High 70-99 [facility] Serum or plasma alanine sanchez otransferase (ALT) measurementOrdered By: Shayy Wolff on 07-01-2025 ALT [Catalytic activity/Vol] 19 U/L <47 [facility] Serum or plasma albumin kaylah urement (mass/volume)Ordered By: Shayy Wolff on 07-01-2025 Albumin [Mass/Vol] 4.2 g/dL 3.4-4.8 [facility] Serum or plasma albumin/glob ulin mass ratioOrdered By: Shayy Wolff on 07-01-2025 Albumin/Globulin [Mass ratio] 1.3 {ratio} 0.9-2.4 [facility] Serum or plasma alkaline aleena sphatase measurementOrdered By: Shayy SilverNew on 07-01-2025 ALP [Catalytic activity/Vol] 69 U/L 40-129 [facility] Serum or plasma calcium kaylah urement (mass/volume)Ordered By: Shayy Wolff on 07-01-2025 Calcium [Mass/Vol] 9.5 mg/dL 7.6-11.0 [facility] Serum or plasma urea nitroge n measurement (mass/volume)Ordered By: Shayy Wolff on 07-01-2025 Urea nitrogen [Mass/Vol] 33 mg/dL High 4-19 [facility] Sodium levelOrdered By: Shayy Wolff on 07-01-2025 Sodium [Moles/Vol] 138 mmol/L 133-145 [facility] TSH DL <= 0.005 mIU/L QnOrde red By: Shayy Wolff on 07-01-2025 TSH Qn 0.850 uIU/mL 0.300-4.200 [facility] Thyroid Stim Hormone (TSH)on 07-01-2025 TSH 0.850 uIU/mL Normal 0.300-4.200 [facility] Comment on above: Performed By: #### L 501.9520, L500.4050, L100.0100, L509.1000, L503.0106 ####[facility] [address] [place], [place], [id number] Total proteinOrdered By: Kinza Wolff on 07-01-2025 Protein [Mass/Vol] 7.6 g/dL 5.9-8.4 [facility] Vitamin B12on 07-01-2025 Cobalamin (Vitamin B12) [Mass/Vol] 749 pg/mL Normal 180-914 [facility] Comment on above: Performed By: #### L 501.9520, L500.4050, L100.0100, L509.1000, L503.0106 ####[facility] [address] [place], [place], [id number] Vitamin B12 ser/plasOrdered By: Shayy Wolff on 07-01-2025 Cobalamin (Vitamin B12) [Mass/Vol] 749 pg/mL 180-914 [facility] White blood cell (WBC) count Ordered By: Shayy Wolff on 07-01-2025 WBC (Bld) [#/Vol] 8.9 10*3/uL 4.4-11.0 [facility] Radiation Oncology Visiton 0 05-18-2025 Radiation Oncology Visit [facility] [address] [place] [address] OFFICE VISIT Date of Service: 05/18/25 1302 MR#: [id number] Acct: [id number] Name: GRANT ISLAS V Rep #: [id number] : 1935 From: Xavier Johnson DO Age/Sex: 89/M Location: [facility] Status: Signed Intake Vital Signs 07/28/24 11:04 [...] 1/2 cores at the left prostate base, 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 (more content not included)... Normal [facility] Brain/Head W/WO Contraston 0 03-25-2025 Brain/Head W/WO Contrast [facility] Imaging Services [address] [place] [address] Brain/Head W/WO Contrast MR#: [id number] Acct: [id number] Name: GRANT ISLAS V Rep #: [id number] : 1935 M 89 From: Gasper naylor MD PCP: Dr. Shayy Wolff, Status: [facility] Study: Brain/Head W/WO Contrast Date of Exam: 5 Exam# [id number] Ordering Dr: Shayy Wolff DO PROCEDURE: BRAIN/HEAD [...] CHRONIC CHANGES. NO ACUTE FINDINGS. Reading Location: [place] [address] CC: Dr. Shayy Wolff DO Physician Gynecologist: Signed Normal [facility] Basic Metabolic Profile (BMP )on 11-11-2024 BUN/CRE 22.4 RATIO High 10-20 [facility] Comment on above: Performed By: #### L 500.2500, L100.0100 ####[facility] [address] [place], [address] CA,Total 9.6 mg/dL Normal 8.5-10.1 [facility] Comment on above: Performed By: #### L 500.2500, L100.0100 ####[facility] [address] [place], [address] Chloride [Moles/Vol] 106 mmol/L Normal 98-107 [facility] Comment on above: Performed By: #### L 500.2500, L100.0100 ####[facility] [address] [place], [address] CO2 [Moles/Vol] 28.0 mmol/L Normal 21.0-32.0 [facility] Comment on above: Performed By: #### L 500.2500, L100.0100 ####[facility] [address] [place], [address] Creatinine [Mass/Vol] 1.47 mg/dL High 0.70-1.30 [facility] Comment on above: Result Comment: The validity of the calculated GFR GFRAA in patients over 70 years has not been determined. Clinical correlation is essential. Performed By: #### L 500.2500, L100.0100 ####[facility] [address] [place], [address] EST GFR - AA 58 mL/min Low >60 [facility] Comment on above: Result Comment: Afri can Romanian GFR Calc Performed By: #### L 500.2500, L100.0100 ####[facility] [address] [place], [address] GAP 4 Low 5-15 [facility] Comment on above: Performed By: #### L 500.2500, L100.0100 ####[facility] [address] [place], [address] GFR/1.73 sq M.predicted among non-blacks MDRD (S/P/Bld) [Vol rate/Area] 48 mL/min/{1.73_m2} Low >60 [facility] Comment on above: Result Comment: Non- GFR Calc Performed By: #### L 500.2500, L100.0100 ####[facility] [address] [place], [address] Glucose [Mass/Vol] 72 mg/dL Low 74-106 [facility] Comment on above: Performed By: #### L 500.2500, L100.0100 ####[facility] [address] [place], [address] Potassium [Moles/Vol] 4.4 mmol/L Normal 3.5-5.1 [facility] Comment on above: Performed By: #### L 500.2500, L100.0100 ####[facility] [address] [place], [address] Sodium [Moles/Vol] 138 mmol/L Normal 136-145 [facility] Comment on above: Performed By: #### L 500.2500, L100.0100 ####[facility] [address] [place], [address] Urea nitrogen [Mass/Vol] 33 mg/dL High 7-18 [facility] Comment on above: Performed By: #### L 500.2500, L100.0100 ####[facility] [address] [place], [address] CBC W/Diff, Automatedon 12- Absolute Lymph 2.35 X10 3/uL Normal 0.83-4.51 [facility] Comment on above: Performed By: #### L 500.2500, L100.0100 ####[facility] [address] [place], [address] Absolute Neut 5.8 X10 3/uL Normal 2.0-7.7 [facility] Comment on above: Performed By: #### L 500.2500, L100.0100 ####[facility] [address] [place], [address] Basophils/100 WBC (Bld) 0.4 % Normal 0-1 [facility] Comment on above: Performed By: #### L 500.2500, L100.0100 ####[facility] [address] [place], [address] Eosinophils/100 WBC (Bld) 1.8 % Normal 0-5 [facility] Comment on above: Performed By: #### L 500.2500, L100.0100 ####[facility] [address] [place], [address] Erythrocyte distribution width (RBC) [Ratio] 14.2 % Normal 11.6-14.6 [facility] Comment on above: Performed By: #### L 500.2500, L100.0100 ####[facility] [address] [place], [address] Hematocrit (Bld) [Volume fraction] 39.6 % Low 40-54 [facility] Comment on above: Performed By: #### L 500.2500, L100.0100 ####[facility] [address] [place], [address] Hemoglobin (Bld) [Mass/Vol] 12.5 g/dL Low 13.0-16.5 [facility] Comment on above: Performed By: #### L 500.2500, L100.0100 ####[facility] [address] [place], [address] IG% 0.900 Normal 0.0-0.9 [facility] Comment on above: Result Comment: IG% - Immature Granulocytes (promyelocytes, myelocytes and metamyelocytes) > 1% indicates that a LEFT SHIFT is Present. Performed By: #### L 500.2500, L100.0100 ####[facility] [address] [place], [address] Lymphocytes/100 WBC (Bld) 25.3 % Normal 19-41 [facility] Comment on above: Performed By: #### L 500.2500, L100.0100 ####[facility] [address] [place], [address] MCH (RBC) [Entitic mass] 30.1 pg Normal 27.0-32.0 [facility] Comment on above: Performed By: #### L 500.2500, L100.0100 ####[facility] [address] [place], [address] MCHC (RBC) [Mass/Vol] 31.6 g/dL Low 32-36 [facility] Comment on above: Performed By: #### L 500.2500, L100.0100 ####[facility] [address] [place], [address] MCV (RBC) [Entitic vol] 95.4 fL High 80-94 [facility] Comment on above: Performed By: #### L 500.2500, L100.0100 ####[facility] [address] [place], [address] Monocytes/100 WBC (Bld) 8.8 % Normal 0-10 [facility] Comment on above: Performed By: #### L 500.2500, L100.0100 ####[facility] [address] [place], [address] Neutrophils/100 WBC (Bld) 62.8 % Normal 47-70 [facility] Comment on above: Performed By: #### L 500.2500, L100.0100 ####[facility] [address] [place], [address] Nucleated RBC (Bld) [#/Vol] 0 10*3/uL Normal 0-5 [facility] Comment on above: Performed By: #### L 500.2500, L100.0100 ####[facility] [address] [place], [address] Platelet mean volume (Bld) [Entitic vol] 9.6 fL Normal 6.2-12.0 [facility] Comment on above: Performed By: #### L 500.2500, L100.0100 ####[facility] [address] [place], [address] Platelets (Bld) [#/Vol] 249 10*3/uL Normal 150-450 [facility] Comment on above: Performed By: #### L 500.2500, L100.0100 ####[facility] [address] [place], [address] RBC (Bld) [#/Vol] 4.15 10*6/uL Low 4.6-6.2 [facility] Comment on above: Performed By: #### L 500.2500, L100.0100 ####[facility] [address] [place], [address] RDW SD 49.8 fl High 35.1-43.9 [facility] Comment on above: Performed By: #### L 500.2500, L100.0100 ####[facility] [address] [place], [address] WBC (Bld) [#/Vol] 9.3 10*3/uL Normal 4.4-11.0 [facility] Comment on above: Performed By: #### L 500.2500, L100.0100 ####[facility] [address] [place], [address] CBC W/Diff, Automatedon 08-02-2023 Absolute Lymph 2.08 X10 3/uL Normal 0.83-4.51 [facility] Comment on above: Performed By: #### L 500.4100, L503.6550, L100.0100, L503.0105, L500.4050 #### [facility] [address] [place], [address] Absolute Neut 7.6 X10 3/uL Normal 2.0-7.7 [facility] Comment on above: Performed By: #### L 500.4100, L503.6550, L100.0100, L503.0105, L500.4050 #### [facility] [address] [place], [address] Basophils/100 WBC (Bld) 0.4 % Normal 0-1 [facility] Comment on above: Performed By: #### L 500.4100, L503.6550, L100.0100, L503.0105, L500.4050 #### [facility] [address] [place], [address] Eosinophils/100 WBC (Bld) 1.1 % Normal 0-5 [facility] Comment on above: Performed By: #### L 500.4100, L503.6550, L100.0100, L503.0105, L500.4050 #### [facility] [address] [place], [address] Erythrocyte distribution width (RBC) [Ratio] 13.8 % Normal 11.6-14.6 [facility] Comment on above: Performed By: #### L 500.4100, L503.6550, L100.0100, L503.0105, L500.4050 #### [facility] [address] [place], [address] Hematocrit (Bld) [Volume fraction] 38.6 % Low 40-54 [facility] Comment on above: Performed By: #### L 500.4100, L503.6550, L100.0100, L503.0105, L500.4050 #### [facility] [address] [place], [address] Hemoglobin (Bld) [Mass/Vol] 12.5 g/dL Low 13.0-16.5 [facility] Comment on above: Performed By: #### L 500.4100, L503.6550, L100.0100, L503.0105, L500.4050 #### [facility] [address] [place], [address] IG% 0.800 Normal 0.0-0.9 [facility] Comment on above: Result Comment: IG% - Immature Granulocytes (promyelocytes, myelocytes and metamyelocytes) > 1% indicates that a LEFT SHIFT is Present. Performed By: #### L 500.4100, L503.6550, L100.0100, L503.0105, L500.4050 #### [facility] [address] [place], [address] Lymphocytes/100 WBC (Bld) 19.4 % Normal 19-41 [facility] Comment on above: Performed By: #### L 500.4100, L503.6550, L100.0100, L503.0105, L500.4050 #### [facility] [address] [place], [address] MCH (RBC) [Entitic mass] 31.0 pg Normal 27.0-32.0 [facility] Comment on above: Performed By: #### L 500.4100, L503.6550, L100.0100, L503.0105, L500.4050 #### [facility] [address] [place], [address] MCHC (RBC) [Mass/Vol] 32.4 g/dL Normal 32-36 [facility] Comment on above: Performed By: #### L 500.4100, L503.6550, L100.0100, L503.0105, L500.4050 #### [facility] [address] [place], [address] MCV (RBC) [Entitic vol] 95.8 fL High 80-94 [facility] Comment on above: Performed By: #### L 500.4100, L503.6550, L100.0100, L503.0105, L500.4050 #### [facility] [address] [place], [address] Monocytes/100 WBC (Bld) 7.9 % Normal 0-10 [facility] Comment on above: Performed By: #### L 500.4100, L503.6550, L100.0100, L503.0105, L500.4050 #### [facility] [address] [place], [address] Neutrophils/100 WBC (Bld) 70.4 % High 47-70 [facility] Comment on above: Performed By: #### L 500.4100, L503.6550, L100.0100, L503.0105, L500.4050 #### [facility] [address] [place], [address] Nucleated RBC (Bld) [#/Vol] 0 10*3/uL Normal 0-5 [facility] Comment on above: Performed By: #### L 500.4100, L503.6550, L100.0100, L503.0105, L500.4050 #### [facility] [address] [place], [address] Platelet mean volume (Bld) [Entitic vol] 9.6 fL Normal 6.2-12.0 [facility] Comment on above: Performed By: #### L 500.4100, L503.6550, L100.0100, L503.0105, L500.4050 #### [facility] [address] [place], [address] Platelets (Bld) [#/Vol] 254 10*3/uL Normal 150-450 [facility] Comment on above: Performed By: #### L 500.4100, L503.6550, L100.0100, L503.0105, L500.4050 #### [facility] [address] [place], [address] RBC (Bld) [#/Vol] 4.03 10*6/uL Low 4.6-6.2 [facility] Comment on above: Performed By: #### L 500.4100, L503.6550, L100.0100, L503.0105, L500.4050 #### [facility] [address] [place], [address] RDW SD 49.0 fl High 35.1-43.9 [facility] Comment on above: Performed By: #### L 500.4100, L503.6550, L100.0100, L503.0105, L500.4050 #### [facility] [address] [place], [address] WBC (Bld) [#/Vol] 10.7 10*3/uL Normal 4.4-11.0 [facility] Comment on above: Performed By: #### L 500.4100, L503.6550, L100.0100, L503.0105, L500.4050 #### [facility] [address] [place], [address] Comprehensive Metabolic Prof [facility] 08-14-2024 Albumin [Mass/Vol] 3.5 g/dL Normal 3.2-5.0 [facility] Comment on above: Performed By: #### L 500.4100, L503.6550, L100.0100, L503.0105, L500.4050 #### [facility] [address] [place], [address] Albumin/Globulin [Mass ratio] 0.8 {ratio} Low 0.9-2.4 [facility] Comment on above: Performed By: #### L 500.4100, L503.6550, L100.0100, L503.0105, L500.4050 #### [facility] [address] [place], [address] ALK P 61 U/L Normal 45-117 [facility] Comment on above: Performed By: #### L 500.4100, L503.6550, L100.0100, L503.0105, L500.4050 #### [facility] [address] [place], [address] ALT [Catalytic activity/Vol] 22 U/L Normal 16-61 [facility] Comment on above: Performed By: #### L 500.4100, L503.6550, L100.0100, L503.0105, L500.4050 #### [facility] [address] [place], [address] AST [Catalytic activity/Vol] 20 U/L Normal 15-37 [facility] Comment on above: Performed By: #### L 500.4100, L503.6550, L100.0100, L503.0105, L500.4050 #### [facility] [address] [place], [address] Bilirubin [Mass/Vol] 0.40 mg/dL Normal 0.20-1.00 [facility] Comment on above: Result Comment: For patients on eltrombopag therapy, use of Dimension Brooks TBIL is not recommended. Performed By: #### L 500.4100, L503.6550, L100.0100, L503.0105, L500.4050 #### [facility] [address] [place], [address] BUN/CRE 23.3 RATIO High 10-20 [facility] Comment on above: Performed By: #### L 500.4100, L503.6550, L100.0100, L503.0105, L500.4050 #### [facility] [address] [place], [address] CA,Total 9.3 mg/dL Normal 8.5-10.1 [facility] Comment on above: Performed By: #### L 500.4100, L503.6550, L100.0100, L503.0105, L500.4050 #### [facility] [address] [place], [address] Chloride [Moles/Vol] 107 mmol/L Normal 98-107 [facility] Comment on above: Performed By: #### L 500.4100, L503.6550, L100.0100, L503.0105, L500.4050 #### [facility] [address] [place], [address] CO2 [Moles/Vol] 26.0 mmol/L Normal 21.0-32.0 [facility] Comment on above: Performed By: #### L 500.4100, L503.6550, L100.0100, L503.0105, L500.4050 #### [facility] [address] [place], [address] Creatinine [Mass/Vol] 1.50 mg/dL High 0.70-1.30 [facility] Comment on above: Result Comment: The validity of the calculated GFR GFRAA in patients over 70 years has not been determined. Clinical correlation is essential. Performed By: #### L 500.4100, L503.6550, L100.0100, L503.0105, L500.4050 #### [facility] [address] [place], [address] EST GFR - AA 57 mL/min Low >60 [facility] Comment on above: Result Comment: Afri can Romanian GFR Calc Performed By: #### L 500.4100, L503.6550, L100.0100, L503.0105, L500.4050 #### [facility] [address] [place], [address] GAP 6 Normal 5-15 [facility] Comment on above: Performed By: #### L 500.4100, L503.6550, L100.0100, L503.0105, L500.4050 #### [facility] [address] [place], [address] GFR/1.73 sq M.predicted among non-blacks MDRD (S/P/Bld) [Vol rate/Area] 47 mL/min/{1.73_m2} Low >60 [facility] Comment on above: Result Comment: Non- GFR Calc Performed By: #### L 500.4100, L503.6550, L100.0100, L503.0105, L500.4050 #### [facility] [address] [place], [address] Globulin (S) [Mass/Vol] 4.2 g/dL Normal 2.2-4.2 [facility] Comment on above: Performed By: #### L 500.4100, L503.6550, L100.0100, L503.0105, L500.4050 #### [facility] [address] [place], [address] Glucose [Mass/Vol] 94 mg/dL Normal 74-106 [facility] Comment on above: Performed By: #### L 500.4100, L503.6550, L100.0100, L503.0105, L500.4050 #### [facility] [address] [place], [address] Potassium [Moles/Vol] 3.7 mmol/L Normal 3.5-5.1 [facility] Comment on above: Performed By: #### L 500.4100, L503.6550, L100.0100, L503.0105, L500.4050 #### [facility] [address] [place], [address] Sodium [Moles/Vol] 139 mmol/L Normal 136-145 [facility] Comment on above: Performed By: #### L 500.4100, L503.6550, L100.0100, L503.0105, L500.4050 #### [facility] [address] [place], [address] T PROT 7.7 g/dL Normal 6.4-8.2 [facility] Comment on above: Performed By: #### L 500.4100, L503.6550, L100.0100, L503.0105, L500.4050 #### [facility] [address] [place], [address] Urea nitrogen [Mass/Vol] 35 mg/dL High 7-18 [facility] Comment on above: Performed By: #### L 500.4100, L503.6550, L100.0100, L503.0105, L500.4050 #### [facility] [address] [place], [address] Ferritinon 08-14-2024 Ferritin [Mass/Vol] 106 ng/mL Normal 26-388 [facility] Comment on above: Performed By: #### L 500.4100, L503.6550, L100.0100, L503.0105, L500.4050 #### [facility] [address] [place], [address] Lipid Profileon 08-14-2024 Cholesterol [Mass/Vol] 245 mg/dL High 200 [facility] Comment on above: Result Comment: <200 mg/dL Desirable 200-240 mg/dL Borderline >240 mg/dL High Risk Performed By: #### L 500.4100, L503.6550, L100.0100, L503.0105, L500.4050 #### [facility] [address] [place], [address] Cholesterol in HDL [Mass/Vol] 66 mg/dL Normal [facility] Comment on above: Result Comment: The drugs N-Acetylcysteine and Metamizole may falsely depress this assay. Reference Range HDL <40 mg/dL Low HDL Cholesterol HDL >or= 60 mg/dL High HDL Cholesterol Performed By: #### L 500.4100, L503.6550, L100.0100, L503.0105, L500.4050 #### [facility] [address] [place], [address] Cholesterol in LDL [Mass/Vol] 157 mg/dL High 0-130 [facility] Comment on above: Performed By: #### L 500.4100, L503.6550, L100.0100, L503.0105, L500.4050 #### [facility] [address] [place], [address] Cholesterol in VLDL [Mass/Vol] 22 mg/dL Normal 5-40 [facility] Comment on above: Performed By: #### L 500.4100, L503.6550, L100.0100, L503.0105, L500.4050 #### [facility] [address] [place], [address] Triglyceride [Mass/Vol] 110 mg/dL Normal [facility] Comment on above: Result Comment: The drugs N-Acetylcysteine and Metamizole may falsely depress this assay. Serum Triglycerides Reference Interval Normal <150 mg/dL Borderline high 150 - 199 mg/dL High 200 - 499 mg/dL Very High > or = 500 mg/dL Performed By: #### L 500.4100, L503.6550, L100.0100, L503.0105, L500.4050 #### [facility] [address] [place], [address] Vitamin B12on 08-14-2024 Cobalamin (Vitamin B12) [Mass/Vol] 614 pg/mL Normal 211-911 [facility] Comment on above: Performed By: #### L 500.4100, L503.6550, L100.0100, L503.0105, L500.4050 ####[facility] [address] [place], [address] PSA,Total- Diagnosticon 07-03 PSA, DIAGNOSTIC < 0.01 Normal 0.0-4.0 [facility] Comment on above: Result Comment: This test was performed using the TPSA assay method for the [employer] chemistry system. Values obtained with different assay methods cannot be used interchangably. When changing PSA assays in the course of monitoring a patient, additional sequential testing should be carried out to confirm baseline values. Performed By: #### L 501.9940 #### [facility] [address] [place], [address] Radiation Oncology Visiton 0 07-28-2024 Radiation Oncology Visit [facility] [address] [place] [address] OFFICE VISIT Date of Service: 07/28/24 1057 MR#: [id number] Acct: [id number] Name: GRANT ISLAS V Rep #: [id number] : 1935 From: Xavier Johnson Age/Sex: 89/M Location: [facility] Status: Signed Intake Vital Signs 12/31/23 10:07 [...] underwent TRUS guided prostate biopsy.??? 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 Normal [facility] PSA SerPl-ncon 11-27-2023 Prostate specific Ag [Mass/Vol] ng/mL Normal <2.60 [facility] Comment on above: Order Comment: Speci men Type: BLOOD SPECIMEN Ordering Facility: [facility] Address: [address] [place] [address] Result Comment: Tota l PSA test methodology used is the Electrochemiluminescence Immunoassay by [employer]. Total PSA values by differing methodologies cannot be interchanged. Performed By: #### 2 857-1 #### [facility] CLIA [id number] [address] [place] [address] [place] No Panel InformationOrdered By: Xavier Johnson on 07-01-2023 Prostate Specific Antigen Total < 0.01 ng/mL 0.0-4.0 [facility] Comment on above: This test was perfor med using the TPSA assay method for the[employer] system. Values obtained with differentassay methods cannot be used interchangably.When changing PSA assays in the course of monitoring apatient, additional sequential testing should be carriedout to confirm baseline values. Absolute lymphocyte countOrd ered By: Dr. Wolff on 04-08-2023 Lymphocytes Auto (Unsp spec) [#/Vol] 1.68 10*3/uL 0.83-4.51 [facility] Basophil percentageOrdered B y: Dr. Wolff on 04-08-2023 Basophils/100 WBC (Bld) 0.5 % 0-1 [facility] Bilirubin [Mass/Vol] 0.40 mg/dL 0.20-1.00 [facility] Comment on above: For patients on eltr ombopag therapy, use of Dimension Brooks TBIL is not recommended. Chloride [Moles/Vol] 109 mmol/L 98-107 [facility] Eosinophils/100 WBC (Bld) 2.6 % 0-5 [facility] Glucose [Mass/Vol] 87 mg/dL 74-106 [facility] Neutrophils (Bld) [#/Vol] 4.7 10*3/uL 2.0-7.7 [facility] Neutrophils/100 WBC (Bld) 64.3 % 47-70 [facility] Potassium [Moles/Vol] 4.1 mmol/L 3.5-5.1 [facility] Protein [Mass/Vol] 7.6 g/dL 6.4-8.2 [facility] Sodium [Moles/Vol] 139 mmol/L 136-145 [facility] WBC (Bld) [#/Vol] 7.3 10*3/uL 4.4-11.0 [facility] Blood erythrocytes count (nu mber/volume)Ordered By: Dr. Wolff on 04-08-2023 RBC (Bld) [#/Vol] 3.77 10*6/uL 4.6-6.2 [facility] Blood hemoglobin measurement (mass/volume)Ordered By: Dr. Wolff on 04-08-2023 Hemoglobin (Bld) [Mass/Vol] 11.8 g/dL 13.0-16.5 [facility] Blood lymphocytes/100 leukoc ytesOrdered By: Dr. Wolff on 04-08-2023 Lymphocytes/100 WBC (Bld) 22.9 % 19-41 [facility] Blood monocytes/100 leukocyt esOrdered By: Dr. Wolff on 04-08-2023 Monocytes/100 WBC (Bld) 8.9 % 0-10 [facility] Blood platelet mean volumeOr dered By: Dr. Wolff on 04-08-2023 Platelet mean volume (Bld) [Entitic vol] 9.5 fL 6.2-12.0 [facility] Determination of erythrocyte mean corpuscular volume (MCV)Ordered By: Dr. Wolff on 04-08-2023 MCV (RBC) [Entitic vol] 94.7 fL 80-94 [facility] Hematocrit Auto (Bld) [Volum e fraction]Ordered By: Dr. Wolff on 04-08-2023 Hematocrit (Bld) [Volume fraction] 35.7 % 40-54 [facility] - Chemistry and C hemistry - challengeOrdered By: Dr. Wolff on 04-08-2023 ALP [Catalytic activity/Vol] 53 U/L 45-117 [facility] ALT [Catalytic activity/Vol] 29 U/L 16-61 [facility] CO2 [Moles/Vol] 26.0 mmol/L 21.0-32.0 [facility] Globulin (S) [Mass/Vol] 4.1 g/dL 2.2-4.2 [facility] Urea nitrogen/Creatinine [Mass ratio] 23.7 mg/mg 10-20 [facility] - Hematology and Cell countsOrdered By: Dr. Wolff on 04-08-2023 Erythrocyte distribution width (RBC) [Entitic vol] 48.9 fL 35.1-43.9 [facility] Erythrocyte distribution width (RBC) [Ratio] 14.1 % 11.6-14.6 [facility] Immature granulocytes/100 WBC (Bld) 0.800 % 0.0-0.9 [facility] Comment on above: IG% - Immature Granu locytes (promyelocytes, myelocytes and metamyelocytes) > 1% indicates that a LEFT SHIFT is Present. MCH (RBC) [Entitic mass] 31.3 pg 27.0-32.0 [facility] Nucleated RBC/100 WBC (Bld) [Ratio] 0 % [facility] [[facility]/Vol]Or dered By: Dr. Wolff on 04-08-2023 MCHC (RBC) [Mass/Vol] 33.1 g/dL 32-36 [facility] No Panel InformationOrdered By: Dr. Wolff on 04-08-2023 Estimated GFR (MDRD) Amer 56 mL/min >60 [facility] Comment on above: GFR Calc Estimated GFR (MDRD) Non-Af Amer 46 mL/min >60 [facility] Comment on above: Non- GFR Calc Platelets bldOrdered By: Dr. Wolff on 04-08-2023 Platelets (Bld) [#/Vol] 247 10*3/uL 150-450 [facility] Serum or plasma albumin kaylah urement (mass/volume)Ordered By: Dr. Wolff on 04-08-2023 Albumin [Mass/Vol] 3.5 g/dL 3.2-5.0 [facility] Serum or plasma albumin/glob ulin mass ratioOrdered By: Dr. Wolff on 04-08-2023 Albumin/Globulin [Mass ratio] 0.9 {ratio} 0.9-2.4 [facility] Serum or plasma calcium kaylah urement (mass/volume)Ordered By: Dr. Wolff on 04-08-2023 Calcium [Mass/Vol] 8.9 mg/dL 8.5-10.1 [facility] Serum or plasma creatinine m easurement (mass/volume)Ordered By: Dr. Wolff on 04-08-2023 Creatinine [Mass/Vol] 1.52 mg/dL 0.70-1.30 [facility] Comment on above: The validity of the calculated GFR & GFRAA in patients over 70 years has not been determined. Clinical correlation is essential. Serum or plasma urea nitroge n measurement (mass/volume)Ordered By: Dr. Wolff on 04-08-2023 Urea nitrogen [Mass/Vol] 36 mg/dL 7-18 [facility] Thin prep Papanicolaou smear with manual screeningOrdered By: Dr. Wolff on 04-08-2023 Thin prep Papanicolaou smear with manual screening 25 U/L 15-37 [facility] Thin prep Papanicolaou smear with manual screening 4 5-15 [facility] No Panel InformationOrdered By: Dr. Johnson on 12-31-2022 Prostate Specific Antigen Total < 0.01 ng/mL 0.0-4.0 [facility] Comment on above: This test was perfor med using the TPSA assay method for [employer] chemistry system. Values obtained with differentassay methods cannot be used interchangably.When changing PSA assays in the course of monitoring apatient, additional sequential testing should be carriedout to confirm baseline values. Basophil percentageon 2021 Chloride [Moles/Vol] 108 mmol/L 98-107 [facility] Work Phone: Glucose [Mass/Vol] 81 mg/dL 74-106 [facility] Work Phone: Potassium [Moles/Vol] 4.3 mmol/L 3.5-5.1 [facility] Work Phone: Sodium [Moles/Vol] 138 mmol/L 136-145 [facility] Work Phone: Laboratory - Chemistry and C hemistry - challengeon 09-29-2022 CO2 [Moles/Vol] 24.0 mmol/L 21.0-32.0 [facility] Work Phone: Urea nitrogen/Creatinine [Mass ratio] 22.1 mg/mg 10-20 [facility] Work Phone: No Panel Informationon 09-29 Estimated GFR (MDRD) Amer 58 mL/min >60 [facility] Work Phone: Comment on above: GFR Calc Estimated GFR (MDRD) Non-Af Amer 48 mL/min >60 [facility] Work Phone: Comment on above: Non- GFR Calc Serum or plasma calcium kaylah urement (mass/volume)on 09-29-2022 Calcium [Mass/Vol] 8.6 mg/dL 8.5-10.1 [facility] Work Phone: Serum or plasma creatinine m easurement (mass/volume)on 09-29-2022 Creatinine [Mass/Vol] 1.49 mg/dL 0.70-1.30 [facility] Work Phone: Comment on above: The validity of the calculated GFR & GFRAA in patients over 70 years has not been determined. Clinical correlation is essential. Serum or plasma urea nitroge n measurement (mass/volume)on 09-29-2022 Urea nitrogen [Mass/Vol] 33 mg/dL 7-18 [facility] Work Phone: Thin prep Papanicolaou smear with manual screeningon 09-29-2022 Thin prep Papanicolaou smear with manual screening 6 5-15 [facility] Work Phone: BASIC METABOLIC PANELon 09-02 Anion gap [Moles/Vol] 16 mmol/L Normal - [facility] Comment on above: Performed By: #### B MP #### [address] [address] Calcium [Mass/Vol] 9.0 mg/dL Normal 8.6 - 10.[address] [facility] Comment on above: Performed By: #### B MP #### [address] [address] Chloride [Moles/Vol] 99 mmol/L Normal 98 - 107 [facility] Comment on above: Performed By: #### B MP #### [address] [address] Creatinine [Mass/Vol] 1.99 mg/dL High 0.50 - 1.30 [facility] Comment on above: Performed By: #### B MP #### [address] [address] GFR/1.73 sq M.predicted among non-blacks MDRD (S/P/Bld) [Vol rate/Area] 32 mL/min/{1.73_m2} Abnormal >90 [facility] Comment on above: Result Comment: CALC ULATIONS OF ESTIMATED GFR ARE PERFORMED USING THE 2020 CKD-EPI STUDY REFIT EQUATION WITHOUT THE RACE VARIABLE FOR THE IDMS-TRACEABLE CREATININE METHODS. https://jasn.asnjournals.org/content/early/ASN.33281 [address] Performed By: #### B MP #### [address] [address] Glucose [Mass/Vol] 124 mg/dL High 74 - [address] [facility] Comment on above: Performed By: #### B MP #### [address] [address] HCO3 (Bld) [Moles/Vol] 21 mmol/L Normal 21 - 32 [facility] Comment on above: Performed By: #### B MP #### [address] [address] Potassium [Moles/Vol] 3.5 mmol/L Normal 3.5 - 5.3 [facility] Comment on above: Performed By: #### B MP #### [address] [address] Sodium [Moles/Vol] 132 mmol/L Low 136 - [address] [facility] Comment on above: Performed By: #### B MP #### [address] [address] Urea nitrogen [Mass/Vol] 76 mg/dL High 6 - 23 [facility] Comment on above: Performed By: #### B MP #### [address] [address] CBCon 09-22-2022 Erythrocyte distribution width (RBC) [Ratio] 14.5 % Normal 11.5 - 14.5 [facility] Comment on above: Performed By: #### C BC ####[address] [address] Hematocrit (Bld) [Volume fraction] 32.6 % Low 41.0 - 52.0 [facility] Comment on above: Performed By: #### C BC ####[address] [address] Hemoglobin (Bld) [Mass/Vol] 10.9 g/dL Low 13.5 - 17.5 [facility] Comment on above: Performed By: #### C BC ####[address] [address] MCHC (RBC) [Mass/Vol] 33.5 g/dL Normal 32.0 - 36.0 [facility] Comment on above: Performed By: #### C BC ####[address] [address] MCV (RBC) [Entitic vol] 93 fL Normal 80 - 100 [facility] Comment on above: Performed By: #### C BC ####[address] [address] Platelets (Bld) [#/Vol] 233 10*3/uL Normal 150 - 450 [facility] Comment on above: Performed By: #### C BC ####[address] [address] RBC 3.53 x10E12/L Low 4.50 - 5.90 [facility] Comment on above: Performed By: #### C BC ####[address] [address] WBC (Bld) [#/Vol] 14.8 10*3/uL High 4.4 - 11.3 [facility] Comment on above: Performed By: #### C BC ####[address] [address] Discharge [id number] Discharge Profile2 Discharge Orders: Anticipated Discharge Date: Anticipated Discharge [id number] DNAR: Code Status at Discharge: DNAR Was Extending the DNAR Status Following Discharge Discussed w/ Patient/Family: n/a- patient already has a completed DNR State Form [place] DNR State Form Status: DNR [facility] [...] 22-Sep-2022 12:23:38 Appointments: Follow-Up Appointment 01: Physician/Dept/[facility] Reason for ReferralHospital Follow-up Call to Schedule in2 weeks [id number], [place] [address] Phone [phone] CommentsPlease call and schedule a follow-up appointment within 2 weeks of your Hospital Discharge Electronic Signatures: Debbie Iraheta (UNIT SECT) (Signed 22-Sep-2022 13:01) Authored: Discharge Orders, Appointments Primo Navarro) (Signed 22-Sep-2022 12:23) Authored: Discharge Orders, Provider FINAL REVIEW of Orders, Appointments, Gold Form - [place] Summary Last Updated: 22-Sep-2022 13:01 by Debbie Iraheta (UNIT SECT) [facility] Order Reconciliationon 09-22 Order Reconciliation Page 1 [...] mg-100 mg Dose Pack oral tablet Normal [facility] Rehab Note-individual therap yon 09-22-2022 Rehab Note-individual therapy 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: 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 Mode of Treatmentindividual therapy; physical therapy Time [...] in hospital roomnone Climbing 3-5 steps with railingshon herrera AM-PAC (PT) Total Score23 Outcome Summary: [...] Sensory, Outcomes Tools, Outcome Summary Ara Rose (TELEVISION ANALYZER) (Signed 22-Sep-2022 10:48) Authored: Info, Vision/Cognition, Mobility/Tone, Motor, Sensory, Outcomes Tools, Outcome Summary Last Updated: 25-Sep-2022 11:19 by Justine Carmen (PT) [facility] AND DIFFERENTIALon 09-21 DIFFERENTIAL SEE MANUAL DIFF Normal [facility] Comment on above: Performed By: #### C BCDF ####[address] [address] Erythrocyte distribution width (RBC) [Ratio] 14.4 % Normal 11.5 - 14.5 [facility] Comment on above: Performed By: #### C BCDF ####[address] [address] Hematocrit (Bld) [Volume fraction] 35.0 % Low 41.0 - 52.0 [facility] Comment on above: Performed By: #### C BCDF ####[address] [address] Hemoglobin (Bld) [Mass/Vol] 11.7 g/dL Low 13.5 - 17.5 [facility] Comment on above: Performed By: #### C BCDF ####[address] [address] MCHC (RBC) [Mass/Vol] 33.5 g/dL Normal 32.0 - 36.0 Located [facility] Comment on above: Performed By: #### C BCDF ####[address] [address] MCV (RBC) [Entitic vol] 93 fL Normal 80 - 100 [facility] Comment on above: Performed By: #### C BCDF ####[address] [address] Platelets (Bld) [#/Vol] 221 10*3/uL Normal 150 - 450 [facility] Comment on above: Performed By: #### C BCDF ####[address] [address] RBC 3.78 x10E12/L Low 4.50 - 5.90 [facility] Comment on above: Performed By: #### C BCDF ####[address] [address] WBC (Bld) [#/Vol] 13.4 10*3/uL High 4.4 - 11.3 [facility] Comment on above: Performed By: #### C BCDF ####[address] [address] COMPREHENSIVE PANELon 2021 Albumin [Mass/Vol] 3.5 g/dL Normal 3.4 - 5.[address] [facility] Comment on above: Performed By: #### B MP #### [address] [address] ALP [Catalytic activity/Vol] 42 U/L Normal 33 - 136 [facility] Comment on above: Performed By: #### B MP #### [address] [address] ALT [Catalytic activity/Vol] 33 U/L Normal 10 - 52 [facility] Comment on above: Result Comment: Julia ents treated with Sulfasalazine may generate falsely decreased results for ALT. Performed By: #### B MP #### [address] [address] Anion gap [Moles/Vol] 15 mmol/L Normal 10 - 20 [facility] Comment on above: Performed By: #### B MP #### [address] [address] AST [Catalytic activity/Vol] 63 U/L High 9 - 39 [facility] Comment on above: Performed By: #### B MP #### [address] [address] Bilirubin [Mass/Vol] 0.6 mg/dL Normal 0.0 - 1.2 [facility] Comment on above: Performed By: #### B MP #### [address] [address] Calcium [Mass/Vol] 9.2 mg/dL Normal 8.6 - 10.[address] [facility] Comment on above: Performed By: #### B MP #### [address] [address] Chloride [Moles/Vol] 102 mmol/L Normal 98 - 107 [facility] Comment on above: Performed By: #### B MP #### [address] [address] Creatinine [Mass/Vol] 1.60 mg/dL High 0.50 - 1.30 [facility] Comment on above: Performed By: #### B MP #### [address] [address] GFR/1.73 sq M.predicted among non-blacks MDRD (S/P/Bld) [Vol rate/Area] 42 mL/min/{1.73_m2} Abnormal >90 [facility] Comment on above: Result Comment: CALC ULATIONS OF ESTIMATED GFR ARE PERFORMED USING THE 2020 CKD-EPI STUDY REFIT EQUATION WITHOUT THE RACE VARIABLE FOR THE IDMS-TRACEABLE CREATININE METHODS. https://jasn.asnjournals.org/content/early//ASN.16401 36072 Performed By: #### B MP #### [address] [address] Glucose [Mass/Vol] 132 mg/dL High 74 - [address] [facility] Comment on above: Performed By: #### B MP #### [address] [address] HCO3 (Bld) [Moles/Vol] 23 mmol/L Normal 21 - 32 [facility] Comment on above: Performed By: #### B MP #### [address] [address] Potassium [Moles/Vol] 3.5 mmol/L Normal 3.5 - 5.3 [facility] Comment on above: Performed By: #### B MP #### [address] [address] Protein [Mass/Vol] 7.0 g/dL Normal 6.4 - 8.[address] [facility] Comment on above: Performed By: #### B MP #### [address] [address] Sodium [Moles/Vol] 136 mmol/L Normal 136 - [address] [facility] Comment on above: Performed By: #### B MP #### [address] [address] Urea nitrogen [Mass/Vol] 47 mg/dL High 6 - 23 [facility] Comment on above: Performed By: #### B #### [facility] [address] [place] [address] Daily Progress Note-General Internal Medicineon 09-21-2022 Daily Progress Note-General Internal Medicine Service: General Internal Medicine Subjective Data: GRANT ISLAS V. is a 87 year old Male who is Hospital Day # 3. Patient seen and examined. He denies any shortness of breath, cough, nausea, vomiting, chest pain, diarrhea does complain of some weakness. Objective Data: Objective Information: T PRBPMAPSpO2 [id number]% Date/Time09/21 7: 7: 7: 7: 7: 7:33 [...] Updated: 21-Sep-2022 13:27 by Primo Navarro) Normal [facility] MANUAL DIFFERENTIALon 2021 % BAND NEUTROPHIL 13.0 % Abnormal 0.0 - 5.0 [facility] Comment on above: Performed By: #### B MP #### [place] [address] % BASOPHIL 0.0 % Normal 0.0 - 2.0 [facility] Comment on above: Performed By: #### B MP #### [address] [address] % EOSINOPHIL 0.0 % Normal 0.0 - 6.0 [facility] Comment on above: Performed By: #### B MP #### [address] [address] % LYMPHOCYTE 8.0 % Normal 13.0 - 44.0 [facility] Comment on above: Performed By: #### B MP #### [address] [address] % MONOCYTE 5.0 % Normal 2.0 - 10.0 [facility] Comment on above: Performed By: #### B MP #### [address] [address] % SEG NEUTROPHIL 74.0 % Normal 40.0 - 80.0 [facility] Comment on above: Result Comment: Perc ent differential counts (%) should be interpreted in the context of the absolute cell counts (cells/L). Performed By: #### B MP #### [address] [address] ANC 11.66 x10E9/L High 1.60 - 5.50 [facility] Comment on above: Performed By: #### B MP #### [address] [address] BAND NEUTROPHIL 1.74 x10E9/L High 0.00 - 0.[address] [facility] Comment on above: Performed By: #### B MP #### [address] [address] BASOPHIL 0.00 x10E9/L Normal 0.00 - 0.10 [facility] Comment on above: Performed By: #### B MP #### [address] [address] EOSINOPHIL 0.00 x10E9/L Normal 0.00 - 0.40 [facility] Comment on above: Performed By: #### B MP #### [address] [address] LYMPHOCYTE 1.07 x10E9/L Normal 0.80 - 3.00 [facility] Comment on above: Performed By: #### B MP #### [address] [address] MONOCYTE 0.67 x10E9/L Normal 0.05 - 0.80 [facility] Comment on above: Performed By: #### B MP #### [place] [id number] SEG NEUTROPHIL 9.92 x10E9/L High 1.60 - 5.00 [facility] Comment on above: Performed By: #### B MP #### [place] [id number] Nutrition Therapy-Assessment on 09-21-2022 Nutrition Therapy-Assessment Assessment Subjective/Objective: Note Type: Assessment Note Authored by: Registered Dietitian Timber Management Professor Pager Number: [phone] Nutrition Note: The patient is a 87 year old Male admitted with COVID 19. MST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 ORDERING CLINICIAN: CHELA BONILLA FINDINGS: No evidence [...] Electronically signed by: OH CRAWLEY MD Normal [facility] INFLUENZA A/B, COVID 2019 PC R,SYMPTOMATICon 09-19-2022 INFLUENZA A, PCR Not detected Normal Not Detected [facility] Comment on above: Result Comment: Resp iratory virus testing is performed routinely by PCR for Influenza A/B and RSV. Not Detected results do not preclude Influenza A/B or RSV infections since the adequacy of sample collection or low viral burden may impact the clinical sensitivity of this test method. Performed By: #### C OINP #### [address] [address] INFLUENZA B, PCR Not detected Normal Not Detected [facility] Comment on above: Result Comment: Resp iratory virus testing is performed routinely by PCR for Influenza A/B and RSV. Not Detected results do not preclude Influenza A/B or RSV infections since the adequacy of sample collection or low viral burden may impact the clinical sensitivity of this test method. Performed By: #### C OINP #### [place] [address] SARS-CoV-2 (COVID-19) RNA TREVON+probe Ql (Unsp spec) Detected Abnormal Not Detected [facility] Comment on above: Result Comment: . This test has received FDA Emergency Use Authorization (EUA) and has been verified by [facility]. This test is only authorized for the duration of time that circumstances exist to justify the authorization of the emergency use of in vitro diagnostic tests for the detection of SARS-CoV-2 virus and/or diagnosis of COVID-19 infection under section 564(b)(1) of the Act, 21 U.S.C. 360bbb-3(b)(1), unless the authorization is terminated or revoked sooner. [facility] is certified under CLIA-88 as qualified to perform high complexity testing. Testing is performed in the [facility] laboratory located at [address] [place] [address]. SARS-CoV-2/Flu/RSV Multiplex Test: Fact sheet for providers: https://www.fda.gov/media/582897/download Fact sheet for patients: https://www.fda.gov/media/384949/download Performed By: #### C OINP #### [place] [address] Lab Specimen Source Nasal, Nasopharyngeal Normal [facility] Comment on above: Performed By: #### C OINP #### [place] [address] LACTATEon 09-19-2022 Lactate [Moles/Vol] 1.0 mmol/L Normal 0.4 - 2.0 [facility] Comment on above: Result Comment: Tracie puncture immediately after or during the administration of Metamizole may lead to falsely low results. Testing should be performed immediately prior to Metamizole dosing. Performed By: #### L ACT ####[address] [address] MANUAL DIFFERENTIALon 2021 % BAND NEUTROPHIL 3.0 % Normal 0.0 - 5.0 [facility] Comment on above: Performed By: #### M DIFF ####[address] [address] % BASOPHIL 0.0 % Normal 0.0 - 2.0 [facility] Comment on above: Performed By: #### M DIFF ####[address] [address] % EOSINOPHIL 0.0 % Normal 0.0 - 6.0 [facility] Comment on above: Performed By: #### M DIFF ####[address] [address] % LYMPHOCYTE 5.0 % Normal 13.0 - 44.0 [facility] Comment on above: Performed By: #### M DIFF ####[address] [address] % MONOCYTE 4.0 % Normal 2.0 - 10.0 [facility] Comment on above: Performed By: #### M DIFF ####[address] [address] % SEG NEUTROPHIL 88.0 % Normal 40.0 - 80.0 [facility] Comment on above: Result Comment: Perc ent differential counts (%) should be interpreted in the context of the absolute cell counts (cells/L). Performed By: #### M DIFF ####[address] [address] ANC 12.83 x10E9/L High 1.60 - 5.50 [facility] Comment on above: Performed By: #### M DIFF ####[address] [address] BAND NEUTROPHIL 0.42 x10E9/L Normal 0.00 - 0.[address] [facility] Comment on above: Performed By: #### M DIFF ####[address] [address] BASOPHIL 0.00 x10E9/L Normal 0.00 - 0.10 [facility] Comment on above: Performed By: #### M DIFF ####[address] [address] EOSINOPHIL 0.00 x10E9/L Normal 0.00 - 0.40 [facility] Comment on above: Performed By: #### M DIFF ####[address] [address] LYMPHOCYTE 0.71 x10E9/L Low 0.80 - 3.00 [facility] Comment on above: Performed By: #### M DIFF ####[address] [address] MONOCYTE 0.56 x10E9/L Normal 0.05 - 0.80 [facility] Comment on above: Performed By: #### M DIFF ####[address] [address] SEG NEUTROPHIL 12.41 x10E9/L High 1.60 - 5.[address] [facility] Comment on above: Performed By: #### M DIFF ####[address] [address] Provider Note - ED v3on 09-01 Provider [...] Reference Range: STRAW,YELLOW Appearance, Urine HAZY Specific [place], Urine 1.019 pH, Urine 5.0 Protein, Urine [...] Authorization (EUA) and has been verified by [facility]. This test is only authorized for [...] is recomm (more content not included)... Normal [facility] RED CELL MORPHOLOGYon 2021 RBC morphology finding Nom (Bld) NORMAL Normal [facility] Comment on above: Performed By: #### M OR #### [facility] [address] [place] [address] TROPONIN I, HIGH SENSITIVITY on 09-19-2022 TROPONIN I, HIGH SENSITIVITY 33 ng/L High 0 - 20 [facility] Comment on above: Result Comment: . Less [...] performed using a different testing methodology at [facility] than at other [facility]. Direct result comparisons should only be made within the same method. Performed By: #### B #### [facility] [address] [place] [address] TROPONIN I, HIGH SENSITIVITY 30 ng/L High 0 - 20 [facility] Comment on above: Result Comment: . Less [...] performed using a different testing methodology at [facility] than at other [facility]. Direct result comparisons should only be made within the same method. Performed By: #### T [facility] #### [facility] [address] [place] [address] Triage - EDon 09-19-2022 Triage - ED [...] obeys commands Best Verbal Response: (V5) oriented [place] Star Score: 15 Cough lasting greater than 3 [...] Past Medical History Reviewedyes Electronic Signatures: Mandy Diaz (NASEEM) (Signed 19-Sep-2022 18:26) Authored: Quick Triage, Risk Screens, Pain, Travel History, Chart Review, Scores, Past Medical History Last Updated: 19-Sep-2022 18:26 by Mandy Diaz (NASEEM) Normal [facility] UA MICROSCOPICon 09-19-2022 Mucus Ql (Urine sed) 1+ /LPF Normal [facility] Comment on above: Performed By: #### U AMIC ####[place] [address] RBC 5 /HPF Normal 0-5 [facility] Comment on above: Performed By: #### U AMIC ####[place] [address] SQUAMOUS EPITH. CELLS <1 Normal [facility] Comment on above: Performed By: #### U AMIC ####[place] [address] WBC 1 /HPF Normal 0-5 [facility] Comment on above: Performed By: #### U AMIC ####[place] [address] URINALYSIS WITH CULTURE IF I NDICATEDon 09-19-2022 Appearance (U) HAZY Normal CLEAR [facility] Comment on above: Performed By: #### B MP #### [address] [address] Bilirubin Ql (U) Negative Normal NEGATIVE [facility] Comment on above: Performed By: #### B MP #### [place] [address] Color (U) Yellow Normal STRAW,YELLO W [facility] Comment on above: Performed By: #### B MP #### [address] [address] Glucose Ql (U) Negative Normal NEGATIVE [facility] Comment on above: Performed By: #### B MP #### [place] [address] Hemoglobin Ql (U) LARGE(3+) Abnormal NEGATIVE [facility] Comment on above: Performed By: #### B MP #### [place] [address] Ketones Ql (U) 5(TRACE) Abnormal NEGATIVE [facility] Comment on above: Performed By: #### B MP #### [place] [address] Leukocyte esterase Test strip Ql (U) Negative Normal NEGATIVE [facility] Comment on above: Performed By: #### B MP #### [address] [address] Nitrite Ql (U) Negative Normal NEGATIVE [facility] Comment on above: Performed By: #### B MP #### [address] [address] pH (U) 5.0 [pH] Normal 5.0 - 8.0 [facility] Comment on above: Performed By: #### B MP #### [address] [address] Protein Ql (U) 100(2+) Abnormal NEGATIVE [facility] Comment on above: Performed By: #### B MP #### [facility] [address] [place] [address] Specific gravity (U) [Rel density] 1.019 Normal 1.005 - 1.035 [facility] Comment on above: Performed By: #### B MP #### [place] [id number] [place] [address] Urobilinogen (U) [Mass/Vol] mg/dL Normal 0.0 - 1.9 [facility] Comment on above: Performed By: #### B MP #### [address] [address] Absolute lymphocyte counton 09-10-2022 Lymphocytes Auto (Unsp spec) [#/Vol] 1.70 10*3/uL 0.83-4.51 [facility] Work Phone: [phone] Basophil percentageon 2021 Basophils/100 WBC (Bld) 0.4 % 0-1 [facility] Work Phone: Bilirubin [Mass/Vol] 0.30 mg/dL 0.20-1.00 [facility] Work Phone: Comment on above: For patients on eltr ombopag therapy, use of Dimension Brooks TBIL is not recommended. Chloride [Moles/Vol] 105 mmol/L 98-107 [facility] Work Phone: Cholesterol [Mass/Vol] 192 mg/dL <200 [facility] Work Phone: Comment on above: <200 mg/dL Desirable 200-240 mg/dL Borderline >240 mg/dL High Risk Eosinophils/100 WBC (Bld) 1.5 % 0-5 [facility] Work Phone: Glucose [Mass/Vol] 70 mg/dL 74-106 [facility] Work Phone: Neutrophils (Bld) [#/Vol] 5.3 10*3/uL 2.0-7.7 [facility] Work Phone: Neutrophils/100 WBC (Bld) 66.6 % 47-70 [facility] Work Phone: Potassium [Moles/Vol] 4.3 mmol/L 3.5-5.1 [facility] Work Phone: Protein [Mass/Vol] 8.0 g/dL 6.4-8.2 [facility] Work Phone: Sodium [Moles/Vol] 140 mmol/L 136-145 [facility] Work Phone: Triglyceride [Mass/Vol] 126 mg/dL <199 [facility] Work Phone: Comment on above: The drugs N-Acetylcy steine and Metamizole may falsely depress this assay.Serum Triglycerides Reference Interval Normal <150 mg/dL Borderline high 150 - 199 mg/dL High 200 - 499 mg/dL Very High > or = 500 mg/dL WBC (Bld) [#/Vol] 8.0 10*3/uL 4.4-11.0 [facility] Work Phone: Blood erythrocytes count (nu mber/volume)on 09-10-2022 RBC (Bld) [#/Vol] 3.81 10*6/uL 4.6-6.2 [facility] Work Phone: Blood hemoglobin measurement (mass/volume)on 09-10-2022 Hemoglobin (Bld) [Mass/Vol] 12.1 g/dL 13.0-16.5 [facility] Work Phone: Blood lymphocytes/100 leukoc yteson 09-10-2022 Lymphocytes/100 WBC (Bld) 21.3 % 19-41 [facility] Work Phone: Blood monocytes/100 leukocyt eson 09-10-2022 Monocytes/100 WBC (Bld) 9.4 % 0-10 [facility] Work Phone: Blood platelet mean volumeon 09-10-2022 Platelet mean volume (Bld) [Entitic vol] 9.4 fL 6.2-12.0 [facility] Work Phone: Determination of erythrocyte mean corpuscular volume (MCV)on 09-10-2022 MCV (RBC) [Entitic vol] 95.8 fL 80-94 [facility] Work Phone: [phone] Hematocrit Auto (Bld) [Volum e fraction]on 09-10-2022 Hematocrit (Bld) [Volume fraction] 36.5 % 40-54 [facility] Work Phone: Laboratory - Chemistry and C hemistry - challengeon 09-10-2022 ALP [Catalytic activity/Vol] 57 U/L 45-117 [facility] Work Phone: ALT [Catalytic activity/Vol] 23 U/L 16-61 [facility] Work Phone: CO2 [Moles/Vol] 27.0 mmol/L 21.0-32.0 [facility] Work Phone: Globulin (S) [Mass/Vol] 4.7 g/dL 2.2-4.2 [facility] Work Phone: Urea nitrogen/Creatinine [Mass ratio] 17.1 mg/mg 10-20 [facility] Work Phone: Laboratory - Hematology and Cell countson 09-10-2022 Erythrocyte distribution width (RBC) [Entitic vol] 48.3 fL 35.1-43.9 [facility] Work Phone: Erythrocyte distribution width (RBC) [Ratio] 13.7 % 11.6-14.6 [facility] Work Phone: Immature granulocytes/100 WBC (Bld) 0.800 % 0.0-0.9 [facility] Work Phone: Comment on above: IG% - Immature Granu locytes (promyelocytes, myelocytes and metamyelocytes) > 1% indicates that a LEFT SHIFT is Present. MCH (RBC) [Entitic mass] 31.8 pg 27.0-32.0 [facility] Work Phone: Nucleated RBC/100 WBC (Bld) [Ratio] 0 % 0-5 [facility] Work Phone: MCHC Auto (RBC) [Mass/Vol]on 09-10-2022 MCHC (RBC) [Mass/Vol] 33.2 g/dL 32-36 [facility] Work Phone: No Panel Informationon 09-10 Estimated GFR (MDRD) Amer 59 mL/min >60 [facility] Work Phone: Comment on above: GFR Calc Estimated GFR (MDRD) Non-Af Amer 49 mL/min >60 [facility] Work Phone: Comment on above: Non- GFR Calc Platelets bldon 09-10-2022 Platelets (Bld) [#/Vol] 293 10*3/uL 150-450 [facility] Work Phone: Serum or plasma albumin kaylah urement (mass/volume)on 09-10-2022 Albumin [Mass/Vol] 3.3 g/dL 3.2-5.0 [facility] Work Phone: Serum or plasma albumin/glob ulin mass ratioon 09-10-2022 Albumin/Globulin [Mass ratio] 0.7 {ratio} 0.9-2.4 [facility] Work Phone: Serum or plasma calcium kaylah urement (mass/volume)on 09-10-2022 Calcium [Mass/Vol] 9.3 mg/dL 8.5-10.1 [facility] Work Phone: Serum or plasma cholesterol in HDL measurement (mass/volume)on 09-10-2022 Cholesterol in HDL [Mass/Vol] 62 mg/dL >40 [facility] Work Phone: Comment on above: The drugs N-Acetylcy steine and Metamizole may falsely depress this assay. Reference Range HDL <40 mg/dL Low HDL Cholesterol HDL >or= 60 mg/dL High HDL Cholesterol Serum or plasma cholesterol in VLDL measurement (mass/volume)on 09-10-2022 Cholesterol in VLDL [Mass/Vol] 25 mg/dL 5-40 [facility] Work Phone: Serum or plasma creatinine m easurement (mass/volume)on 09-10-2022 Creatinine [Mass/Vol] 1.46 mg/dL 0.70-1.30 [facility] Work Phone: Comment on above: The validity of the calculated GFR & GFRAA in patients over 70 years has not been determined. Clinical correlation is essential. Serum or plasma low density lipoprotein (LDL) cholesterol measurement (mass/volume)on 09-10-2022 Cholesterol in LDL [Mass/Vol] 105 mg/dL 0-130 [facility] Work Phone: Serum or plasma urea nitroge n measurement (mass/volume)on 09-10-2022 Urea nitrogen [Mass/Vol] 25 mg/dL 7-18 [facility] Work Phone: Thin prep Papanicolaou smear with manual screeningon 09-10-2022 Thin prep Papanicolaou smear with manual screening 19 U/L 15-37 [facility] Work Phone: Thin prep Papanicolaou smear with manual screening 8 5-15 [facility] Work Phone: No Panel Informationon 06-12 Prostate Specific Antigen Total < 0.01 ng/mL 0.0-4.0 [facility] Work Phone: Comment on above: This test was perfor med using the TPSA assay method for [employer] chemistry system. Values obtained with differentassay methods cannot be used interchangably.When changing PSA assays in the course of monitoring apatient, additional sequential testing should be carriedout to confirm baseline values. No Panel Informationon 01-09 Estimated GFR (MDRD) Amer 58 mL/min >60 [facility] Comment on above: GFR Calc Estimated GFR (MDRD) Non-Af Amer 48 mL/min >60 [facility] Comment on above: Non- GFR Calc Serum or plasma creatinine m easurement (mass/volume)on 01-09-2022 Creatinine [Mass/Vol] 1.48 mg/dL 0.70-1.30 [facility] Comment on above: The validity of the calculated GFR & GFRAA in patients over 70 years has not been determined. Clinical correlation is essential. Vital Signs Date Time Vital Sign Value Performing Clinician Facility 07-09-2025 23:31-0400 Body temperature 97.6 [degF] Dr. Shayy Wolff DO Work Phone: [facility] 07-09-2025 23:31-0400 Diastolic blood pressure 76 mm[Hg] Dr. Shayy Wolff DO Work Phone: [facility] 07-09-2025 23:31-0400 Heart rate 69 /min Dr. Shayy Wolff DO Work Phone: [facility] 07-09-2025 23:31-0400 Respiratory rate 18 /min Dr. Shayy Wolff DO Work Phone: [facility] 07-09-2025 23:31-0400 SaO2% (BldA) [Mass fraction] 100 % Dr. Shayy Wolff DO Work Phone: [facility] 07-09-2025 23:31-0400 Systolic blood pressure 126 mm[Hg] Dr. Shayy Wolff DO Work Phone: [facility] 07-09-2025 19:52-0400 Body height 172.[address] Shayy Wolff DO Work Phone: [facility] 07-09-2025 19:52-0400 Body mass index (BMI) [Ratio] 21.5 kg/m2 Dr. Shayy Wolff DO Work Phone: [facility] 07-09-2025 19:52-0400 Body weight 64.[address] Shayy Wolff DO Work Phone: [facility] 06-28-2025 13:38-0400 Body height 172.[address] Shayy Wolff DO Work Phone: [facility] 06-28-2025 13:38-0400 Body temperature 97.9 [degF] Dr. Shayy Wolff DO Work Phone: [facility] 06-28-2025 13:38-0400 Diastolic blood pressure 104 mm[Hg] Dr. Shayy Wolff DO Work Phone: [facility] 06-28-2025 13:38-0400 Heart rate 59 /min Dr. Shayy Wolff DO Work Phone: [facility] 06-28-2025 13:38-0400 Respiratory rate 18 /min Dr. Shayy Wolff DO Work Phone: [facility] 06-28-2025 13:38-0400 SaO2% (BldA) [Mass fraction] 99 % Dr. Shayy Wolff DO Work Phone: [facility] 06-28-2025 13:38-0400 Systolic blood pressure 159 mm[Hg] Dr. Shayy Wolff DO Work Phone: [facility] 05-18-2025 13:06-0400 Body height 172.[address] Shayy Wolff DO Work Phone: [facility] 05-18-2025 13:06-0400 Body mass index (BMI) [Ratio] 22.8 kg/m2 Dr. Shayy Wolff DO Work Phone: [facility] 05-18-2025 13:06-0400 Body temperature 97 [degF] Dr. Shayy Wolff DO Work Phone: [facility] 05-18-2025 13:06-0400 Body weight 68.[address] Shayy Wolff DO Work Phone: [facility] 05-18-2025 13:06-0400 Diastolic blood pressure 90 mm[Hg] Dr. Shayy Wolff DO Work Phone: [facility] 05-18-2025 13:06-0400 Heart rate 65 /min Dr. Shayy Wolff DO Work Phone: [facility] 05-18-2025 13:06-0400 Respiratory rate 18 /min Dr. Shayy Wolff DO Work Phone: [facility] 05-18-2025 13:06-0400 SaO2% (BldA) [Mass fraction] 97 % Dr. Shayy Wolff DO Work Phone: [facility] 05-18-2025 13:06-0400 Systolic blood pressure 165 mm[Hg] Dr. Shayy Wolff DO Work Phone: [facility] 07-01-2023 09:05-0400 Body height 172.[address] Shayy Wolff Work Phone: [facility] 07-01-2023 09:05-0400 Body mass index (BMI) [Ratio] 24.5 kg/m2 Dr. Shayy Wolff Work Phone: [facility] 07-01-2023 09:05-0400 Body temperature 97.2 [degF] Dr. Shayy Wolff Work Phone: [facility] 07-01-2023 09:05-0400 Body weight 73.[address] Shayy Wolff Work Phone: [facility] 07-01-2023 09:05-0400 Diastolic blood pressure 79 mm[Hg] Dr. Shayy Wolff Work Phone: [facility] 07-01-2023 09:05-0400 Heart rate 62 /min Dr. Shayy Wolff Work Phone: [facility] 07-01-2023 09:05-0400 Respiratory rate 16 /min Dr. Shayy Wolff Work Phone: [facility] 07-01-2023 09:05-0400 SaO2% (BldA) [Mass fraction] 96 % Dr. Shayy Wolff Work Phone: [facility] 07-01-2023 09:05-0400 Systolic blood pressure 155 mm[Hg] Dr. Shayy Wolff Work Phone: [facility] 12-31-2022 09:07-0500 Body height 172.[address] Shayy Wolff Work Phone: [facility] 12-31-2022 09:04-0500 Body mass index (BMI) [Ratio] 25.1 kg/m2 Dr. Shayy Wolff Work Phone: [facility] 12-31-2022 09:04-0500 Body temperature 97.3 [degF] Dr. Shayy Wolff Work Phone: [facility] 12-31-2022 09:04-0500 Body weight 74.[address] Shayy Wolff Work Phone: [facility] 12-31-2022 09:04-0500 Diastolic blood pressure 83 mm[Hg] Dr. Shayy Wolff Work Phone: [facility] 12-31-2022 09:04-0500 Heart rate 75 /min Dr. Shayy Wolff Work Phone: [facility] 12-31-2022 09:04-0500 Respiratory rate 18 /min Dr. Shayy Wolff Work Phone: [facility] 12-31-2022 09:04-0500 SaO2% (BldA) [Mass fraction] 96 % Dr. Shayy Wolff Work Phone: [facility] 12-31-2022 09:04-0500 Systolic blood pressure 150 mm[Hg] Dr. Shayy Wolff Work Phone: [facility] 09-22-2022 09:56-0400 Body temperature 97.88 [degF] Shayy Wolff Other Phone: [facility] 09-22-2022 09:56-0400 Diastolic blood pressure 67 mm[Hg] Shayy Wolff Other Phone: [facility] 09-22-2022 09:56-0400 Heart rate 72 /min Shayy Wolff Other Phone: [facility] 09-22-2022 09:56-0400 Respiratory rate 22 /min Shayy Wolff Other Phone: [facility] 09-22-2022 09:56-0400 SaO2% (BldA) [Mass fraction] 93 % Shayy Wolff Other Phone: [facility] 09-22-2022 09:56-0400 Systolic blood pressure 114 mm[Hg] Shayy Wolff Other Phone: [facility] 08-21-2022 11:42-0400 Body height 172.[address] Shayy Wolff Work Phone: [facility] Work Phone: 08-21-2022 11:38-0400 Body mass index (BMI) [Ratio] 23.1 kg/m2 Dr. Shayy Wolff Work Phone: [facility] Work Phone: 08-21-2022 11:38-0400 Body temperature 97.5 [degF] Dr. Shayy Wolff Work Phone: [facility] Work Phone: 08-21-2022 11:38-0400 Body weight 69.[address] Shayy Wolff Work Phone: [facility] Work Phone: 08-21-2022 11:38-0400 Diastolic blood pressure 70 mm[Hg] Dr. Shayy Wolff Work Phone: [facility] Work Phone: 08-21-2022 11:38-0400 Heart rate 57 /min Dr. Shayy Wolff Work Phone: [facility] Work Phone: 08-21-2022 11:38-0400 Respiratory rate 16 /min Dr. Shayy Wolff Work Phone: [facility] Work Phone: 08-21-2022 11:38-0400 SaO2% (BldA) [Mass fraction] 99 % Dr. Shayy Wloff Work Phone: [facility] Work Phone: 08-21-2022 11:38-0400 Systolic blood pressure 140 mm[Hg] Dr. Shayy Wolff Work Phone: [facility] Work Phone: 08-09-2022 13:28-0400 Body height 172.[address] Shayy Wolff Work Phone: [facility] Work Phone: 08-07-2022 15:13-0400 Body mass index (BMI) [Ratio] 23.6 kg/m2 Dr. Shayy Wolff Work Phone: [facility] Work Phone: 08-07-2022 15:13-0400 Body temperature 97.2 [degF] Dr. Shayy Wolff Work Phone: [facility] Work Phone: 08-07-2022 15:13-0400 Body weight 70.[address] Shayy Wolff Work Phone: [facility] Work Phone: 08-07-2022 15:13-0400 Diastolic blood pressure 86 mm[Hg] Dr. Shayy Wolff Work Phone: [facility] Work Phone: 08-07-2022 15:13-0400 Heart rate 66 /min Dr. Shayy Wolff Work Phone: [facility] Work Phone: 08-07-2022 15:13-0400 Respiratory rate 16 /min Dr. Shayy Wolff Work Phone: [facility] Work Phone: 08-07-2022 15:13-0400 SaO2% (BldA) [Mass fraction] 97 % Dr. Shayy Wolff Work Phone: [facility] Work Phone: 08-07-2022 15:13-0400 Systolic blood pressure 144 mm[Hg] Dr. Shayy Wolff Work Phone: [facility] Work Phone: 06-26-2022 09:00-0400 Body mass index (BMI) [Ratio] 23.7 kg/m2 Dr. Shayy Wolff Work Phone: [facility] Work Phone: 06-26-2022 09:00-0400 Body temperature 98.2 [degF] Dr. Shayy Wolff Work Phone: [facility] Work Phone: 06-26-2022 09:00-0400 Body weight 70.[address] Shayy Wolff Work Phone: [facility] Work Phone: 06-26-2022 09:00-0400 Diastolic blood pressure 76 mm[Hg] Dr. Shayy Wolff Work Phone: [facility] Work Phone: 06-26-2022 09:00-0400 Heart rate 61 /min Dr. Shayy Wolff Work Phone: [facility] Work Phone: 06-26-2022 09:00-0400 Respiratory rate 16 /min Dr. Shayy Wolff Work Phone: [facility] Work Phone: 06-26-2022 09:00-0400 SaO2% (BldA) [Mass fraction] 99 % Dr. Shayy Wolff Work Phone: [facility] Work Phone: 06-26-2022 09:00-0400 Systolic blood pressure 141 mm[Hg] Dr. Shayy Wolff Work Phone: [facility] Work Phone: Encounters Encounter Date Encounter Type Care Provider Facility Start: 07-09-2025 End: 07-09-2025 Emergency department patient visit Dr. Shayy Wolff DO Work Phone: -Emergency Department Work Phone: Start: 07-05-2025 Encounter for genera l adult medical examination without abnormal findings Ed Physician Provider [facility] Start: 07-01-2025 End: 07-01-[address] Shayy Wolff DO Work Phone: -Laboratory [place] [facility] Start: 07-01-2025 End: 07-01-[address] [facility] Wol[facility] [place] [facility] Start: 07-01-2025 End: 07-01-2025 ambulatory Shayy Wolff Facility:[facility] Start: 06-28-2025 End: 06-28-2025 Emergency department patient visit Dr. Shayy Wolff DO Work Phone: -Emergency Department Work Phone: Start: 05-18-2025 End: 05-18-[address] Xavier Johnson DO -[facility] Emergency Department Work Phone: Start: 05-18-2025 End: 05-18-[address] Shayy Wolff DO Work Phone: [facility] Work Phone: Start: 03-25-2025 End: 03-25-[address] Shayy Wolff DO -Cat Scan [facility] Work Phone: Start: 03-25-2025 End: 03-25-2025 ambulatory Shayy Wolff Facility:[facility] Start: 11-11-2024 End: 11-11-2024 ambulatory Shayy Wolff Facility:[facility] Start: 08-14-2024 End: 08-14-2024 ambulatory Shayy Wolff Facility:[facility] Start: 07-28-2024 End: 07-28-2024 ambulatory Xavier Johnson Facility:[facility] Start: 11-27-2023 End: 11-28-2023 ambulatory SHAYY WOLFF Facility:[facility] Start: 08-30-2023 End: 08-30-[address] Shayy Wolff Work Phone: [facility] Work Phone: Start: 08-30-2023 End: 08-30-[address] [facility] Start: 07-01-[address] Shayy Wolff Work Phone: [facility] Start: 07-01-2023 End: 07-01-[address] Shayy Wolff Work Phone: [facility] Work Phone: Start: 04-08-2023 End: 04-08-[address] Shayy Wolff Work Phone: [facility] Work Phone: Start: 04-08-2023 End: 04-08-[address] [facility] Start: 12-31-[address] [facility] Start: 12-31-2022 End: 12-31-[address] Shayy Wolff Work Phone: [facility] Start: 09-29-2022 End: 09-29-[address] Shayy Wolff Work Phone: [facility] Work Phone: Start: 09-29-2022 End: 09-29-[address] [facility] Start: 09-20-2022 End: 09-22-2022 Evaluation and management of inpatient DO THOMAS JAMIL GIBSON Facility:[id number] Start: 09-19-2022 End: 09-22-2022 Evaluation and management of inpatient Primo Navarro [facility] Med Surg ICU 336 [id number] Start: 09-10-2022 End: 09-10-[address] Shayy Wolff Work Phone: [facility] Work Phone: Start: 09-10-2022 End: 09-10-[address] Shayy Wolff Work Phone: [facility], [place] [facility] Start: 08-21-2022 End: 08-21-[address] Shayy Wolff Work Phone: [facility] Start: 08-08-2022 End: 08-08-[address] Shayy Wolff Work Phone: [facility] Start: 08-07-2022 End: 08-07-[address] Shayy Wolff Work Phone: [facility] Work Phone: Start: 08-07-2022 End: 08-07-[address] Shayy Wolff Work Phone: [facility]-Radiology, [facility] Start: 08-07-2022 End: 08-07-[address] Shayy Wolff Work Phone: [facility] Start: 06-26-2022 End: 06-26-[address] Shayy Wolff Work Phone: [facility] Start: 06-12-2022 End: 06-12-[address] Shayy Wolff Work Phone: [facility] Start: 12-29-[address] Shayy Wolff Work Phone: [facility] Procedures Date Procedure Procedure Detail Performing Clinician Start: 07-09-2025 Urnls dip stick/tabl et reagent auto microscopy Dr. Shayy Wolff DO Work Phone: Start: 07-09-2025 Plain chest X-ray Dr. Brandi Wolff DO Work Phone: Start: 07-09-[address] Shayy Wolff DO Work Phone: Start: 07-01-[address] Shayy Wolff DO Work Phone: Start: 03-25-2025 CT of head without contrast Dr. Shayy Wolff DO Work Phone: Start: 09-19-2022 End: 09-19-2022 EKG impression Chela Bonilla Start: 08-07-2022 Pelvis X-ray Dr. Shayy fletcher Work Phone: Start: 01-09-2022 MRI of pelvis with contrast Dr. Shayy Wolff Work Phone: Plan of Treatment Date Care Activity Detail Author Start: 07-09-[address] [facility] Start: 07-09-[address] [facility] Start: 07-09-[address] [facility] Start: 07-01-2023 Patient referral [facility] Work Phone: Start: 09-22-2022 End: 09-23-2023 Enoxaparin SubCutaneous 30 mg Every 12 Hours ; (LOVENOX)DOSE = 30 mg SubCutaneous Every 24 Hours Start: 22-Sep-2022 End: 22-Sep-2023 Ordered: 22-Sep-2022 Cortez Gibson Intent [facility] Start: 09-22-2022 Compression Device, Sequential Compression Device, Sequential Start: [id number] Request [facility] Start: 09-22-2022 DVT Risk Assessment Complete DVT Risk Assessment Complete Start: :49 Request [facility] Start: 09-20-2022 End: 09-21-2023 [facility] Patient Education ED Hypertensio n Established [facility] Work Phone: Patient referral [facility] Work Phone: Prostate specific antigen measurement [facility] Immunizations Immunization Date Immunization Notes Care Provider Fa cility 09-22-2022 pneumococcal polysaccharide vaccine, 23 valent Shayy Wolff Other Phone: [facility] Payers Date Payer Category Payer Self-pay [id number] 2021 Private Health Insurance [id number] 2002 Medicare [id number] 2002 Unknown 1935 Unknown [id number] 2.16.8 [id number] Unknown [id number] 2.16.8 [id number] Unknown [id number] 2.16.8 [id number] Unknown [id number] 2.16.8 [id number] Unknown [id number] 2.16.8 [id number] Unknown [id number] 2.16.8 [id number] Unknown [id number] 2.16.8 [id number] Unknown [id number] 2.16.8 [id number] Unknown [id number] 2.16.8 [id number] Unknown [id number] 2.16.8 [id number] Social History Date Type Detail Facility Start: 12-27-2021 End: 07-08-2023 Tobacco smoking status NHIS Unknown if ever smoked [facility] Start: 1935 Sex Assigned At Male W [facility] Start: 07-08-2023 End: 07-09-2025 Tobacco smoking status NHIS Never smoked tobacco (finding) [facility] Medical Equipment Procedure Code Equipment Code Equipment Origin al Text Equipment Identifier Dates MARKERS, FIDUCIAL GOLD FDA St art: 01-03-2022 Radiotherapy protection spacer [id number] FDA Start: 01-03-2022 MARKERS, FIDUCIAL GOLD FDA [...] Status Date Assessment Result Facility Functional observable [facility] Mental Status Date Assessment Result Facility 07-09-2025 Cognitive function Level Of Cons ciousness Awake;Alert;Appropriate;Follow s Commands [facility] Work Phone: 09-22-2022 Cognitive functi ons [id number] [facility] Clinical Notes 09-20-2022 to 07-09-2025 Note Date & Type Note Facility 07-09-2025 Discharge summary [facility] 07-09-2025 Radiology Diagnostic study note [facility] Imaging Services [address] [place] [address] Chest 1 View (Portable) MR#: [id number] Acct: [id number] Name: GRANT ISLAS V Rep #: [id number] : 1935 M 89 From: Ciara Ovalles MD PCP: Dr. Shayy Wolff, DO Status: REG ER Study:Chest 1 View (Portable) Date of Exam: 07/09/25 Exam# [id number] Ordering Dr: Lindy Santamaria PROCEDURE: CHEST 1 VIEW (PORTABLE) 07/09/2025 REASON FOR EXAM: WEAKNESS TECHNIQUE: Frontal view of the chest. COMPARISON: No FINDINGS: Normal heart size. Tortuous and calcified aorta. Well inflated lungs. No consolidation, effusion, or pneumothorax. RAD/Chest 1 View (Portable) IMPRESSION: No acute chest findings Reading Location: [place] [address] CC: Dr. Shayy Wolff DO; CLAUDIO Sanabria ~ Physician Gynecologist: Signed [facility] 07-09-2025 Discharge summary Note Date/Time July 09, 2025 11:28pm [facility] Medical Records Department [address] [place] [address] Emergency Department Summary 07/09/25 MR#: [id number] Acct: [id number] Name: GRANT ISLAS V Rep #:[id number] : 1935 89 From: Michael ortiz DO PCP: Dr. Shayy Wolff DO Status:REG ER Location: ED HPI <CLAUDIO Sanabria - Last Filed: 07/09/25 21:48> History of Present Illness Chief Complaint: Hypertension Narrative Narrative: 89-year-old male with PMH of HTN, HLD, prostate cancer, dementia was brought in by his son because family was concerned his blood pressures are running high. They have been in the systolic 170s. He is on amlodipine benazepril. Last night he felt weak and this afternoon while lying in bed around 1 PM he developed pounding pain that lasted a couple hours and has resolved prior to arrival. He denies shortness of breath. He has had nausea and dry heaving but no abdominal pain. He denies diarrhea or black or bloody stools. No urinary symptoms. He lives at home with his and his son states he has been declining over the last year and not eating and drinking as much. He is on sertraline for depression and saw his doctor 2 days ago and was started on Wellbutrin for depression. PFSH <CLAUDIO Sanabria - Last Filed: 07/09/25 21:48> [facility] Medical History Wears hearing aid Wears glasses [...] / Time No Known Allergies Allergy Verified 07/09/25 19:55 Family History Brother Cancer PROSTATE Mother Diabetes Surgical History Hx of colonoscopy History of hand surgery Hx of tonsillectomy Hx of eye surgery Social History adopted: No household members: spouse current occupational exposures/hazards: No Smoking Status: Never smoker second hand exposure: No alcohol intake: never substance use type: does not use ROS <CLAUDIO Sanabria - Last Filed: 07/09/25 21:48> ROS ED ROS Narrative Constitutional: Negative for fever, chills. CVS: Positive for chest pain. No syncope. Respiratory: Negative for shortness of breath, cough. GI: Positive for nausea and dry heaving. No abdominal pain, diarrhea. : Negative for dysuria. EXAM <CLAUDIO Sanabria - Last Filed: 07/09/25 21:48> Physical Exam Narrative Exam Narrative: CONST: Patient sitting in no acute distress. EYES: Normal inspection. NECK: Normal inspection. RESP: No respiratory distress, CTAB. CVS: Regular rate and rhythm, no murmur, no gallop. ABD: Soft and nontender, no guarding or rebound, nondistended. SKIN: Color normal, no rash, warm, dry, intact. EXTREMITIES: Normal appearance, no pedal edema. NEURO: Alert and answering questions appropriately. Hard of hearing. Follows commands, moving all extremities. PSYCH: Normal affect. Const Vital Signs: 07/09/25 19:52 07/09/25 20:25 07/09/25 20:32 Temperature 97.6 F L Temperature Source Temporal Pulse Rate 64 59 L Respiratory Rate 18 22 H Respiratory Effort Normal Non-Labored Respiratory Pattern Normal Blood Pressure 177/95 H 151/116 H Blood Pressure Mean 122 127 Pulse Ox 100 100 Oxygen Delivery Method Room Air Room Air 07/09/25 20:42 07/09/25 21:00 07/09/25 21:01 Temperature Temperature Source Pulse Rate 62 Respiratory Rate 20 H Respiratory Effort Respiratory Pattern Blood Pressure 172/107 H 134/89 H Blood Pressure Mean 128 101 Pulse Ox 98 Oxygen Delivery Method 07/09/25 21:15 07/09/25 23:00 Temperature Temperature Source Pulse Rate 62 69 Respiratory Rate 21 H 18 Respiratory Effort Respiratory Pattern Blood Pressure 136/78 H 126/76 H Blood Pressure Mean 97 92 Pulse Ox 92 100 Oxygen Delivery Method Room Air <Dr. Michael Mejia, DO - Last Filed: 07/09/25 23:28> Physical Exam Const Vital Signs: 07/09/25 19:52 07/09/25 20:25 07/09/25 20:32 Temperature 97.6 F L Temperature Source Temporal Pulse Rate 64 59 L Respiratory Rate 18 22 H Respiratory Effort Normal Non-Labored Respiratory Pattern Normal Blood Pressure 177/95 H 151/116 H Blood Pressure Mean 122 127 Pulse Ox 100 100 Oxygen Delivery Method Room Air Room Air 07/09/25 20:42 07/09/25 21:00 07/09/25 21:01 Temperature Temperature Source Pulse Rate 62 Respiratory Rate 20 H Respiratory Effort Respiratory Pattern Blood Pressure 172/107 H 134/89 H Blood Pressure Mean 128 101 Pulse Ox 98 Oxygen Delivery Method 07/09/25 21:15 07/09/25 23:00 Temperature Temperature Source Pulse Rate 62 69 Respiratory Rate 21 H 18 Respiratory Effort Respiratory Pattern Blood Pressure 136/78 H 126/76 H Blood Pressure Mean 97 92 Pulse Ox 92 100 Oxygen Delivery Method Room Air MDM <CLAUDIO Sanabria - Last Filed: 07/09/25 21:48> [facility] Narrative Medical decision making narrative: History gathered from: Patient and his son 82-year-old male brought in for several concerns including recently elevated high blood pressure, intermittent headache, nausea, and complaint of chest pain earlier today at rest that has not resolved. He is awake and alert in no distress. BP is 177/95 the rest of his vitals are normal. He is hard of hearing but has no focal neurological deficits. Normal cardiopulmonary exam. Abdomen soft and nontender. He was given IV Zofran and hydralazine 10 mg and BPimproved to 136/78. Labs will be checked to rule out endorgan damage. CBC is unremarkable. BMP shows normal electrolytes and baseline renal function at 27/1.50. Troponin is 29 with delta pending. EKG nonischemic. Chest x-ray shows no acute findings. If repeat troponin is negative plan will be for discharge with outpatient follow-up. History & Record Review Discussion w/independent historian: Patient and Family Additional record(s) reviewed:: Prior ED visit and Prior labs Lab Data Attestation: I reviewed the patient's lab results. Labs: Laboratory Results - last 24 hr 07/09/25 07/09/25 07/09/25 20:27 21:30 22:30 WBC 9.6 RBC 4.19 L Hgb 13.1 Hct 38.8 L MCV 92.6 MCH 31.3 MCHC 33.8 RDW Std Deviation 44.8 H RDW Coeff of Cherrie 13.2 Plt Count TNP MPV TNP Immature Gran % (Auto) 0.500 Neut % (Auto) 71.0 H Lymph % (Auto) 21.2 [place] % (Auto) 6.7 Eos % (Auto) 0.3 Baso % (Auto) 0.3 Absolute Neuts (auto) 6.8 Absolute Lymphs (auto) 2.04 Nucleated RBC % 0 Platelet Estimate SLT INC [place] Cells 1+ Sodium 138 Potassium 4.4 Chloride 100 Carbon Dioxide 22.4 Anion Gap 15 BUN 27 H Creatinine 1.50 H Estim Creat Clear Calc 30.90 L Est GFR (MDRD) Non-Af 45 L BUN/Creatinine Ratio 17.9 Glucose 116 H Calcium 9.7 Troponin T High Sens 29 H Troponin T Hi Sens 2 Hr 28 H Urine Color Yellow Urine Clarity Clear Urine pH 6.5 Ur Specific [place] 1.015 Urine Protein 30 H Urine Glucose (UA) Normal Urine Ketones 5 H Urine Occult Blood Negative Urine Nitrite Negative Urine Bilirubin Negative Urine Urobilinogen Normal Ur Leukocyte Esterase Negative Urine RBC 0-5 SEEN Urine WBC 0-5 SEEN Ur Squamous Epith Cells 0-5 SEEN Urine Bacteria 0 SEEN Urine Mucus 0 SEEN Radiography Diagnostic Testing: Clinical Impression(s) from Imaging Studies Chest X-Ray 07/09/25 20:50 IMPRESSION: No acute chest findings Reading Location: [place] [address] ED attending interpretation of 1 view chest x-ray shows normal heart size, no acute infiltrate. EKG Initial EKG: Attestation: I personally reviewed and interpreted this EKG as follows: Interpretation: No Acute Injury Pattern and Sinus Bradycardia Comments: Sinus bradycardia 58 bpm Normal intervals, no acute ischemic changes <Dr. Michael Mejia, DO - Last Filed: 07/09/25 23:28> [facility] MDM Narrative Medical decision making narrative: History gathered from: Patient and his son 82-year-old male brought in for several concerns including recently elevated high blood pressure, intermittent headache, nausea, and complaint of chest pain earlier today at rest that has not resolved. He is awake and alert in no distress. BP is 177/95 the rest of his vitals are normal. He is hard of hearing but has no focal neurological deficits. Normal cardiopulmonary exam. Abdomen soft and nontender. He was given IV Zofran and hydralazine 10 mg and BPimproved to 136/78. Labs will be checked to rule out endorgan damage. CBC is unremarkable. BMP shows normal electrolytes and baseline renal function at 27/1.50. Troponin is 29 with delta pending. EKG nonischemic. Chest x-ray shows no acute findings. If repeat troponin is negative plan will be for discharge with outpatient follow-up. Supervisory Physician Note Patient was seen and examined with the Advanced Practice Provider. Nursing notesand vital signs have been reviewed. Pertinent old records have been reviewed. I agree with the essential elements of the SUSAN's history, physical exam, assessment, and plan. The differential diagnosis and management options were discussed with the SUSAN. I participated in determining and agree with the management, procedures, final impression and disposition as documented. See changes noted by me. Please see addendum or separate note for any additional details. 89-year-old male with past medical history of HTN, HLD, prostate cancer, dementia presents for evaluation of HTN. Patient presents with his son. Patient's SBP has been in the 170s. Has been taking his medication. Patient states he developed weakness last night and around 1 PM developed some chest pain that resolved. Denies fever, chills, URI symptoms, cough, shortness of breath, abdominal pain, dysuria, diarrhea, constipation. Endorses some nausea. Was recently started on Wellbutrin. Son states that the patient has been progressively declining. Gen: A&, NAD Head: Normocephalic, atraumatic Eyes: No sclera icterus, conjunctiva clear, PERRL, EOMI ENT: Moist mucous membranes Neck: Trachea midline, No JVD CV: RRR, no murmurs, no peripheral edema Resp: Lungs CTA BL, no w/r/c GI: Abd soft, non-distended, non-tender, no r/r/g Musc: Full ROM, no deformity Skin: Warm, dry Neuro: Alert, oriented, grossly intact, sensation intact Psych: Cooperative, appropriate mood and affect Differential diagnosis includes but is not limited to hypertension urgency, medication side effect, viral illness, electrolyte abnormality, dehydration, anemia suspect less likely ACS. On arrival, patient in no acute distress. Nontoxic-appearing. Vitals unremarkable except for hypertension 177/95. Hydralazine and Zofran ordered. EKG was sinus bradycardia 58. No acute ischemic changes. Chest x-ray without pneumonia, effusion, cardiomegaly, pneumothorax. I personally reviewed and interpreted the chest x-ray and EKG. CBC without leukocytosis or anemia. BMP shows baseline CKD. UA negative for UTI. Troponin 29 and 28. Patient not having chest pain. States his episode was earlier this morning at 1 PM. Low suspicion for ACS. At this point in time, no clear etiology for patient's symptoms. May be secondary to the new Wellbutrin as well as worsening hypertension. On reevaluation, patient's hypertension has improved. Patient and son updated of all the results and the plan for discharge home. Follow-up with PCP. Return precautions explained. They confirmed understanding plan. Patient stable discharged home. Impression: 1. HTN with history of HTN 2. Chest pain, resolved 3. Generalized weakness Lab Data Labs: Laboratory Results - last 24 hr 07/09/25 07/09/25 07/09/25 20:27 21:30 22:30 WBC 9.6 RBC 4.19 L Hgb 13.1 Hct 38.8 L MCV 92.6 MCH 31.3 MCHC 33.8 RDW Std Deviation 44.8 H RDW Coeff of Cherrie 13.2 Plt Count TNP MPV TNP Immature Gran % (Auto) 0.500 Neut % (Auto) 71.0 H Lymph % (Auto) 21.2 [place] % (Auto) 6.7 Eos % (Auto) 0.3 Baso % (Auto) 0.3 Absolute Neuts (auto) 6.8 Absolute Lymphs (auto) 2.04 Nucleated RBC % 0 Platelet Estimate SLT INC [place] Cells 1+ Sodium 138 Potassium 4.4 Chloride 100 Carbon Dioxide 22.4 Anion Gap 15 BUN 27 H Creatinine 1.50 H Estim Creat Clear Calc 30.90 L Est GFR (MDRD) Non-Af 45 L BUN/Creatinine Ratio 17.9 Glucose 116 H Calcium 9.7 Troponin T High Sens 29 H Troponin T Hi Sens 2 Hr 28 H Urine Color Yellow Urine Clarity Clear Urine pH 6.5 Ur Specific [place] 1.015 Urine Protein 30 H Urine Glucose (UA) Normal Urine Ketones 5 H Urine Occult Blood Negative Urine Nitrite Negative Urine Bilirubin Negative Urine Urobilinogen Normal Ur Leukocyte Esterase Negative Urine RBC 0-5 SEEN Urine WBC 0-5 SEEN Ur Squamous Epith Cells 0-5 SEEN Urine Bacteria 0 SEEN Urine Mucus 0 SEEN Radiography Diagnostic Testing: Clinical Impression(s) from Imaging Studies Chest X-Ray 07/09/25 20:50 IMPRESSION: No acute chest findings Reading Location: [place] [address] Discharge Plan Triage Chief Complaint: Hypertension ED Midlevel Provider: Lindy Velasco ED Provider: Michael Mejia Dx/Rx/DC Orders Clinical Impression: Chronic hypertension, Chest pain Instructions: ED Hypertension, Established Prescriptions: No Action cholecalciferol (vitamin D3) 50 mcg (2,000 unit) capsule 50 mcg PO DAILY donepezil 5 mg tablet 5 mg PO DAILY sertraline 100 mg tablet 100 mg PO DAILY aspirin 81 mg Tablet,Delayed Release (Dr/Ec) 81 mg PO DAILY amlodipine-benazepril 5-10 mg Capsule 1 cap PO DAILY multivitamin Capsule 1 cap PO DAILY lovastatin 20 mg Tablet Extended Release 24 Hr 20 mg PO QHS calcium carbonate-vitamin D3 [Calcium 500 With D] 500 mg-10 mcg (400 unit) Tablet 1 tab PO TID Primary Care Provider: Shayy Wolff Referrals: Shayy Wolff DO [Primary Care Provider] - 3-5 Days Activity Restrictions/Additional Instructions: Monitor blood pressure at home. Return back to ED as symptoms change or work worsen. Follow-up with your primary care physician. Print Language: [place] Disposition Disposition: Home, Self Care What to do if you have Problems For any increased pain, shortness of breath, bleeding, nausea or vomiting, chestpain, or any unexpected problems, contact your Primary Care Provider. Call [facility] ([phone]) or report to the closest Emergency Room. Call 911 if necessary. 07/09/252327 <Electronically signed by Michael Mejia DO> Cosigner Signature (if applicable): 07/09/252147 <Electronically signed by Lindy SNYDER> CC: Dr. Shayy Wolff DO ~ Signed [facility] Work Phone: 1(733) 365-963806-17-2025 Evaluation note* Diagnosis Onset Date Resolution Status Admit Date Rectal pain noneactive May 18 12:50pm [facility] Work Phone: 1(495) 864-905206-17-2025 [facility] [address] [place] [address] OFFICE VISIT Date of Service: 05/18/25 1302 MR#: [id number] Acct: [id number] Name: GRANT ISLAS V Rep #: [id number] : 1935 From: Xavier green DO Age/Sex: 89/M Location: [facility] Status: Signed Intake Vital Signs 07/28/24 11:04 [...] 1/2 cores at the left prostate base, Meally score 4+3 adenocarcinoma involving 1/1 core of the left prostate mid, and Meally score 3+4 adenocarcinoma involving 25% of 1/1 [...] at any time. Xavier Johnson DO, MS [employer], Department of Radiation Oncology [facility] Coding Level of Care Code Off vis,est,level 3 Diagnoses Rectal pain K62.89 05/18/25 1338 DO> Date _ Xavier Johnson DO Cosignangela Signature: Date (if applicable) CC: ~ [facility]06-17-2025 Progress note Author Xavier Elizabeth [facility] Note Date/Time May 18, 2025 1:38 pm [facility] [address] [place] [address] OFFICE VISIT Date of Service: 05/18/25 1302 MR#: [id number] Acct: [id number] Name: GRANT ISLAS V Rep #: [id number] : 1935 From: Xavier green DO Age/Sex: 89/M Location: [facility] Status: Signed Intake Vital Signs 07/28/24 11:04 [...] at any time. Xavier Johnson DO, MS [employer], Department of Radiation Oncology [facility] Coding Level of Care Code Off vis,est,level 3 Diagnoses Rectal pain K62.89 05/18/25 1338 <Electronically signed by Xavier Johnson DO> Date _ Xavier Johnson DO Cosigner Signature: Date (if applicable) CC: ~ [facility] Work Phone: 1(899) 216-907610-22-2022 NoteSend Summary: Discharge Summary Providers: Provider RoleProvider Name Cortez Freedman [facility]ad B [facility] Discharge: Summary: Admission Date: .19-Sep-2022 18:03:00 Discharge Date: 22-Sep-2022 Attending Physician at Discharge: Primo Navarro Admission Reason: Weakness(1) Final Discharge Diagnoses: Pneumonia, COVID-19 viremia Procedures: none Condition at Discharge: Satisfactory Disposition at Discharge: .Home Vital Signs: T PRBPMAPSpO2 Value36.08326015/707379% Date/Time09/22 7: 7: 7: 7: 7: 7:56 Range(35.9C - 36.6C ) (69 - 84 ) (16 - 23 ) (95 - 126 )/ (50 - 69 ) (61 - 80 ) (92% - 94% ) Date: Weight/Scale Type:Height: 20-Sep-2022 00:4667.7 kg / elg464.1 cm Physical Exam: Eyes: PERRL, EOMI, clear [...] levoFLOXacin 750 mg oral (more content not included)...[facility] 09-20-2022 NoteClinical Note - Pharmacy v2: Education: Additional NotesED Post Discharge Result Follow Up: Complete: COVID-19 PCR: Positive Patient was admitted to [facility] for inpatient treatment. Inpatient team is aware of patient's COVID status. No further follow up needed. If there are any other questions for the ED Post-Discharge Culture Follow Up Team, please contact [phone]. . Joshua Gleason PharmD, [facility] PGY-1 Cash Application Representative Meds Electronic Signatures: Noelle Hernández (PharmD) (Signed 21-Sep-2022 08:38) Co-Signer: Joshua Monsivais (PHARM STUD) (Signed 20-Sep-2022 09:41) Authored: Education Last Updated: 21-Sep-2022 08:38 by Noelle Hernández (PharmCarlos)[facility]10-20-2022 NoteHistory of Present Illness: Admission Reason: Weakness [...] with his He is to work at [employer] No tobacco, alcohol or drug abuse history [...] Changes, Anxiety Objective: Objective Information: T PRBPMAPSpO2 Value36.96261633/7793% Date/Time09/19 18: 0: 0: 0: 0:11 Range(36.7C [...] no wheezes Cardiovascular: Distant (more content not included)...[facility] Evaluation note* Diagnosis Onset Date Resolution Status [id number] acute [id number] acute [facility] Work Phone: Evaluation note* Diagnosis Onset Date Resolution Status [id number] acute [id number] acute Rectal pain noneactive [facility] Work Phone: Evaluation note* Constitutional: Somnolent but [...] XII appear intactPsychological: Pleasant but flat affect [facility] Diagnosis Onset Date Resolution Status Rectal pain noneactive [facility] Work Phone: Evaluation note* Diagnosis Onset Date Resolution Status Admit Date Rectal pain noneactive May 18 12:50pm [facility] Work Phone: Hospital Discharge instructions* Activity:activity as tolerated. May shower. * Additional Orders:Additional Instructions: Please observe quarantine till September 29Repeat BMP on September 24 prescription providedLisinopril stopped due to low blood pressure and elevated creatinine * Follow Up Appointment 1:Physician/Dept/Service: Shayy Lord for Referral: Hospital Follow-upCall to Schedule in: 2 weeksLocation: [address] [place], [place] [address]Zgksu Number: [phone]: Please call and schedule a follow-up appointment within 2 weeks of your Hospital Discharge [facility] Discharge instructionsAdditional Instructions Monitor blood pressure at home. Return back to ED as symptoms change or work worsen. Follow-up with your primary care physician.[facility] Work Phone: Reason for referral (narrative)* Reason for Referral: impaired mobility [facility] for referral (narrative)No reason for referral information availableM[facility] Work Phone: Chief Complaint and Reason for Visit Chief Complaint E ORDER followup prostate prostate pain, bowel issues, body aches PELVIC PAIN review xray - rectal pain Reason for Visit [id number] Chief Complaint E ORDER followup prostate prostate pain, bowel issues, body aches PELVIC PAIN review xray - rectal pain Rectal pain Reason for Visit [id number] Rectal pain Chief Complaint 6 month f/u [...] gen ill June 28, 2025 1:37 pm Chief Complaint Admit Date HEADACHES, DIZZINESS, UNDERLYING DEMENTI A March 25, 2025 1:42pm 10 MONTH F/U PROSTATE May 18, 2025 12 :50pm gen ill June 28, 2025 1:37 pm HEAD ACHE HIGH BP July 09, 2025 7:5 1pm Family History No Family History Records Found Relationship Condition Age at Onset Recorded Date/T thiago brother Malignant neoplasm Unknown mother Diabetes mellitus Unknown Advance Directives No Advanced Directives Records Found Advance Directive Response Recorded Date/ Time Living Will Yes December 27 10:01am Power of [employer] Machinist Yes December 27, 2021 10:01am Advance Directive Response Recorded Date/ Time Living Will Yes December 27 9:01am Power of [employer]inist Yes December 27, 2021 9:01am Advance Directive Response Recorded Date/ Time Living Will Yes December 27 10:01am Do you have a Healthcare Power of [employer] Machinist? Yes December 27, 2021 10:01am Advance Directive Response Recorded Date/ Time Living Will Yes December 27 10:01am Do you have a Healthcare Power of [employer] Machinist? Yes December 27, 2021 10:01am Do you have a Healthcare Power of [employer] Machinist? Yes July 09, 2025 8:25pm Name of Medical Power of Swiss Machinist Rakan Islas July 09, 2025 8:25pm Summary Purpose Additional Source Comments Goals (unrecognized [...] section and content) DATE CREATED AUTHOR 03/14/2023 [facility] DATE CREATED AUTHOR AUTHOR'S ORGANIZ ATION 11/29/2023 [facility] DATE CREATED AUTHOR AUTHOR'S ORGANIZ ATION 07/15/2025 [facility] Care Teams (unrecognized sec tion and content) Team Status: Active Member Role Status Dates Dr. Shayy Wolff , DO Family Provider Active Dr. Shayy Wolff , DO Primary Care Provider Active Team Status: Inactive Member Role Status Dates Dr. Shayy Wolff DO Primary Care Provider, Referrin g Provider Active Dr. Xavier Johnson , DO Attending Provider Active Team Status: Active Member Role Status Dates Dr. Shayy Wolff DO Primary Care Provider Active Dr. Xavier Johnson , DO Attending Provider Active Dr. Emil Isabel MD Referring Provider Active Team Status: Inactive Member Role Status Dates Dr. Shayy Wolff , DO Primary Care Prov ider, Attending Provider, Referring Provider Active Team Status: Inactive Member Role Status Dates Dr. Shayy Wolff DO Primary Care Provider Active Dr. Xavier Johnson , DO Attending Provider, Referring P papo Active Team Status: Active Member Role Status Dates Dr. Shayy Wolff , DO Primary Care [...] End: July 01, 2025 Dr. Shayy Wolff , Attending Provider Active Start: July 01, 2025 End: July 01, 2025 Team Status: Inactive Member Role/Relationship Status Dates Dr. Shayy Wolff DO Primary Care Provider Active Start: July 09, 2025 End: July 09, 2025 Dr. Michael Mejia DO Emergency Provider Activ e Start: July 09, 2025 End: July 09, 2025 FOR RECORDS PERTAINING TO PATIENTS WHO [...] BE BASED ON THE PRIMARY CLINICAL RECORDS. [email or web address] [facility]. provides no warranty or guarantee of the accuracy or completeness of information in this document.
--- NOTE | 2025-09-17 22:30 | EX.ED.DYSGE1 ---
HPI History of Present Illness Chief Complaint: General Illness Informant: patient and family Narrative Narrative: Patient is an 89-year-old male with past medical history of dementia as well as hyperlipidemia and hypertension. Family states that he has been living at home with his who is his recruiting assistant however his has also come down with dementia and is now being placed in a geriatric psychiatric facility. Because of this they feel that both will eventually need placed in respite care. Family states that when they contacted respite care they informed him that they need the patient to see a physician and be medically cleared in order to be placed. Secondary to this he was brought to the ER for evaluation. Family reports patient is at his baseline. Patient denies any symptoms at this time such as headache fevers chills fatigue cough abdominal pain nausea or vomiting. PFSH PFSH Medical History Wears hearing aid Wears glasses Depression Cancer Prostate disease High cholesterol Injury of back Back pain Syncope History of diverticulitis Non-smoker History of stress test History of cardiac murmur Hypertension Home Medications ?Medication ?Instructions ?Recorded ?Last Taken ?Type cholecalciferol (vitamin D3) 50 50 mcg PO DAILY 12/08/21 Unknown History mcg (2,000 unit) capsule amlodipine 5 mg-benazepril 10 mg 1 cap PO DAILY 12/27/21 Unknown History capsule aspirin 81 mg tablet,delayed 81 mg PO DAILY 12/27/21 12/21/21 History release calcium 500 mg (as 1 tab PO TID 12/27/21 Unknown History carbonate)-vitamin D3 10 mcg (400 unit) tablet (Calcium 500 With D) lovastatin 20 mg tablet,extended 20 mg PO QHS 12/27/21 Unknown History release 24 hr multivitamin 1 cap PO DAILY 12/27/21 Unknown History donepezil 5 mg tablet 5 mg PO DAILY 12/31/23 Unknown History sertraline 100 mg tablet 100 mg PO DAILY 12/31/23 Unknown History Allergy/AdvReac Type Severity Reaction Status Date / Time No Known Allergies Allergy Verified 09/17/25 19:28 Family History Brother Cancer PROSTATE Mother Diabetes Surgical History Hx of colonoscopy History of hand surgery Hx of tonsillectomy Hx of eye surgery Social History adopted: No household members: spouse current occupational exposures/hazards: No Smoking Status: Never smoker second hand exposure: No alcohol intake: never substance use type: does not use ROS ROS ED ROS Narrative Please note review of systems may be unreliable as patient has history of dementia Constitutional Constitutional ED: Denies chills or fever(s) Eyes Eyes: Denies change in vision ENT ENT ED: Denies rhinorrhea or sore throat Cardiovascular Cardiovascular: Denies chest pain, palpitations or racing heartbeat Respiratory/Chest Respiratory/Chest: Denies cough or dyspnea Gastrointestinal Gastrointestinal: Denies abdominal pain, diarrhea, nausea or vomiting Genitourinary Genitourinary ED: Denies dysuria Musculoskeletal Musculoskeletal: Denies myalgias Integumentary Denies rash Neurologic Neurologic: Denies headache(s) EXAM Physical Exam Const Vital Signs: 09/17/25 19:28 09/17/25 22:04 09/17/25 22:37 Temperature 98.3 F 98.3 F Temperature Source Temporal Pulse Rate 62 53 L Respiratory Rate 16 16 Respiratory Effort Normal Non-Labored Respiratory Pattern Normal Blood Pressure 161/101 H 151/51 H Blood Pressure Mean 121 84 Pulse Ox 100 100 Oxygen Delivery Method Room Air Positive well nourished and well developed General Appearance ED: well developed; Negative for pallor HEENT Reports moist mucous membranes HEENT Narrative: Normocephalic atraumatic No tongue or lip swelling no oral lesions no airway edema or compromise; no secondary findings in the posterior pharynx to suggest infection Eyes PERRL and EOMs intact bilaterally General Eye ED: Negative for scleral icterus Neck supple Neck Narrative: No nuchal rigidity or meningeal signs noted Resp normal respiratory effort and clear to auscultation bilaterally Resp Narrative: Breath sounds are diminished throughout but overall clear to auscultation without signs of respiratory distress Cardio regular rate and regular rhythm Rate: other Other Details: Radial and carotid pulses are equal and symmetric No carotid bruit noted GI normal to inspection, nondistended, normoactive bowel sounds, non-tender, non-distended and no masses GI Narrative: No voluntary guarding or rigidity or pulsatile mass No peritoneal signs or fluid wave noted Auscultation: normoactive bowel sounds Palpation: soft Extremity normal to inspection Extremity Narrative: No asymmetric edema no pitting edema negative Homans' sign bilaterally No signs of long bone injury such as bony deformity or joint effusion Neuro CN's II-XII intact bilaterally and no sensory deficits noted Neuro Narrative: GCS of 14 Cranial nerves II through XII are grossly intact without focal neurologic deficit Patient is at his baseline mental status; he is awake and alert to person and place but disoriented to time Sensorium / Orientation: alert Psych Psych Narrative: Patient is at baseline mental status Skin no rashes or lesions noted General Skin Exam: Negative for jaundice or pallor MDM MDM MDM Narrative Medical decision making narrative: Patient arrived to ER mildly hypertensive but has no history of this. He has no complaints at this time and his physical exam reveals no acute findings. Therefore I have low concern that the patient has a viral syndrome such as COVID influenza or RSV as he does not have a fever congestion or cough. Lungs are clear he is not hypoxic I have low concern for pneumonia. He has no sign of injury such as bony deformity or joint effusion. He is at baseline mental status without neurologic changes and therefore I have low concern for acute CVA or TIA. Without fever or dysuria or abdominal pain I have low concern for UTI. His pressure improved simply at rest and concern for hypertensive emergency is low and I do not feel the need for imaging or laboratory study. Therefore at this time as patient has stable vitals. He is at his baseline mental status without focal deficits and physical exam reveals no acute changes do not feel there is need for further workup and he is otherwise medically cleared and can be placed in respite care. History & Record Review Discussion w/independent historian: Patient and Family Discharge Plan Triage Chief Complaint: General Illness ED Provider: Erasmo Bell Dx/Rx/DC Orders Clinical Impression: Hypertension, Dementia, Hyperlipidemia Instructions: Dementia Daily Care, ED Hypertension, Established Prescriptions: No Action cholecalciferol (vitamin D3) 50 mcg (2,000 unit) capsule 50 mcg PO DAILY donepezil 5 mg tablet 5 mg PO DAILY sertraline 100 mg tablet 100 mg PO DAILY aspirin 81 mg Tablet,Delayed Release (Dr/Ec) 81 mg PO DAILY amlodipine-benazepril 5-10 mg Capsule 1 cap PO DAILY multivitamin Capsule 1 cap PO DAILY lovastatin 20 mg Tablet Extended Release 24 Hr 20 mg PO QHS calcium carbonate-vitamin D3 [Calcium 500 With D] 500 mg-10 mcg (400 unit) Tablet 1 tab PO TID Primary Care Provider: Johnny Wolff Referrals: Johnny Wolff DO [Primary Care Provider, Family Practice] Activity Restrictions/Additional Instructions: The patient has chronic medical problems such as high blood pressure high cholesterol and dementia. However these chronic conditions are managed by his daily medication. His physical exam reveals no concerning findings and therefore he is medically cleared for placement in respite care Print Language: Trinid[place] Disposition Disposition: Home, Self Care
[2025-09-17 22:37] VITALS: BP 151/51; PULSE 53; RESP 16; TEMP 36.8; O2SAT 100
== END 2025-09-17 22:40 | disposition home or self-care (01) ==
PROVIDERS: Emergency Provider Emergency Medicine; PCP Family Medicine; Visit Provider Emergency Medicine
DX: I10 Essential (primary) hypertension (principal); F03.90 Unspecified dementia, unspecified severity, without behavioral disturbance, psychotic disturbance, mood disturbance, and anxiety; E78.5 Hyperlipidemia, unspecified
CPT/HCPCS: 99282